=== PATIENT | female | born 1970 | race Caucasian/White ===

== ENCOUNTER 2018-06-10 07:05 | Observation (INO) | payer OTHER ==
[~2018-06-10] VITALS: Ht 175.3 cm; Wt 112.5 kg
--- NOTE | ~2018-06-10 | OR ---
[facility] [address], [place] [address] Draft DATE OF OPERATION: 06/10/2018 SURGEON: Saw Berumen DO PREOPERATIVE DIAGNOSIS: Stress urinary incontinence. POSTOPERATIVE DIAGNOSIS: Stress urinary incontinence. PROCEDURES PERFORMED: 1. Mid-urethral sling with Gynecare TVT Exact. 2. Cystoscopy. PULPER TENDER: Zaire Araiza MD. ANESTHESIA: General. ESTIMATED BLOOD LOSS: 75 mL. SPECIMENS: None. DRAINS: Warner to the bladder. FINDINGS: Normal urethra, normal bladder with bilateral ureteral jets and intact bladder dome noted. Optimal placement of the trocar noted on cystoscopy. Normal external genitalia otherwise. COMPLICATIONS: None. INDICATIONS: Ms. Carroll is a pleasant 48-year-old white female, who is undergoing total laparoscopic hysterectomy for abnormal uterine bleeding and dysmenorrhea. She also complains of PATIENT NAME: JUAN JOSE CARROLL OPERATIVE REPORT DATE OF : 72 REPORT #: [id number] PHYSICIAN: SAW BERUMEN DO PCP: TILA BAILON MD REPORT IS CONFIDENTIAL AND NOT TO BE RELEASED WITHOUT AUTHORIZATION [facility] [address], [place] [address] Draft stress urinary incontinence with no significant component of urgency, incontinence. She requested a mid-urethral sling after a detailed discussion of risks, benefits, and alternatives. Risks and benefits were discussed with the patient and the patient wishes to proceed with the procedure. DESCRIPTION OF PROCEDURE: The patient underwent total laparoscopic hysterectomy. Please see Dr. Araiza's operative note for details. The patient was prepped and draped in the dorsal lithotomy position. [facility] ICPs were on and running and no heparin was indicated. The patient did receive Ancef 2 g per skip protocol. After completion of the hysterectomy, attention was turned to the mid-urethral sling. A Warner catheter had been previously inserted. Exit points were marked just above the pubic symphysis, approximately 1.5 cm from the midline on either side. An 18-Hebrew Warner catheter was in place. Sterile saline was used to hydrodissect in the retropubic space, approximately 20 mL on either side. The bladder neck was palpated by pulling on the Warner catheter and palpating the balloon. An Allis clamp was placed approximately 1 cm distal to the urethral meatus and a 1.5 cm incision was made approximately 1 cm cephalad from the urethral meatus after infiltration with 0.25% Marcaine with epinephrine. The vaginal epithelium was carefully dissected using Metzenbaum scissors in between the vaginal epithelium and the urethra. Dissection was performed bluntly towards the ipsilateral shoulder to the level of the endopelvic fascia. The process was repeated on the right side without difficulty. The Gynecare TVT re-usable rigid catheter guide was then inserted through the Warner catheter into the bladder. The bladder was then deviated away from the patient's right side and cephalad. The Gynecare TVT Exact System was loaded and the tip of the catheter was inserted into the incision and advanced in the previously dissected space to the level of the endopelvic fascia. The endopelvic fascia was pierced. The surgeon's hand was dropped and the tip of the trocar was passed just along the posterior edge of the pubic symphysis and exited the skin at the previously marked site. The skin was nicked with a surgical scalpel and the trocar tip was passed through the skin. It was then clamped with hemostats and the process was repeated on the right side with careful attention to deviate the bladder away. Once the trocars were placed, the Warner catheter was removed and cystoscopy was performed. Cystoscope was placed in the urethral meatus and advanced under direct visualization in the bladder. Normal urethra was noted. Bilateral ureteral jets were then observed and intact bladder dome was noted. The trocars were manipulated and the optimal placement was noted bilaterally. The bladder was drained and the Warner catheter was reinserted. The sling was then positioned by pulling the trocars through the skin and careful attention was made to ensure that no tension was applied. The trocar sheaths were then cut and removed using hemostats and final tensioning was performed by placing a 90-degree angled clamp between the sling and the mid-urethra. Once it was ensured that there was no tension on the urethra, the mesh was cut at the skin edge. The dissection sites on either side were then made hemostatic with FloSeal and the vaginal epithelium PATIENT NAME: JUAN JOSE CARROLL OPERATIVE REPORT DATE OF : 72 REPORT #: [id number] PHYSICIAN: SAW BERUMEN DO PCP: TILA BAILON MD REPORT IS CONFIDENTIAL AND NOT TO BE RELEASED WITHOUT AUTHORIZATION [facility] [address], [place] [address] Draft repaired using 2-0 Vicryl in a running nonlocked manner. Good hemostasis was appreciated. The exit sites for the trocar at the skin were then repaired using 4-0 Monocryl. The Warner was left in place and the patient was taken to PACU in good and stable condition. Estimated blood loss was approximately 75 mL. Saw Berumen DO JDW/MODL /[id number] Copies: ~ PATIENT NAME: JUAN JOSE CARROLL OPERATIVE REPORT DATE OF : 72 REPORT #: [id number] PHYSICIAN: SAW BERUMEN DO PCP: TILA BAILON MD REPORT IS CONFIDENTIAL AND NOT TO BE RELEASED WITHOUT AUTHORIZATION
[~2018-06-10 07:05] MED LIST: BUPROPION HCL100 M1 PO; DEPLIN-ALGAL O1 EAC1 PO; DEXTROAMP-AMPHE20 MG PO; GLYCOTROL CAPS1 EACH PO; IBUPROFEN800 MG PO; L-ARGININE500 MG PO; LEVOTHYROXINE150 MCG PO; LIOTHYRONINE SO5 MCG PO; LOSARTAN POTASS50 MG PO; MIRALAX17 GM PO; NEURONTIN100 MG PO; NORCO 5-325 TA1 EACH PO; PANTOPRAZOLE SO40 MG PO; RESVERATROL 101 EACH PO; VITAMIN B122500 MC1 PO
--- NOTE | 2018-06-10 11:46 | NUR ---
06/10/18 1146 Vinita Lee 1135 PATIENT SLEEPING, AWAKENS WITH VERBAL STIMULI, THEN BACK TO SLEEP. SNORING RESPIRATIONS, IMPROVES WITH STIMULATION. MASK AT 6 LITERS, SATS 100%. 1140 PATIENT AWAKE OFF/ON, STATES SHE FEELS VERY TIRED. RESP EVEN AND UNLABORED, MASK OFF, ROOM AIR SATS 100%. PATIENT RATES PAIN AT 6/10, SLOW TO RESPOND TO QUESTIONS. THEN C/O NAUSEA. THEN BACK TO SLEEP.
--- NOTE | 2018-06-10 13:23 | NUR ---
PT RESTS COMFORTABLY WITH EYES CLOSED IN BED. ALERT AND ORIENTED. EASILY WAKES TO THIS RN. CRAIG DRAINING CLEAR YELLOW URINE. CALF SCDS IN PLACE AND TURNED ON. PERICARE COMPLETED. INCISIONS WNL. LR INFUSES ORDERED. AT THE BEDSIDE FOR SUPPORT. PT WITHOUT NEEDS AT THIS TIME. CALL LIGHT WITHIN REACH
--- NOTE | 2018-06-10 13:30 | NUR ---
THIS RN ASSUMES CARE OF PT. REPORT RECEIVED FROM ZAHRA AHN. PT AWAKENS TO SOUND. ASSESSMENT COMPLETE AND BENIGN. VSS. AAO X 3. 20 GAUGE IV L WRIST INTACT AND BENIGN. INFUSES LR AT 125 ML/HR PER ORDERS. LUNGS CLR X 4, HRR, BT ACTIVE X 4, ABD BANDAIDS AT SCOPE SITE CDI X 3. SCD'S IN PLACE AND FUNCTIONING. PT DENIES PAIN OR NAUSEA AT THIS TIME. ICE CHIPS PROVIDED. PT DESIRES TO REST. REMAINS AT PT BEDSIDE.
--- NOTE | 2018-06-10 14:30 | NUR ---
PT AWAKENS TO SOUND. VSS. RESTS COMFORTABLY WITH AT BEDSIDE. DENIES NEEDS.
--- NOTE | 2018-06-10 15:30 | NUR ---
AWAKENS TO SOUND. VSS. RESTS COMFORTABLY. DENIES NEEDS.
--- NOTE | 2018-06-10 16:30 | NUR ---
VSS. PT DANGLES AT SIDE OF BED WITH RN AT SIDE. UMBILICAL SCOPE SITE NOTED TO BE DRAINING BRIGHT RED BLOOD WITH 2 GOLF BAL SIZED SPOTS OF BRIGHT RED BLOOD ON GOWN. SITE REINFORCED WITH 2x2 GAUZE. GOWN AND PERIPAD CHANGED. PT C/O NAUSEA WHILE SITIING UP. DESIRES TO LAY SUPINE. PT BACK TO BED.
--- NOTE | 2018-06-10 16:45 | NUR ---
REPORT TO DR. LOPEZ BY TC. ORDERS RECEIVED TO APPLY PRESSURE DRESSING TO UMBILICAL SCOPE SITE. PRESSURE DRESSING APPLIED TO UMBILICAL SCOPE SITE PER DR. LOPEZ'S ORDERS.
--- NOTE | 2018-06-10 17:18 | NUR ---
3 MG MORPHINE GIVEN SIVP BY ZAHRA AHN FOR PT C/O ABD PAIN 11/10. IV SITE REMAINS INTACT AND BENIGN.
--- NOTE | 2018-06-10 18:00 | NUR ---
EATS BLAND REG DIET MEAL. TOLERATES WELL. DENIES NAUSEA. RATES LOP DECREASED /. DENIES NEEDS AT THIS TIME.
[2018-06-10] MEDS ORDERED: LOSARTAN POTAS100 MG PO (18:16)
[2018-06-10] MEDS ORDERED: PROAIR HFA8.5 GM INH (18:19)
[2018-06-10] MEDS ORDERED: DEXTROAMPHETAMI10 M1 PO (19:04)
[2018-06-10] MEDS ORDERED: LEVOTHYROXINE200 MCG PO (19:07)
[2018-06-10] MEDS ORDERED: VITAMIN B COMP1 EACH PO (19:08)
--- NOTE | 2018-06-10 19:09 | NUR ---
MED REC COMPLETE
--- NOTE | 2018-06-10 22:42 | NUR ---
PT C/O 5/10 INCISIONAL PAIN
--- NOTE | 2018-06-10 22:44 | NUR ---
IV INTACT NO SIGNS OF INFILTRATION
--- NOTE | 2018-06-11 00:46 | NUR ---
pt awake to nurse at bedside for vitals. I&O's done. Pt wakes and talks casually with nurse. Cranberry juice given at pt request. Pt to get more rest.
--- NOTE | 2018-06-11 02:16 | NUR ---
0200- scheduled 800mg ibuprophen administered. Pt up out of bed and ambulates around the room some. States she is tired og laying on her side and in the bed. Pt tolerates being up well.
--- NOTE | 2018-06-11 04:28 | NUR ---
0410- pt awake to IV alarming, New bag LR hung. Pt mostly sleepy, denies needs or c/o at this time.
--- NOTE | 2018-06-11 07:00 | NUR ---
0645- pt sleeps sound on her belly. Resp. normal. Left pt undisturbed. Report off to day shift.
--- NOTE | 2018-06-11 08:20 | NUR ---
MORNING ASSESSMENT. REG BREAKFAST ORDERED. POC DISCUSSED FOR DAY AND PT AGREEABLE.
--- NOTE | 2018-06-11 08:55 | OR ---
[facility] [address] [place], [place] [address] Signed DATE OF OPERATION: 06/10/2018 SURGEON: Zaire Araiza MD PREOPERATIVE DIAGNOSES: Excessive irregular menstruation, dysmenorrhea and stress urinary incontinence. POSTOPERATIVE DIAGNOSES: Excessive irregular menstruation, dysmenorrhea and stress urinary incontinence. PROCEDURE PERFORMED: Total laparoscopic hysterectomy with right salpingectomy plus TVT sling urethropexy and cystoscopy by Dr. Berumen. LEATHER SPLITTER: Dr. Berumen. ANESTHESIA: General. ESTIMATED BLOOD LOSS: 75 mL. SPECIMENS: Uterus, right fallopian tube. DRAINS: Warner to bladder. FINDINGS: Cervix normal. Uterus is normal size and shape. The anterior cul-de-sac was free of any endometriosis or adhesions. Posterior cul-de-sac was free of any endometriosis or adhesions. The left tube and ovary were absent. There were no adhesions on the left pelvic sidewall. The right tube was normal in length and normal-appearing fimbriated end and no adhesions. Right ovary is normal size and shape without any evidence of endometriosis or adhesions. Pelvis was free of any masses or adhesions. There was some urethral hypermobility noted vaginally and slight cystocele. COMPLICATIONS: None. Electronically Signed By: ZAIRE ARAIZA MD 06/11/18 0855 PATIENT NAME: JUAN JOSE CARROLL OPERATIVE REPORT DATE OF : 72 REPORT #: [id number] PHYSICIAN: ZAIRE ARAIZA MD PCP: TILA BAILON MD REPORT IS CONFIDENTIAL AND NOT TO BE RELEASED WITHOUT AUTHORIZATION [facility] [address], [place] [address] Signed DESCRIPTION: The patient was brought into the operating room and placed in the supine position. After adequate general anesthesia was obtained, she was placed in the dorsal lithotomy position, prepped and draped in usual sterile fashion. A Warner catheter was placed in the bladder. A weighted speculum was placed in the vagina and the anterior lip of the cervix was grasped with an Emilee clamp. The cervix was serially diated and then the JNJ Mobile-Care Uterine manipulator was inserted into the uterus. The balloon was filled with sterile water and then the cervical cap slid up against the cervix after removing the Emilee clamp and speculum. The vaginal cup was then placed against the cervical cap and tightened in place. Attention was then drawn to the abdomen. A small infraumbilical skin incision was made after injecting the area with 0.25% plain Marcaine. Subcutaneous tissue was dissected with Metzenbaum scissors and the fascia identified, grasped with hemostats, elevated, nicked with Metzenbaum scissors and extended in transverse fashion using Metzenbaum scissors. Retention stitches were placed in the fascia and then the peritoneum opened with finger dissection. S retractor was inserted into the incision and spun in 360-degree fashion showing no adhesions. The Emma cannula and sleeve were then entered the abdomen under direct visualization. The sleeve balloon was filled and the upper portion slid down against the abdomen to hold the sleeve in place. Trocar was removed and the laparoscope with video attachment entered the abdomen under direct visualization. Carbon dioxide was used as a distending medium. On the left side approximately 8-10 cm lateral to midline and just below the level of the umbilicus, the abdomen was transilluminated to avoid any vessels. Then after injecting the area with 0.25% Marcaine, a small skin incision was made and a bladed 5 mm trocar and sleeve entered the abdomen under direct visualization. The balloon at the end of the sleeve was filled and the trocar removed. Blunt grasper inserted. On the right side again, 8-10 cm lateral to the midline, the abdominal wall was transilluminated to avoid any vessels. The area injected with 0.25% Marcaine. Then, a small skin incision made with a scalpel. A Veress needle with expandable mesh was placed into the abdomen under direct visualization. The Veress needle was removed, and the expandable trocar and sleeve entered the abdomen through the sleeve and stretched open the fascia. The trocar was then removed. The above findings were noted. The LigaSure [place] bipolar cautery forceps were then brought in the operating field. The right fallopian tube was cauterized and cut along the length of the tube and then at the proximal portion, cut across the tube and the tube removed through the right port. The round ligament on the right side was then cauterized several places and cut using Isamar ligature and Electronically Signed By: ZAIRE ARAIZA MD 06/11/18 0855 PATIENT NAME: JUAN JOSE CARROLL OPERATIVE REPORT DATE OF : 72 REPORT #: [id number] PHYSICIAN: ZAIRE ARAIZA MD PCP: TILA BAILON MD REPORT IS CONFIDENTIAL AND NOT TO BE RELEASED WITHOUT AUTHORIZATION [address] [address] Signed utero-ovarian ligament cauterized in several places and also cut. The upper broad ligament was then cauterized and cut, and the anterior and posterior leaves of the broad ligament separately cauterized and cut down the side staying near the uterus and extending to the midline at the level of the cervical cap. The uterine vessels were then exposed. These were cauterized in several places and cut inside the cervical cap. The paracervical tissue was cauterized and cut down to the vaginal wall on the right side. The left round ligament was then cauterized and cut in several places using the LigaSure and the upper broad ligament cauterized and cut, and again the anterior and posterior leaves of the broad ligament cauterized and cut down the side of the uterus and connecting with the previous dissection. The anterior peritoneum was then bluntly pushed back to help elevate the bladder and the vessels exposed on the left side were cauterized and cut. The paracervical tissue was cauterized and cut inside the cervical cap down to the vaginal wall. At this point, the Sonicision was brought in the operating field and posterior cul-de-sac opened in the groove of the cervical cap and then dissection carried through the vaginal wall posterior to anterior to the midline on the left side in the groove and then posterior to anterior midline on the right side in the groove. This the cervix from the vaginal wall, so a blunt grasper was used to hold the cervix in the opening. Attention was then drawn back to the vagina. The VCare uterine manipulator was removed and the cervix seen in the vagina. This was then grasped with an Allis clamp and the cervix and uterus removed. A sponge-filled glove was placed in the vagina, so that the abdomen could be re-insufflated. With the abdomen re-insufflated, the pelvis was irrigated, suctioned, examined and noted to have good hemostasis. The vaginal cuff was then closed using barbed suture and the endo-stitch. Each stitch was placed posterior to anterior and each stitch was individually placed through the posterior vaginal wall and then the anterior vaginal wall. After the first stitch through the posterior vaginal wall, the barbed suture was placed through the loop in the end of the suture and tightened in place. The stitching was then continued from the right uterosacral ligament incorporating the angle to the left uterosacral ligament. With each pass, the suture was tightened to lock barbed suture in place. Upon reaching the left angle, the suture was taken back to the midline and several more superficial stitches and then the barbed suture cut right against the anterior vaginal wall. The entire pelvis was irrigated, suctioned and carefully examined and noted to have good hemostasis. The gas was allowed to escape. Pressure lowered and again good hemostasis was noted. At this point, all the gas was allowed to escape. All sleeves removed. The infraumbilical incision fascia was closed using two [id number] stitches of 0 Vicryl suture. The four skin incisions closed using subcuticular stitches of 4-0 Vicryl. The glove was removed from the vagina. Dr. Berumen then proceeded with the TVT sling. Please see his dictation for details. Electronically Signed By: ZAIRE ARAIZA MD 06/11/18 0855 PATIENT NAME: JUAN JOSE CARROLL OPERATIVE REPORT DATE OF : 72 REPORT #: [id number] PHYSICIAN: ZAIRE ARAIZA MD PCP: TILA BAILON MD REPORT IS CONFIDENTIAL AND NOT TO BE RELEASED WITHOUT AUTHORIZATION [address] [address] Signed The patient tolerated the procedure well and went to recovery room in good condition. The sponge, needle, and instrument counts were correct at the end of the procedure. Uterus and fallopian tube were sent to Pathology for identification. MD ROGELIO Hamilton/MODL /[id number] Copies: ~ Electronically Signed By: ZAIRE ARAIZA MD 06/11/18 0855 PATIENT NAME: JUAN JOSE CARROLL OPERATIVE REPORT DATE OF : 72 REPORT #: [id number] PHYSICIAN: ZAIRE ARAIZA MD PCP: TILA BAILON MD REPORT IS CONFIDENTIAL AND NOT TO BE RELEASED WITHOUT AUTHORIZATION
--- NOTE | 2018-06-11 09:30 | NUR ---
KIARA DC, TIP INTACT. DISCUSSED BLADDER TRAINING, PT STATES UNDERSTANDING. UP IN ROOM, RAFAELA WELL. REG BREAKFAST FINISHED, RAFAELA WELL AND TRAY CLEARED. PT UP TO SHOWER.
--- NOTE | 2018-06-11 10:00 | NUR ---
RAFAELA SHOWER WELL. UP IN ROOM. DENIES NEEDS.
--- NOTE | 2018-06-11 13:10 | NUR ---
BOOGIE DO UPDATED TO PT VOID TRIALS AND BLADDER SCANS WNL. DC ORDER.
== END 2018-06-11 13:35 | disposition home or self-care (01) ==
LOC: DS 07:05 → DSVR 07:05 → MS 07:05 → DSVR 07:05 → MS 09:00 → DS 11:49 → FBC 11:49 → DSVR 12:25 → FBC 12:25
PROVIDERS: Obstetrics & Gynecology; ADMIT General Practice
PROC: 0UT94ZZ Resection of Uterus, Percutaneous Endoscopic Approach (ICD-10-PCS; principal; 2018-06-10 09:00)
PROC: 0UT54ZZ Resection of Right Fallopian Tube, Percutaneous Endoscopic Approach (ICD-10-PCS; 2018-06-10 09:00)
PROC: 0TSD0ZZ Reposition Urethra, Open Approach (ICD-10-PCS; 2018-06-10 09:00)
DX: N92.1 Excessive and frequent menstruation with irregular cycle (principal); N94.6 Dysmenorrhea, unspecified; N72 Inflammatory disease of cervix uteri; N39.3 Stress incontinence (female) (male); E55.9 Vitamin D deficiency, unspecified; K21.9 Gastro-esophageal reflux disease without esophagitis; E03.9 Hypothyroidism, unspecified; I10 Essential (primary) hypertension; Q79.6 Ehlers-Danlos syndromes; F32.9 Major depressive disorder, single episode, unspecified; R60.9 Edema, unspecified; F41.1 Generalized anxiety disorder; J45.20 Mild intermittent asthma, uncomplicated; N88.8 Other specified noninflammatory disorders of cervix uteri; Z88.2 Allergy status to sulfonamides; Z88.8 Allergy status to other drugs, medicaments and biological substances; Z91.041 Radiographic dye allergy status; Z79.899 Other long term (current) drug therapy; Z87.891 Personal history of nicotine dependence
CPT/HCPCS: 00840; 96374; C1771; G0378; J0330; J0690; J1170; J1644; J1885; J2250; J2270; J2405; J2550; J2704; J3010; J3475; J7120

== ENCOUNTER 2019-03-27 23:28 | Emergency (ER) | payer OTHER ==
[~2019-03-27] VITALS: Ht 175.3 cm; Wt 112.5 kg
--- OUTSIDE RECORDS SUMMARY | ~2019-03-27 | XMS | Encounter Summary ---
Demographics + + + | Address | [address] | | | [place] [address] | + + + | Home Phone | | + + + | Preferred Language | Unknown | + + + | Marital Status | Single | + + + | Uatsdin Affiliation | 1013 | + + + | Race | Unknown | + + + | Ethnic Group | Unknown | + + + Author + + + | Author | [facility] | | | and Ezequielana | + + + | Organization | [facility] | | | and Ezequielana | + + + | Address | Unknown | + + + | Phone | Unavailable | + + + Support + + +---------+ + | Name | Relationship | Address | Phone | + + +---------+ + | Jose Jenkins | ECON | Unknown | | + + +---------+ + Care Team Providers + +------+ + | Care Director Of Optimization Name | Role | Phone | + +------+ + | Enzo Juarez DO | PCP | | + +------+ + Reason for Referral Evaluate & Treat (Routine) +--------+ + + + + + | Status | Reason | Specialty | Diagnoses / | Referred By | Referred To | | | | | Procedures | Contact | Contact | +--------+ + + + + + | Closed | Specialty | Physical | Diagnoses | Kathe | [facility] | | | Services | Therapy / | Myofascial | Taran | Pt Op [address] | | | Required | Rehabilitatio | muscle pain | MD [place] | [place] | | | | n | | [address] | [place] | | | | | Natalia-Danlo | [place] | [place] [address] | | | | | s syndrome | [place], | Phone: | | | | | type II | [place] [address] | [phone] | | | | | Lymphedema | Phone: | Fax: | | | | | | [phone] | [phone] | | | | | | Fax: | | | | | | | [phone] | | +--------+ + + + + + Insurance Referral (Routine) +--------+--------+ + + + + | Status | Reason | Specialty | Diagnoses / | Referred By | Referred To | | | | | Procedures | Contact | Contact | +--------+--------+ + + + + | Closed | | Orthotics | Diagnoses | Kathe, | Godwin, | | | | | Myofascial | Taran | Daquan Lopez, | | | | | muscle pain | MD [place] | [facility] [address] | | | | | | [address] | | | | | Natalia-Danlo | [place] | [place], | | | | | s syndrome | [place], | [place] [address] | | | | | type II | [place] [address] | Phone: | | | | | | Phone: | [phone] | | | | | | [phone] | Fax: | | | | | | Fax: | [phone] | | | | | | [phone] | | +--------+--------+ + + + + Reason for Visit + + + | Reason | Comments | + + + | Follow-up | F/U | + + + Encounter Details +--------+---------+ + + + | Date | Type | Department | Care Team | Description | +--------+---------+ + + + | 09/27/ | Office | [facility] | Taran Archuleta | Myofascial muscle | | 2015 | Visit | REHABILITATION | MD [address] | pain (Primary Dx); | | | | MEDICINE [address] | [place] | Natalia-Danlos | | | | [address] [place] | [place] [address] | syndrome type II; | | | | [place] [address] | [phone] | Lymphedema | | | | [phone] | | | +--------+---------+ + + + Social History + +-------+ +--------+------+ | Tobacco Use | Types | Packs/Day | Years | Date | | | | | Used | | + +-------+ +--------+------+ | Never Smoker | | | | | + +-------+ +--------+------+ + +---+---+---+ | Smokeless Tobacco: | | | | | Never Used | | | | + +---+---+---+ + + +---------+ + | Alcohol Use | Drinks/Week | oz/Week | Comments | + + +---------+ + | Yes | | | Social Drinker | + + +---------+ + + + + | Sex Assigned at | Date Recorded | | | | + + + | Not on file | | + + + + + + + | Job Start Date | Occupation | Industry | + + + + | Not on file | Not on file | Not on file | + + + + + + + + | Travel History | Travel Start | Travel End | + + + + + + | No recent travel history available. | + + documented as of this encounter Last Filed Vital Signs + + + + + | Vital Sign | Reading | Time Taken | Comments | + + + + + | Blood Pressure | 117/74 | 09/27/2014 2:30 PM | | | | | PDT | | + + + + + | Pulse | 77 | 09/27/2014 2:30 PM | | | | | PDT | | + + + + + | Temperature | - | - | | + + + + + | Respiratory Rate | 16 | 09/27/2014 2:30 PM | | | | | PDT | | + + + + + | Oxygen Saturation | - | - | | + + + + + | Inhaled Oxygen | - | - | | | Concentration | | | | + + + + + | Weight | 100.7 kg (222 lb) | 09/27/2014 2:30 PM | | | | | PDT | | + + + + + | Height | 174 cm (5' 8.5") | 09/27/2014 2:30 PM | | | | | PDT | | + + + + + | Body Mass Index | 33.26 | 09/27/2014 2:30 PM | | | | | PDT | | + + + + + documented in this encounter Patient Instructions Patient Instructions Taran Archuleta MD - 09/27/2014 3:22 PM PDT1. Continue PT, they will help obtain the neck traction unit and train you in its use. 2. I'll see you in 4 weeks.Electronically signed by Taran Archuleta MD at 015 3:22 PM PDT documented in this encounter Progress Notes Taran Archuleta MD - 09/27/2014 4:49 PM PDTI spent over 25 minutes, face to face with the patient, over half in education, counseling, reviewing the multiple notes since last visit The EMG, nerve conduction study from Dr. Olvera September 18, 2014 did not show any sign of p eripheral neuropathy. This was reviewed with the patient. Physical therapy note from September 18, 2014 indicated they're working with her neck and myofasc ial pain with generally good help. The over the door neck traction however worsened her hilary n, but the pneumatic neck traction unit helped significantly and the improvement remained fo r several days. Thus PT is recommending that minute and I wrote a prescription for it. The brain MRI from August 02, 2014 indicated no cranial nerve V abnormality. Dr. Frances's report indicated also that it is probably just due to her lymphedema and he will see her ba ck as needed. Still altered sensation in the face bilaterally, but neck is better with therapies and trac tion. Still some numbness in digits 4 and 5 bilaterally in the hands and in the toes also. Pain goes into the upper thoracic with occasional mid thoracic pain, back pain not severe Shoulders are better and she has a home exercise program that helps. Left hip also better but worse with increased edema Physical exam She is in no distress, her arm edema garments are in place Decreased sensation in digits 4 and 5 on the hands and feet, good strength at 5 minus over 5 in the upper or lower extremities She also has muscle spasm from the occiput down to about T6 Impression Neck myofascial syndrome: Better with pneumatic traction unit, so will prescribe, continue PT Face numbness and tingling: Brain MRI from August 02, 2014 unremarkable. Hand and foot numbness and tingling: Negative for peripheral neuropathy by nerve conduction study and EMG Lymphedema: Chronic and probably underlying most of her altered sensation problems given ot her etiologies have been ruled out. 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 and left hip subluxation: Improving with therapies and again related to her other disorders Plan I ordered the pneumatic cervical traction unit since she failed the over the door 1 Continued physical therapy Follow-up 1 month P M PDTdocumented in this encounter Plan of Treatment + + +--------+ + + | Name | Type | Priori | Associated Diagnoses | Order Schedule | | | | ty | | | + + +--------+ + + | DME (Generic), | Outpatient | Routin | Myofascial muscle | Ordered: 09/27/2014 | | External - AMB | Referral | e | pain Natalia-Danlos | | | Referral | | | syndrome type II | | + + +--------+ + + | * [facility] | Outpatient | Routin | Myofascial muscle | Ordered: 09/27/2014 | | Therapy - AMB | Referral | e | pain Natalia-Danlos | | | Referral | | | syndrome type II | | | | | | Lymphedema | | + + +--------+ + + documented as of this encounter Visit Diagnoses + + | Diagnosis | + + | Myofascial muscle pain - Primary Mylagia and myositis, unspecified | + + | Natalia-Danlos syndrome type II Natalia-Danlos syndrome | + + | Lymphedema Other lymphedema | + + documented in this encounter
--- OUTSIDE RECORDS SUMMARY | ~2019-03-27 | XMS | Encounter Summary ---
Demographics + + + | Address | [address] | | | [place] [address] | + + + | Home Phone | | + + + | Preferred Language | Unknown | + + + | Marital Status | Single | + + + | Advent Affiliation | 1013 | + + + | Race | Unknown | + + + | Ethnic Group | Unknown | + + + Author + + + | Author | [facility] | | | and Ezequielana | + + + | Organization | [facility] | | | and Ezequielana | [...] Team Providers + +------+ + | Care Humidifier Attendant Name | Role | Phone | + +------+ + | Enzo Juarez DO | PCP | | + +------+ + Reason for Referral Service/Procedure (Routine) +--------+ + + + + + | Status | Reason | Specialty | Diagnoses / | Referred By | Referred To | | | | | Procedures | Contact | Contact | +--------+ + + + + + | Closed | Specialty | Gastroenterol | Diagnoses | Allisno | Allison, | | | Services | ogy | Internal | MD Jose | MD Jose | | | Required | | hemorrhoids | [address] | [address] | | | | | without | BLVD | [place] | | | | | mention of | [place] | [place] [address] | | | | | complication | [address] | Phone: | | | | | Hemorrhage | Phone: | [phone] | | | | | of rectum | [phone] | Fax: | | | | | and anus | Fax: | [phone] | | | | | Procedures | [phone] | | | | | | [place] | | | | | | | HEMORRHOIDEC | | | | | | | DIEGO | | | | | | | INTERNAL | | | | | | | RUBBER BAND | | | | | | | LIGATIONS | | | | | | | IA ANOSCOPY | | | | | | | DX W/COLLJ | | | | | | | SPEC BR/WA | | | | | | | SPX WHEN | | | | | | | PRFRMD IA | | | | | | | PROCTOSIGMOI | | | | | | | DOSCOPY,RIGI | | | | | | | D,DIAGNOS | | | | | | | IA OFFICE | | | | | | | OUTPATIENT | | | | | | | VISIT 10 | | | | | | | MINUTES [place] | | | | | | | OFFICE | | | | | | | OUTPATIENT | | | | | | | VISIT 15 | | | | | | | MINUTES | | | +--------+ + + + + + Reason for Visit + + + | Reason | Comments | + + + | Appointment | | + + + Encounter Details +--------+ + + + + | Date | Type | Department | Care Team | Description | +--------+ + + + + | 11/23/ | Telephone | [facility] | Jose Cooper MD | Appointment | | 2014 | | GASTROENTEROLOGY | [address] [facility] | | | | | [address] [facility] | [place], [place] | | | | | [address] [place], [place] | [address] | | | | | [address] | [phone] | | | | | [phone] | | | +--------+ + + + + Social History + +-------+ [...] + + documented as of this encounter Plan of Treatment + + +--------+ + + | Name | Type | Priori | Associated Diagnoses | Order Schedule | | | | ty | | | + + +--------+ + + | * [facility] [place] | Outpatient | Routin | Internal | Expected: | | Gastroenterology - | Referral | e | hemorrhoids without | 11/30/2014, Expires: | | Hemorrhoid Ligation | | | mention of | 11/23/2015 | | | | | complication | | | | | | Hemorrhage of rectum | | | | | | and anus | | + + +--------+ + + documented as of this encounter Visit Diagnoses + + | Diagnosis | + + | Internal hemorrhoids without mention of complication - Primary | + + | Hemorrhage of rectum and anus | + + documented in this encounter"
--- OUTSIDE RECORDS SUMMARY | ~2019-03-27 | XMS | Encounter Summary ---
Demographics + + + | Address | [address] | | | [place] [address] | + + + | Home Phone | | + + + | Preferred Language | Unknown | + + + | Marital Status | Single | + + + | Mu-Ism Affiliation | 1013 | + + + | Race | Unknown | + + + | Ethnic Group | Unknown | + + + Author + + + | Author | [facility] | | | and Ezequielana | + + + | Organization | [facility] | | | and Ezequielana | [...] Team Providers + +------+ + | Care Ventilating Equipment Installer Name | Role | Phone | + +------+ + | Enzo Juarez DO | PCP | | + +------+ + Reason for Visit + + + | Reason | Comments | + + + | Therapy Daily | | | Treatment | | + + + Evaluate & Treat (Routine) +--------+ + + + + + | Status | Reason | Specialty | Diagnoses / | Referred By | Referred To | | | | | Procedures | Contact | Contact | +--------+ + + + + + | Closed | Specialty | Physical | Diagnoses | Kathe, | [facility] | | | Services | Therapy / | Anterior | Taran | Pt Op [address] | | | Required | Rehabilitatio | subluxation | MD [place] | [place] | | | | n | of left | [address] | [place], | | | | | shoulder, | [place] | [place] [address] | | | | | initial | [place], | Phone: | | | | | encounter | [place] [address] | [phone] | | | | | Left hip | Phone: | Fax: | | | | | subluxation, | [phone] | [phone] | | | | | initial | Fax: | | | | | | encounter | [phone] | | | | | | (HCC) | | | | | | | Natalia-Danlo | | | | | | | s syndrome | | | | | | | type III | | | | | | | Myofascial | | | | | | | pain 831.01 | | | | | | | (ICD-9-CM) | | | | | | | - Anterior | | | | | | | subluxation | | | | | | | of left | | | | | | | shoulder, | | | | | | | initial | | | | | | | encounter | | | | | | | Procedures | | | | | | | pt eval | | | +--------+ + + + + + Encounter Details +--------+---------+ + + + | Date | Type | Department | Care Team | Description | +--------+---------+ + + + | 09/11/ | [facility] | [facility] | Taran Archuleta | Hip pain, bilateral | | 2015 | Visit | MED CTR THERAPY PT | MD [address] [address] | (Primary Dx); | | | | OP [address] [place] | [place] | Chronic neck and | | | | [place], [place] | [place] [address] | back pain | | | | [address] | [phone] | | | | | [phone] | | | | | | | Trina Hargrove B, PT | | | | | | [address] | | | | | | [place] | | | | | | [address] | | | | | | | | +--------+---------+ + + + [...] + + documented as of this encounter Progress Notes Trina Garibay, PT - 09/11/2014 2:01 PM PDTFormatting of this note might be different from t rocío original. [facility] CTR THERAPY PT OP [address] [place] [address] Physical Therapy Daily Treatment Note Date: 09/11/2014 Patient Information Patient Name: Zuleyma Jenkins Date of : 1970 Age: 44 y.o. Encounter Diagnoses Code Name Primary? 719.45 Hip pain, bilateral Yes 723.1, 724.5 Chronic neck and back pain Date of Onset: Referring Provider: Taran Archuleta MD Rehab Precautions Office Visit from 10/24/2013 in [facility] CTR THERAPY OT OP Rehab Precautions Precautions Comments Lipedema Start Time: 1400 Stop time: 1445 Duration: 45 minutes Timed Treatment Codes: 45 minutes # of PT Visits to Date: 6 Subjective: pt reports overall her neck pain has not improved but has noticed decreased fat igue and overall feeling better. So might be over doing it and causing her neck to hurt more . Pt also reports intermittent numbness in bilateral thumbs but goes away when she changes p ositions. Pain Assessment Pain Rating Pre Assessment: 4 Pain Rating Post Assessment: 3 Location: neck Objective: Manual Therapy: Suboccipital release and trigger point release Exercise/Activity 07/05/14 07/11/14 08/02/14 08/04/14 TrA activation Throughout all ex. Throughout all ex. Hooklying: iso hip add 2x20 2x20 hooklying alt. Leg lift 2x20 2x20 Supine: shoulder hamilton stab. 2x10 each 2x10 each Supine: shoulder. Iso. Stab. 3x1 min. each Supine:Iso. Scap. 0-30-60 deg 1x10 each 1x10 each Supine: upper c-spine retraction 2x10, 3 sec hold Modalities: Trial of pneumatic cervical traction unit: Adjusted fit of traction unit; pt had initially reported feelings of "icy-hot" in upper tra ps/neck and N/T in thumbs. Found position of comfort to be with mat table elevated approx. 1 5 deg., used folded pillow case under head and set in widest position (5cm); And on/off time for 4 min/2min 8-10#/0#. 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 Plan:Cont with posterior chain strengthening and cervical traction/manual treatment as need ed; CGT with Electronically signed by: Trina Garibay PT, 09/11/2014 16:40 Patient Name: Zuleyma Jenkins/: 1970/ documented in this enc nter Plan of Treatment Not on filedocumented as of this encounter Visit Diagnoses + + | Diagnosis | + + | Hip pain, bilateral - Primary Pain in joint, pelvic region and thigh | + + | Chronic neck and back pain | + + documented in this encounter
--- OUTSIDE RECORDS SUMMARY | ~2019-03-27 | XMS | Encounter Summary ---
Demographics + + + | Address | [address] | | | [place] [address] | + + + | Home Phone | | + + + | Preferred Language | Unknown | + + + | Marital Status | Single | + + + | Lutheran Affiliation | 1013 | + + + | Race | Unknown | + + + | Ethnic Group | Unknown | + + + Author + + + | Author | [facility] | | | and Ezequielana | + + + | Organization | [facility] | | | and Ezequielana | [...] Team Providers + +------+ + | Care Lung Puller Name | Role | Phone | + [...] Rehabilitatio | subluxation | MD [place] | [place] | | | | n | of left | [address] | [place], | | | | | shoulder, | [place] | [place] [address] | | | | | initial | [place], | Phone: | | | | | encounter | [place] [address] | [phone] | | | | | Left hip | Phone: | Fax: | | | | | subluxation, | [phone] | [phone] | | | | | initial | Fax: | | | | | | encounter | [phone] | | | | | | (HCC) [...] + + | 09/27/ | [facility] | [facility] | Taran Archuleta | Hip pain, bilateral | | 2015 | Visit | MED CTR THERAPY PT | [address] | (Primary Dx); | | | | OP [address] [place] | [place] | Chronic neck and | | | | [place], [place] | [place] [address] | back pain | | | | [address] | [phone] | | | | | [phone] | | | | | | | Trina Hargrove B, PT | | | | | | [address] | | | | | | [place] | | | | | | [address] | | | | | | | [...] encounter Progress Notes Trina Garibay, PT - 09/27/2014 11:23 AM PDTFormatting of this note might be different from t rocío original. [facility] CTR THERAPY PT OP [address] [place] [address] Physical Therapy Daily Treatment Note Date: 09/27/2014 Patient Information Patient Name: Zuleyma Jenkins Date of : 1970 Age: 44 y.o. Encounter Diagnoses Code Name Primary? 719.45 Hip pain, bilateral Yes 723.1, 724.5 Chronic neck and back pain Date of Onset: Referring Provider: Taran Archuleta MD Rehab Precautions Office Visit from 10/24/2013 in [facility] CTR THERAPY OT OP Rehab Precautions Precautions Comments Lipedema Start Time: 1115 Stop time: 1200 Duration: 45 minutes Timed Treatment Codes: 45 minutes # of PT Visits to Date: 8 Subjective: pt reports that she is more painful today and has been really busy and was not wearing her garments as much as she usually does and reports that she is generally more pain ful when she doesn't wear her garments. Pain Assessment Pain Scale Used: NUMERIC Pain Rating Pre Assessment: 6 Pain Rating Post Assessment: 0 Location: neck, upper traps Objective: Manual Therapy: Suboccipital release, gentle manual cervical tracion and trigger point rel ease to upper trap. Exercise/Activity 07/05/14 07/11/14 08/02/14 08/04/14 09/27/14 TrA activation Throughout all ex. Throughout all ex. throughout Hooklying: iso hip add 2x20 2x20 2x20 hooklying alt. Leg lift 2x20 2x20 2x20 Supine: shoulder elem stab. 2x10 each 2x10 each Supine: shoulder. Iso. Stab. 3x1 min. each Supine:Iso. Scap. 0-30-60 deg 1x10 each 1x10 each Supine: upper c-spine retraction 2x10, 3 sec hold Small ball release x Assessment: Pt tolerated there ex well and reported decreased pain after manual treatment a nd ex. Plan:Review goals, HEP and DC Electronically signed by: Trina Garibay PT, 09/27/2014 12:35 Patient Name: Zuleyma Jenkins/: 1970/ documented in this encou nter Plan of Treatment Not on filedocumented as of this encounter Visit Diagnoses + + | Diagnosis | + + | Hip pain, bilateral - Primary Pain in joint, pelvic region and thigh | + + | Chronic neck and back pain | + + documented in this encounter"
--- OUTSIDE RECORDS SUMMARY | ~2019-03-27 | XMS | Encounter Summary ---
Demographics + + + | Address | [address] | | | [place] [address] | + + + | Home Phone | | + + + | Preferred Language | Unknown | + + + | Marital Status | Single | + + + | Scientologist Affiliation | 1013 | + + + | Race | Unknown | + + + | Ethnic Group | Unknown | + + + Author + + + | Author | [facility] | | | and Ezequielana | + + + | Organization | [facility] | | | and Ezequielana [...] Team Providers + +------+ + | Care Block Captain Name | Role | Phone | + [...] | +--------+ + + + + | 12/21/ | Telephone | [facility] | Taran Archuleta | Appointment | | 2013 | | REHABILITATION | [address] | | | | | MEDICINE [address] | [place] | | | | | [address] [place] | [place] [address] | | | | | [place] [address] | [phone] | | | | | [phone] | | | +--------+ + + + [...] as of this encounter Plan of Treatment Not on filedocumented as of this encounter Visit Diagnoses Not on filedocumented in this encounter"
--- OUTSIDE RECORDS SUMMARY | ~2019-03-27 | XMS | Encounter Summary ---
Demographics + + + | Address | [address] | | | [place] [address] | + + + | Home Phone | | + + + | Preferred Language | Unknown | + + + | Marital Status | Single | + + + | Shinto Affiliation | 1013 | + + + | Race | Unknown | + + + | Ethnic Group | Unknown | + + + Author + + + | Author | [facility] | | | and Ezequielana | + + + | Organization | [facility] | | | and Ezequielana | [...] Team Providers + +------+ + | Care Ems Educator Name | Role | Phone | + [...] Rehabilitatio | subluxation | MD [place] | [place] | | | | n | of left | [address] | [place], | | | | | shoulder, | [place] | [place] [address] | | | | | initial | [place], | Phone: | | | | | encounter | [place] [address] | [phone] | | | | | Left hip | Phone: | Fax: | | | | | subluxation, | [phone] | [phone] | | | | | initial | Fax: | | | | | | encounter | [phone] | | | | | | (HCC) [...] Description | +--------+---------+ + + + | 10/11/ | [facility] | [facility] | Taran Archuleta | Chronic neck and | | 2014 | Visit | MED CTR THERAPY PT | [address] | back pain (Primary | | | | OP [address] | [place] | Dx); Hip pain, | | | | [place] | [place] [address] | bilateral | | | | [address] | [phone] | | | | | [phone] | | | | | | | Trina Hargrove B, PT | | | | | | [address] | | | | | | [place] | | | | | | [address] | | | | | | | [...] encounter Progress Notes Trina Garibay, PT - 10/11/2014 1:57 PM PDTFormatting of this note might be different from faye alford original. [facility] CTR THERAPY PT OP [address] [place] [address] Physical Therapy Daily Treatment Note Date: 10/11/2014 Patient Information Patient Name: Zuleyma Jenkins Date of : 1970 Age: 44 y.o. Encounter Diagnoses Code Name Primary? 723.1, 724.5 Chronic neck and back pain Yes 719.45 Hip pain, bilateral Date of Onset: Referring Provider: Taran Archuleta MD Rehab Precautions Office Visit from 10/24/2013 in [facility] CTR THERAPY OT OP Rehab Precautions Precautions Comments Lipedema Start Time: 1345 Stop time: 1430 Duration: 45 minutes Timed Treatment Codes: 45 minutes # of PT Visits to Date: 10 Subjective: pt reports that she continues to have good and bad days. Pain Assessment Pain Scale Used: NUMERIC Pain Rating Pre Assessment: 6 Location: neck, upper traps. Objective: Manual Therapy: Suboccipital release and trigger point release to upper-mid traps Modalities: Received [employer] cervical traction unit and order from Dr. Archuleta: initiated p atient training and adjusted fit of traction unit. Instructed pt with on/off time for 4 min./2 min with 8-10#/0# Assessment: Pt tolerated pneumatic supine cervical traction unit well with good symptom red uction and demonstrated safe use and understanding of progression. Plan: pt will schedule appointments as needed. Electronically signed by: Trina Garibay PT, 10/11/2014 15:20 Patient Name: Zuleyma Jenkins/: 1970/ documented in this encou nter Plan of Treatment Not on filedocumented as of this encounter Visit Diagnoses + + | Diagnosis | + + | Chronic neck and back pain - Primary | + + | Hip pain, bilateral Pain in joint, pelvic region and thigh | + + documented in this encounter"
--- OUTSIDE RECORDS SUMMARY | ~2019-03-27 | XMS | Encounter Summary ---
Demographics + + + | Address | [address] | | | [place] [address] | + + + | Home Phone | | + + + | Preferred Language | Unknown | + + + | Marital Status | Single | + + + | Muslim Affiliation | 1013 | + + + | Race | Unknown | + + + | Ethnic Group | Unknown | + + + Author + + + | Author | [facility] | | | and Ezequielana | + + + | Organization | [facility] | | | and Ezequielana [...] Team Providers + +------+ + | Care Installment Loan Collector Name | Role | Phone | + +------+ + | Enzo Juarez DO | PCP | | + +------+ + Reason for Visit + + + | Reason | Comments | + + + | Numbness | bilateral hand numbness | + + + Service/Procedure (Routine) +--------+ + + + + + | Status | Reason | Specialty | Diagnoses / | Referred By | Referred To | | | | | Procedures | Contact | Contact | +--------+ + + + + + | Closed | Specialty | Physical | Diagnoses | | [place], | | | Services | Medicine and | Disturbance | May, | Celestino Salter MD | | | Required | Rehabilitatio | of skin | Celestino Salter MD | [address] | | | | n | sensation | [address] | [address] [place] | | | | | Peripheral | [place] | [place], [place] | | | | | neuropathy | [place], [place] | [address] Phone: | | | | | Procedures | [address] | [phone] | | | | | [place] | Phone: | Fax: | | | | | &/SENS 1-2 | [phone] | [phone] | | | | | NRV CNDJ | Fax: | | | | | | PRECONF | [phone] | | | | | | [place]TRODE [place]B | | | | | | | | | | | | | | EMG/NCS-BUE | | | | | | | hand | | | | | | | numbness | | | | | | | peripheral | | | | | | | neuropathy | | | | | | | referred by | | | | | | | Dr. Archuleta | | | +--------+ + + + + + Encounter Details +--------+ + + + + | Date | Type | Department | Care Team | Description | +--------+ + + + + | 09/11/ | Procedure | [facility] | Celestino Olvera | Paresthesias | | 2015 | visit | PHYSIATRY [address] | [address], [address] | (Primary Dx) | | | | [place], | [place] | | | | | [place] [address] | [address] | | | | | [phone] | | | +--------+ + + + [...] + + + | Blood Pressure | - | - | | + + + + + | Pulse | - | - | | + + + + + | Temperature | - | - | | + + + + + | Respiratory Rate | - | - | | + + + + + | Oxygen Saturation | - | - | | + + + + + | Inhaled Oxygen | - | - | | | Concentration | | | | + + + + + | Weight | 100.7 kg (222 lb) | 09/11/2014 11:14 AM | | | | | PDT | | + + + + + | Height | 174 cm (5' 8.5") | 09/11/2014 11:14 AM | | | | | PDT | | + + + + + | Body Mass Index | 33.26 | 09/11/2014 11:14 AM | | | | | PDT | | + + + + + documented in this encounter Progress Notes Celestino Olvera MD - 09/11/2014 12:28 PM PDT [facility] Mus[facility] Sports [facility] Spine, Physiatry [address] [address] Test Date: 09/11/2014 Patient Name: Zuleyma Jenkins : 1970 Physician: Celestino Olvera MD MR #: [id number] Sex: Female Referring Physician: Nicolas Archuleta MD HISTORY: The patient is a pleasant 44 year-old female who is being seen today at the [facility] of Dr. [place] Archuleta for complaints of bilateral upper extremity and lower extremity nu mbness. Per Dr. Archuleta's note the study today is to evaluate for peripheral neuropathy. I t appears that we are starting with the upper extremities today and we will be seeing her fo r lower extremity studies next week. The patient reports that the numbness has been present since 2010. 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 She states that the numbn ess started around the same time she was diagnosed with the lipedema. She does also report facial numbness. She denies any history of diabetes, cancer, alcohol abuse. She does repor t hypothyroidism. She also reports a history of vitamin D and vitamin B deficiency. Nerve Conduction Studies Anti Sensory Summary Table Site NR Peak (ms) Norm Peak (ms) P-T Amp (V) Norm P-T Amp Site1 Site2 Delta-P (ms) Dist (cm) Peter (m/s) Norm Peter (m/s) Left Radial Anti Sensory (Base 1st Digit) Wrist 2.5 <3.1 51.6 Wrist Base 1st Digit 2.5 10.0 40 Right Radial Anti Sensory (Base 1st Digit) Wrist 2.9 <3.1 45.7 Wrist Base 1st Digit 2.9 10.0 34 Motor Summary Table Site NR Onset (ms) Norm Onset (ms) O-P Amp (mV) Norm O-P Amp Site1 Site2 Delta-0 (ms) Dist (cm) Peter (m/s) Norm Peter (m/s) Left Median Motor (Abd Poll Brev) Wrist 3.8 <4.2 10.2 >5 Elbow Wrist 3.8 20.0 53 >50 Elbow 7.6 8.3 Right Median Motor (Abd Poll Brev) Wrist 3.8 <4.2 8.1 >5 Elbow Wrist 3.9 20.0 51 >50 Elbow 7.7 7.7 Left Ulnar Motor (Abd Dig Minimi) Wrist 3.4 <4.2 13.1 >3 B Elbow Wrist 3.6 20.0 56 >53 B Elbow 7.0 11.8 A Elbow B Elbow 1.9 10.0 53 >53 A Elbow 8.9 11.6 Right Ulnar Motor (Abd Dig Minimi) Wrist 3.8 <4.2 10.5 >3 B Elbow Wrist 3.6 20.0 56 >53 B Elbow 7.4 10.9 A Elbow B Elbow 1.9 10.0 53 >53 A Elbow 9.3 10.8 Comparison Summary Table Site NR Peak (ms) Norm Peak (ms) P-T Amp (V) Site1 Site2 Delta-P (ms) Norm Delta (ms) Left Median/Ulnar Palm Comparison (Wrist - 8cm) Median Palm 2.0 <2.2 148.5 Median Palm Ulnar Palm 0.1 <0.3 Ulnar Palm 2.1 <2.2 23.7 Right Median/Ulnar Palm Comparison (Wrist - 8cm) Median Palm 2.1 <2.2 114.8 Median Palm Ulnar Palm 0.1 <0.3 Ulnar Palm 2.0 <2.2 41.9 EMG Side Muscle Nerve Root Ins Act Fibs Psw Amp Dur Poly Recrt Int Pat Comment Left Deltoid Axillary C5-6 Nml Nml Nml Nml Nml 0 Nml Nml Left Biceps Musculocut C5-6 Nml Nml Nml Nml Nml 0 Nml Nml Left Triceps Radial C6-7-8 Nml Nml Nml Nml Nml 0 Nml Nml Left PronatorTeres Median C6-7 Nml Nml Nml Nml Nml 0 Nml Nml Left 1stDorInt Ulnar C8-T1 Nml Nml Nml Nml Nml 0 Nml Nml Right Deltoid Axillary C5-6 Nml Nml Nml Nml Nml 0 Nml Nml Right Biceps Musculocut C5-6 Nml Nml Nml Nml Nml 0 Nml Nml Right Triceps Radial C6-7-8 Nml Nml Nml Nml Nml 0 Nml Nml Right PronatorTeres Median C6-7 Nml Nml Nml Nml Nml 0 Nml Nml Right 1stDorInt Ulnar C8-T1 Nml Nml Nml Nml Nml 0 Nml Nml Nerve Conduction Studies Motor Left/Right Comparison Site L Lat (ms) R Lat (ms) L-R Lat (ms) L Amp (mV) R Amp (mV) L-R Amp (%) Site1 Site2 L Ve l (m/s) R Peter (m/s) L-R Peter (m/s) Median Motor (Abd Poll Brev) Wrist 3.8 3.8 0.0 10.2 8.1 20.6 Elbow Wrist 53 51 2 Elbow 7.6 7.7 0.1 8.3 7.7 7.2 Ulnar Motor (Abd Dig Minimi) Wrist 3.4 3.8 0.4 13.1 10.5 19.8 B Elbow Wrist 56 56 0 B Elbow 7.0 7.4 0.4 11.8 10.9 7.6 A Elbow B Elbow 53 53 0 A Elbow 8.9 9.3 0.4 11.6 10.8 6.9 Anti Sensory Left/Right Comparison Site L Lat (ms) R Lat (ms) L-R Lat (ms) L Amp (V) R Amp (V) L-R Amp (%) Site1 Site2 L Peter (m/s) R Peter (m/s) L-R Peter (m/s) Radial Anti Sensory (Base 1st Digit) Wrist 2.5 2.9 0.4 51.6 45.7 11.4 Wrist Base 1st Digit 40 34 6 Comparison Left/Right Comparison Site L Lat (ms) R Lat (ms) L-R Lat (ms) L Amp (V) R Amp (V) L-R Amp (%) Median/Ulnar Palm Comparison (Wrist - 8cm) Median Palm 2.0 2.1 0.1 148.5 114.8 22.7 Ulnar Palm 2.1 2.0 0.1 23.7 41.9 43.4 NCV FINDINGS: All nerve conduction studies (as indicated in the preceding tables) were within normal limi ts. EMG FINDINGS: All examined muscles (as indicated in the preceding table) showed no evidence of electrical instability. IMPRESSION: EMG and nerve conduction studies of the bilateral upper extremities were within normal limi ts. Specifically, there was no evidence of median neuropathy, ulnar neuropathy, cervical radicu lopathy, peripheral neuropathy or brachial plexopathy. The patient will be seen for additional evaluation of the lower extremities for further wor k-up at a later date. Thank you for allowing me to perform neurodiagnostic testing on your patient. If you have a ny further questions or comments, please do not hesitate to call. Celestino Olvera MD Fellow, [employer]. documented in this encounter Plan of Treatment Not on filedocumented as of this encounter Visit Diagnoses + + | Diagnosis | + + | Paresthesias - Primary Disturbance of skin sensation | + + documented in this encounter
--- OUTSIDE RECORDS SUMMARY | ~2019-03-27 | XMS | Encounter Summary ---
Demographics + + + | Address | [address] | | | [place] [address] | + + + | Home Phone | | + + + | Preferred Language | Unknown | + + + | Marital Status | Single | + + + | Zoroastrian Affiliation | 1013 | + + + | Race | Unknown | + + + | Ethnic Group | Unknown | + + + Author + + + | Author | [facility] | | | and Ezequielana | + + + | Organization | [facility] | | | and Ezequielana [...] Team Providers + +------+ + | Care Epic Ambulatory Analysts Name | Role | Phone | + +------+ + | Enzo Juarez DO | PCP | | + +------+ + Encounter Details +--------+ + + + + | Date | Type | Department | Care Team | Description | +--------+ + + + + | 09/20/ | Documentati | [facility] | Trina Hargrove, | | | 2014 | on | MED CTR THERAPY PT | PT [address] | | | | | OP [address] | [place] | | | | | [place] | [id number] | | | | | [address] | | | | | | [phone] | | | +--------+ + + + [...] encounter Progress Notes Trina Garibay, PT - 09/20/2014 9:[facility] OP [address] [place] [address] Cancellation/No Show Date: 09/20/2014 Patient Information Patient Name: Zuleyma Jenkins Date of : 1970 Age: 44 y.o. Reason for missed visit: Pt called and left a message to cancel appointment; no reason give n. Phone call placed: no Plan: Cont with POC Electronically signed by: Trina Garibay PT, 09/20/2014 9:04 Patient Name: Zuleyma Jenkins/: 1970/ documented in this encou nter Plan of Treatment Not on filedocumented as of this encounter Visit Diagnoses Not on filedocumented in this encounter"
--- OUTSIDE RECORDS SUMMARY | ~2019-03-27 | XMS | Encounter Summary ---
Demographics + + + | Address | [address] | | | [place] [address] | + + + | Home Phone | | + + + | Preferred Language | Unknown | + + + | Marital Status | Single | + + + | Faith Affiliation | 1013 | + + + | Race | Unknown | + + + | Ethnic Group | Unknown | + + + Author + + + | Author | [facility] | | | and Ezequielana | + + + | Organization | [facility] | | | and [...] Team Providers + +------+ + | Care Short Order Fry Cook Name | Role | Phone | + +------+ + | Enzo Juarez DO | PCP | | + +------+ + Reason for Visit +--------+ + | Reason | Comments | +--------+ + | Other | hemorrhoid banding | +--------+ + Service/Procedure (Routine) +--------+ + + + + + | Status | Reason | Specialty | Diagnoses / | Referred By | Referred To | | | | | Procedures | Contact | Contact | +--------+ + + + + + | Closed | Specialty | Gastroenterol | Diagnoses | Allison, | Allison, | | | Services | ogy | Internal | MD Jose | MD Jose | | | Required | | hemorrhoids | [address] | [address] | | | | | without | BLVD | [facility], | | | | | mention of | [place], [place] | [place] [address] | | | | | complication | [address] | Phone: | | | | | Hemorrhage | Phone: | [phone] | | | | | of rectum | [phone] | Fax: | | | | | and anus | Fax: | [phone] | | | | | Procedures | [phone] | | | | | | SC | | | | | | | HEMORRHOIDEC | | | | | | | DIEGO | | | | | | | INTERNAL | | | | | | | RUBBER BAND | | | | | | | LIGATIONS | | | | | | | SC ANOSCOPY | | | | | | | DX W/COLLJ | | | | | | | SPEC BR/WA | | | | | | | SPX WHEN | | | | | | | PRFRMD SC | | | | | | | PROCTOSIGMOI | | | | | | | DOSCOPY,RIGI | | | | | | | D,DIAGNOS | | | | | | | SC OFFICE | | | | | | | OUTPATIENT | | | | | | | VISIT 10 | | | | | | | MINUTES SC | | | | | | | [...] Description | +--------+---------+ + + + | 02/22/ | Office | [facility] | Jose Cooper MD | Hemorrhage of rectum | | 2015 | Visit | GASTROENTEROLOGY | [address] | and anus (Primary | | | | [address] [place] | [place], [place] | Dx); Internal | | | | [address] [place], [place] | [address] | hemorrhoids | | | | [address] | [phone] | | | | | [phone] | | | +--------+---------+ + + + [...] +---------+ + | Yes | | | Occasionally | + + +---------+ + + + [...] + + + | Blood Pressure | 134/72 | 02/22/2015 4:08 PM | | | | | PDT | | + + + + + | Pulse | 84 | 02/22/2015 4:08 PM | | | | | PDT | | + + + + + | Temperature | 36.9 C (98.4 F) | 02/22/2015 4:08 PM | | | | | PDT | | + + + + + | Respiratory Rate | 16 | 02/22/2015 4:08 PM | | | | | PDT | | + + + + + | Oxygen Saturation | 97% | 02/22/2015 4:08 PM | | | | | PDT | | + + + + + | Inhaled Oxygen | - | - | | | Concentration | | | | + + + + + | Weight | 106.6 kg (235 lb) | 02/22/2015 4:08 PM | | | | | PDT | | + + + + + | Height | - | - | | + + + + + | Body Mass Index | 35.21 | 10/30/2014 1:28 PM | | | | | PDT | | + + + + + documented in this encounter Progress Notes Jose Cooper MD - 02/22/2015 6:23 PM PDT Subjective: Patient ID: Zuleyma Jenkins is a 45 y.o. female. HPI This office note has been dictated. Review of Systems Objective: Physical Exam Assessment: This office note has been dictated. Plan: This office note has been dictated. documented in this enc ounter Plan of Treatment Not on filedocumented as of this encounter Visit Diagnoses + + | Diagnosis | + + | Hemorrhage of rectum and anus - Primary | + + | Internal hemorrhoids Internal hemorrhoids without mention of complication | + + documented in this encounter"
--- OUTSIDE RECORDS SUMMARY | ~2019-03-27 | XMS | Encounter Summary ---
Demographics + + + | Address | [address] | | | [place] [address] | + + + | Home Phone | | + + + | Preferred Language | Unknown | + + + | Marital Status | Single | + + + | Faith Affiliation | 1013 | + + + | Race | Unknown | + + + | Ethnic Group | Unknown | + + + Author + + + | Author | [facility] | | | and Ezequielana | + + + | Organization | [facility] | | | and Ezequielana [...] Team Providers + +------+ + | Care Automotive Parts Counter Assistant Name | Role | Phone | + +------+ + | Enzo Juarez DO | PCP | | + +------+ + Encounter Details +--------+ + + + + | Date | Type | Department | Care Team | Description | +--------+ + + + + | 09/20/ | Documentati | [facility] | Trina Hargrove, | | | 2014 | on | MED CTR THERAPY PT | PT [address] | | | | | OP [address] | [place] | | | | | [place] | [address] | | | | | [address] | | | | | | [phone] | | | +--------+ + + + [...] Garibay, PT - 09/20/2014 9:04 AM [facility] OP [address] [place] [address] Cancellation/No Show Date: 09/20/2014 Patient Information Patient [...]
--- OUTSIDE RECORDS SUMMARY | ~2019-03-27 | XMS | Encounter Summary ---
Demographics + + + | Address | [address] | | | [place] [address] | + + + | Home Phone | | + + + | Preferred Language | Unknown | + + + | Marital Status | Single | + + + | Mandaen Affiliation | 1013 | + + + | Race | Unknown | + + + | Ethnic Group | Unknown | + + + Author + + + | Author | [facility] | | | and Ezequielana | + + + | Organization | [facility] | | | and Ezequielana [...] Team Providers + +------+ + | Care Brick Grader Name | Role | Phone | + [...] Rehabilitatio | subluxation | MD [place] | [place] | | | | n | of left | [address] | [place], | | | | | shoulder, | [place] | [place] [address] | | | | | initial | [place], | Phone: | | | | | encounter | [place] [address] | [phone] | | | | | Left hip | Phone: | Fax: | | | | | subluxation, | [phone] | [phone] | | | | | initial | Fax: | | | | | | encounter | [phone] | | | | | | (HCC) [...] Description | +--------+---------+ + + + | 09/18/ | Office | [facility] | Taran Archuleta | Chronic neck and | | 2014 | Visit | MED CTR THERAPY PT | MD [address] | back pain (Primary | | | | [address] | [place] | Dx); Hip pain, | | | | [address] [place] | [place] [address] | bilateral | | | | [address] | [phone] | | | | | [phone] | | | | | | | Zuleyma Ramirez, | | | | | | OPERATOR ENGINEER [address] | | | | | | [place] | | | | | | [address] | | | | | | | [...] documented as of this encounter Progress Notes Zuleyma Ramirez OPERATOR ENGINEER - 09/18/2014 3:42 PM PDTFormatting of this note might be different f rom the original. [facility] MED CTR THERAPY PT OP [address] [place] [address] Physical Therapy Daily Treatment Note Date: 09/18/2014 Patient Information Patient Name: Zuleyma Jenkins Date of : 1970 Age: 44 y.o. Encounter Diagnoses Code Name Primary? 723.1, 724.5 Chronic neck and back pain Yes 719.45 Hip pain, bilateral Date of Onset: Referring Provider: Taran Archuleta MD Rehab Precautions Office Visit from 10/24/2013 in [facility] CTR THERAPY OT OP Rehab Precautions Precautions Comments Lipedema Start Time: 1300 Stop time: 1355 Duration: 55 minutes Timed Treatment Codes: 55 minutes # of PT Visits to Date: 7 Subjective: Pt has not been doing her HEP, forgets about it. Asked for written copy. Pain Assessment Pain Scale Used: NUMERIC Pain Rating Pre Assessment: 4 Location: neck, upper traps Objective: Education: reviewed HEP issued written copy, posture, importance of movement, stretch only to tolerance, taking minibreaks, spreading out her exercises throughout the day Manual Treatment: gentle manual cervical traction, occipital release, STM to upper traps 30/60/90 isometrics x3, 10 second hold hooklying TrA with iso hip add x10, with LE marching x10 Cervical AROM to tolerance, scap retraction, cervical retraction, shoulder rolls Assessment: Pt was receptive to info given. Plan: Discuss lymph specific ex program with lymphedema team, if appropriate review with pt next session. Continue with cervical traction, manual therapy, strengthening. Electronically signed by: Zuleyma Ramirez PTA, 09/18/2014 15:43 Patient Name: Zuleyma Jenkins/: 1970/ documented in this encounter Plan of Treatment Not on filedocumented as of this encounter Visit Diagnoses + + | Diagnosis | + + | Chronic neck and back pain - Primary | + + | Hip pain, bilateral Pain in joint, pelvic region and thigh | + + documented in this encounter"
--- OUTSIDE RECORDS SUMMARY | ~2019-03-27 | XMS | Encounter Summary ---
Demographics + + + | Address | [address] | | | [place] [address] | + + + | Home Phone | | + + + | Preferred Language | Unknown | + + + | Marital Status | Single | + + + | Jainism Affiliation | 1013 | + + + | Race | Unknown | + + + | Ethnic Group | Unknown | + + + Author + + + | Author | [facility] | | | and Ezequielana | + + + | Organization | [facility] | | | and Ezequielana [...] Team Providers + +------+ + | Care Shell Freezing Machine Operator Name | Role | Phone | + +------+ + | Enzo Juarez DO | PCP | | + +------+ + Reason for Visit + + + | Reason | Comments | + + + | Progress & Outcome | | + + + Evaluate & [...] Rehabilitatio | subluxation | MD [place] | [place] | | | | n | of left | [address] | [place], | | | | | shoulder, | [place] | [place] [address] | | | | | initial | [place], | Phone: | | | | | encounter | [place] [address] | [phone] | | | | | Left hip | Phone: | Fax: | | | | | subluxation, | [phone] | [phone] | | | | | initial | Fax: | | | | | | encounter | [phone] | | | | | | (HCC) [...] Description | +--------+---------+ + + + | 09/29/ | Office | [facility] | Taran Archuleta | Hip pain, bilateral | | 2015 | Visit | [facility] PT | MD [place] [address] | (Primary Dx); | | | | OP [address] [place] | [place] | Chronic neck and | | | | [place] | [place] [address] | back pain | | | | [address] | [phone] | | | | | [phone] | | | | | | | Trina Hargrove, PT | | | | | | [address] | | | | | | [place] | | | | | | [address] | | | | | | | [...] encounter Progress Notes Trina Garibay, PT - 09/29/2014 10:26 AM PDTFormatting of this note might be different from faye olmstead. [facility] TH[facility] PT OP [address] [place] [address] Physical Therapy Progress Note Date: 09/29/2014 Patient Information Patient Name: Zuleyma Jenkins Date of : 1970 Age: 44 y.o. Start of Care Date: 07/05/14 History Encounter Diagnoses Code Name Primary? 719.45 Hip pain, bilateral Yes 723.1, 724.5 Chronic neck and back pain Date of Onset: Referring Provider: Taran Archuleta MD Rehab Precautions Office Visit from 10/24/[address] [facility] OT OP Rehab Precautions Precautions Comments Lipedema Pain Assessment Pain Scale Used: NUMERIC Pain Rating Pre Assessment: 6 Location: neck, upper traps. 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 Patient reports improvements with pain intensity and [place] quency. However continues to report pain and generalized weakness/fatigue impacting her abil ity to complete ADL's and house hould duties. Received new order from Dr. Archuleta: PT: continue per plan, but help patient obtain pneuma tic neck traction unit and once here, train in use. Thus see patient at least 2-4 more times for particular aspect of her treatment. OBJECTIVE: Functional Movements: Initial Assessment Progress Note / Discharge Sit<>Stand: dysfunctional improved Sit<>Supine: dysfunctional improved Double Leg Squat: Dysfunctional, quad dominant NT Single Leg Squat: L and R= unable NT Cervical ROM Initial Assessment Progress Note / Discharge Flexion: Full Full Extension: Full Full Side Bend Left: Full Full Side Bend Right: Full Full Rotation Left: Full Full Rotation Right: Full Full ROM: Initial Assessment Initial Assessment Progress Note / Discharge Progress Note / Discha rge Shoulder: Left Right Left Right Flexion: Full Full Full Full Abduction: Full Full Full Full ER at neutral: Full Full Full Full IR Behind Back: Full Full Full Full ER at 90 of ABD: Full Full Full Full IR at 90 of ABD: Full Full Full Full Elbow Flexion: Full Full Full Full Elbow Extension: Full Full Full Full ROM: Initial Assessment Initial Assessment Progress Note / Discharge Progress Note / Discha rge Lumbar Spine Full Full Hip Left Right Left Right Flexion: Full Full Full Full IR at 90 deg of Flexion: Full Full Full Full ER at 90 deg of Flexion: Full Full Full Full Extension: Full Full Full Full IR Prone: Full Full Full Full ER Prone: Full Full Full Full Knee Flexion: Full Full Full Full Knee Extension: Full Full Full Full Cervical Special Tests: Initial Assessment Initial Assessment Progress Note / Discharge Pro maria elena Note / Discharge Left Right Left Right Spurlings: positive positive positive positive Sharp-Lois: negative negative Cervical Distraction: positive positive Shoulder Special Tests: Initial Assessment Initial Assessment Progress Note / Discharge Pro maria elena Note / Discharge Left Right Left Right Load Shift: positive positive positive positive Apprehension: positive positive positive positive Hip Special Tests: Initial Assessment Initial Assessment Progress Note / Discharge Progress Note / Discharge Left Right Left Right MARGARITA: negative negative negative negative CHARANJIT: negative negative negative negative Raulito: negative negative negative negative Obers: negative negative negative negative Scour negative negative negative negative Upper Extremity Strength Testing: Initial Assessment Initial Assessment Progress Note / Dis charge Progress Note / Discharge Left Right Left Right Supraspinatus: 4/5 4/5 5/5 5/5 Infraspinatus: 4/5 4/5 5/5 5/5 Subscapularis: 4/5 4/5 5/5 5/5 Deltoid (C5): 4/5 4/5 5/5 4+/5 Biceps (C6): 4/5 4/5 5/5 5/5 Wrist Ext (C6): 4/5 4/5 5/5 4+/5 Supination (C6): 4/5 4/5 5/5 5/5 Triceps (C7): 4/5 4/5 5/5 5/5 EPL/EPB (C8): 4/5 4/5 5/5 5/5 Finger ABD (T1): 4/5 4/5 5/5 5/5 Surveyor Strength: 4/5 4/5 good good Deep Neck Flexors: (normal = 40 secs) unable Scapular Stabilizers: impaired impaired Postural Muscles: impaired impaired Lower extremity Strength Testing: Initial Assessment Initial Assessment Progress Note / Dis charge Progress Note / Discharge Lumbo-Pelvic Stabilization: impaired Left Right Left Right Iliopsoas: 4/5 4/5 4/5 4/5 Glut Med: 4/5 4/5 5/5 5/5 Glut Max: 4/5 4/5 5/5 5/5 Deep Hip Rotators: 4/5 4/5 5/5 5/5 Quadriceps: 4/5 4/5 5/5 5/5 Hamstrings: 4/5 4/5 5/5 5/5 Neurovascular: Initial Assessment Initial Assessment Progress Note / Discharge Progress Not e / Discharge Left Right Left Right Sensation: Impaired UE and LE Impaired UE and LE Impaired UE/LE Impaired UE/LE Myotomes: normal normal normal normal Reflexes: normal normal normal normal Capillary Refill: normal normal normal normal Vines's Reflex: normal normal normal normal Outcome Measure: AM-PAC: Outpatient short Form 57/72 67/72 ASSESSMENT: Clinical Impression: Zuleyma Jenkins has been participating in therapy for 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 Patient demo nstrates objective improvements with strength and pain. Zuleyma Jenkins continues to have imp airments with stability throughout her shoulders, hips and neck/back impacting her functiona l strength and activity tolerance which are affecting her ability to complete functional tas ks such as stairs, walking, standing up from low surface (couch), heavy household duties, ge tting in/out of bed. Patient requires continued skilled therapy services to achieve the foll owing updated functional goals. Rehabilitation potential: Patient continues to demonstrate good potential to achieve establ ished goals to address the above documented impairments and to reach the following functiona l goals by participating in skilled physical therapy services. UPDATED THERAPY GOALS: Outcome Specific Scored Goals Patient's Primary Functional Goal 1: Demonstrate normal cervical spine/shoulder/hip stabili zation strength allowing for improved postural awareness and increased toleration of ADL's, housework, sit to stand transfers. Primary Functional Goal 1 Status Comment: progressing Patient's Primary Functional Goal 2: Return to prior work/leisure activities and caring for family/children without limitation from pain, range of motion or strength. Primary Functional Goal 2 Status Comment: progressing Patient's Primary Functional Goal 3: Patient able to ambulate for 60 min or greater over [facility] terrain without pain or limitations. Primary Functional Goal 3 Status Comment: MET OP PT Goals Goal 1: Independent with home exercise program for manager terminal joint and spine health and pre vention of recurrence of symptoms or chronicity. Goal 1 Status: progressing Requested # of Visits: 24 2x/wk for 12 weeks Certification From: 09/29/14 Certification To: 12/22/14 Treatment Plan/Interventions 51727 PT Evaluation, 17269 Therapeutic Exercise, 39092 Therapeutic Activity, 45304 Neuromus cular Re-education, 85840 Self Care/Home Management, 12449 Manual Therapy Patient and/or family has indicated understanding of treatment needs and actively participa mark in the creation of this plan for care. Today's Treatment Start Time: 1020 Stop time: 1100 Duration: 40 minutes Timed Treatment Codes: 40 minutes # of PT Visits: 9 Objective: Manual Therapy: sub-occipital release, gentle manual cervical traction and TPR to bilateral upper-mid traps Caregiver training: instructed pt and pt's on TPR for self treatment/pain managemen t at home. Next Visit: Awaiting arrival of pneumatic traction unit and will Instruct pt on safe home u se Electronically signed by: Trina Garibay PT, 09/29/2014 11:30 Patient Name: Zuleyma Jenkins/: 1970/ documented in [...]
--- OUTSIDE RECORDS SUMMARY | ~2019-03-27 | XMS | Encounter Summary ---
Demographics + + + | Address | [address] | | | [place] [address] | + + + | Home Phone | | + + + | Preferred Language | Unknown | + + + | Marital Status | Single | + + + | Jew Affiliation | 1013 | + + + | Race | Unknown | + + + | Ethnic Group | Unknown | + + + Author + + + | Author | [facility] | | | and Ezequielana | + + + | Organization | [facility] | | | and [...] Team Providers + +------+ + | Care Check Airman Name | Role | Phone | + +------+ + | Enzo Juarez DO | PCP | | + +------+ + Reason for Visit + + + | Reason | Comments | + + + | Therapy Daily | | | Treatment | | + + + Evaluate (Routine) +--------+--------+ + + + + | Status | Reason | Specialty | Diagnoses / | Referred By | Referred To | | | | | Procedures | Contact | Contact | +--------+--------+ + + + + | Closed | | Rehabilitatio | Diagnoses | Walker, | [facility] | | | | n | Edema | Enzo Jay DO | Oncology | | | | | lipedema and | [address] | Therapy [address] | | | | | related | [address] | [address] | | | | | problems | [address] | [place], | | | | | Procedures | [address] | [place] [address] | | | | | lymph eval | [place], [place] | Phone: | | | | | | [address] | [phone] | | | | | | Phone: | Fax: | | | | | | [phone] | [phone] | | | | | | Fax: | | | | | | | [phone] | | +--------+--------+ + + + + Encounter Details +--------+---------+ + + + | Date | Type | Department | Care Team | Description | +--------+---------+ + + + | 11/07/ | Office | [facility] | Enzo Juarez, | Lymphedema, not | | 2013 | Visit | [place] | [place] [address] [address] | elsewhere classified | | | | THERAPY [address] | (Primary Dx) | | | | [address] [place], | [place] [address] | | | | | [place] [address] | [phone] | | | | | [phone] | | | | | | | Shi Garvey, | | | | | | OT [address] | | | | | | [place], [place] | | | | | | [address] | | | | | | | [...] documented as of this encounter Progress Notes Shi Cronin, OT - 11/07/2013 4:58 PM PDTFormatting of this note might be diffe rent from the original. [facility] TH[facility] OT OP [address] [place] [address] Occupational Therapy Daily Treatment Note Date: 11/07/2013 Patient Information Patient Name: Zuleyma Jenkins Date of : 1970 Age: 43 y.o. History Encounter Diagnoses Code Name Primary? 457.1 Lymphedema, not elsewhere classified Yes Date of Onset: 09/28/13 Referring Provider: Enzo Juarez DO Past Medical History Diagnosis Date Thyroid disease Asthma Depression Gastric reflux Migraine Stomach ulcer Thyroid disease Lipidemia Past Surgical History Procedure Date Right great toe Dec 2002 Dr. Gutiérrez in [facility] Tonsillectomy 1996 [place] Tubal ligation 2004 [facility] Rehab Precautions 10/24/13 Rehab Precautions Precautions Comments Lipedema Rehab Learning Style 10/24/13 Learning Style Patient's Optimum Learning Style listening, reading, observation, performance of task Pain Assessment Pain Scale Used: NUMERIC Pain Rating During Assessment: 4 Today's Treatment Patient Name: Zuleyma Jenkins/: 1970/ Start Time: 1445 Stop time: 1528 Duration: 43 minutes Timed Treatment Codes: 43 minutes # of OT Visits: 2 Visit Summary: Pt seen for review of trunkal MLM, instructed in UE and LE MLM. PT stated th at she felt that the burning in her arms was a bit increased after treatment but she did not know if that might be related to not having her compression on. Next Visit: Plan to review all of MLM technique and have pt show techniquess Manual Therapy Manual Therapy Site: Trunk, extremities Manual Therapy: Pt reviewed trunkal MLM, instructed in MLM for UE and LE. Assessment Pt reported that she did have an opportunity to do self MLM 3-4 times since last treatment. Does need review and cuing on her technique Rehabilitation potential: Patient demonstrates good potential to achieve established goals to address the documented impairments by participating in skilled occupational therapy serv ices. Electronically signed by: Shi Cronin OT, 11/07/2013 16:59 Patient Name: Zuleyma Jenkins/: 1970/ documented in this encounter Plan of Treatment Not on filedocumented as of this encounter Visit Diagnoses + + | Diagnosis | + + | Lymphedema, not elsewhere classified - Primary Other lymphedema | + + documented in this encounter"
--- OUTSIDE RECORDS SUMMARY | ~2019-03-27 | XMS | Encounter Summary ---
Demographics + + + | Address | [address] | | | [place] [address] | + + + | Home Phone | | + + + | Preferred Language | Unknown | + + + | Marital Status | Single | + + + | Church Affiliation | 1013 | + + + | Race | Unknown | + + + | Ethnic Group | Unknown | + + + Author + + + | Author | [facility] | | | and Ezequielana | + + + | Organization | [facility] | | | and [...] Team Providers + +------+ + | Care Cambering Machine Operator Name | Role | Phone | + +------+ + | Enzo Juarez DO | PCP | | + +------+ + Reason for Visit + + + | Reason | Comments | + + + | Numbness | Bilateral foot numbness | + + + Service/Procedure (Routine) +--------+--------+ + + + + | Status | Reason | Specialty | Diagnoses / | Referred By | Referred To | | | | | Procedures | Contact | Contact | +--------+--------+ + + + + | Closed | | Physical | Diagnoses | | May, | | | | Medicine and | Disturbance | May, | Celestino Salter MD | | | | Rehabilitatio | of skin | Celestino Salter MD | [address] | | | | n | sensation | [address] | [place] | | | | | Procedures | [place] | [place], [place] | | | | | IN MOTOR | [place], [place] | [address] Phone: | | | | | &/SENS 1-2 | [address] | [phone] | | | | | NRV CNDJ | Phone: | Fax: | | | | | PRECONF | [phone] | [phone] | | | | | [place] | Fax: | | | | | | | [phone] | | | | | | EMG/NCS-BLE | | | | | | | foot | | | | | | | numbness | | | | | | | peripheral | | | | | | | neuropathy | | | | | | | referred by | | | | | | | Dr. Archuleta | | | +--------+--------+ + + + + Encounter Details +--------+ + + + + | Date | Type | Department | Care Team | Description | +--------+ + + + + | 09/18/ | Procedure | [facility] | Celestino Olvera | Paresthesias | | 2014 | visit | PHYSIATRY [address] | (Primary Dx) | | | | [place], | [place], [place] | | | | | [place] [address] | [address] | | | | | [phone] | | | +--------+ + + + [...] + + + | Blood Pressure | 125/80 | 09/18/2014 11:07 AM | | | | | PDT | | + + + + + | Pulse | 83 | 09/18/2014 11:07 AM | | | | | PDT [...] Weight | 100.7 kg (222 lb) | 09/18/2014 11:07 AM | | | | | PDT | | + + + + + | Height | 174 cm (5' 8.5") | 09/18/2014 11:07 AM | | | | | PDT | | + + + + + | Body Mass Index | 33.26 | 09/18/2014 11:07 AM | | | | | PDT | | + + + + + documented in this encounter Progress Notes Celestino Olvera MD - 09/18/2014 11:36 PM PDT [facility] Mus[facility], Sports and Spine, Physiatry [address] [address] Test Date: 09/18/2014 Patient Name: Zuleyma Jenkins : 1970 Physician: Celestino Olvera MD MR #: [id number] Sex: Female Referring Physician: Nicolas Archuleta MD HISTORY: The patient is a very pleasant 44 year-old female who is being seen today at the request of Dr. [place] Archuleta for bilateral lower extremity numbness and tingling. The pat ient reports that the numbness is primarily in the lateral toes. The symptoms are intermitt ent. She denies any significant pain in the feet. She does have other painful issues inclu ding lipedema. Upper extremity nerve conduction studies were performed last week. Please se e that note for additional history details. Nerve Conduction Studies Anti Sensory Summary Table Site NR Peak (ms) Norm Peak (ms) P-T Amp (V) Norm P-T Amp Site1 Site2 Delta-P (ms) Dist (cm) Peetr (m/s) Norm Peter (m/s) Left Sup Peron Anti Sensory (Ant Lat Mall) 14 cm 3.3 <4.4 11.8 >5.0 14 cm Ant Lat Mall 3.3 14.0 42 >32 Right Sup Peron Anti Sensory (Ant Lat Mall) 14 cm 3.8 <4.4 13.0 >5.0 14 cm Ant Lat Mall 3.8 14.0 37 >32 Left Sural Anti Sensory (Lat Mall) Calf 3.4 <4.0 7.6 >5.0 Calf Lat Mall 3.4 14.0 41 >35 Right Sural Anti Sensory (Lat Mall) Calf 3.7 <4.0 9.6 >5.0 Calf Lat Mall 3.7 14.0 38 >35 Motor Summary Table Site NR Onset (ms) Norm Onset (ms) O-P Amp (mV) Norm O-P Amp Site1 Site2 Delta-0 (ms) Dist (cm) Peter (m/s) Norm Peter (m/s) Left Peroneal Motor (Ext Dig Brev) Ankle 4.3 <6.1 8.8 >2.5 B Fib Ankle 7.6 35.0 46 >38 B Fib 11.9 8.8 Poplt B Fib 1.4 8.0 57 >40 Poplt 13.3 8.4 Right Peroneal Motor (Ext Dig Brev) Ankle 4.4 <6.1 7.8 >2.5 B Fib Ankle 7.0 34.0 49 >38 B Fib 11.4 7.6 Poplt B Fib 1.9 9.0 47 >40 Poplt 13.3 7.7 Left Tibial Motor (Abd Kilpatrick Brev) Ankle 4.9 <6.1 9.3 >3.0 Knee Ankle 8.7 37.0 43 >35 Knee 13.6 7.4 Right Tibial Motor (Abd Kilpatrick Brev) Ankle 4.9 <6.1 7.9 >3.0 Knee Ankle 9.0 35.0 39 >35 Knee 13.9 5.6 EMG Side Muscle Nerve Root Ins Act Fibs Psw Amp Dur Poly Recrt Int Pat Comment Right VastusMed Femoral L2-4 Nml Nml Nml Nml Nml 0 Nml Nml Right AntTibialis Dp Br Peron L4-5 Nml Nml Nml Nml Nml 0 Nml Nml Right ExtHallLong Dp Br Peron L5, S1 Nml Nml Nml Nml Nml 0 Nml Nml Right Gastroc Tibial S1-2 Nml Nml Nml Nml Nml 0 Nml Nml Right Flex Dig Long Tibial L5-S2 Nml Nml Nml Nml Nml 0 Nml Nml Left VastusMed Femoral L2-4 Nml Nml Nml Nml Nml 0 Nml Nml Left AntTibialis Dp Br Peron L4-5 Nml Nml Nml Nml Nml 0 Nml Nml Left ExtHallLong Dp Br Peron L5, S1 Nml Nml Nml Nml Nml 0 Nml Nml Left Gastroc Tibial S1-2 Nml Nml Nml Nml Nml 0 Nml Nml Left Flex Dig Long Tibial L5-S2 Nml Nml Nml Nml Nml 0 Nml Nml Nerve Conduction Studies Motor Left/Right Comparison Site L Lat (ms) R Lat (ms) L-R Lat (ms) L Amp (mV) R Amp (mV) L-R Amp (%) Site1 Site2 L Ve l (m/s) R Peter (m/s) L-R Peter (m/s) Peroneal Motor (Ext Dig Brev) Ankle 4.3 4.4 0.1 8.8 7.8 11.4 B Fib Ankle 46 49 3 B Fib 11.9 11.4 0.5 8.8 7.6 13.6 Poplt B Fib 57 47 10 Poplt 13.3 13.3 0.0 8.4 7.7 8.3 Tibial Motor (Abd Kilpatrick Brev) Ankle 4.9 4.9 0.0 9.3 7.9 15.1 Knee Ankle 43 39 4 Knee 13.6 13.9 0.3 7.4 5.6 24.3 Anti Sensory Left/Right Comparison Site L Lat (ms) R Lat (ms) L-R Lat (ms) L Amp (V) R Amp (V) L-R Amp (%) Site1 Site2 L Peter (m/s) R Pteer (m/s) L-R Peter (m/s) Sup Peron Anti Sensory (Ant Lat Mall) 14 cm 3.3 3.8 0.5 11.8 13.0 9.2 14 cm Ant Lat Mall 42 37 5 Sural Anti Sensory (Lat Mall) Calf 3.4 3.7 0.3 7.6 9.6 20.8 Calf Lat Mall 41 38 3 NCV FINDINGS: All nerve conduction studies (as indicated in the preceding tables) were within normal limi ts. EMG FINDINGS: All examined muscles (as indicated in the preceding table) showed no evidence of electrical instability. IMPRESSION: All EMG and nerve conduction studies performed this week and last week showed no electrodia gnostic evidence of peripheral neuropathy or other neurologic abnormality. All EMG and nerv e conduction studies were well within normal limits. The results of the study were discussed with the patient briefly. The patient will also co ntinue to follow up with Dr. Archuleta for this issue. Thank you for allowing me to perform neurodiagnostic testing on your patient. If you have a ny further questions or comments, please do not hesitate to call. Celestino Olvera MD Fellow, [employer]. documented in this encounter Plan of Treatment Not on filedocumented as of this encounter Visit Diagnoses + + | Diagnosis | + + | Paresthesias - Primary Disturbance of skin sensation | + + documented in this encounter
--- OUTSIDE RECORDS SUMMARY | ~2019-03-27 | XMS | Encounter Summary ---
Demographics + + + | Address | [address] | | | [place] [address] | + + + | Home Phone | | + + + | Preferred Language | Unknown | + + + | Marital Status | Single | + + + | Islam Affiliation | 1013 | + + + | Race | Unknown | + + + | Ethnic Group | Unknown | + + + Author + + + | Author | [facility] | | | and Ezequielana | + + + | Organization | [facility] | | | and Ezequielana [...] Team Providers + +------+ + | Care Hall Supervisor Name | Role | Phone | + +------+ + | Enzo Juarez DO | PCP | | + +------+ + Encounter Details +--------+ + + + + | Date | Type | Department | Care Team | Description | +--------+ + + + + | 07/25/ | Hospital | [facility] | Marcell Frances | Peripheral | | 2014 | Encounter | [facility] | MD Xochitl Need updated | neuropathy | | | | [address] | address | | | | | [place] | | | | | | [address] | | | | | | [phone] | | | +--------+ + + + [...] + + documented as of this encounter Medications at Time of Discharge + + + +---------+ + + | Medication | Sig | Dispensed | Refills | Start | End Date | | | | | | Date | | + + + +---------+ + + | amitriptyline | 2 tablets at night, | 50 | 5 | 11/30/19 | | | (ELAVIL) 25 mg | but up to 4 for neck | tablet | | 14 | | | tabletIndications: | pain flare up, as | | | | | | Myofascial muscle | long as it doesn't | | | | | | pain | cause increased | | | | | | | pain. | | | | | + + + +---------+ + + | Arginine 1000 MG | Take by mouth 2 | | 0 | | | | TABS | times daily. | | | | | + + + +---------+ + + | Ascorbic Acid | Take 1,000 mg by | | 0 | | | | (VITAMIN C) 1000 MG | mouth Daily. | | | | | | tablet | | | | | | + + + +---------+ + + | B Complex Vitamins | Take by mouth | | 0 | | | | (B COMPLEX PO) | Daily. | | | | | + + + +---------+ + + | calcium carbonate | Take 1 tablet by | | 0 | | | | (TUMS) 500 mg | mouth Twice daily | | | | | | chewable tablet | as needed. | | | | | + + + +---------+ + + | cetirizine | Take 10 mg by mouth | | 0 | | | | (ZYRTEC) 10 mg | nightly. | | | | | | tablet | | | | | | + + + +---------+ + + | cholecalciferol | Take 5,000 Units by | | 0 | | | | (VITAMIN D-3) 400 | mouth Daily. | | | | | | units TABS | | | | | | + + + +---------+ + + | [place] | Take by mouth | | 0 | | | | Bioflavonoids 1000 | Daily. | | | | | | MG TABS | | | | | | + + + +---------+ + + | Coenzyme Q10 | Take by mouth 2 | | 0 | | | | (COQ10 PO) | times daily. COQ10 + | | | | | | | AlphaLipoic | | | | | | | 200/300mg BID | | | | | + + + +---------+ + + | cyanocobalamin | Take 10,000 mcg by | | 0 | | | | (VITAMIN B-12) 100 | mouth Daily. | | | | | | MCG tablet | | | | | | + + + +---------+ + + | cyclobenzaprine | Take 10 mg by mouth | | 0 | | | | (FLEXERIL) 5 MG | 3 times daily as | | | | | | tablet | needed. | | | | | + + + +---------+ + + | dextroamphetamine | Take 20 mg by mouth | | 0 | | | | (DEXTROSTAT, | 2 times daily. | | | | | | ZENZEDI) 10 mg | | | | | | | tablet | | | | | | + + + +---------+ + + | Dietary Management | | | 0 | 05/29/19 | | | Product (VASCULERA) | | | | 15 | | | TABS | | | | | | + + + +---------+ + + | Gabapentin, PHN, | Take 1,800 mg by | | 0 | | | | (GRALISE PO) | mouth nightly. | | | | | + + + +---------+ + + | | Take by mouth | | 0 | | | | GLUCOSAMINE-CHONDROI | Daily. | | | | | | TIN-MSM PO | | | | | | + + + +---------+ + + | GRAPE SEED | Take 250 mg by mouth | | 0 | | | | | 2 times daily. | | | | | + + + +---------+ + + | L-Lysine HCl 1000 | Take 1,000 mg by | | 0 | | | | MG TABS | mouth 2 times daily. | | | | | + + + +---------+ + + | L-Methylfolate 15 | Take 15 mg by mouth | | 0 | | | | MG TABS | Daily. | | | | | + + + +---------+ + + | levothyroxine | Take 150 mcg by | | 0 | | | | (SYNTHROID, | mouth every morning | | | | | | LEVOTHROID) 150 mcg | (before breakfast). | | | | | | tablet | | | | | | + + + +---------+ + + | liothyronine | Take 5 mcg by mouth | | 0 | | | | (CYTOMEL) 5 mcg | Daily. | | | | | | tablet | | | | | | + + + +---------+ + + | Misc Natural | Take 440 mg by mouth | | 0 | | | | Products (BUTCHERS | 2 times daily. | | | | | | BROOM PO) | | | | | | + + + +---------+ + + | Multiple Vitamin | Take by mouth | | 0 | | | | (MULTI-VITAMIN DAILY | Daily. | | | | | | PO) | | | | | | + + + +---------+ + + | naproxen | Take 250 mg by mouth | | 0 | | | | (NAPROSYN) 250 mg | 2 times daily. | | | | | | tablet | | | | | | + + + +---------+ + + | [place]-3 Fatty | Take by mouth. | | 0 | | | | Acids (OMEGA 3 PO) | [place] 3 + COQ10 | | | | | | | 750mg/50mg BID | | | | | + + + +---------+ + + | polyethylene | Take 17 g by mouth | | 0 | | | | glycol (MIRALAX) | as needed. | | | | | | powder | | | | | | + + + +---------+ + + | QUERCETIN PO | Take 400 mg by mouth | | 0 | | | | | 2 times daily. | | | | | + + + +---------+ + + | Resveratrol 250 MG | Take 250 mg by mouth | | 0 | | | | CAPS | 2 times daily. | | | | | + + + +---------+ + + | selenium sulfide | Take 600 mcg by | | 0 | | | | (SELSUN) 2.5% lotion | mouth Daily as | | | | | | | needed (tablet). | | | | | + + + +---------+ + + | Turmeric Curcuma | Take 1,000 mg by | | 0 | | | | Mine (CURCUMIN) | mouth 2 times daily. | | | | | + + + +---------+ + + | HORSE CHESTNUT | by Does not apply | | 0 | | | | | route. Horse | | | | 5 | | | [place] with Grape | | | | | | | See 300mg/50mg BID | | | | | + + + +---------+ + + | ketoprofen | Take 75 mg by mouth | | 0 | | | | (ORUDIS) 75 mg | 3 times daily as | | | | 5 | | capsule | needed. | | | | | + + + +---------+ + + | pantoprazole | Take 20 mg by mouth | | 0 | | | | (PROTONIX) 40 mg | Daily. | | | | 5 | | tablet | | | | | | + + + +---------+ + + | ranitidine | Take 300 mg by mouth | | 0 | 07/07/19 | | | (ZANTAC) 300 MG | nightly. | | | 15 | 5 | | tablet | | | | | | + + + +---------+ + + | UNABLE TO FIND | Med Name: Acid+ | | 0 | | | | | Acetyl L Curnitine | | | | 5 | | | 250 mg BID | | | | | + + + +---------+ + + documented as of this encounter Plan of Treatment Not on filedocumented as of this encounter Procedures + +--------+ + + + | Procedure Name | Priori | Date/Time | Associated Diagnosis | Comments | | | ty | | | | + +--------+ + + + | VITAMIN B-12 | Routin | 07/25/2014 | Peripheral | Results for this | | | e | 12:15 PM | neuropathy | procedure are in the | | | | PDT | | results section. | + +--------+ + + + | METHYLMALONIC ACID, | Routin | 07/25/2014 | Peripheral | Results for this | | QUANT | e | 12:15 PM | neuropathy | procedure are in the | | | | PDT | | results section. | + +--------+ + + + | COPPER, SERUM | Routin | 07/25/2014 | Peripheral | Results for this | | | e | 12:15 PM | neuropathy | procedure are in the | | | | PDT | | results section. | + +--------+ + + + | RAPID PLASMA REAGIN, | Routin | 07/25/2014 | Peripheral | Results for this | | QUAL | e | 12:15 PM | neuropathy | procedure are in the | | | | PDT | | results section. | + +--------+ + + + | TSH | Routin | 07/25/2014 | Peripheral | Results for this | | | e | 12:15 PM | neuropathy | procedure are in the | | | | PDT | | results section. | + +--------+ + + + | VITAMIN B-6 | Routin | 07/25/2014 | Peripheral | Results for this | | | e | 12:15 PM | neuropathy | procedure are in the | | | | PDT | | results section. | + +--------+ + + + | PROTEIN | Routin | 07/25/2014 | Peripheral | Results for this | | ELECTROPHORESIS, | e | 12:15 PM | neuropathy | procedure are in the | | SERUM | | PDT | | results section. | + +--------+ + + + documented in this encounter Results Copper, Serum (07/25/2014 12:15 PM PDT) + + + + + + | Component | Value | Ref Range | Performed | Pathologist | | | | | At | Signature | + + + + + + | COPPER | 95Comment: There is a | 70 - 140 ug/dL | [facility]FERENCE | | | | diurnal variation with | | [facility] | | | | highest levels in the | | | | | | morning.Testing | | | | | | Performed: [facility], [address] | | | | | [address], [place] | | | | | | [address] | | | | + + + + + + + + | Specimen | + + | Blood specimen | | (specimen) | + + + + + + + | Performing | Address | City/State/Zipcode | Phone Number | | Organization | | | | + + + + + | [facility] | [address] | [place] [address] | [phone] | + + + + + Vitamin B-6 (07/25/2014 12:15 PM PDT) + + + + + + | Component | Value | Ref Range | Performed | Pathologist | | | | | At | Signature | + + + + + + | Vitamin B6 | 41.2 (H)Comment: | 4.0 - 40.0 | [facility] | | | | Reference range applies | ng/mL | [facility] | | | | to individuals who are | | | | | | not taking Vitamin | | | | | | [id number].This test | | | | | | was developed and its | | | | | | performance | | | | | | characteristics | | | | | | determinedby [facility]. The | | | | | | U.S. Food and Drug | | | | | | Administration (FDA) has | | | | | | not approvedor cleared | | | | | | this test. However, FDA | | | | | | approval or clearance is | | | | | | currentlynot required | | | | | | for clinical use of this | | | | | | test.The results are | | | | | | not intended to be used | | | | | | as the sole means for | | | | | | clinicaldiagnosis or | | | | | | patient management | | | | | | decisions. [facility] is | | | | | | authorized underClinical | | | | | | Laboratory Improvement | | | | | | Amendments (CLIA) to | | | | | | performhigh-complexity | | | | | | testing.Testing | | | | | | Performed: [facility], [address] | | | | | [address], [place] | | | | | | [address] | | | | + + + + + + + + | Specimen | + + | Blood specimen | | (specimen) | + + + + + + + | Performing | Address | City/State/Zipcode | Phone Number | | Organization | | | | + + + + + | [facility] | [address] | [place] [address] | [phone] | + + + + + Rapid Plasma ReagMihai parra (07/25/2014 12:15 PM PDT) + + + + + + | Component | Value | Ref Range | Performed | Pathologist | | | | | At | Signature | + + + + + + | Treponema | Non-Reactive | Non-Reactive | [facility] | | | Pallidum | | | [facility] | | | Ab, Qual | | | MEDICAL | | | | | | CENTER - | | | | | | LABORATORY | | + + + + + + + + | Specimen | + + | Blood | + + + + + + + | Performing | Address | City/State/Zipcode | Phone Number | | Organization | | | | + + + + + | [facility] | [address] | [place] | [phone] | | [facility] | | [address] | | | - LABORATORY | | | | + + + + + Protein Electrophoresis, Serum (07/25/2014 12:15 PM PDT) + + + + + + | Component | Value | Ref Range | Performed | Pathologist | | | | | At | Signature | + + + + + + | Total | 5.9 (L) | 6.0 - 7.8 g/dL | [facility] | | | Protein | | | [facility] | | | | | | MEDICAL | | | | | | CENTER - | | | | | | LABORATORY | | + + + + + + | ELP Albumin | 3.9 | 3.6 - 5.7 g/dL | [facility] | | | | | | [facility] | | | | | | MEDICAL | | | | | | CENTER - | | | | | | LABORATORY | | + + + + + + | ELP Alpha 1 | 0.1 | 0.1 - 0.2 g/dL | [facility] | | | Globulin | | | [facility] | | | | | | MEDICAL | | | | | | CENTER - | | | | | | LABORATORY | | + + + + + + | ELP Alpha 2 | 0.6 | 0.4 - 0.9 g/dL | [facility] | | | Globulin | | | [facility] | | | | | | MEDICAL | | | | | | CENTER - | | | | | | LABORATORY | | + + + + + + | ELP Beta 1 | 0.4 | 0.3 - 0.7 g/dL | [facility] | | | Globulin | | | [facility] | | | | | | MEDICAL | | | | | | CENTER - | | | | | | LABORATORY | | + + + + + + | ELP Beta 2 | 0.2 | 0.1 - 0.4 g/dL | [facility] | | | Globulin | | | [facility] | | | | | | MEDICAL | | | | | | CENTER - | | | | | | LABORATORY | | + + + + + + | ELP Gamma | 0.6 | 0.4 - 1.2 g/dL | [facility] | | | Globulin | | | [facility] | | | | | | MEDICAL | | | | | | CENTER - | | | | | | LABORATORY | | + + + + + + | ELP Albumin | 66.4 | % | [facility] | | | % | | | [facility] | | | | | | MEDICAL | | | | | | CENTER - | | | | | | LABORATORY | | + + + + + + | Albumin/Carmenza | 2.0 | | [facility] | | | bulin Ratio | | | [facility] | | | | | | MEDICAL | | | | | | CENTER - | | | | | | LABORATORY | | + + + + + + | ELP Alpha 1 | 2.5 | % | [facility] | | | Globulin % | | | [facility] | | | | | | MEDICAL | | | | | | CENTER - | | | | | | LABORATORY | | + + + + + + | ELP Alpha 2 | 10.7 | % | [facility] | | | Globulin % | | | [facility] | | | | | | MEDICAL | | | | | | CENTER - | | | | | | LABORATORY | | + + + + + + | ELP Beta 1 | 6.3 | % | [facility] | | | Globulin % | | | [facility] | | | | | | MEDICAL | | | | | | CENTER - | | | | | | LABORATORY | | + + + + + + | ELP Beta 2 | 3.7 | % | [facility] | | | Globulin % | | | [facility] | | | | | | MEDICAL | | | | | | CENTER - | | | | | | LABORATORY | | + + + + + + | ELP Gamma | 10.4 | % | [facility] | | | Globulin % | | | [facility] | | | | | | MEDICAL | | | | | | CENTER - | | | | | | LABORATORY | | + + + + + + | Interpretat | See scanned report. | | [facility] | | | ion | Pathologist | | [facility] | | | | comment:Normal | | MEDICAL | | | | pattern.Efra Olmos | | CENTER - | | | | MD Mani | | LABORATORY | | | | | | | | + + + + + + + + | Specimen | + + | Blood | + + + + + | Narrative | Performed At | + + + | | | + + + + + + + + | Performing | Address | City/State/Zipcode | Phone Number | | Organization | | | | + + + + + | [facility] | [address] | [place] | [phone] | | [facility] | | [address] | | | - LABORATORY | | | | + + + + + Vitamin B-12 (07/25/2014 12:15 PM PDT) + + + + + + | Component | Value | Ref Range | Performed | Pathologist | | | | | At | Signature | + + + + + + | VITAMIN | 5,087 (H)Comment: | 180 - 914 pg/mL | [facility] | | | B-12 | DEFICIENT: | | [facility] | | | | <145 | | MEDICAL | | | | pg/mLINDETERMINATE: | | CENTER - | | | | 145-180 pg/mL THIS B12 | | LABORATORY | | | | HAS BEEN REPEATED WITH A | | | | | | DILUTION PROCEDURE TO | | | | | | CALCULATE A RESULT | | | | | | GREATER THAN 1500 pg/mL. | | | | | | THE ASSAY HAS NOT BEEN | | | | | | VALIDATED FOR THIS | | | | | | HIGHER RANGE, AND | | | | | | RESULTS SHOULD BE | | | | | | INTERPRETED WITH | | | | | | CAUTION. | | | | + + + + + + + + | Specimen | + + | Blood | + + + + + + + | Performing | Address | City/State/Zipcode | Phone Number | | Organization | | | | + + + + + | [facility] | [address] | [place] | [phone] | | [facility] | | [address] | | | - LABORATORY | | | | + + + + + Methylmalonic Acid, Quant (07/25/2014 12:15 PM PDT) + + + + + + | Component | Value | Ref Range | Performed | Pathologist | | | | | At | Signature | + + + + + + | Methylmalon | <0.20Comment: Testing | 0.00 - 0.40 | [facility] | | | ic Acid, S | Performed: [facility], [address] | umol/L | [facility] | | | | [address], [place] | | | | | | [address] | | | | + + + + + + + + | Specimen | + + | Blood specimen | | (specimen) | + + + + + + + | Performing | Address | City/State/Zipcode | Phone Number | | Organization | | | | + + + + + | [facility] | [address] | [place] [address] | [phone] | + + + + + TSH (07/25/2014 12:15 PM PDT) + + + + + + | Component | Value | Ref Range | Performed | Pathologist | | | | | At | Signature | + + + + + + | TSH | 1.65Comment: All TSH | 0.34 - 5.60 | [facility] | | | | samples are screened | uIU/mL | [facility] | | | | using a 2nd Generation | | MEDICAL | | | | test, and are reflexed | | CENTER - | | | | to a 3rd Generation test | | LABORATORY | | | | if indicated. | | | | + + + + + + + + | Specimen | + + | Blood | + + + + + + + | Performing | Address | City/State/Zipcode | Phone Number | | Organization | | | | + + + + + | [facility] | [address] | [place] | [phone] | | [facility] | | [address] | | | - LABORATORY | | | | + + + + + documented in this encounter Visit Diagnoses + + | Diagnosis | + + | Peripheral neuropathy Unspecified hereditary and idiopathic peripheral neuropathy | + + documented in this encounter"
--- OUTSIDE RECORDS SUMMARY | ~2019-03-27 | XMS | Clinical Summary ---
Demographics + + + | Address | [address] | | | [place] [address] | + + + | Home Phone | | + + + | Preferred Language | Unknown | + + + | Marital Status | Single | + + + | Yazidi Affiliation | 1013 | + + + | Race | Unknown | + + + | Ethnic Group | Unknown | + + + Author + + + | Author | [facility] | | | and Ezequielana | + + + | Organization | [facility] | | | and Ezequielana [...] Team Providers + +------+ + | Care Monitor Car Operator Name | Role | Phone | + +------+ + | Enzo Juarez DO | PCP | | + +------+ + Allergies + + + + + + | Active Allergy | Reactions | Severity | Noted | Comments | | | | | Date | | + + + + + + | Iodinated Diagnostic | Itching | Medium | 08/29/19 | | | Agents | | | 15 | | + + + + + + | Ketoprofen | Other (See Comments) | Low | 08/02/19 | Abdominal pain | | | | | 15 | | + + + + + + | Prednisone | Other (See Comments) | Medium | 10/27/19 | "Pill form made me | | | | | 14 | paolo. [place] like I | | | | | | would crawl out of | | | | | | my skin and | | | | | | paranoid" Injection | | | | | | has been fine. | | | | | | Sensitivity | + + + + + + | Sulfa Antibiotics | Other (See Comments) | Medium | 10/27/19 | Yeast infection | | | | | 14 | intolerance | + + + + + + Medications + + + +---------+------+------+-------+ | Medication | Sig | Dispensed | Refills | Star | End | Statu | | | | | | t | Date | s | | | | | | Date | | | + + + +---------+------+------+-------+ | dextroamphetamine | Take 20 mg by mouth | | 0 | | | Activ | | (DEXTROSTAT, | 2 times daily. | | | | | e | | ZENZEDI) 10 mg | | | | | | | | tablet | | | | | | | + + + +---------+------+------+-------+ | cyclobenzaprine | Take 10 mg by mouth | | 0 | | | Activ | | (FLEXERIL) 5 MG | 3 times daily as | | | | | e | | tablet | needed. | | | | | | + + + +---------+------+------+-------+ | cyanocobalamin | Take 10,000 mcg by | | 0 | | | Activ | | (VITAMIN B-12) 100 | mouth Daily. | | | | | e | | MCG tablet | | | | | | | + + + +---------+------+------+-------+ | selenium sulfide | Take 600 mcg by | | 0 | | | Activ | | (SELSUN) 2.5% lotion | mouth Daily as | | | | | e | | | needed (tablet). | | | | | | + + + +---------+------+------+-------+ | calcium carbonate | Take 1 tablet by | | 0 | | | Activ | | (TUMS) 500 mg | mouth Twice daily | | | | | e | | chewable tablet | as needed. | | | | | | + + + +---------+------+------+-------+ | cholecalciferol | Take 5,000 Units by | | 0 | | | Activ | | (VITAMIN D-3) 400 | mouth Daily. | | | | | e | | units TABS | | | | | | | + + + +---------+------+------+-------+ | polyethylene | Take 17 g by mouth | | 0 | | | Activ | | glycol (MIRALAX) | as needed. | | | | | e | | powder | | | | | | | + + + +---------+------+------+-------+ | cetirizine | Take 10 mg by mouth | | 0 | | | Activ | | (ZYRTEC) 10 mg | nightly. | | | | | e | | tablet | | | | | | | + + + +---------+------+------+-------+ | Ascorbic Acid | Take 1,000 mg by | | 0 | | | Activ | | (VITAMIN C) 1000 MG | mouth Daily. | | | | | e | | tablet | | | | | | | + + + +---------+------+------+-------+ | Multiple Vitamin | Take by mouth | | 0 | | | Activ | | (MULTI-VITAMIN DAILY | Daily. | | | | | e | | PO) | | | | | | | + + + +---------+------+------+-------+ | | Take by mouth | | 0 | | | Activ | | GLUCOSAMINE-CHONDROI | Daily. | | | | | e | | TIN-MSM PO | | | | | | | + + + +---------+------+------+-------+ | Powell-3 Fatty | Take by mouth. | | 0 | | | Activ | | Acids (OMEGA 3 PO) | Powell 3 + COQ10 | | | | | e | | | 750mg/50mg BID | | | | | | + + + +---------+------+------+-------+ | L-Methylfolate 15 | Take 15 mg by mouth | | 0 | | | Activ | | MG TABS | Daily. | | | | | e | + + + +---------+------+------+-------+ | Gabapentin, PHN, | Take 1,800 mg by | | 0 | | | Activ | | (GRALISE PO) | mouth nightly. | | | | | e | + + + +---------+------+------+-------+ | levothyroxine | Take 150 mcg by | | 0 | | | Activ | | (SYNTHROID, | mouth every morning | | | | | e | | LEVOTHROID) 150 mcg | (before breakfast). | | | | | | | tablet | | | | | | | + + + +---------+------+------+-------+ | liothyronine | Take 5 mcg by mouth | | 0 | | | Activ | | (CYTOMEL) 5 mcg | Daily. | | | | | e | | tablet | | | | | | | + + + +---------+------+------+-------+ | Misc Natural | Take 440 mg by mouth | | 0 | | | Activ | | Products (BUTCHERS | 2 times daily. | | | | | e | | BROOM PO) | | | | | | | + + + +---------+------+------+-------+ | L-Lysine HCl 1000 | Take 1,000 mg by | | 0 | | | Activ | | MG TABS | mouth 2 times daily. | | | | | e | + + + +---------+------+------+-------+ | Turmeric Curcuma | Take 1,000 mg by | | 0 | | | Activ | | Longa, (CURCUMIN) | mouth 2 times daily. | | | | | e | + + + +---------+------+------+-------+ | B Complex Vitamins | Take by mouth | | 0 | | | Activ | | (B COMPLEX PO) | Daily. | | | | | e | + + + +---------+------+------+-------+ | QUERCETIN PO | Take 400 mg by mouth | | 0 | | | Activ | | | 2 times daily. | | | | | e | + + + +---------+------+------+-------+ | Coenzyme Q10 | Take by mouth 2 | | 0 | | | Activ | | (COQ10 PO) | times daily. COQ10 + | | | | | e | | | AlphaLipoic | | | | | | | | 200/300mg BID | | | | | | + + + +---------+------+------+-------+ | GRAPE SEED | Take 250 mg by mouth | | 0 | | | Activ | | | 2 times daily. | | | | | e | + + + +---------+------+------+-------+ | Resveratrol 250 MG | Take 250 mg by mouth | | 0 | | | Activ | | CAPS | 2 times daily. | | | | | e | + + + +---------+------+------+-------+ | Cooper | Take by mouth | | 0 | | | Activ | | Bioflavonoids 1000 | Daily. | | | | | e | | MG TABS | | | | | | | + + + +---------+------+------+-------+ | Arginine 1000 MG | Take by mouth 2 | | 0 | | | Activ | | TABS | times daily. | | | | | e | + + + +---------+------+------+-------+ | naproxen | Take 250 mg by mouth | | 0 | | | Activ | | (NAPROSYN) 250 mg | 2 times daily. | | | | | e | | tablet | | | | | | | + + + +---------+------+------+-------+ | amitriptyline | 2 tablets at night, | 50 | 5 | 07/2 | | Activ | | (ELAVIL) 25 mg | but up to 4 for neck | tablet | | 9/20 | | e | | tabletIndications: | pain flare up, as | | | 14 | | | | Myofascial muscle | long as it doesn't | | | | | | | pain | cause increased | | | | | | | | pain. | | | | | | + + + +---------+------+------+-------+ | Dietary Management | | | 0 | 01/2 | | Activ | | Product (VASCULERA) | | | | 6/20 | | e | | TABS | | | | 15 | | | + + + +---------+------+------+-------+ | buPROPion | Take 200 mg by mouth | | 0 | | | Activ | | (WELLBUTRIN SR) 200 | 2 times daily. | | | | | e | | MG 12 hr tablet | | | | | | | + + + +---------+------+------+-------+ | DULoxetine | Take 30 mg by mouth | | 0 | | | Activ | | (CYMBALTA) [address] | 2 times daily. | | | | | e | | capsule | | | | | | | + + + +---------+------+------+-------+ | Cholecalciferol | Take 5,000 Units by | | 0 | | | Activ | | (VITAMIN D3 PO) | mouth daily. | | | | | e | + + + +---------+------+------+-------+ | | Take 15 mg by mouth | | 0 | | | Activ | | T-Nbxnicboqefk-Ikpgx | daily. | | | | | e | | (DEPLIN 15 PO) | | | | | | | + + + +---------+------+------+-------+ | albuterol (PROAIR | Inhale into the | | 0 | | | Activ | | RESPICLICK) 90 | lungs every 4 (four) | | | | | e | | mcg/puff inhaler | hours as needed. | | | | | | + + + +---------+------+------+-------+ | gabapentin | Take 100 mg by mouth | | 0 | | | Activ | | (NEURONTIN) 100 mg | 3 (three) times | | | | | e | | capsule | daily. | | | | | | + + + +---------+------+------+-------+ | losartan (COZAAR) | Take 50 mg by mouth | | 0 | | | Activ | | 50 mg tablet | daily. | | | | | e | + + + +---------+------+------+-------+ | mometasone | 2 sprays by Each | | 0 | | | Activ | | (NASONEX) 50 | Nare route daily. | | | | | e | | mcg/nasal spray | | | | | | | + + + +---------+------+------+-------+ | cetirizine | Take 10 mg by mouth | | 0 | | | Activ | | (ZYRTEC) 10 mg | daily. | | | | | e | | tablet | | | | | | | + + + +---------+------+------+-------+ | dextroamphetamine | Take 20 mg by mouth | | 0 | | | Activ | | (ZENZEDI) 20 mg | daily. | | | | | e | | tablet | | | | | | | + + + +---------+------+------+-------+ | polyethylene | Take 17 g by mouth | | 0 | | | Activ | | glycol (MIRALAX) | daily. | | | | | e | | packet | | | | | | | + + + +---------+------+------+-------+ Active Problems + + + | Problem | Noted Date | + + + | Essential hypertension | 11/11/2016 | + + + | Precordial pain | 11/11/2016 | + + + | Blood in stool | 08/07/2014 | + + + | Heme positive stool | 08/07/2014 | + + + | Abdominal pain, generalized | 08/07/2014 | + + + | Nausea with vomiting | 08/07/2014 | + + + | Burning sensation of throat | 08/07/2014 | + + + | Facial numbness | 07/25/2014 | + + + | Shoulder pain, bilateral | 07/06/2014 | + + + | Hip pain, bilateral | 07/06/2014 | + + + | Chronic neck and back pain | 07/06/2014 | + + + | Lymphedema, not elsewhere classified | 10/24/2013 | + + + Family History + + +------+ + | Medical History | Relation | Name | Comments | + + +------+ + | Other (see comment) | Brother | | Tourettes | + + +------+ + | Allergies | Daughter | | | + + +------+ + | Asthma | Daughter | | | + + +------+ + | Asthma | Daughter | | | + + +------+ + | Other (see comment) | Daughter | | Autism, DMDD | + + +------+ + | Mental illness | Father | | | + + +------+ + | Thyroid disease | Father | | | + + +------+ + | Alcohol abuse | Maternal | | | | | Grandfath | | | | | er | | | + + +------+ + | High blood pressure | Maternal | | | | | Grandfath | | | | | er | | | + + +------+ + | High cholesterol | Maternal | | | | | Grandfath | | | | | er | | | + + +------+ + | Prostate cancer | Maternal | | | | | Grandfath | | | | | er | | | + + +------+ + | Arthritis | Maternal | | | | | Grandmoth | | | | | er | | | + + +------+ + | Heart disease | Maternal | | | | | Grandmoth | | | | | er | | | + + +------+ + | Hearing loss | Mother | | | + + +------+ + | Other (see comment) | Son | | Tourettes | + + +------+ + + +------+--------+ + | Relation | Name | Status | Comments | + +------+--------+ + | Brother | | | | + +------+--------+ + | Daughter | | | | + +------+--------+ + | Daughter | | | | + +------+--------+ + | Daughter | | | | + +------+--------+ + | Father | | Alive | | + +------+--------+ + | Maternal Grandfather | | | | + +------+--------+ + | Maternal Grandmother | | | | + +------+--------+ + | Mother | | Alive | | + +------+--------+ + | Son | | | | + +------+--------+ + Social History + +-------+ +--------+------+ | [...] recent travel history available. | + + Last Filed Vital Signs + + + + + | Vital Sign | Reading | Time Taken | Comments | + + + + + | Blood Pressure | 124/70 | 12/17/2016 9:05 AM | | | | | PDT | | + + + + + | Pulse | 88 | 12/17/2016 9:05 AM | | | | | PDT | | + + + + + | Temperature | 36.6 C (97.8 F) | 04/12/2015 4:08 PM | | | | | PST | | + + + + + | Respiratory Rate | 16 | 04/12/2015 4:08 PM | | | | | PST | | + + + + + | Oxygen Saturation | 93% | 04/12/2015 4:08 PM | | | | | PST | | + + + + + | Inhaled Oxygen | - | - | | | Concentration | | | | + + + + + | Weight | 115.3 kg (254 lb 3.2 | 12/17/2016 9:05 AM | | | | oz) | PDT | | + + + + + | Height | 174 cm (5' 8.5") | 12/17/2016 9:05 AM | | | | | PDT | | + + + + + | Body Mass Index | 38.09 | 12/17/2016 9:05 AM | | | | | PDT | | + + + + + Plan of Treatment + + + + + | Health Maintenance | Due Date | Last Done | Comments | + + + + + | Vaccine: | | | | | Dtap/Tdap/Td (1 - | 0 | | | | Tdap) | | | | + + + + + | Cervical Cancer | | | | | Screening (Pap) | 1 | | | + + + + + | Breast Cancer | | | | | Screening | 6 | | | + + + + + | Vaccine: Influenza | | | | | (#1) | 9 | | | + + + + + Results Not on filefrom Last 3 Months Advance Directives + + + + + | Type | Date Recorded | Patient | Explanation | | | | Reuse Technician | | + + + + + | Power of | | | Information Refused | | Medicare Nurse | | | | + + + + + | Advance | 10/31/2013 4:02 | | | | Directive | PM | | | + + + + +
--- OUTSIDE RECORDS SUMMARY | ~2019-03-27 | XMS | Encounter Summary ---
Demographics + + + | Address | [address] | | | [place] [address] | + + + | Home Phone | | + + + | Preferred Language | Unknown | + + + | Marital Status | Single | + + + | Adventist Affiliation | 1013 | + + + | Race | Unknown | + + + | Ethnic Group | Unknown | + + + Author + + + | Author | [facility] | | | and Ezequielana | + + + | Organization | [facility] | | | and [...] Team Providers + +------+ + | Care [employer] Skills Name | Role | Phone | + [...] Rehabilitatio | subluxation | MD [place] | [place] | | | | n | of left | [address] | [place], | | | | | shoulder, | [place] | [place] [address] | | | | | initial | [place], | Phone: | | | | | encounter | [place] [address] | [phone] | | | | | Left hip | Phone: | Fax: | | | | | subluxation, | [phone] | [phone] | | | | | initial | Fax: | | | | | | encounter | [phone] | | | | | | (HCC) [...] Description | +--------+---------+ + + + | 08/02/ | Office | [facility] | Taran Archuleta | Chronic neck and | | 2014 | Visit | [facility] PT | [address] | back pain (Primary | | | | OP [address] [place] | [place] | Dx); Hip pain, | | | | [place], [place] | [place] [address] | bilateral; Shoulder | | | | [address] | [phone] | pain, bilateral | | | | [phone] | | | | | | | Trina Hargrove, PT | | | | | | [address] | | | | | | [place], [place] | | | | | | [address] | | | | | | | [...] + documented as of this encounter Progress Trina Sebastian, PT - 08/02/2014 1:50 PM PDTFormatting of this note might be different from faye alford original. [facility] THERAPY PT OP [address] [place] [address] Physical Therapy Daily Treatment Note Date: 08/02/2014 Patient Information Patient Name: Zuleyma Jenkins Date of : 1970 Age: 44 y.o. Encounter Diagnoses Code Name Primary? 723.1, 724.5 Chronic neck and back pain Yes 719.45 Hip pain, bilateral 719.41 Shoulder pain, bilateral Date of Onset: Referring Provider: Taran Archuleta MD Rehab Precautions Office Visit from 10/24/2013 in [facility] THER[facility]Y OT OP Rehab Precautions Precautions Comments Lipedema Start Time: 1345 Stop time: 1430 Duration: 45 minutes Timed Treatment Codes: 45 minutes # of PT Visits to Date: 3 Subjective: Pt reports that the kinesio tape for shoulder irritated neck and increased head ache symptoms. Pt reports that she is doing her HEP but not daily. Pt reports that she had a hip x-ray and has a follow up with Dr. Archuleta to discuss results. Pain Assessment Pain Scale Used: NUMERIC Pain Rating Pre Assessment: 4 Pain Rating During Assessment: 1 Location: neck Objective: Manual Therapy: gentle sub-occipital release and gentle manual cervical traction, TPR to bi lateral upper-mid traps. Exercise/Activity 07/05/14 07/11/14 08/02/14 TrA activation Throughout all ex. Throughout all ex. Hooklying: iso hip add 2x20 2x20 hooklying alt. Leg lift 2x20 2x20 Supine: shoulder [place] stab. 2x10 each 2x10 each Supine: shoulder. Iso. Stab. 3x1 min. each Supine:Iso. Scap. 0-30-60 deg 1x10 each Assessment: Pt responded well to manual treatment with good pain reduction And tolerated all exercises well without increase in symptoms; required cues for sequencing throughout exercises. Plan:Cont with lumbo-pelvic and glenohumeral/scap. Stabilization. Check for new orders afte r appointment with Dr. Archuleta Electronically signed by: Trina Garibay PT, 08/02/2014 17:11 Patient Name: Zuleyma Jenkins/: 1970/ documented in this encou nter Plan of Treatment Not on filedocumented as of this encounter Visit Diagnoses + + | Diagnosis | + + | Chronic neck and back pain - Primary | + + | Hip pain, bilateral Pain in joint, pelvic region and thigh | + + | Shoulder pain, bilateral Pain in joint, shoulder region | + + documented in this encounter"
--- OUTSIDE RECORDS SUMMARY | ~2019-03-27 | XMS | Encounter Summary ---
Demographics + + + | Address | [address] | | | [place] [address] | + + + | Home Phone | | + + + | Preferred Language | Unknown | + + + | Marital Status | Single | + + + | Baptist Affiliation | 1013 | + + + | Race | Unknown | + + + | Ethnic Group | Unknown | + + + Author + + + | Author | [facility] | | | and Ezequielana | + + + | Organization | [facility] | | [...] Team Providers + +------+ + | Care Image Processing Engineer Name | Role | Phone | + [...] | | | | lipedema and | | Therapy [address] | | | | | related | [address] | [address] [place] | | | | | problems | [address] | [place], | | | | | Procedures | [address] | [place] [address] | | | | | lymph eval | [place], [place] | Phone: | | | | | | [address] | [phone] | | | | | | Phone: | Fax: | | | | | | [phone] | [phone] | | | | | | Fax: | | | | | | | [phone] | | +--------+--------+ + + + + Encounter Details +--------+---------+ + + + | Date | Type | Department | Care Team | Description | +--------+---------+ + + + | 11/29/ | Office | [facility] | Enzo Juarez, | Lymphedema, not | | 2013 | Visit | [place] | [place] [address] [address] | elsewhere classified | | | | THERAPY [address] | (Primary Dx) | | | | [place], | [place] [address] | | | | | [place] [address] | [phone] | | | | | [phone] | | | | | | | Tita Spaulding COTA | | +--------+---------+ + + + Social [...] documented as of this encounter Progress Notes Tita Spaulding COTA - 11/29/2013 5:27 PM PDT [facility] CTR THERAPY OT OP [address] [place] [address] Occupational Therapy Daily Treatment Note Date: 11/29/2013 Patient Information Patient Name: Zuleyma Jenkins Date [...] great toe Dec 2002 Dr. Gutiérrez in [facility] Tonsillectomy 1996 [place], [place] Tubal ligation 2004 [facility] Rehab Precautions 10/24/13 Rehab Precautions Precautions Comments Lipedema Rehab Learning Style 10/24/13 Learning Style Patient's Optimum Learning Style listening, reading, observation, performance of task Today's Treatment Patient Name: Zuleyma Jenkins/: 1970/ Start Time: 1345 Stop time: 1430 Duration: 45 minutes Timed Treatment Codes: 45 minutes # of OT Visits: 3 Subjective: Pt stated "I sure need a review as I have lost my sheets somewhere" (referring to her [facility] home program). Pain Assessment Objective Patient/Caregiver Education Learner: Patient Readiness: Acceptance Method: Explanation;Demonstration;Handout Response: Verbalizes Understanding;Demonstrated Understanding Comment: MLM techniques - trunk and UE/LE Manual Therapy Manual Therapy Site: Trunk, extremities Manual Therapy: Pt required brief review of trunk MLM techniques and re-training of UE/LE M LM techniques. Cueing required for speed/depth of stroke as well. Assessment Pt demonstrates good motivation to progress and also has good support system at home (spous e assists with MLM). Rehabilitation potential: Patient demonstrates excellent potential to achieve established goals to address the documented impairments by participating in skilled occupational therapy services. Next Visit: Review home program once again to assure proper technique being used and gisel nue per POC. Electronically signed by: JAGJIT Bonds, 11/29/2013 17:27 Patient Name: Zuleyma Jenkins/: 1970/ documented in this enc ounter Plan of Treatment Not on filedocumented as of this encounter Visit Diagnoses + + | Diagnosis | + + | Lymphedema, not elsewhere classified - Primary Other lymphedema | + + documented in this encounter
--- OUTSIDE RECORDS SUMMARY | ~2019-03-27 | XMS | Encounter Summary ---
Demographics + + + | Address | [address] | | | [place] [address] | + + + | Home Phone | | + + + | Preferred Language | Unknown | + + + | Marital Status | Single | + + + | Zoroastrian Affiliation | 1013 | + + + | Race | Unknown | + + + | Ethnic Group | Unknown | + + + Author + + + | Author | [facility] | | | and Ezequielana | + + + | Organization | [facility] | | | and [...] Team Providers + +------+ + | Care Visual Educator Name | Role | Phone | + +------+ + | Enzo Juarez DO | PCP | | + +------+ + Encounter Details +--------+ + + + + | Date | Type | Department | Care Team | Description | +--------+ + + + + | 01/11/ | Documentati | [facility] | Shi Garvey, | | | 2013 | on | MED CNT ONCOLOGY | OT [address] | | | | | THERAPY [address] | [place], [place] | | | | | [place], | [address] | | | | | [place] [address] | | | | | | [phone] | | | +--------+ + + + [...] encounter Progress Notes Shi Cronin, OT - 01/11/2014 12:17 PM PDTFormatting of this note might be diffe rent from the original. [facility] THER[facility] OT OP [address] [place] [address] Occupational Therapy Discharge Assessment Date: 01/11/2014 Patient Information Patient Name: Zuleyma Jenkins Date of : 1970 Age: 43 y.o. History Encounter Diagnoses Code Name Primary? 457.1 Lymphedema, not elsewhere classified Yes Date of Onset: Referring Provider: No ref. provider found Past Medical History Diagnosis Date Thyroid disease Asthma Depression Gastric reflux Migraine Stomach ulcer Thyroid disease Lipidemia Past Surgical History Procedure Date Right great toe Dec 2002 Dr. Gutiérrez in [facility] Tonsillectomy 1996 [place], [place] Tubal ligation 2004 [facility] Allergies Allergen Reactions Blue Dyes (Parenteral) The dye that they use for CT Scan Prednisone Sulfa Antibiotics Rehab Precautions 10/24/13 Rehab Precautions Precautions Comments Lipedema Rehab Learning Style 10/24/13 Learning Style Patient's Optimum Learning Style listening, reading, observation, performance of task Patient Name: Zuleyma Jenkins/: 1970/ # of OT Visits: 5 Assessment Pt has not been seen since 11/29 where she received MLM and instruction in the same for home program. Pt reported that she and her were doing MLM as part of her home program. OP OT Goals OP OT Goals: Goal 1;Goal 2 Goal 1: Pt will report independence in home program for manual lymphatic mobilization, ther apeutic exercise for life long management of lipedema Goal 1 Status: Pt is able to perform MLM with written cues. Goal 2: Pt will report minimal to no pain in the thighs during ADL's in order to complete d aily chores in a more time efficient manner Goal 2 Status: Pt reported that the pain had decreased since starting MLM - and when has in creased pain, does MLM to decrease symptoms Rehabilitation potential: Patient demonstrates excellent potential to achieve established goals to address the documented impairments by participating in skilled occupational therapy services. Plan Discharge to home program as pt has not been seen or scheduled for some time. Patient and/or family has indicated understanding of treatment needs and actively participa mark in the creation of this plan for care. Electronically signed by: Shi Cronin OT, 01/11/2014 12:18 Patient Name: Zuleyma Jenkins/: 1970/ sig mariam by Shi Cronin OT at 01/11/2014 12:24 PM PDTdocumented in this encounter Plan of Treatment Not on filedocumented as of this encounter Visit Diagnoses + + | Diagnosis | + + | Lymphedema, not elsewhere classified - Primary Other lymphedema | + + documented in this encounter"
--- OUTSIDE RECORDS SUMMARY | ~2019-03-27 | XMS | Encounter Summary ---
Demographics + + + | Address | [address] | | | [place] [address] | + + + | Home Phone | | + + + | Preferred Language | Unknown | + + + | Marital Status | Single | + + + | Confucianism Affiliation | 1013 | + + + | Race | Unknown | + + + | Ethnic Group | Unknown | + + + Author + + + | Author | [facility] | | | and Ezequielana | + + + | Organization | [facility] | [...] Team Providers + +------+ + | Care Orthophoto Tech/Draftsman Name | Role | Phone | + [...] Rehabilitatio | subluxation | MD [place] | [place] | | | | n | of left | [address] | [place], | | | | | shoulder, | [place] | [place] [address] | | | | | initial | [place], | Phone: | | | | | encounter | [place] [address] | [phone] | | | | | Left hip | Phone: | Fax: | | | | | subluxation, | [phone] | [phone] | | | | | initial | Fax: | | | | | | encounter | [phone] | | | | | | (HCC) [...] Description | +--------+---------+ + + + | 07/11/ | Office | [facility] | Taran Archuleta | Hip pain, bilateral | | 2015 | Visit | [facility] PT | MD [place] [address] | (Primary Dx); | | | | OP [address] [place] | [place] | Chronic neck and | | | | [place], [place] | [facility] [place] [address] | back pain; Shoulder | | | | [address] | [phone] | pain, bilateral | | | | [phone] | | | | | | | Trina Hargrove, PT | | | | | | [address] | | | | | | [place], [place] | | | | | | [address] | | | | | | | [...] this encounter Progress Trina Sebastian, PT - 07/11/2014 3:38 PM PDTFormatting of this note might be different from faye alford original. [facility] TH[facility] PT OP [address] [place] [address] Physical Therapy Daily Treatment Note Date: 07/11/2014 Patient Information Patient Name: Zuleyma Jenkins Date of : 1970 Age: 44 y.o. Encounter Diagnoses Code Name Primary? 719.45 Hip pain, bilateral Yes 723.1, 724.5 Chronic neck and back pain 719.41 Shoulder pain, bilateral Date of Onset: Referring Provider: Taran Archuleta MD Rehab Precautions Office Visit from 10/24/2013 in [facility] TH[facility] OT OP Rehab Precautions Precautions Comments Lipedema Start Time: 1530 Stop time: 1625 Duration: 55 minutes Timed Treatment Codes: 55 minutes # of PT Visits to Date: 2 Subjective: Pt reported that after two day of kinesio tape she noticed a constant headache; pt reports that she removed the tape on day four due to neck pain and noticed a decrease in her headach e pain. Pt reports that she did not have any skin reactions to tape. Pt reports that her lef t shoulder is painful this afternoon but isn't sure what she did. Pain Assessment Pain Scale Used: NUMERIC Pain Rating Pre Assessment: 8 Location: left shoulder Objective: Manual Therapy: gentle sub-occipital release, TPR to bilateral upper-mid traps. Exercise/Activity 07/05/14 07/11/14 TrA activation Throughout all ex. Throughout all ex. Hooklying: iso hip add 2x20 2x20 hooklying alt. Leg lift 2x20 2x20 Supine: shoulder round valley stab. 2x10 each 2x10 each Supine: shoulder. Iso. Stab. 3x1 min. each Applied Kineso tape to bilateral shoulders: "Y" and "I" strips to provide increased stabili ty. Pt instructed to removed tape if any adverse reactions occur and to gently remove tape d ue to poor skin integrity. Assessment: Pt tolerated all exercises well without increase in symptoms; required cues for sequencing throughout exercises. Plan:Cont with lumbo-pelvic and glenohumeral/scap. 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
--- OUTSIDE RECORDS SUMMARY | ~2019-03-27 | XMS | Encounter Summary ---
Demographics + + + | Address | [address] | | | [place] [address] | + + + | Home Phone | | + + + | Preferred Language | Unknown | + + + | Marital Status | Single | + + + | Judaism Affiliation | 1013 | + + + | Race | Unknown | + + + | Ethnic Group | Unknown | + + + Author + + + | Author | [facility] | | | and Ezequielana | + + + | Organization | [facility] | | | and Ezequielana [...] Team Providers + +------+ + | Care Extruding Department Supervisor Name | Role | Phone | [...] Rehabilitatio | subluxation | MD [place] | [place] | | | | n | of left | [address] | [place], | | | | | shoulder, | [place] | [place] [address] | | | | | initial | [place], | Phone: | | | | | encounter | [place] [address] | [phone] | | | | | Left hip | Phone: | Fax: | | | | | subluxation, | [phone] | [phone] | | | | | initial | Fax: | | | | | | encounter | [phone] | | | | | | (HCC) [...] + + | 09/29/ | Office | [facility] | Taran Archuleta | Hip pain, bilateral | | 2015 | Visit | [facility] TH[facility] PT | [address] | (Primary Dx); | | | | OP [address] [place] | [place] | Chronic neck and | | | | [address] [place] | [place] [address] | back pain | | | | [address] | [phone] | | | | | [phone] | | | | | | | Trina Hargrove, PT | | | | | | [address] | | | | | | [place] | | | | | | [address] | | | | | | | [...] note might be different from faye olmstead. [facility] TH[facility] PT OP [address] [place] [address] Physical Therapy Progress Note Date: 09/29/2014 Patient Information Patient Name: Zuleyma Jenkins Date of : 1970 Age: 44 y.o. Start of Care Date: 07/05/14 History Encounter Diagnoses Code Name Primary? 719.45 Hip pain, bilateral Yes 723.1, 724.5 Chronic neck and back pain Date of Onset: Referring Provider: Taran Archuleta MD Rehab Precautions Office Visit from 10/24/2013 in [facility] OT OP Rehab Precautions [...] Finger ABD (T1): 4/5 4/5 5/5 5/5 Commutator Tester Strength: 4/5 4/5 good good Deep Neck [...] been participating in therapy for treatment of rnfa rajendra and progressive pain in shoulders; right [...] for 60 min or greater over [facility] terrain without pain or limitations. Primary Functional Goal 3 Status Comment: MET OP PT Goals Goal 1: Independent with home exercise program for termination clerk joint and spine health and pre vention of recurrence of symptoms or chronicity. Goal 1 Status: progressing Requested # of Visits: 24 2x/wk for 12 weeks Certification From: 09/29/14 Certification To: 12/22/14 Treatment Plan/Interventions 12053 PT Evaluation, 03961 Therapeutic Exercise, 16880 Therapeutic Activity, 21354 Neuromus cular Re-education, 83260 Self Care/Home Management, 26798 Manual Therapy Patient and/or family has indicated [...]
--- OUTSIDE RECORDS SUMMARY | ~2019-03-27 | XMS | Encounter Summary ---
Demographics + + + | Address | [address] | | | [place] [address] | + + + | Home Phone [...] Organization | [facility] | | | and Ezequielana [...] + +------+ + | Care Director Of Spa And Guest Experience Name | Role | Phone | + +------+ + | Enzo Juarez DO | PCP | | + +------+ + Encounter Details +--------+ + + + + | Date | Type | Department | Care Team | Description | +--------+ + + + + | 09/08/ | Orders Only | [facility] | Alba Bishop V, | | | 2017 | | CONVERSION 888 | MD [address] | | | | | [place] | [place] | | | | | [place] | [address] | | | | | [address] | | | | | | [phone] | | | +--------+ + + + [...] | + +--------+ + + + | ECHO INTERPRETATION | Routin | 09/08/2016 | | Results for this | | OF OUTSIDE FILMS | e | 2:33 PM | | procedure are in the | | | | PDT | | results section. | + +--------+ + + + documented in this encounter Results ECHO Interpretation of Outside Films (09/08/2016 2:33 PM PDT) + + | Specimen | + + | | + + + + + | Impressions | Performed At | + + + | 1. Overall left ventricular systolic function is normal with, an EF | | | between 60 - 65 %. 2. The right ventricle is normal in size and | | | function. 3. There is a possible small secundum type atrial septal | | | defect that shunts from left to right. No fright to left shunting | | | noted. No VSD observed. 4. No significant valvular abnormalties are | | | noted. | | + + + + + + | Narrative | Performed At | + + + | Patient Name: Zuleyma Jenkins Date of : 1970 | | | Performing Physician: JOSH CORREA MD | | | | | | INDICATIONS Angina CONCLUSIONS 1. | | | Overall left ventricular systolic function is normal with, an EF | | | between 60 - 65 %. 2. The right ventricle is normal in size and | | | function. 3. There is a possible small secundum type atrial septal | | | defect that shunts from left to right. No fright to left shunting | | | noted. No VSD observed. 4. No significant valvular abnormalties are | | | noted. FINDINGS -------- ECG rhythm: Sinus rhythm. Study: A | | | 2-dimensional transthoracic echocardiogram with m-mode, spectral and | | | color flow Doppler and LV strain imaging was perfomed at [facility]. Study: This was a technically adequate study. Left | | | Ventricle: Overall left ventricular systolic function is normal with, | | | an EF between 60 - 65 %. Left Ventricle: The left ventricle cavity | | | size is normal. Left Ventricle: Left ventricular wall thickness is | | | normal. Left Ventricle: No regional wall motion abnormalities. Left | | | Ventricle: The diastolic filling pattern is normal for the age of the | | | patient. Right Ventricle: The right ventricle is normal in size and | | | function. Left Atrium: The left atrium is normal in size. Right | | | Atrium: The right atrium is normal in size. Aortic Valve: The aortic | | | valve is trileaflet and appears structurally normal. Aortic Valve: | | | There is no evidence of aortic regurgitation. Aortic Valve: There is | | | no evidence of aortic stenosis. Mitral Valve: The mitral valve is | | | normal. Mitral Valve: No mitral valve prolapse, stenosis or | | | regurgitation. Tricuspid Valve: The tricuspid valve appears | | | structurally normal, with no prolapse, stenosis or regurgitation. | | | Tricuspid Valve: Pulmonary artery systolic pressure could not be | | | assessed due to the absence of adequate TR jet. Pulmonic Valve: The | | | pulmonic valve is normal. Pulmonic Valve: Trace pulmonic | | | regurgitation. Pericardium: There is no pericardial effusion. | | | IVC/Hepatic Veins: The IVC is normal size (1.5-2.5cm) and collapses | | | >50% with sniff, consistent with central venous pressures of 5-10mmHg. | | | Aorta: The aortic root, ascending aorta and aortic arch are normal. | | | Mass: No mass visualized Thrombus: No clot visualized Thrombus: No | | | vegetation visualized. Septum: There is a possible small secundum | | | type atrial septal defect with minimal left to right shunting seen in | | | the subcostal view, although it was not well visualized. Septum: No | | | right to left shunting noted. No VSD observed. MEASUREMENTS | | | Ao asc: 3.43 cm Ao Diam: 3.21 cm Ao sinus: | | | 3.[address] junct: 2.97 cm IVC: 1.71 cm LA Diam: 3.32 cm | | | LA Major: 4.43 cm EDV(Teich): 113.74 ml IVSd: 0.75 cm | | | LVIDd: 4.91 cm LVPWd: 0.77 cm LVOT Area: 3.44 cm2 LVOT | | | Diam: 2.09 cm %FS: 33.22 % EF(Teich): 61.66 % ESV(Teich): | | | 43.60 ml LVIDs: 3.28 cm SV(Teich): 70.14 ml RA Major: | | | 4.45 cm RV Major: 6.38 cm RV Minor: 2.44 cm RVIDd: 2.41 cm | | | LVEF MOD A2C: 55.66 % SV MOD A2C: 55.83 ml LVEF MOD A4C: | | | 62.75 % SV MOD A4C: 56.86 ml EF Biplane: 58.66 % LVEDV MOD | | | BP: 97.69 ml LVESV MOD BP: 40.38 ml LVEDV MOD A2C: 100.29 | | | ml LVLd A2C: 8.51 cm LVEDV MOD A4C: 90.60 ml LVLd A4C: | | | 7.92 cm LVESV MOD A2C: 44.46 ml LVLs A2C: 6.52 cm LVESV MOD | | | A4C: 33.74 ml LVLs A4C: 7.16 cm LAESV(A-L): 36.70 ml LAESV | | | Index (A-L): 16.31 ml/m2 LAAs A2C: 15.83 cm2 LAESV A-L A2C: | | | 46.80 ml LALs A2C: 4.54 cm LAAs A4C: 11.89 cm2 LAESV A-L | | | A4C: 27.56 ml LALs A4C: 4.35 cm RAAs: 11.35 cm2 RAESV A-L: | | | 25.00 ml RAESV MOD: 24.32 ml RALs: 4.37 cm TAPSE: 2.37 | | | cm AV maxP.78 mmHg AV meanP.69 mmHg AV Vmax: 1.09 | | | m/s AV Vmean: 0.77 m/s AV VTI: 19.47 cm ZAINAB Vmax: 2.90 | | | cm2 ZAINAB (VTI): 2.87 cm2 AVAI Vmax: 0.00 cm2/m2 AVAI (VTI): | | | 0.00 cm2/m2 LVOT maxP.40 mmHg LVOT meanP.74 mmHg | | | LVSI Dopp: 24.91 ml/m2 LVSV Dopp: 56.04 ml LVOT Vmax: 0.92 | | | m/s LVOT Vmean: 0.61 m/s LVOT VTI: 16.26 cm MV A Peter: 0.64 | | | m/s MV DecT: 204.00 ms MV E Peter: 0.82 m/s MV E/A Ratio: | | | 1.28 MV PHT: 59.16 ms MVA By PHT: 3.71 cm2 Septal e': 0.08 | | | m/s Septal E/e': 9.42 Lateral e': 0.12 m/s Lateral E/e': | | | 6.67 Long Lines Operator: DBS Authenticated by: JOSH CORREA MD | | | Report Date/Time: -- [id number] | | + + + + + | Procedure Note | + + | Charli Quick Conversion - 12/23/2018 7:36 PM PDT Patient Name: Mayda Jenkins of : | | 1970 Performing Physician: JOSH CORREA, | | INDICATIONS A | | ngina CONCLUSIONS 1. Overall left ventricular systolic function is normal | | with, an EF between 60 - 65 %.2. The right ventricle is normal in size and function.3. | | There is a possible small secundum type atrial septal defect that shunts from left to | | right. No fright to left shunting noted. No VSD observed. 4. No significant valvular | | abnormalties are noted. FINDINGS--------ECG rhythm: Sinus rhythm.Study: A 2-dimensional | | transthoracic echocardiogram with m-mode, spectral and color flow Doppler and LV strain | | imaging was perfomed at [facility].Study: This was a technically adequate | | study.Left Ventricle: Overall left ventricular systolic function is normal with, an EF | | between 60 - 65 %.Left Ventricle: The left ventricle cavity size is normal.Left | | Ventricle: Left ventricular wall thickness is normal.Left Ventricle: No regional wall | | motion abnormalities.Left Ventricle: The diastolic filling pattern is normal for the age | | of the patient.Right Ventricle: The right ventricle is normal in size and function.Left | | Atrium: The left atrium is normal in size.Right Atrium: The right atrium is normal in | | size.Aortic Valve: The aortic valve is trileaflet and appears structurally normal.Aortic | | Valve: There is no evidence of aortic regurgitation.Aortic Valve: There is no evidence | | of aortic stenosis.Mitral Valve: The mitral valve is normal.Mitral Valve: No mitral | | valve prolapse, stenosis or regurgitation.Tricuspid Valve: The tricuspid valve appears | | structurally normal, with no prolapse, stenosis or regurgitation.Tricuspid Valve: | | Pulmonary artery systolic pressure could not be assessed due to the absence of adequate | | TR jet.Pulmonic Valve: The pulmonic valve is normal.Pulmonic Valve: Trace pulmonic | | regurgitation.Pericardium: There is no pericardial effusion.IVC/Hepatic Veins: The IVC | | is normal size (1.5-2.5cm) and collapses >50% with sniff, consistent with central venous | | pressures of 5-10mmHg.Aorta: The aortic root, ascending aorta and aortic arch are | | normal.Mass: No mass visualizedThrombus: No clot visualizedThrombus: No vegetation | | visualized.Septum: There is a possible small secundum type atrial septal defect with | | minimal left to right shunting seen in the subcostal view, although it was not well | | visualized.Septum: No right to left shunting noted. No VSD observed. | | MEASUREMENTS Ao asc: 3.43 cmAo Diam: 3.21 cmAo sinus: 3.[address] | | junct: 2.97 cmIVC: 1.71 cmLA Diam: 3.32 cmLA Major: 4.43 cmEDV(Teich): 113.74 | | mlIVSd: 0.75 cmLVIDd: 4.91 cmLVPWd: 0.77 cmLVOT Area: 3.44 db6KQPS Diam: 2.09 | | cm%FS: 33.22 %EF(Teich): 61.66 %ESV(Teich): 43.60 mlLVIDs: 3.28 cmSV(Teich): | | 70.14 mlRA Major: 4.45 cmRV Major: 6.38 cmRV Minor: 2.44 cmRVIDd: 2.41 cmLVEF | | MOD A2C: 55.66 %SV MOD A2C: 55.83 mlLVEF MOD A4C: 62.75 %SV MOD A4C: 56.86 mlEF | | Biplane: 58.66 %LVEDV MOD BP: 97.69 mlLVESV MOD BP: 40.38 mlLVEDV MOD A2C: | | 100.29 mlLVLd A2C: 8.51 cmLVEDV MOD A4C: 90.60 mlLVLd A4C: 7.92 cmLVESV MOD A2C: | | 44.46 mlLVLs A2C: 6.52 cmLVESV MOD A4C: 33.74 mlLVLs A4C: 7.16 cmLAESV(A-L): | | 36.70 mlLAESV Index (A-L): 16.31 ml/m2LAAs A2C: 15.83 [id number] A-L A2C: 46.80 | | mlLALs A2C: 4.54 cmLAAs A4C: 11.89 fr5MZROK A-L A4C: 27.56 mlLALs A4C: 4.35 | | cmRAAs: 11.35 kg5ZFNCT A-L: 25.00 mlRAESV MOD: 24.32 mlRALs: 4.37 cmTAPSE: | | 2.37 cmAV maxP.78 mmHgAV meanP.69 mmHgAV Vmax: 1.09 m/Crow Vmean: 0.77 | | m/Crow VTI: 19.47 cmAVA Vmax: 2.90 cm2AVA (VTI): 2.87 mb4DYCQ Vmax: 0.00 | | cm2/m2AVAI (VTI): 0.00 cm2/m2LVOT maxP.40 mmHgLVOT meanP.74 mmHgLVSI Dopp: | | 24.91 ml/m2LVSV Dopp: 56.04 mlLVOT Vmax: 0.92 m/sLVOT Vmean: 0.61 m/sLVOT VTI: | | 16.26 cmMV A Peter: 0.64 m/sMV DecT: 204.00 msMV E Peter: 0.82 m/sMV E/A Ratio: | | 1.28MV PHT: 59.16 msMVA By PHT: 3.71 yt9Adzxnu e': 0.08 m/sSeptal E/e': | | 9.42Lateral e': 0.12 m/sLateral E/e': 6.67 Long Lines Operator: DBSAuthenticated by: | | Agustín GARZA Date/Time: -- [id number] IMPRESSION: 1. Overall left | | ventricular systolic function is normal with, an EF between 60 - 65 %.2. The right | | ventricle is normal in size and function.3. There is a possible small secundum type | | atrial septal defect that shunts from left to right. No fright to left shunting noted. | | No VSD observed. 4. No significant valvular abnormalties are noted. | |Ao st junct: 2.97 cm | |IVC: 1.71 cm | |LA Diam: 3.32 cm | |LA Major: 4.43 cm | |EDV(Teich): 113.74 ml | |IVSd: 0.75 cm | |LVIDd: 4.91 cm | |LVPWd: 0.77 cm | |LVOT Area: 3.44 cm2 | |LVOT Diam: 2.09 cm | |%FS: 33.22 % | |EF(Teich): 61.66 % | |ESV(Teich): 43.60 ml | |LVIDs: 3.28 cm | |SV(Teich): 70.14 ml | |RA Major: 4.45 cm | |RV Major: 6.38 cm | |RV Minor: 2.44 cm | |RVIDd: 2.41 cm | |LVEF MOD A2C: 55.66 % | |SV MOD A2C: 55.83 ml | |LVEF MOD A4C: 62.75 % | |SV MOD A4C: 56.86 ml | |EF Biplane: 58.66 % | |LVEDV MOD BP: 97.69 ml | |LVESV MOD BP: 40.38 ml | |LVEDV MOD A2C: 100.29 ml | |LVLd A2C: 8.51 cm | |LVEDV MOD A4C: 90.60 ml | |LVLd A4C: 7.92 cm | |LVESV MOD A2C: 44.46 ml | |LVLs A2C: 6.52 cm | |LVESV MOD A4C: 33.74 ml | |LVLs A4C: 7.16 cm | |LAESV(A-L): 36.70 ml | |LAESV Index (A-L): 16.31 ml/m2 | |LAAs A2C: 15.83 cm2 | |LAESV A-L A2C: 46.80 ml | |LALs A2C: 4.54 cm | |LAAs A4C: 11.89 cm2 | |LAESV A-L A4C: 27.56 ml | |LALs A4C: 4.35 cm | |RAAs: 11.35 cm2 | |RAESV A-L: 25.00 ml | |RAESV MOD: 24.32 ml | |RALs: 4.37 cm | |TAPSE: 2.37 cm | |AV maxP.78 mmHg | |AV meanP.69 mmHg | |AV Vmax: 1.09 m/s | |AV Vmean: 0.77 m/s | |AV VTI: 19.47 cm | |ZAINAB Vmax: 2.90 cm2 | |ZAINAB (VTI): 2.87 cm2 | |AVAI Vmax: 0.00 cm2/m2 | |AVAI (VTI): 0.00 cm2/m2 | |LVOT maxP.40 mmHg | |LVOT meanP.74 mmHg | |LVSI Dopp: 24.91 ml/m2 | |LVSV Dopp: 56.04 ml | |LVOT Vmax: 0.92 m/s | |LVOT Vmean: 0.61 m/s | |LVOT VTI: 16.26 cm | |MV A Peter: 0.64 m/s | |MV DecT: 204.00 ms | |MV E Peter: 0.82 m/s | |MV E/A Ratio: 1.28 | |MV PHT: 59.16 ms | |MVA By PHT: 3.71 cm2 | |Septal e': 0.08 m/s | |Septal E/e': 9.42 | |Lateral e': 0.12 m/s | |Lateral E/e': 6.67 | | | |Long Lines Operator: DBS | |Authenticated by: JOSH CORREA MD | |Report Date/Time: -- [id number] | | | |IMPRESSION: | |1. Overall left ventricular systolic function is normal with, an EF between 60 - 65 %. | |2. The right ventricle is normal in size and function. | |3. There is a possible small secundum type atrial septal defect that shunts from left to ri ght. No fright to left shunting noted. No VSD observed. 4. No significant valvular abnormalt ies are noted. | + + documented in this encounter Visit Diagnoses Not on filedocumented in this encounter"
--- OUTSIDE RECORDS SUMMARY | ~2019-03-27 | XMS | Encounter Summary ---
Demographics + + + | Address | [address] | | | [place] [address] | + + + | Home Phone | | + + + | Preferred Language | Unknown | + + + | Marital Status | Single | + + + | Samaritan Affiliation | 1013 | + + + | Race | Unknown | + + + | Ethnic Group | Unknown | + + + Author + + + | Author | [facility] | | | and Ezequielana | + + + | Organization | [facility] | | | and Ezequielana | [...] Team Providers + +------+ + | Care Inspector Health Care Facilities Name | Role | Phone | + [...] Rehabilitatio | subluxation | [place] | [place] | | | | n | of left | [address] | [place], | | | | | shoulder, | [place] | [place] [address] | | | | | initial | [place], | Phone: | | | | | encounter | [place] [address] | [phone] | | | | | Left hip | Phone: | Fax: | | | | | subluxation, | [phone] | [phone] | | | | | initial | Fax: | | | | | | encounter | [phone] | | | | | | (HCC) [...] Description | +--------+---------+ + + + | 08/11/ | [facility] Taran Archuleta | Chronic neck and | | 2014 | Visit | [facility] PT | [address] [place] [address] | back pain (Primary | | | | OP [address] [place] | [place] | Dx); Hip pain, | | | | [place], [place] | [facility] [place] [address] | bilateral | | | | [address] | [phone] | | | | | [phone] | | | | | | | Lulú Callahan R, | | | | | | ELECTRICITY TRADING ANALYST [address] | | | | | | [place] | | | | | | [address] | | | | | | [phone] | | | | | | | [...] documented as of this encounter Progress Notes Lulú Callahan, ELECTRICITY TRADING ANALYST - 08/11/2014 10:41 AM PDTFormatting of this note might be different f rom the original. [facility] OP [address] [place] [address] Physical Therapy Daily Treatment Note Date: 08/11/2014 Patient Information Patient Name: Zuleyma Jenkins Date of : 1970 Age: 44 y.o. Encounter Diagnoses Code Name Primary? 723.1, 724.5 Chronic neck and back pain Yes 719.45 Hip pain, bilateral Date of Onset: Referring Provider: Taran Archuleta MD Rehab Precautions Office Visit from 10/24/2013 in [facility] OP Rehab Precautions Precautions Comments Lipedema Start Time: 1015 Stop time: 1115 Duration: 60 minutes Timed Treatment Codes: 30 minutes # of PT Visits to Date: 5 Subjective: Pt had a flare up of her lipedema earlier in the week and why she had to cxl ap pointment. Pt feels that the suboccipital release helps the most. Liked the mechanical tract ion most. She would like to try traction unit that she could have a home unit. Pt did not li ke the positioning of the over the door traction. Would like to try supine home unit. Pt got good relief after the mechanical traction to "hardly having any pain." Pt has had Kinesio tape in the past, but it seemed to make headaches worse. Standing too long will cause liped emily to worsen. Pain Assessment Pain Rating Pre Assessment: 3 Location: neck Objective: Manual Therapy: Suboccipital release and manual traction and trigger point release x 30 mi n. Exercise/Activity 07/05/14 07/11/14 08/02/14 08/04/14 TrA activation Throughout all ex. Throughout all ex. Hooklying: iso hip add 2x20 2x20 hooklying alt. Leg lift 2x20 2x20 Supine: shoulder table mountain stab. 2x10 each 2x10 each Supine: shoulder. Iso. Stab. 3x1 min. each Supine:Iso. Scap. 0-30-60 deg 1x10 each 1x10 each Supine: upper c-spine retraction 2x10, 3 sec hold Modalities: Trial of Over the door traction as per primary PT suggestion 2.5#-5# x 4 min Mechanical cervical traction DTS pull pattern 1 5-10 lbs for 15 min Assessment: Will get an trial of the pneumatic supine traction unit once we have one in the clinic. Plan:Cont with lumbo-pelvic and glenohumeral/scap. Stabilization. Cont with neck traction a nd posterior chain strengthening. Electronically signed by: Lulú Callahan PTA, 08/11/2014 12:19 Patient Name: Zuleyma Jenkins/: 1970/ documented in this encounter Plan of Treatment Not on filedocumented as of this encounter Visit Diagnoses + + | Diagnosis | + + | Chronic neck and back pain - Primary | + + | Hip pain, bilateral Pain in joint, pelvic region and thigh | + + documented in this encounter
--- OUTSIDE RECORDS SUMMARY | ~2019-03-27 | XMS | Encounter Summary ---
Demographics + + + | Address | [address] | | | [place] [address] | + + + | Home Phone [...] + + + | Author | [facility] | | | and Ezequielana | + + + | Organization | [facility] | | | and [...] Team Providers + +------+ + | Care Stereotyper Name | Role | Phone | + +------+ + | Enzo Juarez DO | PCP | | + +------+ + Reason for Visit + + + | Reason | Comments | + + + | Follow-up | Neck Pain | + + + Encounter Details +--------+---------+ + + + | Date | Type | Department | Care Team | Description | +--------+---------+ + + + | 07/05/ | Office | [facility] | Taran Archuleta | Arthritis of left | | 2015 | Visit | REHABILITATION | MD [address] | hip (Primary Dx); | | | | MEDICINE [address] | [place] | Natalia-Danlos | | | | [address] [place] | [place] [address] | syndrome type III; | | | | [place] [address] | [phone] | Peripheral | | | | [phone] | | neuropathy; | | | | | | Lymphedema; Shoulder | | | | | | subluxation, | | | | | | unspecified | | | | | | laterality, sequela | +--------+---------+ + + + Social History [...] + + + | Blood Pressure | 135/88 | 07/05/2014 3:31 PM | | | | | PST | | + + + + + | Pulse | 93 | 07/05/2014 3:31 PM | | | | | PST | | + + + + + | Temperature | - | - | | + + + + + | Respiratory Rate | 16 | 07/05/2014 3:31 PM | | | | | PST | | + + + + + | Oxygen Saturation | - | - | | + + + + + | Inhaled Oxygen | - | - | | | Concentration | | | | + + + + + | Weight | 99.8 kg (220 lb) | 07/05/2014 3:31 PM | | | | | PST | | + + + + + | Height | 174 cm (5' 8.5") | 07/05/2014 3:31 PM | | | | | PST | | + + + + + | Body Mass Index | 32.96 | 07/05/2014 3:31 PM | | | | | PST | | + + + + + documented in this encounter Patient Instructions Patient Instructions Taran Archuleta MD - 07/05/2014 4:15 PM PST1. Get your Xra ys of your hip today or in the next few days, as I will be out of town for the next few week s. 2. See Dr. Frances 07-25-14 for your facial numbness and arnold-chiari syndrome questions . 3. I'll see you 08-02-14 to review how you're doing in PT and Dr. Frances's report. 4. Continue PT as you are doing.Electronically signed by Taran Archuleta MD at 0 07/05/2014 4:21 PM PST documented in this encounter Progress Notes Taran Archuleta MD - 07/06/2014 12:14 PM PSTI spent over 15 minutes, face to face with the patient, mostly in following up on the various therapies and physician visits she is scheduled for or had. She had her first physical therapy vosot today and they did tape both of her shoulders and she feels okay. A home exercise program was also given for her left hip. Left hip is still painful with movement and still has that subluxation feeling when getting out of her van. In checking, the previous hip x-ray was not yet done and I reminded the patient. Still having the facial numbness on both sides of her face and into the chin but no change. Set up to see Dr. Frances, neurology, July 25, 2014. Still having the bilateral shoulder pain right greater than left but not all the time, usua lly related to increased activity. Still numbness and tingling in the hands and feet all th e time but no significant change. She is set up with Dr. Olvera for EMG of upper extremity September 11, 2014, and lower extrem ity September 18, 2014. Still having neck pain and down through C7 and still the numbness and tingling in the hands , but no specific weakness other than the shoulder weakness from discomfort. Low back pain worse with increased activities but no radicular pain. She had an ovary removed since the last visit and did okay except had a lot of swelling fro m her Natalia Danlos and lymphedema problems. Physical exam: She is in no distress, both shoulders are taped adequately. Upper and lower extremity strength 4+ over 5 with decreased sensation in the hands and toes Pain in the left greater trochanter and pain with internal and external rotation of her hip s but mainly at the greater trochanter. Impression: Hand and feet numbness: EMG set up with Dr. Olvera Facial numbness: No change. Seeing Dr. Frances of neurology. She has a concern about Ar nold Chiari malformation versus other issues. Lymphedema: Stable. Natalia Danlos syndrome type III: Stable, but contributing to her about Shoulder subluxation: Probably related to Natalia Danlos. Getting taping through physical t herapy and other treatments Progressive left hip pain with feeling of subluxation: She will get her x-ray today to [facility] for progression Plan: Left hip x-ray today Continue physical therapy Dr. Frances July 25, 2014 Dr. Olvera September 11 and September 18, 2014 for EMG Follow-up one month mainly to check on how she is doing in physical therapy and if the tapi ng of the shoulders helped, plus follow-up on hip x-ray documented in this encounter Plan of Treatment Not on filedocumented as of this encounter Visit Diagnoses + + | Diagnosis | + + | Arthritis of left hip - Primary | + + | Natalia-Danlos syndrome type III Natalia-Danlos syndrome | + + | Peripheral neuropathy Unspecified hereditary and idiopathic peripheral neuropathy | + + | Lymphedema Other lymphedema | + + | Shoulder subluxation, unspecified laterality, sequela | + + documented in this encounter
--- OUTSIDE RECORDS SUMMARY | ~2019-03-27 | XMS | Encounter Summary ---
Demographics + + + | Address | [address] | | | [place] [address] | + + + | Home Phone | | + + + | Preferred Language | Unknown | + + + | Marital Status | Single | + + + | Restoration Affiliation | 1013 | + + + | Race | Unknown | + + + | Ethnic Group | Unknown | + + + Author + + + | Author | [facility] | | | and Ezequielana | + + + | Organization | [facility] | | | and Ezequielana | [...] Team Providers + +------+ + | Care Adjunct Faculty For Medical Terminology Name | Role | Phone | + +------+ + | Enzo Juarez DO | PCP | | + +------+ + Reason for Referral Diagnostic/Screening (Routine) +--------+--------+ + + + + | Status | Reason | Specialty | Diagnoses / | Referred By | Referred To | | | | | Procedures | Contact | Contact | +--------+--------+ + + + + | Closed | | Radiology | Diagnoses | Juan Daniel, | [facility] | | | | | Trigeminal | Marcell Leung, | [address] | | | | | neuropathy | MD [place] | [place], | | | | | Procedures | updated | [place] | | | | | MRI Brain w | address | [address] | | | | | wo Contrast | | Phone: | | | | | | | [phone] | | | | | | | Fax: | | | | | | | [phone] | +--------+--------+ + + + + Reason for Visit Diagnostic/Screening (Routine) +--------+--------+ + + + + | Status | Reason | Specialty | Diagnoses / | Referred By | Referred To | | | | | Procedures | Contact | Contact | +--------+--------+ + + + + | Closed | | Radiology | Diagnoses | Juan Daniel, | [facility] | | | | | Trigeminal | Marcell Leung, | [address] | | | | | neuropathy | MD [place] | [place], | | | | | Procedures | updated | [place] | | | | | MRI Brain w | address | [address] | | | | | wo Contrast | | Phone: | | | | | | | [phone] | | | | | | | Fax: | | | | | | | [phone] | +--------+--------+ + + + + Encounter Details +--------+ + + + + | Date | Type | Department | Care Team | Description | +--------+ + + + + | 08/02/ | [facility] | [facility] | Marcell Frances | Trigeminal | | 2015 | Encounter | MED CTR MRI [address] | MD [place] updated | neuropathy | | | | [place], | address | | | | | [place] [address] | | | | | | [phone] | | | +--------+ + + + [...] + + + +---------+ + + | [place] | Take by mouth | | 0 [...] + + + +---------+ + + | Goessel-3 Fatty | Take by mouth. | | 0 | | | | Acids (OMEGA 3 PO) | Goessel 3 + COQ10 | | | | [...] + + + +---------+ + + | TurmerAntonio lino | Take 1,000 mg by | | 0 | | | | Long[place]us (CURCUMIN) | mouth 2 times daily. | [...] | + +--------+ + + + | MRI BRAIN W WO | Routin | 08/02/2014 | Trigeminal | Results for this | | CONTRAST | e | 12:11 PM | neuropathy | procedure are in the | | | | PDT | | results section. 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 COMPARISON: None. PROTOCOL: MRI of | [facility] | | the brain was obtained with the following sequences: Sagittal T1, | [facility]ENTER | | axial T2, axial T2 FLAIR fat sat, axial T1, axial diffusion weighted, | - IMAGING | | axial GRE, axial T1 post gadolinium, coronal T1 post gadolinium, | | | sagittal T1 post gadolinium. MRI of the brainstem was acquired with | | | the following sequences: Axial T1, axial T1 post gadolinium, coronal | | | T1 fat sat post gadolinium, oblique sagittal T1 fat sat post | | | gadolinium. The patient was administered 10 cc Gadavist. | | | FINDINGS: The brain parenchyma shows no evidence for acute infarct, | | | mass lesion, or hemorrhage. The brainstem is unremarkable. The | | | bilateral fifth cranial nerves have a normal appearance with no | | | abnormal enhancement. The cerebellum is normal. The pituitary gland | | | has a normal appearance. The right lateral ventricle is mildly | | | larger than the left. Normal vascular flow voids are seen. The | | | orbits are normal. There is moderate mucosal thickening of the right | | | frontal sinus and anterior ethmoid sinus. Mild to moderate mucosal | | | thickening are in the maxillary sinuses. Mastoid air cells are | | | normal. Calvarium, temporal bones, and skull base structures are | | | unremarkable. IMPRESSION - No acute findings, no abnormal signal | | | of bilateral fifth cranial nerves. Paranasal sinus disease. | | | Dictated and Signed by: aWldo Restrepo MD Electronically signed: | | | 08/02/2014 1:03 PM | | + + + + + | Procedure Note | + + | Abdelrahman, Rad Results In - 08/02/2014 1:06 PM PDT MRI BRAIN W WO CONTRAST 08/02/2014 11:28 | | AM HISTORY: Bilateral trigeminal neuropathy.COMPARISON: None.PROTOCOL: MRI of the brain | | was obtained with the following sequences: Sagittal T1, axialT2, axial T2 FLAIR fat sat, | | axial T1, axial diffusion weighted, axial GRE, axialT1 post gadolinium, coronal T1 post | | gadolinium, sagittal T1 post gadolinium. MRI of the brainstem was acquired with the | | following sequences: Axial T1, axialT1 post gadolinium, coronal T1 fat sat post | | gadolinium, oblique sagittal T1 fatsat post gadolinium.The patient was administered 10 | | cc Gadavist.FINDINGS:The brain parenchyma shows no evidence for acute infarct, mass | | lesion, orhemorrhage. The brainstem is unremarkable. The bilateral fifth cranial | | nerveshave a normal appearance with no abnormal enhancement. The cerebellum is | | normal.The pituitary gland has a normal appearance.The right lateral ventricle is mildly | | larger than the left.Normal vascular flow voids are seen.The orbits are normal. There | | is moderate mucosal thickening of the right frontalsinus and anterior ethmoid sinus. | | Mild to moderate mucosal thickening are in themaxillary sinuses. Mastoid air cells are | | normal.Calvarium, temporal bones, and skull base structures are unremarkable.IMPRESSION | | -No acute findings, no abnormal signal of bilateral fifth cranial nerves.Paranasal sinus | | disease.Dictated and Signed by: Waldo Restrepo MD Electronically signed: 08/02/2014 1:03 | | PM | |have a normal appearance with no abnormal enhancement. The cerebellum is normal. | |The pituitary gland has a normal appearance. | | | |The right lateral ventricle is mildly larger than the left. | | | |Normal vascular flow voids are seen. | | | |The orbits are normal. There is moderate mucosal thickening of the right frontal | |sinus and anterior ethmoid sinus. Mild to moderate mucosal thickening are in the | |maxillary sinuses. Mastoid air cells are normal. | | | |Calvarium, temporal bones, and skull base structures are unremarkable. | | | |IMPRESSION - | |No acute findings, no abnormal signal of bilateral fifth cranial nerves. | | | |Paranasal sinus disease. | | | |Dictated and Signed by: Waldo Restrepo MD | | Electronically signed: 08/02/2014 1:03 PM | + + + + + + + | Performing | Address | City/State/Zipcode | Phone Number | | Organization | | | | + + + + + | [address] | [address] | [place] | [phone] | | [facility] | | [address] | | | - IMAGING | | | | + + + + + documented in this encounter Visit Diagnoses + + | Diagnosis | + + | Trigeminal neuropathy Trigeminal nerve disorder, unspecified | + + documented in this encounter Administered Medications + +--------+ +--------+------+------+ | Medication Order | MAR | Action | Dose | Rate | Site | | | Action | Date | | | | + +--------+ +--------+------+------+ | gadobutrol (GADAVIST) injection | Given | 08/03/19 | 10 mLs | | | | 10 mL 10 mL, Intravenous, ONCE | | 15 12:13 | | | | | PRN, Other, Starting 08/02/14 | | PM PDT | | | | | at 1212, For 1 dose, MRI | | | | | | + +--------+ +--------+------+------+ +---+---+ | | | +---+---+ documented in this encounter"
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
--- OUTSIDE RECORDS SUMMARY | ~2019-03-27 | XMS | Encounter Summary ---
Demographics + + + | Address | [address] | | | [place] [address] | + + + | Home Phone | | + + + | Preferred Language | Unknown | + + + | Marital Status | Single | + + + | Worship Affiliation | 1013 | + + + | Race | Unknown | + + + | Ethnic Group | Unknown | + + + Author + + + | Author | [facility] | | | and Ezequielana | + + + | Organization | [facility] | | | and [...] Team Providers + +------+ + | Care Transcription Typist Name | Role | Phone | + [...] 2017 | | [address] | MD [address] | | | | | [place] | [place] | | | | | [place] | [address] | | | | | [address] | | | | | | [phone] | | | +--------+ + + + [...] and LV strain imaging was perfomed at [facility]. Study: This was a technically adequate [...] m/s Lateral E/e': | | | 6.67 Test Grader: DBS Authenticated by: JOSH CORREA MD | | | Report Date/Time: -- [id number] | | + + + + + [...] strain | | imaging was perfomed at [facility].Study: This was a technically adequate | | [...] cmLVIDd: 4.91 cmLVPWd: 0.77 cmLVOT Area: 3.44 [id number] Diam: 2.09 | | cm%FS: 33.22 %EF(Teich): [...] mlLAESV Index (A-L): 16.31 ml/m2LAAs A2C: 15.83 [id number] A-L A2C: 46.80 | | mlLALs A2C: 4.54 cmLAAs A4C: 11.89 pr2YONKU A-L A4C: 27.56 mlLALs A4C: 4.35 | | cmRAAs: 11.35 no7DEYTV A-L: 25.00 mlRAESV MOD: 24.32 mlRALs: 4.37 cmTAPSE: | | 2.37 cmAV maxP.78 mmHgAV meanP.69 mmHgAV Vmax: 1.09 m/Crow Vmean: 0.77 | | m/Crow VTI: 19.47 cmAVA Vmax: 2.90 cm2AVA (VTI): 2.87 gp2VSUI Vmax: 0.00 | | cm2/m2AVAI (VTI): 0.00 cm2/m2LVOT maxP.40 mmHgLVOT meanP.74 mmHgLVSI Dopp: | | 24.91 ml/m2LVSV Dopp: 56.04 mlLVOT Vmax: 0.92 m/sLVOT Vmean: 0.61 m/sLVOT VTI: | | 16.26 cmMV A Peter: 0.64 m/sMV DecT: 204.00 msMV E Peter: 0.82 m/sMV E/A Ratio: | | 1.28MV PHT: 59.16 msMVA By PHT: 3.71 wk4Usqaed e': 0.08 m/sSeptal E/e': | | 9.42Lateral e': 0.12 m/sLateral E/e': 6.67 Test Grader: DBSAuthenticated by: | | Agustín GARZA Date/Time: -- [id number] IMPRESSION: 1. Overall left | | ventricular [...] | |Lateral E/e': 6.67 | | | |Test Grader: DBS | |Authenticated by: JOSH CORREA MD | |Report Date/Time: -- [id number] | | | |IMPRESSION: | |1. Overall [...]
--- OUTSIDE RECORDS SUMMARY | ~2019-03-27 | XMS | Encounter Summary ---
Demographics + + + | Address | [address] | | | [place] [address] | + + + | Home Phone | | + + + | Preferred Language | Unknown | + + + | Marital Status | Single | + + + | Lutheran Affiliation | 1013 | + + + | Race | Unknown | + + + | Ethnic Group | Unknown | + + + Author + + + | Author | [facility] | | | and Ezequielana | + + + | Organization | [facility] | | | and Ezequielana | [...] Team Providers + +------+ + | Care Sheet Rock Taper Name | Role | Phone | + [...] Rehabilitatio | subluxation | MD [place] | [place] | | | | n | of left | [address] | [place], | | | | | shoulder, | [place] | [place] [address] | | | | | initial | [place], | Phone: | | | | | encounter | [place] [address] | [phone] | | | | | Left hip | Phone: | Fax: | | | | | subluxation, | [phone] | [phone] | | | | | initial | Fax: | | | | | | encounter | [phone] | | | | | | (HCC) [...] + + | 09/27/ | [facility] | [facility] | Taran Archuleta | Hip pain, bilateral | | 2015 | Visit | MED CTR THERAPY PT | MD [place] [address] | (Primary Dx); | | | | OP [address] [place] | [place] | Chronic neck and | | | | [place], [place] | [place] [address] | back pain | | | | [address] | [phone] | | | | | [phone] | | | | | | | Trina Hargrove B, PT | | | | | | [address] | | | | | | [place] | | | | | | [address] | | | | | | | [...] might be different from t rocío original. [facility] CTR THERAPY PT OP [address] [place] [address] Physical Therapy Daily Treatment Note Date: 09/27/2014 Patient Information Patient Name: Zuleyma Jenkins Date of : 1970 Age: 44 y.o. Encounter Diagnoses Code Name Primary? 719.45 Hip pain, bilateral Yes 723.1, 724.5 Chronic neck and back pain Date of Onset: Referring Provider: Taran Archuleta MD Rehab Precautions Office Visit from 10/24/2013 in [facility] CTR THERAPY OT OP Rehab [...] Leg lift 2x20 2x20 2x20 Supine: shoulder [place] stab. 2x10 each 2x10 each Supine: shoulder. [...]
--- OUTSIDE RECORDS SUMMARY | ~2019-03-27 | XMS | Encounter Summary ---
Demographics + + + | Address | [address] | | | [place] [address] | + + + | Home Phone | | + + + | Preferred Language | Unknown | + + + | Marital Status | Single | + + + | Amish Affiliation | 1013 | + + + | Race | Unknown | + + + | Ethnic Group | Unknown | + + + Author + + + | Author | [facility] | | | and Ezequielana | + + + | Organization | [facility] | | | and Ezequielana | + [...] Team Providers + +------+ + | Care Memorial Marker Designer Name | Role | Phone | + [...] | Specialty | Gastroenterol | Diagnoses | Allison | Allison, | | | Services | ogy | Internal | MD Jose | MD Jose | | | Required | | hemorrhoids | [address] | [address] | | | | | without | BLVD | [place] | | | | | mention of | [place] | [place] [address] | | | | | complication | [address] | Phone: | | | | | Hemorrhage | Phone: | [phone] | | | | | of rectum | [phone] | Fax: | | | | | and anus | Fax: | [phone] | | | | | Procedures | [phone] | | | | | | [place] | | | | | | | HEMORRHOIDEC | | | | | | | DIEGO | | | | | | | INTERNAL | | | | | | | RUBBER BAND | | | | | | | LIGATIONS | | | | | | | [place] ANOSCOPY | | | | | | | DX W/COLLJ | | | | | | | SPEC BR/WA | | | | | | | SPX WHEN | | | | | | | PRFRMD [place] | | | | | | | PROCTOSIGMOI | | | | | | | DOSCOPY,RIGI | | | | | | | D,DIAGNOS | | | | | | | [place] OFFICE | | | | | | | OUTPATIENT | | | | | | | VISIT 10 | | | | | | | MINUTES [place] | | | | | | | [...] + + | 11/23/ | Telephone | [facility] | Jose Cooper MD | Appointment | | 2014 | | GASTROENTEROLOGY | [address] [facility] | | | | | [address] [facility] | [place], [place] | | | | | [address] [place], [place] | [address] | | | | | [address] | [phone] | | | | | [phone] | | | +--------+ + + + [...]
--- OUTSIDE RECORDS SUMMARY | ~2019-03-27 | XMS | Encounter Summary ---
Demographics + + + | Address | [address] | | | [place] [address] | + + + | Home Phone | | + + + | Preferred Language | Unknown | + + + | Marital Status | Single | + + + | Spiritism Affiliation | 1013 | + + + | Race | Unknown | + + + | Ethnic Group | Unknown | + + + Author + + + | Author | [facility] | | | and Ezequielana | + + + | Organization | [facility] | [...] Team Providers + +------+ + | Care Dipper Clock And Watch Hands Name | Role | Phone | + +------+ + | Enzo Juarez DO | PCP | | + +------+ + Encounter Details +--------+ + + + + | Date | Type | Department | Care Team | Description | +--------+ + + + + | 11/14/ | Documentati | [facility] | Karly, | | | 2013 | on | MED CTR THERAPY PT | Marcell Howard, PT [address] | | | | | [address] | [address] | | | | | [place] | [place] | | | | | [address] | [address] | | | | | [phone] | | | +--------+ + + + [...] documented as of this encounter Progress Notes Marcell Brandt, PT - 11/14/2013 10[facility] [address] [place] [address] Cancellation/No Show Date: 11/14/2013 Patient Information Patient Name: Zuleyma Jenkins Date of : 1970 Age: 43 y.o. Reason for missed visit: Pt called in an cancelled evaluation due to illness Phone call placed: no Plan: Front office staff to call and reschedule IE Electronically signed by: Marcell Brandt, PT, 11/14/2013 10:44 Patient Name: Zuleyma Jenkins/: 1970/ documented in t his encounter Plan of Treatment Not on filedocumented as of this encounter Visit Diagnoses Not on filedocumented in this encounter"
--- OUTSIDE RECORDS SUMMARY | ~2019-03-27 | XMS | Encounter Summary ---
Demographics + + + | Address | [address] | | | [place] [address] | + + + | Home Phone | | + + + | Preferred Language | Unknown | + + + | Marital Status | Single | + + + | Orthodoxy Affiliation | 1013 | + + + | Race | Unknown | + + + | Ethnic Group | Unknown | + + + Author + + + | Author | [facility] | | | and Ezequielana | + + + | Organization | [facility] | | | and Ezequielana [...] Team Providers + +------+ + | Care Psychiatry Resident Name | Role | Phone | + +------+ + | Enzo Juarez DO | PCP | | + +------+ + Encounter Details +--------+ + + + + | Date | Type | Department | Care Team | Description | +--------+ + + + + | 11/30/ | Orders Only | [facility] | Provider, | | | 2018 | | SYSTEM GENERIC OP | MD [address] | | | | | [address] | [place] | | | | | [address] [place], [place] | [place] [address] | | | | | [address] | | | | | | [phone] | | | +--------+ + + + [...]
--- OUTSIDE RECORDS SUMMARY | ~2019-03-27 | XMS | Clinical Summary ---
Demographics + + + | Address | [address] | | | [place] [address] | + + + | Home Phone | | + + + | Preferred Language | Unknown | + + + | Marital Status | | + + + | Quaker Affiliation | Unknown | + + + | Race | Unknown | + + + | Ethnic Group | Unknown | + + + Author + + + | Author | [facility] (Historical as of | | | 12-18-18) | + + + | Organization | [facility] (Historical as of | | | 12-18-18) | + + + | Address | Unknown | + + + | Phone | Unavailable | + + + Support + + +---------+ + | Name | Relationship | Address | Phone | + + +---------+ + | Jose Carroll | ECON | Unknown | | + + +---------+ + Care Team Providers + +------+ + | Care Glass Polisher Name | Role | Phone | + +------+ + | Alba Bishop MD | PP | Unavailable | + +------+ + Allergies + + + + + + | Active Allergy | Reactions | Severity | Noted | Comments | | | | | Date | | + + + + + + | Iodinated Diagnostic | Itching | Medium | 11/12/19 | | | Agents | | | 17 | | + + + + + + | Prednisone | Other (See Comments) | Medium | 11/12/19 | Sensitivity | | | | | 17 | | + + + + + + | Sulfa Antibiotics | Other (See Comments) | Medium | 11/12/19 | intolerance | | | | | 17 | | + + + + + + Current Medications + + +-------+---------+------+------+-------+ | Prescription | Sig. | Disp. | Refills | Star | End | Statu | | | | | | t | Date | s | | | | | | Date | | | + + +-------+---------+------+------+-------+ | levothyroxine | Take 150 mcg by | | | | | Activ | | (SYNTHROID) 150 MCG | mouth every morning | | | | | e | | tablet | before breakfast. | | | | | | + + +-------+---------+------+------+-------+ | liothyronine | Take 5 mcg by mouth | | | | | Activ | | (CYTOMEL) 5 MCG | daily. | | | | | e | | tablet | | | | | | | + + +-------+---------+------+------+-------+ | | Take 15 mg by mouth | | | | | Activ | | S-Gykqcnllloii-Wiqfb | daily. | | | | | e | | (DEPLIN 15 PO) | | | | | | | + + +-------+---------+------+------+-------+ | buPROPion | Take 200 mg by mouth | | | | | Activ | | (WELLBUTRIN SR) 200 | 2 (two) times | | | | | e | | MG 12 hr tablet | daily. | | | | | | + + +-------+---------+------+------+-------+ | Dextroamphetamine | Take 20 mg by mouth | | | | | Activ | | Sulfate 20 MG TABS | daily. | | | | | e | + + +-------+---------+------+------+-------+ | Albuterol Sulfate | Inhale into the | | | | | Activ | | 108 (90 Base) | lungs every 4 (four) | | | | | e | | MCG/ACT AEPB | hours as needed. | | | | | | + + +-------+---------+------+------+-------+ | cetirizine | Take 10 mg by mouth | | | | | Activ | | (ZYRTEC) 10 MG | daily. | | | | | e | | tablet | | | | | | | + + +-------+---------+------+------+-------+ | Cholecalciferol | Take 5,000 Units by | | | | | Activ | | (VITAMIN D-3 PO) | mouth daily. | | | | | e | + + +-------+---------+------+------+-------+ | polyethylene | Take 17 g by mouth | | | | | Activ | | glycol (GLYCOLAX) | daily. | | | | | e | | packet | | | | | | | + + +-------+---------+------+------+-------+ | losartan (COZAAR) | Take 50 mg by mouth | | | | | Activ | | 50 MG tablet | daily. | | | | | e | + + +-------+---------+------+------+-------+ | gabapentin | Take 100 mg by mouth | | | | | Activ | | (NEURONTIN) 100 MG | 3 (three) times | | | | | e | | capsule | daily. | | | | | | + + +-------+---------+------+------+-------+ | mometasone | 2 sprays by Each | | | | | Activ | | (NASONEX) 50 MCG/ACT | Nare route daily. | | | | | e | | nasal | | | | | | | + + +-------+---------+------+------+-------+ Active Problems + + + | Problem | Noted Date | + + + | Precordial pain | 11/11/2016 | + + + | Essential hypertension | 11/11/2016 | + + + | Chronic neck and back pain | 07/06/2014 | + + + | Shoulder pain, bilateral | 07/06/2014 | + + + | Hip pain, bilateral | 07/06/2014 | + + + Family History + +------+--------+ + | Relation | Name | Status | Comments | + +------+--------+ + | Father | | Alive | | + +------+--------+ + | Maternal Grandfather | | Alive | heart attacks | + +------+--------+ + | Maternal Grandmother | | Alive | triple bypass surgery | + +------+--------+ + | Mother | | Alive | | + +------+--------+ + Social History [...] + +---------+ + | Alcohol Use | Drinks/We | oz/Week | Comments | | | ek | | | + + +---------+ + | Yes | | | occ | + + +---------+ + + + + | Sex Assigned at | Date Recorded | | | | + + + | Not on file | | + + + Last Filed Vital Signs + + + + | Vital Sign | Reading | Time Taken | + + + + | Blood Pressure | 124/70 | 12/17/2016 9:02 AM PDT | + + + + | Pulse | 88 | 12/17/2016 9:02 AM PDT | + + + + | Temperature | - | - | + + + + | Respiratory Rate | - | - | + + + + | Oxygen Saturation | 99% | 12/17/2016 9:02 AM PDT | + + + + | Inhaled Oxygen | - | - | | Concentration | | | + + + + | Weight | 115.3 kg (254 lb 3.2 | 12/17/2016 9:02 AM PDT | | | oz) | | + + + + | Height | 174 cm (5' 8.5") | 12/17/2016 9:02 AM PDT | + + + + | Body Mass Index | 38.09 | 12/17/2016 9:02 AM PDT | + + + + Plan of Treatment [...] Results Not on filefrom Last 3 Months Insurance + +--------+ +------+-------+---------+ | Payer | Benefi | Subscriber | Type | Phone | Address | | | t Plan | ID | | | | | | / | | | | | | | Group | | | | | + +--------+ +------+-------+---------+ | [employer] - | FIRST | [id number] | | | | | [employer] | HEALTH | | | | | | | - | | | | | | | PACIFI | | | | | | | [employer]OURC | | | | | | | E | | | | | + +--------+ +------+-------+---------+ + +--------+ +--------+ + + | Guarantor Name | Accoun | Relation to | Date | Phone | Billing Address | | | t Type | Patient | of | | | | | | | | | | + +--------+ +--------+ + + | ZULEYMA CARROLL | Person | Self [birth year] Home: | [address] | | | [place] | | 1970 | [phone] [place] [address] | | | [place] | | | [phone] | | + +--------+ +--------+ + +
--- OUTSIDE RECORDS SUMMARY | ~2019-03-27 | XMS | Encounter Summary ---
Demographics + + + | Address | [address] | | | [place] [address] | + + + | Home Phone | | + + + | Preferred Language | Unknown | + + + | Marital Status | Single | + + + | Synagogue Affiliation | 1013 | + + + | Race | Unknown | + + + | Ethnic Group | Unknown | + + + Author + + + | Author | [facility] | | | and [place] | + + + | Organization | [facility] | | | and [place] [...] Team Providers + +------+ + | Care Patients Transporter Name | Role | Phone | + +------+ + | Enzo Juarez DO | PCP | | + +------+ + Encounter Details +--------+ + + + + | Date | Type | Department | Care Team | Description | +--------+ + + + + | 07/27/ | Abstract | [facility] | [facility], | | | 2014 | | GASTROENTEROLOGY | JERARDO Carranza [address] | | | | | [address] [place] | [place], [address] | | | | | [address] [place], [place] | [place] | | | | | [address] | [id number] | | | | | [phone] | | | +--------+ + + + [...]
--- OUTSIDE RECORDS SUMMARY | ~2019-03-27 | XMS | Encounter Summary ---
Demographics + + + | Address | [address] | | | [place] [address] | + + + | Home Phone | | + + + | Preferred Language | Unknown | + + + | Marital Status | Single | + + + | Shinto Affiliation | 1013 | + + + | Race | Unknown | + + + | Ethnic Group | Unknown | + + + Author + + + | Author | [facility] | | | and Ez[place]iel[place] | + + + | Organization | [facility] | | | [...] Team Providers + +------+ + | Care Market Maker Name | Role | Phone | + +------+ + | Enzo Juarez DO | PCP | | + +------+ + Reason for Visit Auth/Cert +--------+--------+ + + + + | Status | Reason | Specialty | Diagnoses / | Referred By | Referred To | | | | | Procedures | Contact | Contact | +--------+--------+ + + + + | Closed | | | Diagnoses | | | | | | | Blood in | | | | | | | stool | | | | | | | Nonspecific | | | | | | | abnormal | | | | | | | finding in | | | | | | | stool | | | | | | | contents | | | | | | | Abdominal | | | | | | | pain, | | | | | | | generalized | | | | | | | Nausea with | | | | | | | vomiting | | | | | | | Throat pain | | | | | | | Obesity | | | | | | | (BMI | | | | | | | 30-39.9) | | | | | | | Throat pain | | | | | | | [784.1]Nause | | | | | | | a with | | | | | | | vomiting | | | | | | | [787.01]Abdo | | | | | | | chon pain, | | | | | | | generalized | | | | | | | [789.07]Nons | | | | | | | pecific | | | | | | | abnormal | | | | | | | finding in | | | | | | | stool | | | | | | | contents | | | | | | | [792.1]Blood | | | | | | | in stool | | | | | | | [578.1]Obesi | | | | | | | ty (BMI | | | | | | | 30-39.9) | | | | | | | [278.00] | | | | | | | | | | | | | | Procedures | | | | | | | MS | | | | | | | ESOPHAGOGAST | | | | | | | RODUODENOSCO | | | | | | | PY TRANSORAL | | | | | | | DIAGNOSTIC | | | | | | | MS EDG | | | | | | | TRANSORAL | | | | | | | BIOPSY | | | | | | | SINGLE/MULTI | | | | | | | PLE MS | | | | | | | ANESTH,UGI | | | | | | | ENDOSCOPY | | | | | | | MS | | | | | | | COLONOSCOPY | | | | | | | FLX DX | | | | | | | W/COLLJ SPEC | | | | | | | WHEN PFRMD | | | | | | | MS | | | | | | | COLONOSCOPY | | | | | | | W/BIOPSY | | | | | | | SINGLE/MULTI | | | | | | | PLE MS | | | | | | | COLSC FLX | | | | | | | W/RMVL OF | | | | | | | TUMOR POLYP | | | | | | | LESION SNARE | | | | | | | TQ MS | | | | | | | ANESTH,INTES | | | | | | | ROMÁN HENRY,L | | | | | | | OW EGD / | | | | | | | COLONOSCOPY | | | +--------+--------+ + + + + Encounter Details +--------+ + + + + | Date | Type | Department | Care Team | Description | +--------+ + + + + | 08/29/ | Hospital | [facility] | Jose Cooper MD | Abdominal pain, | | 2015 | Encounter | [facility] | [address] | generalized (Primary | | | | [address] | [place] | Dx); Nausea with | | | | [place] | [address] | vomiting; Blood in | | | | [address] | [phone] | stool | | | | [phone] | | | +--------+ + + + [...] + + + | Blood Pressure | 131/81 | 08/29/2014 12:00 PM | | | | | PDT | | + + + + + | Pulse | 76 | 08/29/2014 12:00 PM | | | | | PDT | | + + + + + | Temperature | 36.2 C (97.2 F) | 08/29/2014 11:41 AM | | | | | PDT | | + + + + + | Respiratory Rate | 16 | 08/29/2014 12:00 PM | | | | | PDT | | + + + + + | Oxygen Saturation | 100% | 08/29/2014 12:00 PM | | | | | PDT | | + + + + + | Inhaled Oxygen | - | - | | | Concentration | | | | + + + + + | Weight | 100.8 kg (222 lb 3.6 | 08/29/2014 10:27 AM | | | | oz) | PDT | | + + + + + | Height | 174 cm (5' 8.5") | 08/29/2014 10:27 AM | | | | | PDT | | + + + + + | Body Mass Index | 33.3 | 08/29/2014 10:27 AM | | | | | PDT | | + + + + + documented in this encounter Discharge Instructions Instructions Jose Cooper MD - 08/28/2014Patient Discharge Instructions after an Endosco py Procedure ? You may resume your regular diet after discharge. ? Do not drive, operate machinery, make critical decisions or do activities that require co ordination or balance for 24hrs. ? Resume normal medications unless otherwise instructed. ? If biopsies were taken, the physician s office will contact you within 7-10 days. ? If a colonoscopy was performed, then you may continue to expel large amounts of air from your rectum. Please call the physician who did your procedure at [phone] if you have any questions or experience any of the following: ? Increasing abdominal pain, nausea, or vomiting. ? Chills and fever over 101F. ? New abdominal swelling or bloating. ? Signs of rectal bleeding (black or red stool). If you cannot get a hold of your physician, then call the [facility] [phone] . If necessary, report to the Emergency Department at [facility]. Quit smoking: If you smoke or have smoked within the last year, quitting is the most import ant thing you can do to protect and improve your health. documented in this encounter Medications at Time of Discharge [...] + + + +---------+ + + | [place] | Take by mouth | | 0 [...] + + + +---------+ + + | [place]-3 Fatty | Take by mouth. | | 0 | | | | Acids (OMEGA 3 PO) | [place] 3 + COQ10 | | | | [...] + + + +---------+ + + | Turmeric, Curcuma | Take 1,000 mg by | [...] of this encounter Plan of Treatment + +------+--------+ + + | Name | Type | Priori | Associated Diagnoses | Order Schedule | | | | ty | | | + +------+--------+ + + | Basic Metabolic | Lab | STAT | | As Needed for 1 | | Panel | | | | Occurrences starting | | | | | | 08/29/2014 | + +------+--------+ + + documented as of this encounter Procedures + +--------+ + + + | Procedure Name | Priori | Date/Time | Associated Diagnosis | Comments | | | ty | | | | + +--------+ + + + | EGD / COLONOSCOPY | | 08/29/2014 | Blood in stool | | | | | 10:55 AM | Nonspecific abnormal | | | | | PDT | finding in stool | | | | | | contents Abdominal | | | | | | pain, generalized | | | | | | Nausea with vomiting | | | | | | Throat pain | | | | | | Obesity (BMI | | | | | | 30-39.9) | | + +--------+ + + + | EGD | Routin | 08/29/2014 | | Results for this | | | e | 10:54 AM | | procedure are in the | | | | PDT | | results section. | + +--------+ + + + | COLONOSCOPY | Routin | 08/29/2014 | | Results for this | | | e | 10:54 AM | | procedure are in the | | | | PDT | | results section. | + +--------+ + + + documented in this encounter Results EGD (08/29/2014 10:54 AM PDT) + + | Specimen | + + | | + + + + -+ | Narrative | Performed At | + + -+ | | [facility] | | GastroenterologyPatient Name: Zuleyma Daron Date: 08/29/2014 10:54 | [facility] | | AMMRN: [id number] #: [id number] of : 1970Admit | | | Type: AmbulatoryAge: 44Room: [facility] 02Gender: FemaleNote Status: | | | FinalizedAttending MD: Jose Cooper [facility] | | Upper GI endoscopyIndications: Epigastric abdominal | | | painProviders: Jose Cooper MD, Morris Cruz, | | | RN, Flor Poole, Beam House Inspector, Erwin Davis | | | MD Shine (Anesthesia Staff)Referring MD: Enzo Juarez DO | | | (Referring MD)Medicines: Monitored Anesthesia | | | CareComplications: No immediate complications.Procedure: | | | Pre-Anesthesia Assessment: - Prior to the procedure, a History | | | and Physical was performed, and patient medications and | | | allergies were reviewed. The patient is competent. The risks | | | and benefits of the procedure and the sedation options and | | | risks were discussed with the patient. All questions were | | | answered and informed consent was obtained. Patient identification and | | | proposed procedure were verified by the physician, the nurse, | | | the anesthesiologist and the denture laboratory technician in the pre-procedure | | | area in the endoscopy suite. Mental Status Examination: alert | | | and oriented. Airway Examination: normal oropharyngeal airway | | | and neck mobility. Respiratory Examination: clear to | | | auscultation. CV Examination: normal. Prophylactic Antibiotics: | | | The patient does not require prophylactic antibiotics. Prior | | | Anticoagulants: The patient has taken no previous anticoagulant or | | | antiplatelet agents. ASA Grade Assessment: III - A patient with | | | severe systemic disease. After reviewing the risks and | | | benefits, the patient was deemed in satisfactory condition to | | | undergo the procedure. The anesthesia plan was to use monitored | | | anesthesia care (MAC). Immediately prior to administration of | | | medications, the patient was re-assessed for adequacy to | | | receive sedatives. The heart rate, respiratory rate, oxygen | | | saturations, blood pressure, adequacy of pulmonary ventilation, and | | | response to care were monitored throughout the procedure. The | | | physical status of the patient was re-assessed after the | | | procedure. After obtaining informed consent, the endoscope was | | | passed under direct vision. Throughout the procedure, the | | | patient's blood pressure, pulse, and oxygen saturations were | | | monitored continuously. The endoscope was introduced through | | | the mouth, and advanced to the third part of duodenum. The | | | upper GI endoscopy was accomplished without difficulty. The | | | patient tolerated the procedure well.Findings: The Z-line was | | | irregular and was found 36 cm from the incisors. Biopsies were | | | taken with a cold forceps for histology. Verification of patient | | | identification for the specimen was done by the physician and nurse | | | using the patient's name and date. Estimated blood loss | | | was minimal. No other significant abnormalities were | | | identified in a careful examination of the esophagus. | | | Patchy mildly erythematous mucosa without bleeding was found in the | | | entire examined stomach. Biopsies were taken with a cold forceps | | | for histology. Verification of patient identification for the | | | specimen was done by the physician and nurse using the | | | patient's name and date. Estimated blood loss was | | | minimal. No other significant abnormalities were identified in a | | | careful examination of the stomach. The cardia and | | | gastric fundus were normal on retroflexion. The duodenal bulb, | | | 2nd part of the duodenum and 3rd part of the duodenum were | | | normal.Impression: - Z-line irregular, 36 cm from the incisors. | | | Biopsied. - Erythematous mucosa in the stomach. Biopsied. | | | - Normal duodenal bulb, 2nd part of the duodenum and 3rd part of the | | | duodenum.Recommendation: - Patient has a contact number | | | available for emergencies. The signs and symptoms of potential | | | delayed complications were discussed with the patient. Return | | | to normal activities tomorrow. Written discharge instructions | | | were provided to the patient. - Regular diet. - Discharge | | | patient to home. - Follow an antireflux regimen. - | | | Continue present medications. - Await pathology results. - | | | Return to GI clinic PRN. - The findings and recommendations | | | were discussed with the patient.Jose Cooper MD08/29/2014 11:38 | | | AMNumber of Addenda: 0Note Initiated On: 08/29/2014 10:54 AMScope | | | Withdrawal Time: 0 hours 0 minutes 0 seconds Total Procedure Duration: | | | 0 hours 5 minutes 42 seconds Scope In: 11:06:12 AMScope Out: 11:11:54 | | | AM [facility], [address] [place] [address] | | | [place] [address] | | | patient. Return to normal activities tomorrow. Written discharge | | | instructions were provided to the patient. | | | - Regular diet. | | | - Discharge patient to home. | | | - Follow an antireflux regimen. | | | - Continue present medications. | | | - Await pathology results. | | | - Return to GI clinic PRN. | | | - The findings and recommendations were discussed with the patient. | | |Jose Cooper MD | | |08/29/2014 11:38 AM | | |Number of Addenda: 0 | | |Note Initiated On: 08/29/2014 10:54 AM | | |Scope Withdrawal Time: 0 hours 0 minutes 0 seconds | | |Total Procedure Duration: 0 hours 5 minutes 42 seconds | | |Scope In: 11:06:12 AM | | |Scope Out: 11:11:54 AM | | | [facility], [address] [place] [address] | | | [address] | | + + -+ + +---------+ + + | Performing | Address | City/State/Zipcode | Phone Number | | Organization | | | | + +---------+ + + | [facility] | | | | + +---------+ + + COLONOSCOPY (08/29/2014 10:54 AM PDT) + + | Specimen | + + | | + + + + -+ | Narrative | Performed At | + + -+ | | [facility] | | GastroenterologyPatient Name: Zuleyma JenkinsProcedure Date: 08/29/2014 10:54 | [facility] | | AMMRN: [id number] #: [id number] of : 1970Admit | | | Type: AmbulatoryAge: 44Room: [facility] 02Gender: FemaleNote Status: | | | FinalizedAttending MD: Jose Cooper, MDProcedure: | | | ColonoscopyIndications: Heme positive stoolProviders: | | | Jose Cooper MD, Morris Cruz RN, [facility] | | | Virgilio, Beam House Inspector, Erwin Riojas MD (Anesthesia | | | Staff)Referring MD: Enzo Juarez DO (Referring MD)Medicines: | | | Monitored Anesthesia CareComplications: No immediate | | | complications.Procedure: Pre-Anesthesia Assessment: - | | | Prior to the procedure, a History and Physical was performed, and | | | patient medications and allergies were reviewed. The patient is | | | competent. The risks and benefits of the procedure and the | | | sedation options and risks were discussed with the patient. All | | | questions were answered and informed consent was obtained. | | | Patient identification and proposed procedure were verified by | | | the physician, the nurse, the anesthesiologist and the | | | denture laboratory technician in the pre-procedure area in the endoscopy suite. | | | Mental Status Examination: alert and oriented. Airway | | | Examination: normal oropharyngeal airway and neck mobility. | | | Respiratory Examination: clear to auscultation. CV Examination: | | | normal. Prophylactic Antibiotics: The patient does not require | | | prophylactic antibiotics. Prior Anticoagulants: The patient | | | has taken no previous anticoagulant or antiplatelet agents. ASA | | | Grade Assessment: III - A patient with severe systemic | | | disease. After reviewing the risks and benefits, the patient | | | was deemed in satisfactory condition to undergo the procedure. The | | | anesthesia plan was to use monitored anesthesia care (MAC). | | | Immediately prior to administration of medications, the patient | | | was re-assessed for adequacy to receive sedatives. The heart | | | rate, respiratory rate, oxygen saturations, blood pressure, | | | adequacy of pulmonary ventilation, and response to care were | | | monitored throughout the procedure. The physical status of the | | | patient was re-assessed after the procedure. After I obtained | | | informed consent, the scope was passed under direct vision. | | | Throughout the procedure, the patient's blood pressure, pulse, | | | and oxygen saturations were monitored continuously. The endoscope was | | | introduced through the anus and advanced to the cecum, | | | identified by appendiceal orifice and ileocecal valve. The | | | colonoscopy was performed without difficulty. The patient | | | tolerated the procedure well. The quality of the bowel | | | preparation was adequate to identify polyps 6 mm and larger in | | | size.Findings: The perianal exam was abnormal. Findings include | | | skin tags. The colon (entire examined portion) appeared normal. | | | Non-bleeding internal hemorrhoids were found during retroflexion | | | and were small.Impression: - Perianal skin tags found on | | | perianal exam. - The entire examined colon is normal. - | | | Non-bleeding internal hemorrhoids.Recommendation: - Patient has | | | a contact number available for emergencies. The signs and | | | symptoms of potential delayed complications were discussed with the | | | patient. Return to normal activities tomorrow. Written discharge | | | instructions were provided to the patient. - Regular | | | diet. - Discharge patient to home. - Continue present | | | medications. - Repeat colonoscopy at age 51 for screening | | | purposes. - Return to GI clinic PRN. - The findings and | | | recommendations were discussed with the patient.Jose Cooper | | | 08/29/2014 11:41 AMNumber of Addenda: 0Note Initiated On: 08/29/2014 | | | 10:54 AMScope Withdrawal Time: 0 hours 10 minutes 10 seconds Total | | | Procedure Duration: 0 hours 18 minutes 19 seconds Scope In: 11:15:38 | | | AMScope Out: 11:33:57 AM [facility], [address] | | [place] [address] | | | patient. Return to normal activities tomorrow. Written discharge | | | instructions were provided to the patient. | | | - Regular diet. | | | - Discharge patient to home. | | | - Continue present medications. | | | - Repeat colonoscopy at age 51 for screening purposes. | | | - Return to GI clinic PRN. | | | - The findings and recommendations were discussed with the patient. | | |Jose Cooper MD | | |08/29/2014 11:41 AM | | |Number of Addenda: 0 | | |Note Initiated On: 08/29/2014 10:54 AM | | |Scope Withdrawal Time: 0 hours 10 minutes 10 seconds | | |Total Procedure Duration: 0 hours 18 minutes 19 seconds | | |Scope In: 11:15:38 AM | | |Scope Out: 11:33:57 AM | | | [facility], [address] [place] | | | [address] | | + + -+ + +---------+ + + | Performing | Address | City/State/Zipcode | Phone Number | | Organization | | | | + +---------+ + + | [facility] | | | | + +---------+ + + documented in this encounter Visit Diagnoses + + | Diagnosis | + + | Abdominal pain, generalized - Primary | + + | Nausea with vomiting | + + | Blood in stool | + + documented in this encounter Administered Medications + +---------+ +------+-------+------+ | Medication Order | MAR | Action | Dose | Rate | Site | | | Action | Date | | | | + +---------+ +------+-------+------+ | lactated ringers (LR) infusion | New Bag | 08/30/19 | | 100 | | | at 100 mL/hr, Intravenous, | | 15 10:52 | | mL/hr | | | CONTINUOUS, Starting 08/29/14 | | AM PDT | | | | | at 1045, Pre-op | | | | | | + +---------+ +------+-------+------+ +---+---+ | | | +---+---+ documented in this encounter
--- OUTSIDE RECORDS SUMMARY | ~2019-03-27 | XMS | Encounter Summary ---
Demographics + + + | Address | [address] | | | [place] [address] | + + + | Home Phone | | + + + | Preferred Language | Unknown | + + + | Marital Status | Single | + + + | Hinduism Affiliation | 1013 | + + + | Race | Unknown | + + + | Ethnic Group | Unknown | + + + Author + + + | Author | [facility] | | | and Ezequielana | + + + | Organization | [facility] | | | and [...] Team Providers + +------+ + | Care Manufacturing Controller Name | Role | Phone | + +------+ + | Enzo Juarez DO | PCP | | + +------+ + Encounter Details +--------+ + + + + | Date | Type | Department | Care Team | Description | +--------+ + + + + | 11/14/ | Documentati | [facility] | Rosa Duenas, | | | 2013 | on | MED CNT ONCOLOGY | OT [address] | | | | | THERAPY [address] | [place], [place] | | | | | [place], | [address] | | | | | [place] [address] | | | | | | [phone] | | | +--------+ + + + [...] + documented as of this encounter Progress Rosa Andujar OT - 11/14/2013 1:31 PM [facility] OP [address] [place] [address] Cancellation/No Show Date: 11/14/2013 Patient Information Patient Name: Zuleyma Jenkins Date of : 1970 Age: 43 y.o. Reason for missed visit: Canceled sick Phone call placed: no Plan: To attend next session. Electronically signed by: Rosa Duenas OT, 11/14/2013 13:31 Patient Name: Zuleyma Jenkins/: 1970/ documented in this e ncounter Plan of Treatment Not on filedocumented as of this encounter Visit Diagnoses + + | Diagnosis | + + | Lymphedema, not elsewhere classified - Primary Other lymphedema | + + documented in this encounter"
--- OUTSIDE RECORDS SUMMARY | ~2019-03-27 | XMS | Encounter Summary ---
Demographics + + + | Address | [address] | | | [place] [address] | + + + | Home Phone | | + + + | Preferred Language | Unknown | + + + | Marital Status | Single | + + + | Scientology Affiliation | 1013 | + + + | Race | Unknown | + + + | Ethnic Group | Unknown | + + + Author + + + | Author | [facility] | | | and Ezequielana | + + + | Organization | [facility] | | | and Ezequielana [...] Team Providers + +------+ + | Care Patient Safety Coordinator Name | Role | Phone | + [...] | | | without | [address] | [facility], | | | | | mention of | [place], [place] | [place] [address] | | | | | complication | [address] | Phone: | | | | | Hemorrhage | Phone: | [phone] | | | | | of rectum | [phone] | Fax: | | | | | and anus | Fax: | [phone] | | | | | Procedures | [phone] | | | | | | IN | | | | | | | HEMORRHOIDEC | | | | | | | DIEGO | | | | | | | INTERNAL | | | | | | | RUBBER BAND | | | | | | | LIGATIONS | | | | | | | IN ANOSCOPY | | | | | | | DX W/COLLJ | | | | | | | SPEC BR/WA | | | | | | | SPX WHEN | | | | | | | PRFRMD IN | | | | | | | PROCTOSIGMOI | | | | | | | DOSCOPY,RIGI | | | | | | | D,DIAGNOS | | | | | | | IN OFFICE | | | | | | | OUTPATIENT | | | | | | | VISIT 10 | | | | | | | MINUTES IN | | | | | | | [...] Description | +--------+---------+ + + + | 02/08/ | Office | [facility] | Jose Cooper MD | Hemorrhage of rectum | | 2015 | Visit | GASTROENTEROLOGY | [address] | and anus (Primary | | | | [address] [place] | [place], [place] | Dx); Internal | | | | [address] [place], [place] | [address] | hemorrhoids | | | | [address] | [phone] | | | | | [phone] | | | +--------+---------+ + + + [...] + + + | Blood Pressure | 118/84 | 02/08/2015 3:51 PM | | | | | PDT | | + + + + + | Pulse | 77 | 02/08/2015 3:51 PM | | | | | PDT | | + + + + + | Temperature | 36.9 C (98.5 F) | 02/08/2015 3:51 PM | | | | | PDT | | + + + + + | Respiratory Rate | 16 | 02/08/2015 3:51 PM | | | | | PDT | | + + + + + | Oxygen Saturation | 95% | 02/08/2015 3:51 PM | | | | | PDT | | + + + + + | Inhaled Oxygen | - | - | | | Concentration | | | | + + + + + | Weight | 105.2 kg (232 lb) | 02/08/2015 3:51 PM | | | | | PDT | | + + + + + | Height | - | - | | + + + + + | Body Mass Index | 34.76 | 10/30/2014 1:28 PM | | | | | PDT | | + + + + + documented in this encounter Progress Notes Jose Cooper MD - 02/15/2015 6:17 PM PDT Subjective: Patient ID: Zuleyma Jenkins [...]
--- OUTSIDE RECORDS SUMMARY | ~2019-03-27 | XMS | Encounter Summary ---
Demographics + + + | Address | [address] | | | [place] [address] | + + + | Home Phone | | + + + | Preferred Language | Unknown | + + + | Marital Status | Single | + + + | Jew Affiliation | 1013 | + + + | Race | Unknown | + + + | Ethnic Group | Unknown | + + + Author + + + | Author | [facility] | | | and Ezequielana | + + + | Organization | [facility] | | | and Ezequielana [...] Team Providers + +------+ + | Care Follow Up Manager Name | Role | Phone | + +------+ + | Enzo Juarez DO | PCP | | + +------+ + Encounter Details +--------+ + + + + | Date | Type | Department | Care Team | Description | +--------+ + + + + | 10/31/ | [facility] | [facility] | Taran Archuleta | Neck pain; Facet | | 2013 | Encounter | MED CTR XRAY [address] | [address] | arthritis of | | | | [place] | [place] | cervical region; | | | | [place] [address] | [place] [address] | Lymphedema | | | | [phone] | [phone] | | | | | | | | +--------+ + + + [...] + + + +---------+ + + | [place] | Take by mouth | | 0 [...] + + + +---------+ + + | Fanrock-3 Fatty | Take by mouth. | | 0 | | | | Acids (OMEGA 3 PO) | Fanrock 3 + COQ10 | | | | [...] | | 0 | | | | [place]a, (CURCUMIN) | mouth 2 times daily. | | | | | + + + +---------+ + + | amitriptyline | Take 1 po qhs for 3 | 60 | 5 | 11/01/19 | | | (ELAVIL) 10 mg | days, then increase | tablet | | 14 | 4 | | tabletIndications: | 1/2 tablet every 3 | | | | | | Neck pain, | days until sleeping | | | | | | Myofascial muscle | better, maximum 5 | | | | | | pain | tablets. Take the | | | | | | | highest dose that | | | | | | | only causes minimal | | | | | | | sleepiness in the | | | | | | | morning | | | | | + + + +---------+ + + | HORSE CHESTNUT | by Does not apply | | 0 | | | | | route. Horse | | | | 5 | | | Sabina with Grape | | | | | [...] | + +--------+ + + + | XR CERVICAL SPINE 6 | Routin | 10/31/2013 | Neck pain Facet | Results for this | | OR MORE VWS | e | 4:16 PM | arthritis of | procedure are in the | | | | PDT | cervical region | results section. | | | | | Lymphedema | | + +--------+ + + + documented in this encounter Results XR Cervical Spine 6 or More Vws (10/31/2013 4:16 PM PDT) + + | Specimen | + + | | + + + + + | Narrative | Performed At | + + + | EXAM: XR CERVICAL SPINE 6 OR MORE VWS dated 10/31/2013 4:04 PM | MISC[facility]OUS | | HISTORY:neck pain and spasm COMPARISON: None. FINDINGS: 7 | LAB | | views of the cervical spine. In the neutral position there is loss | | | of the normal cervical lordosis. There is no spondylolisthesis. | | | Mild disc narrowing at C4-C5 and C5-C6. On flexion and extension | | | no abnormal translation. The atlantodens interval is maintained | | | throughout the maneuvers. There is extensive facet arthrosis at | | | C2-C3, C3-C4, and C4-C5. There is some very mild uncinate | | | hypertrophy at C3 and C4. Mild bilateral bony neural foraminal | | | narrowing at C2-C3, C3-C4, C4-C5. No precervical soft tissue | | | thickening. The visible lung apices are clear. IMPRESSION - | | | At least moderate facet arthrosis involving C2-C4 5 which results in | | | mild bony neural foraminal narrowing. No spondylolisthesis or | | | evidence for instability. Dictated and Signed by: Christiano Adkins, | | | Electronically signed: 10/31/2013 4:42 PM | | + + + + + | Procedure Note | + + | Abdelrahman, Rad Results In - 10/31/2013 4:45 PM PDT EXAM: XR CERVICAL SPINE 6 OR MORE VWS | | dated 10/31/2013 4:04 PMHISTORY:neck pain and spasmCOMPARISON: None.FINDINGS: 7 views of | | the cervical spine. In the neutral position there is lossof the normal cervical | | lordosis. There is no spondylolisthesis. Mild discnarrowing at C4-C5 and C5-C6. On | | flexion and extension no abnormal translation. The atlantodens interval is maintained | | throughout the maneuvers. There isextensive facet arthrosis at C2-C3, C3-C4, and C4-C5. | | There is some very milduncinate hypertrophy at C3 and C4. Mild bilateral bony neural | | foraminalnarrowing at C2-C3, C3-C4, C4-C5. No precervical soft tissue thickening. | | Thevisible lung apices are clear.IMPRESSION -At least moderate facet arthrosis involving | | C2-C4 5 which results in mild bonyneural foraminal narrowing.No spondylolisthesis or | | evidence for instability.Dictated and Signed by: Christiano Adkins MD Electronically | | signed: 10/31/2013 4:42 PM | |narrowing at C2-C3, C3-C4, C4-C5. No precervical soft tissue thickening. The | |visible lung apices are clear. | | | |IMPRESSION - | | | |At least moderate facet arthrosis involving C2-C4 5 which results in mild bony | |neural foraminal narrowing. | | | |No spondylolisthesis or evidence for instability. | | | |Dictated and Signed by: Christiano Adkins MD | | Electronically signed: 10/31/2013 4:42 PM | + + + +---------+ + + | Performing | Address | City/State/Zipcode | Phone Number | | Organization | | | | + +---------+ + + | [facility]OUS LAB | | | [phone] | + +---------+ + + | MISCELANIOUS LAB | | | [phone] | + +---------+ + + documented in this encounter Visit Diagnoses + + | Diagnosis | + + | Neck pain Cervicalgia | + + | Facet arthritis of cervical region Cervical spondylosis without myelopathy | + + | Lymphedema Other lymphedema | + + documented in this encounter"
--- OUTSIDE RECORDS SUMMARY | ~2019-03-27 | XMS | Encounter Summary ---
Demographics + + + | Address | [address] | | | [place] [address] | + + + | Home Phone | | + + + | Preferred Language | Unknown | + + + | Marital Status | Single | + + + | Alevism Affiliation | 1013 | + + + | Race | Unknown | + + + | Ethnic Group | Unknown | + + + Author + + + | Author | [facility] | | | and Ezeuqielana | + + + | Organization | [facility] | | | and Ezequielana [...] Team Providers + +------+ + | Care Bunch Maker Name | Role | Phone | [...] Rehabilitatio | subluxation | MD [place] | [place] | | | | n | of left | [address] | [place], | | | | | shoulder, | [place] | [place] [address] | | | | | initial | [place], | Phone: | | | | | encounter | [place] [address] | [phone] | | | | | Left hip | Phone: | Fax: | | | | | subluxation, | [phone] | [phone] | | | | | initial | Fax: | | | | | | encounter | [phone] | | | | | | (HCC) [...] + + | 09/18/ | [facility] | Taran Archuleta | Chronic neck and | | 2014 | Visit | MED CTR THERAPY PT | [address] | back pain (Primary | | | | OP [address] [place] | [place] | Dx); Hip pain, | | | | [place] | [place] [address] | bilateral | | | | [address] | [phone] | | | | | [phone] | | | | | | | Zuleyma Ramirez, | | | | | | CHEST PAIN COORDINATOR [address] | | | | | | [place] | | | | | | [address] | | | | | | | [...] of this encounter Progress Notes Zuleyma Ramirez CHEST PAIN COORDINATOR - 09/18/2014 3:42 PM PDTFormatting of this note might be different f rom the original. [facility] MED CTR THERAPY PT OP [address] [place] [address] Physical Therapy Daily Treatment Note Date: 09/18/2014 Patient Information Patient Name: Zuleyma Jenkins Date of : 1970 Age: 44 y.o. Encounter Diagnoses Code Name Primary? 723.1, 724.5 Chronic neck and back pain Yes 719.45 Hip pain, bilateral Date of Onset: Referring Provider: Taran Archuleta MD Rehab Precautions Office Visit from 10/24/2013 in [facility] CTR THERAPY OT OP Rehab Precautions [...]
--- OUTSIDE RECORDS SUMMARY | ~2019-03-27 | XMS | Encounter Summary ---
Demographics + + + | Address | [address] | | | [place] [address] | + + + | Home Phone [...] | Organization | [facility] | | | and [...] Team Providers + +------+ + | Care Paperboard Box Maker Name | Role | Phone | [...] Rehabilitatio | subluxation | MD [place] | [place] | | | | n | of left | [address] | [place], | | | | | shoulder, | [place] | [place] [address] | | | | | initial | [place], | Phone: | | | | | encounter | [place] [address] | [phone] | | | | | Left hip | Phone: | Fax: | | | | | subluxation, | [phone] | [phone] | | | | | initial | Fax: | | | | | | encounter | [phone] | | | | | | (HCC) [...] Description | +--------+---------+ + + + | 08/04/ | [facility] | Taran Archuleta | Chronic neck and | | 2014 | Visit | MED CTR THERAPY PT | [address] | back pain (Primary | | | | OP [address] [place] | [place] | Dx); Hip pain, | | | | [address] | [place] [address] | bilateral | | | | [address] | [phone] | | | | | [phone] | | | | | | | Trina Hargrove B, PT | | | | | | [address] | | | | | | [place] | | | | | | [address] | | | | | | | [...] encounter Progress Notes Trina Garibay, PT - 08/04/2014 11:25 AM PDTFormatting of this note might be different from faye alford original. [facility] CTR THERAPY PT OP [address] [place] [address] Physical Therapy Daily Treatment Note Date: 08/04/2014 Patient Information Patient Name: Zuleyma Jenkins Date of : 1970 Age: 44 y.o. Encounter Diagnoses Code Name Primary? 723.1, 724.5 Chronic neck and back pain Yes 719.45 Hip pain, bilateral Date of Onset: Referring Provider: Taran Archuleta MD Rehab Precautions Office Visit from 10/24/2013 in [facility] CTR THERAPY OT OP Rehab Precautions Precautions Comments Lipedema Start Time: 1115 Stop time: 1200 Duration: 45 minutes Timed Treatment Codes: 45 minutes # of PT Visits to Date: 4 Subjective: Addendum to Order from Dr. Archuleta: "start working on neck traction, gently as she has ehler-danlos syndrome, to find optimum device that will help neck pain. Etc, prn re shoulder and other pain and numbness issues." Pt also reports that Dr. Archuleta would like he r to trial other taping options for pain management. However pt had increased symptoms after sessions with kinesio tape for unloading shoulders; but will trial other options next visit . Pain Assessment Pain Scale Used: NUMERIC Pain Rating Pre Assessment: 4 Pain Rating During Assessment: 1 Location: neck-upper back Objective: Manual Therapy: TPR and STM to bilateral upper-mid traps. Exercise/Activity 07/05/14 07/11/14 08/02/14 08/04/14 TrA activation Throughout all ex. Throughout all ex. Hooklying: iso hip add 2x20 2x20 hooklying alt. Leg lift 2x20 2x20 Supine: shoulder [place] stab. 2x10 each 2x10 each Supine: shoulder. Iso. Stab. 3x1 min. each Supine:Iso. Scap. 0-30-60 deg 1x10 each 1x10 each Supine: upper c-spine retraction 2x10, 3 sec hold Modalities: Mechanical cervical traction DTS pull pattern 1 5-10 lbs for 15 min. Assessment: Pt responded well to mechanical cervical traction and stated immediate pain reduction in ne ck but upper shoulders/back still painful and responded well to TPR/STM for good pain reduct ion. Plan:Cont with lumbo-pelvic and glenohumeral/scap. Stabilization. Cont with neck traction a nd posterior chain strengthening. Electronically signed by: Trina Garibay PT, 08/04/2014 13:31 Patient Name: Zuleyma Jenkins/: 1970/ documented [...]
--- OUTSIDE RECORDS SUMMARY | ~2019-03-27 | XMS | Encounter Summary ---
Demographics + + + | Address | [address] | | | [place] [address] | + + + | Home Phone | | + + + | Preferred Language | Unknown | + + + | Marital Status | Single | + + + | Orthodox Affiliation | 1013 | + + + | Race | Unknown | + + + | Ethnic Group | Unknown | + + + Author + + + | Author | [facility] | | | and Ezequielana | + + + | Organization | [facility] | | | and Eezquielana | + + + | Address | Unknown | + + + | Phone | Unavailable | + + + Support + + +---------+ + | Name | Relationship | Address | Phone | + + +---------+ + | Jose Jenkins | ECON | Unknown | | + + +---------+ + Care Team Providers + +------+ + | Care Assistant Professor Nurse Education Name | Role | Phone | + [...] Rehabilitatio | subluxation | MD [place] | [place] | | | | n | of left | [address] | [place], | | | | | shoulder, | [place] | [place] [address] | | | | | initial | [place], | Phone: | | | | | encounter | [place] [address] | [phone] | | | | | Left hip | Phone: | Fax: | | | | | subluxation, | [phone] | [phone] | | | | | initial | Fax: | | | | | | encounter | [phone] | | | | | | (HCC) [...] + + | 08/04/ | [facility] | [facility] | Taran Archuleta | Chronic neck and | | 2014 | Visit | MED CTR THERAPY PT | [address] | back pain (Primary | | | | OP [address] [place] | [place] | Dx); Hip pain, | | | | [address] | [place] [address] | bilateral | | | | [address] | [phone] | | | | | [phone] | | | | | | | Trina Hargrove B, PT | | | | | | [address] | | | | | | [place] | | | | | | [address] | | | | | | | [...] be different from faye alford original. [facility] CTR THERAPY PT OP [address] [place] [address] Physical Therapy Daily Treatment Note Date: 08/04/2014 Patient Information Patient Name: Zuleyma Jenkins Date of : 1970 Age: 44 y.o. Encounter Diagnoses Code Name Primary? 723.1, 724.5 Chronic neck and back pain Yes 719.45 Hip pain, bilateral Date of Onset: Referring Provider: Taran Archuleta MD Rehab Precautions Office Visit from 10/24/[address] [facility] CTR THERAPY OT OP Rehab Precautions [...] alt. Leg lift 2x20 2x20 Supine: shoulder manzanita stab. 2x10 each 2x10 each Supine: shoulder. [...]
--- OUTSIDE RECORDS SUMMARY | ~2019-03-27 | XMS | Encounter Summary ---
Demographics + + + | Address | [address] | | | [place] [address] | + + + | Home Phone | | + + + | Preferred Language | Unknown | + + + | Marital Status | Single | + + + | Taoism Affiliation | 1013 | + + + | Race | Unknown | + + + | Ethnic Group | Unknown | + + + Author + + + | Author | [facility] | | | and Ezequielana | + + + | Organization | [facility] | | | and Ezequielana [...] Team Providers + +------+ + | Care Crm Marketing Specialist Name | Role | Phone | + [...] | | | without | [address] | [facility], | | | | | mention of | [place], [place] | [place] [address] | | | | | complication | [address] | Phone: | | | | | Hemorrhage | Phone: | [phone] | | | | | of rectum | [phone] | Fax: | | | | | and anus | Fax: | [phone] | | | | | Procedures | [phone] | | | | | | [place] | | | | | | | HEMORRHOIDEC | | | | | | | DIEGO | | | | | | | INTERNAL | | | | | | | RUBBER BAND | | | | | | | LIGATIONS | | | | | | | [place] ANOSCOPY | | | | | | | DX W/COLLJ | | | | | | | SPEC BR/WA | | | | | | | SPX WHEN | | | | | | | PRFRMD [place] | | | | | | | PROCTOSIGMOI | | | | | | | DOSCOPY,RIGI | | | | | | | D,DIAGNOS | | | | | | | [place] OFFICE | | | | | | | OUTPATIENT | | | | | | | VISIT 10 | | | | | | | MINUTES [place] | | | | | | | [...] + + | 02/22/ | Office | [facility] | Jose Cooper MD | Hemorrhage of rectum | | 2015 | Visit | GASTROENTEROLOGY | [address] | and anus (Primary | | | | [address] | [place], [place] | Dx); Internal | | | | [address] [place], [place] | [address] | hemorrhoids | | | | [address] | [phone] | | | | | [phone] | | | +--------+---------+ + + + [...]
--- OUTSIDE RECORDS SUMMARY | ~2019-03-27 | XMS | Encounter Summary ---
Demographics + + + | Address | [address] | | | [place] [address] | + + + | Home Phone | | + + + | Preferred Language | Unknown | + + + | Marital Status | Single | + + + | Gnosticist Affiliation | 1013 | + + + | Race | Unknown | + + + | Ethnic Group | Unknown | + + + Author + + + | Author | [facility] | | | and Ezequielana | + + + | Organization | [facility] | | | and Ezequielana [...] Team Providers + +------+ + | Care Optometric Technician Name | Role | Phone | + [...] | | | | | | | MO | | | | | | | ESOPHAGOGAST | | | | | | | RODUODENOSCO | | | | | | | PY TRANSORAL | | | | | | | DIAGNOSTIC | | | | | | | MO EDG | | | | | | | TRANSORAL | | | | | | | BIOPSY | | | | | | | SINGLE/MULTI | | | | | | | PLE MO | | | | | | | ANESTH,UGI | | | | | | | ENDOSCOPY | | | | | | | MO | | | | | | | COLONOSCOPY | | | | | | | FLX DX | | | | | | | W/COLLJ SPEC | | | | | | | WHEN PFRMD | | | | | | | MO | | | | | | | COLONOSCOPY | | | | | | | W/BIOPSY | | | | | | | SINGLE/MULTI | | | | | | | PLE MO | | | | | | | COLSC FLX | | | | | | | W/RMVL OF | | | | | | | TUMOR POLYP | | | | | | | LESION SNARE | | | | | | | TQ MO | | | | | | | [...] + + + + | 08/29/ | Anesthesia | [facility] | Erwin Riojas | | | 2014 | Event | MED CTR MP INTRA OP | Haroon RODRIGUEZ MD [address] | | | | | [address] | [address] [place] | | | | | [place] | [place] [address] | | | | | [address] | [phone] | | | | | [phone] | | | +--------+ + + + + Anesthesia Record + + + + + | Procedure Name | Responsible | Anesthesia Start | Anesthesia Stop Time | | | Anesthesiologist | Time | | + + + + + | EGD / COLONOSCOPY | Erwin Riojas | 08/29/14 1051 | 08/29/14 1143 | | (N/A ) | II, MD | | | + + + + + +----+---+ + + | Da | T | Event | Comment | | te | i | | | | | m | | | | | e | | | +----+---+ + + | 04 | 1 | | | | /2 | 0 | | | | 8/ | 0 | | | | 20 | 9 | | | | 15 | | | | +----+---+ + + | | 1 | An Checkout | Pre-use anesthesia machine/equipment checkout. | | | 0 | | | | | 4 | | | | | 3 | | | +----+---+ + + | | 1 | An Start | Reassessment prior to anesthesia induction/procedure. | | | 0 | | | | | 5 | | | | | 1 | | | +----+---+ + + | | 1 | AN | Per surgeon request | | | 0 | Antibiotic | | | | 5 | declined | | | | 3 | | | +----+---+ + + | | 1 | an stop | | | | 1 | data | | | | 3 | | | | | 6 | | | +----+---+ + + | | 1 | An Stop | Patient handed off to recovery nurse. | | | 4 | | | | | 3 | | | +----+---+ + + +------+ | Meds | +------+ + + + | Name | Total | + + + | propofol | 1,270.08 mg | + + + | lactated ringers (LR) infusion | 800 mL | + + + + + | Name | + + | O2 Flow Rate (L/Min) | + + + + | No blood administrations on file. | + + +--------+ + + + | Type | Details | Placement | Removal | +--------+ + + + | [READ | 08/29/14; 1051; 08/29/14; 1220 | 08/29/14 1051 by | 08/29/14 1220 by | | ONLY] | | Halima Lyon, | Halima Lyon, | | | | RN | RN | | Periph | | | | | eral | | | | | IV - | | | | | Single | | | | | Lumen | | | | | | | | | +--------+ + + + documented in this encounter Social History + +-------+ +--------+------+ | Tobacco [...] Visit Diagnoses Not on filedocumented in this encounter Administered Medications + +---------+ +------+------+------+ | Medication Order | MAR | Action | Dose | Rate | Site | | | Action | Date | | | | + +---------+ +------+------+------+ | lactated ringers (LR) infusion | New Bag | 08/30/19 | | | | | at 10-100 mL/hr, Intravenous, | | 15 10:51 | | | | | CONTINUOUS, Starting 08/29/14 | | AM PDT | | | | | at 1045, TKO., Pre-op | | | | | | + +---------+ +------+------+------+ +---+---+ | | | +---+---+ + +---------+ + +--------+---+ | propofol (DIPRIVAN) injection | New Bag | 08/30/19 | 350 | 211.7 | | | Intravenous, CONTINUOUS PRN, | | 15 10:54 | mcg/kg/m | mL/hr | | | Starting 08/29/14 at 1054, | | AM PDT | in | | | | Anesthesia Intra-op | | | | | | + +---------+ + +--------+---+ +---+---+ | | | +---+---+ documented in this encounter"
--- OUTSIDE RECORDS SUMMARY | ~2019-03-27 | XMS | Encounter Summary ---
Demographics + + + | Address | [address] | | | [place] [address] | + + + | Home Phone | | + + + | Preferred Language | Unknown | + + + | Marital Status | Single | + + + | Hoahaoism Affiliation | 1013 | + + + | Race | Unknown | + + + | Ethnic Group | Unknown | + + + Author + + + | Author | [facility] | | | and Ezequielana | + + + | Organization | [facility] | [...] Team Providers + +------+ + | Care Gambling Cashier Name | Role | Phone | + +------+ + | Enzo Juarez DO | PCP | | + +------+ + Encounter Details +--------+ + + + + | Date | Type | Department | Care Team | Description | +--------+ + + + + | 07/26/ | Abstract | [facility] [place] | [facility], | | | 2014 | | GASTROENTEROLOGY | JERARDO Carranza [address] | | | | | [address] [place] | [place], [place] [address] | | | | | [address] [place], [place] | [place] | | | | | [address] | [address] | | | | | [phone] | | | +--------+ + + + [...] | + +--------+ + + + | EXTERNAL LAB: OCCULT | Routin | 07/07/2014 | | Results for this | | BLOOD, SCREENING | e | 3:07 PM | | procedure are in the | | | | PST | | results section. | + +--------+ + + + documented in this encounter Results External Lab: Occult Blood, Screening (07/07/2014 3:07 PM PST) + + + + + + | Component | Value | Ref Range | Performed | Pathologist | | | | | At | Signature | + + + + + + | Hemoccult 1 | Positive | | | | | Result, | | | | | | External | | | | | + + + + + + + + | Specimen | + + | Stool specimen | | (specimen) | + + documented in this encounter Visit Diagnoses Not on filedocumented in this encounter"
--- OUTSIDE RECORDS SUMMARY | ~2019-03-27 | XMS | Encounter Summary ---
Demographics + + + | Address | [address] | | | [place] [address] | + + + | Home Phone | | + + + | Preferred Language | Unknown | + + + | Marital Status | Single | + + + | Scientologist Affiliation | 1013 | + + + | Race | Unknown | + + + | Ethnic Group | Unknown | + + + Author + + + | Author | [facility] | | | and Ezequielana | + + + | Organization | [facility] | | | and Ezequielana [...] Team Providers + +------+ + | Care Choral Teacher Name | Role | Phone | + +------+ + | Enzo Juarez DO | PCP | | + +------+ + Reason for Visit +--------+ + | Reason | Comments | +--------+ + | Other | hemorrhoid banding | +--------+ + Encounter Details +--------+ + + + + | Date | Type | Department | Care Team | Description | +--------+ + + + + | 12/20/ | Telephone | [facility] | Jose Cooper MD | Other (hemorrhoid | | 2015 | | GASTROENTEROLOGY | [address] | banding) | | | | [address] | [place], [place] | | | | | [address] [place] | [address] | | | | | [address] | [phone] | | | | | [phone] | | | +--------+ + + + [...]
--- OUTSIDE RECORDS SUMMARY | ~2019-03-27 | XMS | Encounter Summary ---
Demographics + + + | Address | [address] | | | [place] [address] | + + + | Home Phone | | + + + | Preferred Language | Unknown | + + + | Marital Status | Single | + + + | Amish Affiliation | 1013 | + + + | Race | Unknown | + + + | Ethnic Group | Unknown | + + + Author + + + | Author | [facility] | | | and Ezequielana | + + + | Organization | [facility] | | | and Ezequielana | [...] Team Providers + +------+ + | Care Fish Technologist Name | Role | Phone | + +------+ + | Enzo Juarez DO | PCP | | + +------+ + Encounter Details +--------+ + + + + | Date | Type | Department | Care Team | Description | +--------+ + + + + | 10/31/ | Documentati | [facility] | Tita Spaulding COTA | | | 2013 | on | MED CTR THERAPY OT | | | | | | ACUTE [address] | | | | | | [place] | | | | | | [address] | | | | | | [phone] | | | +--------+ + + + [...] encounter Progress Notes Tita Spaulding COTA - 10/31/2013 4:35 [facility] [address] [place] [address] Cancellation/No Show Date: 10/31/2013 Patient Information Patient Name: Zuleyma Jenkins Date of : 1970 Age: 43 y.o. Reason for missed visit: Pt no showed but arrived later. She evidently had her appt time m ixed up. This therapist was not available at that later time. Phone call placed: no Plan: Pt has a follow up visit scheduled. Electronically signed by: JAGJIT Bonds, 10/31/2013 16:35 Patient Name: Zuleyma Jenkins/: 1970/ documented in this enc ounter Plan of Treatment Not on filedocumented as of this encounter Visit Diagnoses + + | Diagnosis | + + | Lymphedema, not elsewhere classified - Primary Other lymphedema | + + documented in this encounter"
--- OUTSIDE RECORDS SUMMARY | ~2019-03-27 | XMS | Encounter Summary ---
Demographics + + + | Address | [address] | | | [place] [address] | + + + | Home Phone | | + + + | Preferred Language | Unknown | + + + | Marital Status | Single | + + + | Nondenominational Affiliation | 1013 | + + + | Race | Unknown | + + + | Ethnic Group | Unknown | + + + Author + + + | Author | [facility] | | | and Ezequielana | + + + | Organization | [facility] | | | and [...] + +------+ + | Care Director Of Acquisition Marketing Name | Role | Phone | + [...] | | | without | [address] | [facility], | | | | | mention of | [place], [place] | [place] [address] | | | | | complication | [address] | Phone: | | | | | Hemorrhage | Phone: | [phone] | | | | | of rectum | [phone] | Fax: | | | | | and anus | Fax: | [phone] | | | | | Procedures | [phone] | | | | | | ID | | | | | | | HEMORRHOIDEC | | | | | | | DIEGO | | | | | | | INTERNAL | | | | | | | RUBBER BAND | | | | | | | LIGATIONS | | | | | | | ID ANOSCOPY | | | | | | | DX W/COLLJ | | | | | | | SPEC BR/WA | | | | | | | SPX WHEN | | | | | | | PRFRMD ID | | | | | | | PROCTOSIGMOI | | | | | | | DOSCOPY,RIGI | | | | | | | D,DIAGNOS | | | | | | | ID OFFICE | | | | | | | OUTPATIENT | | | | | | | VISIT 10 | | | | | | | MINUTES ID | | | | | | | [...] Description | +--------+---------+ + + + | 11/30/ | Office | [facility] | Jose Cooper MD | Internal hemorrhoids | | 2015 | Visit | GASTROENTEROLOGY | [address] | without mention of | | | | [address] [facility] | [place], [place] | complication; | | | | [address] [place], [place] | [address] | Hemorrhage of rectum | | | | [address] | [phone] | and anus | | | | [phone] | | | +--------+---------+ + + + [...] + + + | Blood Pressure | 130/90 | 11/30/2014 3:40 PM | | | | | PDT | | + + + + + | Pulse | 103 | 11/30/2014 3:40 PM | | | | | PDT | | + + + + + | Temperature | 37.3 C (99.2 F) | 11/30/2014 3:40 PM | | | | | PDT | | + + + + + | Respiratory Rate | 16 | 11/30/2014 3:40 PM | | | | | PDT | | + + + + + | Oxygen Saturation | 97% | 11/30/2014 3:40 PM | | | | | PDT | | + + + + + | Inhaled Oxygen | - | - | | | Concentration | | | | + + + + + | Weight | 101.8 kg (224 lb 6.4 | 11/30/2014 3:40 PM | | | | oz) | PDT | | + + + + + | Height | - | - | | + + + + + | Body Mass Index | 33.62 | 10/30/2014 1:28 PM | | | | | PDT | | + + + + + documented in this encounter Progress Notes Jose Cooper MD - 11/30/2014 6:39 PM PDT Subjective: Patient ID: Zuleyma Jenkins is a 44 y.o. female. HPI This office note has been dictated Review of Systems Objective: Physical Exam Assessment: This office note has been dictated Plan: This office note has been dictated documented in this enc ounter Plan of Treatment Not on filedocumented as of this encounter Visit Diagnoses + + | Diagnosis | + + | Internal hemorrhoids without mention of complication | + + | Hemorrhage of rectum and anus | + + documented in this encounter"
--- OUTSIDE RECORDS SUMMARY | ~2019-03-27 | XMS | Encounter Summary ---
Demographics + + + | Address | [address] | | | [place] [address] | + + + | Home Phone [...] + + | Author | [facility] | | | and Ezequielana | + + + | Organization | [facility] | | | and [...] Team Providers + +------+ + | Care Clinical Resource Manager Name | Role | Phone | [...] | | | | | Natalia-Danlo | [place] | [place] [address] | | | | | s syndrome | [place], | Phone: | | | | | type III | [place] [address] | [phone] | | | | | Shoulder | Phone: | Fax: | | | | | subluxation, | [phone] | [phone] | | | | | unspecified | Fax: | | | | | | laterality, | [phone] | | | | | | sequela | | | | | | | Neck pain | | | +--------+ + + + + + Reason for Visit + + + | Reason | Comments | + + + | Follow-up | Follow Up | + + + Encounter Details +--------+---------+ + + + | Date | Type | Department | Care Team | Description | +--------+---------+ + + + | 08/02/ | Office | [facility] | KatheTaran | Myofascial muscle | | 2015 | Visit | REHABILITATION | [address] | pain (Primary Dx); | | | | MEDICINE [address] | [place] | Natalia-Danlos | | | | [address] [place] | [place] [address] | syndrome type III; | | | | [place] [address] | [phone] | Shoulder | | | | [phone] | | subluxation, | | | | | | unspecified | | | | | | laterality, sequela; | | | | | | Neck pain | +--------+---------+ + + + Social History [...] + + + | Blood Pressure | 142/88 | 08/02/2014 3:30 PM | | | | | PDT | | + + + + + | Pulse | 70 | 08/02/2014 3:30 PM | | | | | PDT | | + + + + + | Temperature | - | - | | + + + + + | Respiratory Rate | 18 | 08/02/2014 3:30 PM | | | | | PDT | | + + + + + | Oxygen Saturation | - | - | | + + + + + | Inhaled Oxygen | - | - | | | Concentration | | | | + + + + + | Weight | 101.6 kg (224 lb) | 08/02/2014 3:30 PM | | | | | PDT | | + + + + + | Height | 174 cm (5' 8.5") | 08/02/2014 3:30 PM | | | | | PDT | | + + + + + | Body Mass Index | 33.56 | 08/02/2014 3:30 PM | | | | | PDT | | + + + + + documented in this encounter Patient Instructions Patient Instructions Taran Archuleta MD - 08/02/2014 4:[address] Fortino cuevas September 11 and for nerve test. 2. Dr. Frances for f/u later this month about your brain mri. 3. Continue PT, now concentrating on your neck pain and shoulder pain. 4. I will see you about one week after your studies by Dr. Olvera 5. Try and keep ahead of your pain by taking flexeril with muscle spasm and gabapentin for burning type pain. documented in this encounter Progress Notes Taran Archuleta MD - 08/03/2014 4:50 PM PDTI spent over 25 minutes, [id number] patient, most of which was spent answering multiple questions and educating regarding [facility] issues. I also reviewed the vosot from the neurologist, Dr. Frances, from July 25, 2014 with he r. He did check an MRI and we reviewed that today. It did not show an Arnold-Chiari malfor mation. The area around the cranial nerve V was also okay as that is the distribution where she was having numbness. Thus Dr. Brown suspected it is due to her lymphedema. We dis cussed that much of her altered sensation in her hands and feet is also probably related to that. However she is still is set up for the nerve conduction tests with Dr. Olvera in September. Physical therapy note from July 11, 2014 was reviewed and they indicated they are doiing k inesiotaping and other treatments. She thinks it definitely helps. However they want to no w work on her neck so I wrote specific orders for that. Neck is still painful with pain into the mid thoracic area. Still some numbness in the arnold ds that come and go, index generally spared. No change in strength. She has some midthorac ic numbness right around the paraspinals at times, still has some altered sensation in her t oes but no leg weakness. She is only taking Flexeril, gabapentin, Aleve for flareups. I discussed not getting behin d on this, especially with any insomnia issues since that would make the therapies less than beneficial. I recommended taking gabapentin or Flexeril at bedtime for any increased pain at night or problems going to sleep at night. Sometimes she is awake due to burning and I r ecommended Neurontin for that and flexeril for insomnia as well as neck pain. Physical exam She is in no distress and very talkative and has multiple questions Upper extremity strength 5 over 5 and normal sensation except decreased in digits 4 5. S he does have some swelling around the elbow area bilaterally and has her garments on for her edema Neck area is actually better but upper thoracic still has spasm. She reports she just came from physical therapy and that is why her neck is better Impression Hand and foot numbness: Nerve conduction set up with Dr. Olvera in September to check for PN. Facial numbness: MRI unremarkable so this probably due to her chronic edema issues Lymphedema: Stable still wearing garments Natalia Danlos syndrome type III: Stable but contributing to much of her pain issues and sub luxation issues Shoulder subluxation. Taping caused some neck discomfort and I suggested trying different patterns with Thang. Left hip pain with feeling of subluxation: Left hip x-ray also reviewed today and did show some enthesopathy but no sign of subluxation chronically and thus it's probably related to h er Natalia Danlos syndrome and thus strengthening and body mechanics is the best for her Plan: Continue physical therapy and starting to work more on the neck Follow-up Dr. Olvera September 11 and September 18 for upper and lower body nerve conduction and EM G She will see Dr. [facility] in follow-up regarding the specifics are of her MRI of her brain I will see her in one month 15 5:01 PM PDTdocumented in this encounter Plan of Treatment + + +--------+ + + | Name | Type | Priori | Associated Diagnoses | Order Schedule | | | | ty | | | + + +--------+ + + | * [facility] | Outpatient | Routin | Myofascial muscle | Ordered: 08/02/2014 | | Therapy - AMB | Referral | e | pain Natalia-Danlos | | | Referral | | | syndrome type III | | | | | | Shoulder | | | | | | subluxation, | | | | | | unspecified | | | | | | laterality, sequela | | | | | | Neck pain | | + + +--------+ + + documented as of this encounter Visit Diagnoses + + | Diagnosis | + + | Myofascial muscle pain - Primary Mylagia and myositis, unspecified | + + | Natalia-Danlos syndrome type III Natalia-Danlos syndrome | + + | Shoulder subluxation, unspecified laterality, sequela | + + | Neck pain Cervicalgia | + + documented in this encounter
--- OUTSIDE RECORDS SUMMARY | ~2019-03-27 | XMS | Encounter Summary ---
Demographics + + + | Address | [address] | | | [place] [address] | + + + | Home Phone | | + + + | Preferred Language | Unknown | + + + | Marital Status | Single | + + + | Rastafarian Affiliation | 1013 | + + + | Race | Unknown | + + + | Ethnic Group | Unknown | + + + Author + + + | Author | [facility] | | | and Ezequielana | + + + | Organization | [facility] | | | and Ezequielana [...] Team Providers + +------+ + | Care Client Services Specialist Name | Role | Phone | [...] | | | | | | | CO | | | | | | | ESOPHAGOGAST | | | | | | | RODUODENOSCO | | | | | | | PY TRANSORAL | | | | | | | DIAGNOSTIC | | | | | | | CO EDG | | | | | | | TRANSORAL | | | | | | | BIOPSY | | | | | | | SINGLE/MULTI | | | | | | | PLE CO | | | | | | | ANESTH,UGI | | | | | | | ENDOSCOPY | | | | | | | CO | | | | | | | COLONOSCOPY | | | | | | | FLX DX | | | | | | | W/COLLJ SPEC | | | | | | | WHEN PFRMD | | | | | | | CO | | | | | | | COLONOSCOPY | | | | | | | W/BIOPSY | | | | | | | SINGLE/MULTI | | | | | | | PLE CO | | | | | | | COLSC FLX | | | | | | | W/RMVL OF | | | | | | | TUMOR POLYP | | | | | | | LESION SNARE | | | | | | | TQ CO | | | | | | | [...] Description | +--------+---------+ + + + | 08/29/ | Surgery | [facility] | Jose Cooper MD | EGD / COLONOSCOPY | | 2014 | | MED CTR MP INTRA OP | [address] | | | | | [address] | [place], [place] | | | | | [place] | [address] | | | | | [address] | [phone] | | | | | [phone] | | | +--------+---------+ + + + [...] the physician who did your procedure at [phone] if you have any questions or experience any of the following: ? Increasing abdominal pain, nausea, or vomiting. ? Chills and fever over 101F. ? New abdominal swelling or bloating. ? Signs of rectal bleeding (black or red stool). If you cannot get a hold of your physician, then call the [facility] [phone] . If necessary, report to the Emergency Department at [facility]. Quit smoking: If you smoke [...] + + + +---------+ + + | [place] | Take by mouth | | 0 [...] + + + +---------+ + + | [place]-3 Fatty | Take by mouth. | | 0 | | | | Acids (OMEGA 3 PO) | [place] 3 + COQ10 | | | | [...] | [facility] | | GastroenterologyPatient Name: Zuleyma JenkinsJosh Date: 08/29/2014 10:54 | [facility] | | AMMRN: [id number] #: [id number] of : 1970Admit | | | Type: AmbulatoryAge: 44Room: [facility] 02Gender: FemaleNote Status: | | | FinalizedAttending MD: Jose Cooper, MDProcedure: | | | Upper GI endoscopyIndications: Epigastric abdominal | | | painProviders: Jose Cooper MD, Morris Cruz, | | | RNFlor, Fur Stylist, Erwin Davis | | | MD Shine [...] | | | the anesthesiologist and the store facility technician in the pre-procedure | | | [...] AMScope Out: 11:11:54 | | | AM [facility], [address] [facility] | | | [place] [address] | | | patient. Return to normal [...] |Scope Out: 11:11:54 AM | | | [facility], [facility] [place], [place] | | | [address] | | + + -+ + +---------+ + + | Performing | Address | City/State/[facility]code | Phone Number | | Organization | | | | + +---------+ + + | [facility] | | | | + +---------+ + + COLONOSCOPY (08/29/2014 10:54 AM PDT) + + | Specimen | + + | | + + + + -+ | Narrative | Performed At | + + -+ | | [facility] | | GastroenterologyPatient Name: Zuleyma Philipcedure Date: 08/29/2014 10:54 | [facility] | | AMMRN: [id number] #: [id number] of : 1970Admit | | | Type: AmbulatoryAge: 44Room: [facility] 02Gender: FemaleNote Status: | | | FinalizedAttending MD: Jose Cooper, MDProcedure: | | | ColonoscopyIndications: Heme positive stoolProviders: | | | Jose Cooper MD, Morris Cruz RN, Flor | | | Virgilio, Fur Stylist, Erwin Riojas MD (Anesthesia | | | [...] the anesthesiologist and the | | | store facility technician in the pre-procedure area in the [...] | | | AMScope Out: 11:33:57 AM [facility], [address] | | | [place] [address] | | | patient. Return to normal [...] |Scope Out: 11:33:57 AM | | | [facility], [address] , [place], [place] | | | [address] | | + + -+ + +---------+ + + | Performing | Address | City/State/Zipcode | Phone Number | | Organization | | | | + +---------+ + + | [facility] | | | | + +---------+ + + documented in this encounter Visit Diagnoses + + | Diagnosis | + + | Blood in stool | + + | Nonspecific abnormal finding in stool contents | + + | Abdominal pain, generalized | + + | Nausea with vomiting | + + | Throat pain | + + | Obesity (BMI 30-39.9) Obesity, unspecified | + + documented in this [...]
--- OUTSIDE RECORDS SUMMARY | ~2019-03-27 | XMS | Encounter Summary ---
Demographics + + + | Address | [address] | | | [place] [address] | + + + | Home Phone | | + + + | Preferred Language | Unknown | + + + | Marital Status | Single | + + + | Yazidi Affiliation | 1013 | + + + | Race | Unknown | + + + | Ethnic Group | Unknown | + + + Author + + + | Author | [facility] | | | and Ezequielana | + + + | Organization | [facility] | | | and Ezequielana [...] Team Providers + +------+ + | Care Cardiology Technician Name | Role | Phone | [...] | | | | | related | [address] | [address] | | | | | problems | [address] | [place], | | | | | Procedures | [address] | [place] [address] | | | | | lymph eval | [place], [place] | Phone: | | | | | | [address] | [phone] | | | | | | Phone: | Fax: | | | | | | [phone] | [phone] | | | | | | Fax: | | | | | | | [phone] | | +--------+--------+ + + + + Encounter Details +--------+---------+ + + + | Date | Type | Department | Care Team | Description | +--------+---------+ + + + | 11/29/ | Office | [facility] | Enzo Juarez, | Lymphedema, not | | 2013 | Visit | [place] | [place] [address] [address] | elsewhere classified | | | | THERAPY [address] | (Primary Dx) | | | | [place], | [place] [address] | | | | | [place] [address] | [phone] | | | | | [phone] | | | | | | | [...] Spaulding COTA - 11/29/2013 5:27 PM PDT [facility] THERAPY OT OP [address] [place] [address] Occupational Therapy Daily Treatment Note Date: 11/29/2013 [...] great toe Dec 2002 Dr. Gutiérrez in [facility] Tonsillectomy 1996 [place], [place] Tubal ligation 2004 [facility] Rehab Precautions 10/24/13 Rehab Precautions Precautions Comments [...] lost my sheets somewhere" (referring to her [facility] home program). Pain Assessment Objective Patient/Caregiver [...]
--- OUTSIDE RECORDS SUMMARY | ~2019-03-27 | XMS | Encounter Summary ---
Demographics + + + | Address | [address] | | | [place] [address] | + + + | Home Phone | | + + + | Preferred Language | Unknown | + + + | Marital Status | Single | + + + | Mormonism Affiliation | 1013 | + + + | Race | Unknown | + + + | Ethnic Group | Unknown | + + + Author + + + | Author | [facility] | | | and Ezequielana | + + + | Organization | [facility] | | | and [...] Team Providers + +------+ + | Care Parts Counterperson Name | Role | Phone | + +------+ + | Enzo Juarez DO | PCP | | + +------+ + Reason for Visit + + + | Reason | Comments | + + + | Initial Assessment | | + + + Evaluate (Routine) [...] | | | | lipedema and | [address] | Therapy [address] | | | | | related | [address] | [address] [place] | | | | | problems | [address] | [place], | | | | | Procedures | [address] | [place] [address] | | | | | lymph eval | [place], [place] | Phone: | | | | | | [address] | [phone] | | | | | | Phone: | Fax: | | | | | | [phone] | [phone] | | | | | | Fax: | | | | | | | [phone] | | +--------+--------+ + + + + Encounter Details +--------+---------+ + + + | Date | Type | Department | Care Team | Description | +--------+---------+ + + + | 10/24/ | Office | [facility] | Enzo Juarez, | Lymphedema, not | | 2014 | Visit | [place] | [place] [address] [address] | elsewhere classified | | | | THERAPY [address] | (Primary Dx) | | | | [place], | [place] [address] | | | | | [place] [address] | [phone] | | | | | [phone] | | | | | | | Shi Garvey, | | | | | | OT [address] | | | | | | [place], [place] | | | | | | [address] | | | | | | | [...] | | | + +---+---+---+ + + + | Sex Assigned at [...] encounter Progress Notes Shi Cronin, OT - 10/26/2013 7:11 AM PDTFormatting of this note might be diffe rent from the original. [facility] TH[facility] OT OP [address] [place] [address] Occupational Therapy Initial Assessment Date: 10/24/2013 Patient Information Patient Name: Zuleyma Jenkins Date of : 1970 Age: 43 y.o. History Encounter Diagnoses Code Name Primary? 457.1 Lymphedema, not elsewhere classified Yes Onset Date: 09/28/13 Referring Provider: Enzo Juarez DO Past Medical History Diagnosis Date Thyroid disease History reviewed. No pertinent past surgical history. Allergies Allergen Reactions Blue Dyes (Parenteral) Prednisone Sulfa Antibiotics Prior treatment: None within the last sixty days Rehab Precautions 10/24/13 Rehab Precautions Precautions Comments Lipedema Learning Style Patient's Optimum Learning Style: listening;reading;observation;performance of task Fall Risk 2 or more falls in the past year?: No Abuse Assessment Do you feel safe in your current relationship or home?: Yes Action taken by clinician: No concerns Pain Assessment Pain Scale Used: NUMERIC Pain Rating During Assessment: 5 Location: upper lateral arms, anterior thighs, lateral two toes on both feet and ulnar 2 fi ngers on both hands Subjective Mechanism of injury: Pt was diagnosed with lipedema approximately 3 years ago. History of Symptoms: Pt reported that she noted as a young child that she tended to bruise easily, at puberty began experiencing pain in her legs, increased weight gain with inability to lose weight. Pt continued to have challenges losing weight and was gaining in the upper legs and upper arms. Pain in the legs increased and now is experiencing pain in the upper lateral arms. She reports numbness in the lateral 2 toes on both feet and ulnar 2 fingers o n both hands as well. Previous level of function and limitations: Ongoing and increasing symptoms in the extremit ies- has had occasion where her face became edematous as well. Living situation: Lives with spouse and children Posture: Forward head Observation: Swelling in all extremities Palpation: Tender in the upper arms and thighs Range of Motion (measured in degrees): Extremity ROM is within functional limits, pt reports that she has pain free range of loreta on in all extremities Strength: Pt displays 5/5 muscle strength in all extremities Sensation: Sensation is grossly intact - she reports that when she is more edematous, she has increas ed numbness in the lateral 2 toes on her feet and ulnar 2 fingers on her hands Edema: Pt displays increased edema in the upper arms, thighs and buttock - typical pattern of sergio bijan. Measurements were not taken today due to time restraints Today's Treatment Patient Name: Zuleyma Jenkins/: 1970/ Start Time: 1400 Stop time: 1500 Duration: 60 minutes Timed Treatment Codes: 35 minutes # of OT Visits: 1 Visit Summary: Initial evaluation was complete, patient instructed in the core MLM techniqu es to stimulate lymphatic fluid. Pt stated that the increased knowledge of the lymphatic sy stem was helpful. Next Visit: Plan to review MLM to trunk to assure proper technique before instructing in U pper and Lower Extremity MLM- therex as time progresses Patient/Caregiver Education Learner: Patient Readiness: Acceptance Method: Explanation;Demonstration;Handout Response: Verbalizes Understanding;Demonstrated Understanding Comment: MLM to trunk - will add extremities with further treatments Assessment Clinical Impression: Pt diagnosed with Lipedema, currently in developing stages, significan t pain and edema in all extremities Rehabilitation potential: Patient demonstrates excellent potential to achieve established goals to address the documented impairments by participating in skilled occupational therapy services. Outcome Specific Scored Goals Primary Functional Goals: Functional Goal 1 Patient's Primary Functional Goal 1: Pt will report that she has minimal aching in her uppe r lateral arms during the day so she is able to engage in cleaning her house in a more timel y manner Primary Functional Goal 1 Status Comment: Pt reports that she has challenges with activitie s as with more activity, the more pain she has making daily household tasks challenging Patient/Caregiver's Ability to Manage Condition: 2 OP OT Goals OP OT Goals: Goal 1;Goal 2 Goal 1: Pt will report independence in home program for manual lymphatic mobilization, ther apeutic exercise for life long management of lipedema Goal 1 Status: pt is not aware of MLM techniques, does not exercise routinely. Goal 2: Pt will report minimal to no pain in the thighs during ADL's in order to complete d aily chores in a more time efficient manner Goal 2 Status: Pt rpeorts that increased activity increases discomfort in her legs and ther efore increases the time that is needed to do her daily activities Plan Date of Onset: 09/28/13 Start of Care Date: 10/24/13 Requested # of Visits: 12 1x/wk for 3 months Certification From: 10/24/13 Certification To: 01/22/14 Treatment Plan/Interventions 07076 Self Care/Home Management;45723 Manual Therapy;52804 Therapeutic Activities;18958 The rapeutic Exercises Pt lives a distance from the clinic. Will see weekly for manual therapy with emphasis on e stablishing a firm home program that will last life long Patient and/or family has indicated understanding of treatment needs and actively participa makr in the creation of this plan for care. Electronically signed by: Shi Cronin OT, 10/26/2013 7:30 Patient Name: Zuleyma Jenkins/: 1970/ documented in this encounter Plan of Treatment Not on filedocumented as of this encounter Visit Diagnoses + + | Diagnosis | + + | Lymphedema, not elsewhere classified - Primary Other lymphedema | + + documented in this encounter"
--- OUTSIDE RECORDS SUMMARY | ~2019-03-27 | XMS | Encounter Summary ---
Demographics + + + | Address | [address] | | | [place] [address] | + + + | Home Phone | | + + + | Preferred Language | Unknown | + + + | Marital Status | Single | + + + | Yarsani Affiliation | 1013 | + + + | Race | Unknown | + + + | Ethnic Group | Unknown | + + + Author + + + | Author | [facility] | | | and Ezequielana | + + + | Organization | [facility] | | | and [...] Team Providers + +------+ + | Care Chalk Cutter Name | Role | Phone | + [...] Rehabilitatio | subluxation | MD [place] | [place] | | | | n | of left | [address] | [place], | | | | | shoulder, | [place] | [place] [address] | | | | | initial | [place], | Phone: | | | | | encounter | [place] [address] | [phone] | | | | | Left hip | Phone: | Fax: | | | | | subluxation, | [phone] | [phone] | | | | | initial | Fax: | | | | | | encounter | [phone] | | | | | | (HCC) [...] | | | | OP [address] | [place] | Dx); Hip pain, | | | | [place], [place] | [place] [address] | bilateral; Shoulder | | | | [address] | [phone] | pain, bilateral | | | | [phone] | | | | | | | Trina Hargrove, PT | | | | | | [address] | | | | | | [place], [place] | | | | | | [address] | | | | | | | [...] might be different from faye alford original. [facility] THER[facility] PT OP [address] [place] [address] Physical Therapy Daily Treatment Note Date: 08/02/2014 Patient Information Patient Name: Zuleyma Jenkins Date of : 1970 Age: 44 y.o. Encounter Diagnoses Code Name Primary? 723.1, 724.5 Chronic neck and back pain Yes 719.45 Hip pain, bilateral 719.41 Shoulder pain, bilateral Date of Onset: Referring Provider: Taran Archuleta MD Rehab Precautions Office Visit from 10/24/2013 in [facility] THER[facility] OT OP Rehab Precautions Precautions [...] alt. Leg lift 2x20 2x20 Supine: shoulder point lay ira stab. 2x10 each 2x10 each Supine: shoulder. [...]
--- OUTSIDE RECORDS SUMMARY | ~2019-03-27 | XMS | Encounter Summary ---
Demographics + + + | Address | [address] | | | [place] [address] | + + + | Home Phone | | + + + | Preferred Language | Unknown | + + + | Marital Status | Single | + + + | Druze Affiliation | 1013 | + + + | Race | Unknown | + + + | Ethnic Group | Unknown | + + + Author + + + | Author | [facility] | | | and Ezequielana | + + + | Organization | [facility] | | | and Ezequielana [...] Team Providers + +------+ + | Care Reservations Clerk Name | Role | Phone | + +------+ + | Enzo Juarez DO | PCP | | + +------+ + Encounter Details +--------+ + + + + | Date | Type | Department | Care Team | Description | +--------+ + + + + | 07/27/ | Abstract | [facility] [place] | [facility], | | | 2014 | | GASTROENTEROLOGY | JERARDO Carranza [address] | | | | | [address] [place] | [place], [address] | | | | | [address] [place], [place] | [place] | | | | | [address] | [address] | | | | | [phone] | | | +--------+ + + + [...]
--- OUTSIDE RECORDS SUMMARY | ~2019-03-27 | XMS | Encounter Summary ---
Demographics + + + | Address | [address] | | | [place] [address] | + + + | Home Phone | | + + + | Preferred Language | Unknown | + + + | Marital Status | Single | + + + | Voodoo Affiliation | 1013 | + + + | Race | Unknown | + + + | Ethnic Group | Unknown | + + + Author + + + | Author | [facility] | | | and Ezequielana | + + + | Organization | [facility] | | | and [...] Team Providers + +------+ + | Care Chemist Proteins Name | Role | Phone | + +------+ + | Enzo Juarez DO | PCP | | + +------+ + Encounter Details +--------+ + + + + | Date | Type | Department | Care Team | Description | +--------+ + + + + | 01/11/ | Documentati | [facility] | Shi Garvey, | | | 2013 | on | MED CNT ONCOLOGY | OT [address] | | | | | THERAPY [address] | [place], [place] | | | | | [place], | [address] | | | | | [place] [address] | | | | | | [phone] | | | +--------+ + + + [...] might be diffe rent from the original. [facility] THER[facility] OT OP [address] [place] [address] Occupational Therapy Discharge Assessment Date: 01/11/2014 Patient [...] great toe Dec 2002 Dr. Gutiérrez in [facility] Tonsillectomy 1996 [place], [place] Tubal ligation 2004 [facility] Allergies Allergen Reactions Blue Dyes (Parenteral) [...]
--- OUTSIDE RECORDS SUMMARY | ~2019-03-27 | XMS | Encounter Summary ---
Demographics + + + | Address | [address] | | | [place] [address] | + + + | Home Phone | | + + + | Preferred Language | Unknown | + + + | Marital Status | Single | + + + | Mu-Ism Affiliation | 1013 | + + + | Race | Unknown | + + + | Ethnic Group | Unknown | + + + Author + + + | Author | [facility] | | | and Ezequielana | + + + | Organization | [facility] | | | and Ezequielana [...] Team Providers + +------+ + | Care Jacquard Card Cutter Name | Role | Phone | [...] | | | | lipedema and | [address] | Therapy [address] | | | | | related | [address] | [address] [place] | | | | | problems | [address] | [place], | | | | | Procedures | [address] | [place] [address] | | | | | lymph eval | [place], [place] | Phone: | | | | | | [address] | [phone] | | | | | | Phone: | Fax: | | | | | | [phone] | [phone] | | | | | | Fax: | | | | | | | [phone] | | +--------+--------+ + + + + Encounter Details +--------+---------+ + + + | Date | Type | Department | Care Team | Description | +--------+---------+ + + + | 10/24/ | Office | [facility] | Enzo Juarez, | Lymphedema, not | | 2014 | Visit | [place] | [place] [address] [address] | elsewhere classified | | | | THERAPY [address] | (Primary Dx) | | | | [place], | [place] [address] | | | | | [place] [address] | [phone] | | | | | [phone] | | | | | | | Shi Garvey, | | | | | | OT [address] | | | | | | [place], [place] | | | | | | [address] | | | | | | | [...] might be diffe rent from the original. [facility] THERAPY OT OP [address] [place] [address] Occupational Therapy Initial Assessment Date: 10/24/2013 Patient [...] From: 10/24/13 Certification To: 01/22/14 Treatment Plan/Interventions 18214 Self Care/Home Management;90665 Manual Therapy;14154 Therapeutic Activities;20291 The rapeutic Exercises Pt lives a distance [...]
--- OUTSIDE RECORDS SUMMARY | ~2019-03-27 | XMS | Encounter Summary ---
Demographics + + + | Address | [address] | | | [place] [address] | + + + | Home Phone [...] | Organization | [facility] | | | and [...] Team Providers + +------+ + | Care Offset Printing Pressmen Name | Role | Phone | + [...] | | neuropathy | [place], [place] | [address] Phone: | | | | | Procedures | [address] | [phone] | | | | | [place] | Phone: | Fax: | | | | | &/SENS 1-2 | [phone] | [phone] | | | | | NRV CNDJ | Fax: | | | | | | PRECONF | [phone] | | | | | | ELTRODE [...] | (Primary Dx) | | | | [place], | [place] | | | | | [place] [address] | [address] | | | | | [phone] | | | +--------+ + + + [...] Olvera MD - 09/11/2014 12:28 PM PDT [facility] Musculoskeletal, Sports and Spine, Physiatry [address] [address] Test Date: 09/11/2014 Patient Name: Zuleyma Jenkins : 1970 Physician: Celestino Olvera MD MR #: [id number] Sex: Female Referring Physician: Nicolas Archuleta MD HISTORY: The patient is a pleasant 44 year-old female who is being seen today at the [facility] of Dr. [place] Archuleta for complaints of [...] hesitate to call. Celestino Olvera MD Fellow, [place] [employer]. documented in this encounter Plan of Treatment Not on filedocumented as of this encounter Visit Diagnoses + + | Diagnosis | + + | Paresthesias - Primary Disturbance of skin sensation | + + documented in this encounter
--- OUTSIDE RECORDS SUMMARY | ~2019-03-27 | XMS | Encounter Summary ---
Demographics + + + | Address | [address] | | | [place] [address] | + + + | Home Phone | | + + + | Preferred Language | Unknown | + + + | Marital Status | Single | + + + | Judaism Affiliation | 1013 | + + + | Race | Unknown | + + + | Ethnic Group | Unknown | + + + Author + + + | Author | [facility] | | | and Ezequielana | + + + | Organization | [facility] | | | and Ezequielana [...] Team Providers + +------+ + | Care Ornament Stitcher Name | Role | Phone | + [...] | | | without | [address] | [facility], | | | | | mention of | [place], [place] | [place] [address] | | | | | complication | [address] | Phone: | | | | | Hemorrhage | Phone: | [phone] | | | | | of rectum | [phone] | Fax: | | | | | and anus | Fax: | [phone] | | | | | Procedures | [phone] | | | | | | [place] [...] + + | 02/08/ | Office | [facility] | Jose Cooper MD | Hemorrhage of rectum | | 2015 | Visit | GASTROENTEROLOGY | [address] | and anus (Primary | | | | [address] [place] | [place], [place] | Dx); Internal | | | | [address] [place], [place] | [address] | hemorrhoids | | | | [address] | [phone] | | | | | [phone] | | | +--------+---------+ + + + [...]
--- OUTSIDE RECORDS SUMMARY | ~2019-03-27 | XMS | Encounter Summary ---
Demographics + + + | Address | [address] | | | [place] [address] | + + + | Home Phone | | + + + | Preferred Language | Unknown | + + + | Marital Status | Single | + + + | Faith Affiliation | 1013 | + + + | Race | Unknown | + + + | Ethnic Group | Unknown | + + + Author + + + | Author | [facility] and [facility] | | | and Ezequielana | + + + | Organization | [facility] | | | and [...] Team Providers + +------+ + | Care Taffy Puller Name | Role | Phone | + +------+ + | Enzo Juarez DO | PCP | | + +------+ + Encounter Details +--------+ + + + + | Date | Type | Department | Care Team | Description | +--------+ + + + + | 07/05/ | Hospital | [facility] | Taran Archuleta | Left hip | | 2014 | Encounter | MED CTR XRAY [address] | [address] | subluxation, initial | | | | [place] | [place] | encounter ([facility]) | | | | [place] [address] | [place] [address] | | | | | [phone] | [phone] | | | | | | | [...] + + + +---------+ + + | [address] | Take by mouth | | 0 [...] + + + +---------+ + + | [place]-3 Fatty | Take by mouth. | | 0 | | | | Acids (OMEGA 3 PO) | [place] 3 + COQ10 | | | | [...] | | | 5 | | | [place] with Grape | | | | | [...] + +--------+ + + + | XR HIP LEFT 2 + VW | Routin | 07/05/2014 | Left hip | Results for this | | | e | 4:54 PM | subluxation, initial | procedure are in the | | | | PST | encounter (HCC) | results section. | + +--------+ + + + documented in this encounter Results XR Hip Left 2 + Vw (07/05/2014 4:54 PM PST) + + | Specimen | + + | | + + + + + | Narrative | Performed At | + + + | TWO VIEW LEFT HIP 07/05/2014 4:54 PM CLINICAL HISTORY: left | [facility] | | groin pain, possible subluxation COMPARISON: [facility] | [facility] | | RADIOGRAPHS FEBRUARY 2011, HIP MRI APRIL 2011 FINDINGS: The | [facility] | | bones are well-mineralized and well aligned. No fracture or | - IMAGING | | subluxation is evident. The left hip and sacroiliac joints, femoral | | | head contour and pubic symphysis are maintained. Small | | | enthesophytes are again visible along the margins of the femoral | | | greater trochanter. Soft tissue structures are otherwise | | | unremarkable. IMPRESSION - 1. SMALL TROCHANTERIC | | | ENTHESOPHYTES. OTHERWISE UNREMARKABLE RADIOGRAPHIC APPEARANCE OF | | | THE LEFT HIP. Dictated and Signed by: Adams Arellano MD | | | Electronically signed: 07/05/2014 9:52 PM | | + + + + + | Procedure Note | + + | Abdelrahman, Rad Results In - 07/05/2014 9:55 PM PST TWO VIEW LEFT HIP 07/05/2014 4:54 PM | | | | CLINICAL HISTORY: left groin pain, possible subluxation | | | | COMPARISON: PELVIC AND HIP RADIOGRAPHS FEBRUARY 2011, HIP MRI APRIL 2011 | | | | FINDINGS: The bones are well-mineralized and well aligned. No fracture or | | subluxation is evident. The left hip and sacroiliac joints, femoral head | | contour and pubic symphysis are maintained. Small enthesophytes are again | | visible along the margins of the femoral greater trochanter. Soft tissue | | structures are otherwise unremarkable. | | | | IMPRESSION - | | 1. SMALL TROCHANTERIC ENTHESOPHYTES. OTHERWISE UNREMARKABLE RADIOGRAPHIC | | APPEARANCE OF THE LEFT HIP. | | | | Dictated and Signed by: Adams Arellano MD | | Electronically signed: 07/05/2014 9:52 PM | + + + + + + + | Performing | Address | City/State/Zipcode | Phone Number | | Organization | | | | + + + + + | [facility] [facility] | [address] | [place] | [phone] | | [facility] | | [address] | | | - IMAGING | | | | + + + + + documented in this encounter Visit Diagnoses + + | Diagnosis | + + | Left hip subluxation, initial encounter (HCC) | + + documented in this encounter"
--- OUTSIDE RECORDS SUMMARY | ~2019-03-27 | XMS | Encounter Summary ---
Demographics + + + | Address | [address] | | | [place] [address] | + + + | Home Phone | | + + + | Preferred Language | Unknown | + + + | Marital Status | Single | + + + | Zoroastrian Affiliation | 1013 | + + + | Race | Unknown | + + + | Ethnic Group | Unknown | + + + Author + + + | Author | [facility] | | | and Ezequielana | + + + | Organization | [facility] | | | and Ezequielana [...] Team Providers + +------+ + | Care Sociology Adjunct Instructor Name | Role | Phone | + [...] Trigeminal | Marcell Leung, | [address] | | | | | neuropathy | MD [place] | [place], | | | | | Procedures | updated | [place] | | | | | MRI Brain w | address | [address] | | | | | wo Contrast | | Phone: | | | | | | | [phone] | | | | | | | Fax: | | | | | | | [phone] | +--------+--------+ + + + + Reason for Visit + + + | Reason | Comments | + + + | New Patient | facial numbness | + + + Evaluate & Treat (Routine) +--------+ + + + + + | Status | Reason | Specialty | Diagnoses / | Referred By | Referred To | | | | | Procedures | Contact | Contact | +--------+ + + + + + | Closed | Specialty | Neurology | Diagnoses | Kathe, | Juan Daniel, | | | Services | | | Taran | Marcell Leung MD | | | Required | | Alin | MD [place] | Need | | | | | s syndrome | [address] | updated | | | | | type III | [address] | address | | | | | Facial | [place], | | | | | | numbness | [place] [address] | | | | | | | Phone: | | | | | | | [phone] | | | | | | | Fax: | | | | | | | [phone] | | +--------+ + + + + + Encounter Details +--------+---------+ + + + | Date | Type | Department | Care Team | Description | +--------+---------+ + + + | 07/25/ | Office | [facility] | Marcell Frances | Trigeminal | | 2015 | Visit | NEUROLOGY KAREN Leung MD Need updated | neuropathy (Primary | | | | [address] [facility], | address | Dx); Peripheral | | | | [address] [place] | | neuropathy; Facial | | | | [place] [address] | | numbness | | | | [phone] | | | +--------+---------+ + + + [...] + + + | Blood Pressure | 131/79 | 07/25/2014 10:08 AM | | | | | PDT | | + + + + + | Pulse | 83 | 07/25/2014 10:08 AM | | | | | PDT | | + + + + + | Temperature | - | - | | + + + + + | Respiratory Rate | 18 | 07/25/2014 10:08 AM | | | | | PDT | | + + + + + | Oxygen Saturation | - | - | | + + + + + | Inhaled Oxygen | - | - | | | Concentration | | | | + + + + + | Weight | 101.2 kg (223 lb) | 07/25/2014 10:08 AM | | | | | PDT | | + + + + + | Height | 174 cm (5' 8.5") | 07/25/2014 10:08 AM | | | | | PDT | | + + + + + | Body Mass Index | 33.41 | 07/25/2014 10:08 AM | | | | | PDT | | + + + + + documented in this encounter Patient Instructions Patient Instructions Frances, Marcell D, MD - 07/25/2014 11:17 AM PDT1) MRI Brain with an d without contrast. We will pay close attention to 5th cranial nerve course and cerebellar t onsils. 2) Lab work up for neuropathy including B12, B6, TSH, SPEP, CBC, CMP. 3) follow up in 1 month Anatomy of the Brain The brain controls the body. You can move and feel because of the brain. And it is the brai n that makes you able to think, to show emotions, and to make judgments. The brain is protec mark by the skull, tissue, and fluid. Functions of the Brain The brain s right side controls the left side of the body. And the left side of the brain controls the body s right side. Each section of the brain has specific roles. Some skills and traits occur in more than one section. The main parts of the brain and some of their fu nctions are listed below. Protecting the Brain Beneath its outer covering of tissue (called the dura), the brain is cushioned and supporte d by a special fluid. This cerebrospinal fluid fills the space between the dura and brain. A rteries and veins carry blood to and from the brain. Without a fresh supply of blood, brain tissue quickly dies. [id number] [place] [address]. All righ ts reserved. This information is not intended as a substitute for professional medical care. Always follow your healthcare professional's instructions. documented in this encounter Progress Notes Marcell Frances MD - 07/25/2014 10:08 AM PDTFormatting of this note might be differen t from the original. Marcell Frances MD [address] [place] [address], [address] [place] [id number] Neurology Outpatient New Patient Note Referring Provider: Taran Archuleta MD [address] [place] [address] Chief Complaint: Chief Complaint Patient presents with New Patient facial numbness History of Present Illness: Zuleyma Jenkins is a 44 y.o. female with a pertinent history of thyroid disease, asthma, dep ression, MTHFR heterozygosity and Ehler's Danlos type III presenting for further assessment and management of facial numbness. Referral notes from Dr. Archuleta were reviewed during today's visit. Ms. Jenkins first noticed numbness and pain in her right jaw and lower face in 2010 with no christa arent trigger. She was evaluated at [facility] for a possible stroke, which was ruled out, and she was sent home. She has struggled with numbness and pain since. It has come to involv e both sides of her face, mostly from the lips down. The numbness seems worse when her Liped emily is acting up, but no other triggers have been identified. She has no other associated fo angelica neurologic deficits when this sensation hits, but will have intermittent unsteadiness on her feet and has more permanent word finding and memory difficulties. Ms. Jenkins also has numb fingers and toes, which have been a problem for years. She has an upcoming EMG/NCS to [facility] investigate this. Ms. Jenkins is not interested in pharmacologic management of her facial num bness, rather wants to ensure it is not something serious that "needs to be taken care of". Past Medical History: Past Medical History Diagnosis Date Thyroid disease Asthma Depression Gastric reflux Migraine Stomach ulcer Thyroid disease Lipidemia Past Surgical History: Past Surgical History Procedure Laterality Date Right great toe Dec 2002 Dr. Gutiérrez in [facility] Tonsillectomy 1995 PENELOPE Collado Tubal ligation 2004 [facility] Current Medications: Current Medications amitriptyline (ELAVIL) 25 mg tablet (Taking) 2 tablets at night, but up to 4 for neck hilary n flare up, as long as it doesn't cause increased pain. Arginine 1000 MG TABS (Taking) Take by mouth 3 times daily. Ascorbic Acid (VITAMIN C) 1000 MG tablet (Taking) Take 1,000 mg by mouth Daily. B Complex Vitamins (B COMPLEX PO) (Taking) Take by mouth Daily. calcium carbonate (TUMS) 500 mg chewable tablet (Taking) Take 1 tablet by mouth 2 times d aily. cetirizine (ZYRTEC) 10 mg tablet (Taking) Take 10 mg by mouth nightly. cholecalciferol (VITAMIN D-3) 400 units TABS (Taking) Take 5,000 Units by mouth Daily. [place] Bioflavonoids 1000 MG TABS (Taking) Take by mouth Daily. Coenzyme Q10 (COQ10 PO) (Taking) Take by mouth 2 times daily. COQ10 + AlphaLipoic 200/30 0mg BID cyanocobalamin (VITAMIN B-12) 100 MCG tablet (Taking) Take 10,000 mcg by mouth Daily. cyclobenzaprine (FLEXERIL) 5 MG tablet (Taking) Take 10 mg by mouth 3 times daily as need ed. dextroamphetamine (DEXTROSTAT, ZENZEDI) 10 mg tablet (Taking) Take 20 mg by mouth Daily. Dietary Management Product (VASCULERA) TABS (Taking) Gabapentin, PHN, (GRALISE PO) (Taking) Take 1,800 mg by mouth nightly. YBSKBEESOQN-QRWRBEFNHZD-GOV PO (Taking) Take by mouth Daily. GRAPE SEED (Taking) Take 250 mg by mouth 2 times daily. HORSE CHESTNUT by Does not apply route. Horse [place] with Grape See 300mg/50mg BID ketoprofen (ORUDIS) 75 mg capsule Take 75 mg by mouth 3 times daily as needed. L-Lysine HCl 1000 MG TABS (Taking) Take 1,000 mg by mouth 2 times daily. L-Methylfolate 15 MG TABS (Taking) Take 15 mg by mouth Daily. levothyroxine (SYNTHROID, LEVOTHROID) 150 mcg tablet (Taking) Take 150 mcg by mouth every morning (before breakfast). liothyronine (CYTOMEL) 5 mcg tablet (Taking) Take 5 mcg by mouth Daily. Misc Natural Products (BUTCHERS BROOM PO) (Taking) Take 440 mg by mouth 3 times daily. Multiple Vitamin (MULTI-VITAMIN DAILY PO) (Taking) Take by mouth Daily. naproxen (NAPROSYN) 250 mg tablet (Taking) Take 250 mg by mouth 2 times daily. [place]-3 Fatty Acids (OMEGA 3 PO) (Taking) Take by mouth. [place] 3 + COQ10 750mg/50mg BID pantoprazole (PROTONIX) 40 mg tablet (Taking) Take 40 mg by mouth Daily. polyethylene glycol (MIRALAX) powder (Taking) Take 17 g by mouth as needed. QUERCETIN PO (Taking) Take 400 mg by mouth 3 times daily. ranitidine (ZANTAC) 300 MG tablet (Taking) Resveratrol 250 MG CAPS (Taking) Take 250 mg by mouth 2 times daily. selenium sulfide (SELSUN) 2.5% lotion (Taking) Apply 700 mcg topically Daily as needed. Turmeric, Curcuma [place]a, (CURCUMIN) (Taking) Take 1,000 mg by mouth 2 times daily. UNABLE TO FIND Med Name: Acid+ Acetyl L Curnitine 250 mg BID Allergies: Allergies Allergen Reactions Blue Dyes (Parenteral) The dye that they use for CT Scan Prednisone Sulfa Antibiotics Social History: History Social History Marital Status: Single Spouse Name: N/A Number of Children: N/A Years of Education: N/A Occupational History Not on file. Social History Main Topics Smoking status: Never Smoker Smokeless tobacco: Never Used Alcohol Use: Yes Comment: Social Drinker Drug Use: No Comment: In the Past Sexual Activity: Yes Other Topics Concern Not on file Social History Narrative Family History: Family History Problem Relation Age of Onset Mental illness Father Review of Systems: GENERALLY: No fever, no night sweats, no anemia, + fatigue, no recent profound weight lenin nges. EYES: No eye problems, + use of corrective lenses, no eye injury, no double vision, no bli ndness. EARS, NOSE, AND THROAT: No changes in taste or smell, no hearing difficulty, no ringing in the ears, no ear drainage, + dizziness, no voice changes, + difficulty swallowing, no signi ficant snoring, no sleep apnea, no sinus problems, + major dental work. NEUROLOGICALLY: Please see the review of systems discussed above in the history of present illness. In addition, the patient has numbness/pain of arms, numbness/pain of legs, awake with numbness/pain, weakness, muscle aching, coordination difficulty, pain in neck, pain in back, headaches, memory loss, speech difficulty, confusion, and numbness of face PSYCHIATRIC: No depression, + sleep disorders, no anxiety, no bipolar disorder, no psychot ic episodes. CARDIOVASCULAR: No heart attacks, no heart murmur, no heart fluttering, + chest pain, no a nkle swelling. LUNG DISEASE: + shortness of breath, no cough, no tuberculosis, no bloody cough, + asthma , no emphysema/COPD. GASTROINTESTINAL: No bowel disease, + nausea, no vomiting, no rectal bleeding, + constipat ion, no stool incontinence, no liver disease, no gallbladder disease, + abdominal pain, no u lcers. KIDNEY DISEASE: No urinary frequency, no painful or difficult urination, no incontinence, + irregular periods. ENDOCRINE: No diabetes, + thyroid disease, no osteopenia or osteoporosis, no breast draina ge. SKIN: No breast lumps, no skin changes, no rashes, no itches. HEMATOLOGIC/LYMPHATIC: + enlarged lymph nodes, + easy or unusual bleeding, no personal his tory of cancer. RHEUMATOLOGIC: + joint pain/arthritis, no rheumatoid arthritis. Examination: BP 131/79 | Pulse 83 | Resp 18 | Ht 1.74 m (5' 8.5") | Wt 101.152 kg (223 lb) | BMI 33 .41 kg/m2 Neck Circumference: 14 1/4" [place] Sleepiness Scale: 8 General: well developed and well nourished HEENT: MMM, anicteric sclerae Cardiovascular: regular rate and rhythm Respiratory: clear to auscultation, no wheezes or rales and unlabored breathing Abdominal: soft, non-tender, active bowel sounds Extremities: peripheral pulses normal, no pedal edema, no clubbing or cyanosis Neurologic: Mental Status: alert, oriented to person, place, and time, speech is fluent, Normal fund o f knowledge Cranial Nerves: Cranial nerves II-XII intact except decreased sensation bilaterally over V2 and V3 R>L. Motor: normal 5/5 strength in all tested muscle groups, no muscle wasting or atrophy, no fa sciculations noted, no involuntary movements, no abnormalities of position, normal resting m uscle tone and no pronator drif Sensation: normal light touch, normal temperature and normal vibration. Decreased sensation to pinprick over right great toe. Reflexes: REFLEX: RIGHT LEFT BICEPS 2 2 BRACHIORADIALIS 2 2 TRICEPS 2 2 PATELLAR 2 2 ACHILLES 2 2 PLANTAR downgoing downgoing Coordination/Cerebellar: rapid alternating hand movements intact and finger to nose intact Gait: Normal base, stride and turn. Radiographic Review: IMPRESSION - At least moderate facet arthrosis involving C2-C4 5 which results in mild bony neural foraminal narrowing. No spondylolisthesis or evidence for instability. Imaging was reviewed in detail during the visit. Imaging demonstrates likely neural foramin al narrowing bilaterally at C2-C3, C3-C4 Laboratory Review: No results found for this basename: na, k, cl, co2, bun, crea, ALT, AST, GGT, ALKP HOS, BILITOT No results found for this basename: hba1c, wvv7cnf, ldl, ldldirect, ldlext, dldlex No results found for this basename: WBC, HGB, HCT, MCV, LABPLAT, PLT Assessment: Zuleyma Jenkins is a 44 y.o. female with a history of thyroid disease, asthma, depression, M THFR heterozygosity and Ehler's Danlos type III presenting for further assessment and manage ment of facial numbness. 1) Facial numbness: unclear etiology. It is atypical for trigeminal neuropathy to present b ilaterally. It is possible that myelin sheath edema related to transient swelling from her l ipedema is leading to an intermittent bilateral compression. Chiari malformation, which is a worry of the patient, is a potential but remote cause. 2) Paresthesias of hands and feet: No consistent clinical findings suggestive of a peripher al neuropathy. Plan: 1) MRI Brain with and without contrast. We will pay close attention to 5th cranial nerve co urse and cerebellar tonsils. 2) Lab work up for neuropathy including B12, B6, TSH, SPEP, CBC, CMP. 3) EMC/NCS already pending. 4) F/u in 1 month. We will call with any urgent results in the mean time. Electronically signed by: Marcell Frances MD, 07/25/2014 17:09 documented in th is encounter Plan of Treatment Not on filedocumented as of this encounter Results MRI Brain w wo Contrast (08/02/2014 12:11 PM PDT) + + | Specimen | + + | | + + + + + | Narrative | Performed At | + + + | MRI BRAIN W WO CONTRAST 08/02/2014 11:28 AM HISTORY: Bilateral | [facility] | | trigeminal neuropathy. COMPARISON: None. PROTOCOL: MRI of | [facility] | | the brain was obtained with the following sequences: Sagittal T1, | [facility] | | axial T2, axial T2 [...] | | | Dictated and Signed by: Waldo Restrepo MD Electronically signed: | | | [...] + | Performing | Address | City/State[facility] | Phone Number | | Organization | | | | + + + + + | [facility] | [address] | [place] | [phone] | | [facility] | | [address] | | | - IMAGING | | | | + + + + + Copper, Serum (07/25/2014 12:15 PM PDT) + [...] | | | | | | Performed: [facility], [address] | | | | | [address], [place] | | | | | | [address] | | | | + + + [...] [address] | [place] [address] | [phone] | + + + + + Vitamin [...] Vitamin | | | | | | [id number].This test | | | | | | was developed and its | | | | | | performance | | | | | | characteristics | | | | | | determinedby [facility]. The | | | | | | [...] [place] | | | | | | [address] | | | | + + + [...] [address] | [place] [address] | [phone] | + + + + + Rapid Plasma Mihai Brown (07/25/2014 12:15 PM PDT) + + + + + + | Component | Value | Ref Range | Performed | Pathologist | | | | | At | Signature | + + + + + + | Treponema | Non-Reactive | Non-Reactive | [facility] | | | Pallidum | | | [facility] | | | Ab, Qual | | [...] | + + + + + | [facility] | [address] | [place] | [phone] | | [facility] | | [address] | | | - LABORATORY | | [...] | ion | Pathologist | | [facility] | | | | comment:Normal | | [...] | [facility] | [address] | [place] | [phone] | | [facility] | | [address] | | | - LABORATORY | | [...] | + + + + + | [facility] | [address] | [place] | [phone] | | [facility] | | [address] | | | - LABORATORY | | [...] | LAB [facility] | | | | [place] | | | | | | [address] | | | | + + + [...] [address] | [place] [address] | [phone] | + + + + + TSH [...] | [facility] 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
--- OUTSIDE RECORDS SUMMARY | ~2019-03-27 | XMS | Encounter Summary ---
Demographics + + + | Address | [address] | | | [place] [address] | + + + | Home Phone | | + + + | Preferred Language | Unknown | + + + | Marital Status | Single | + + + | Confucianist Affiliation | 1013 | + + + | Race | Unknown | + + + | Ethnic Group | Unknown | + + + Author + + + | Author | [facility] | | | and Ezequielana | + + + | Organization | [facility] | [...] Team Providers + +------+ + | Care Recharger Name | Role | Phone | + +------+ + | Enzo Juarez DO | PCP | | + +------+ + Encounter Details +--------+ + + + + | Date | Type | Department | Care Team | Description | +--------+ + + + + | 11/30/ | Orders Only | [facility] | Provider, | | | 2018 | | SYSTEM GENERIC OP | [address] | | | | | [address] | [place] | | | | | [address] [place], [place] | [place] [address] | | | | | [address] | | | | | | [phone] | | | +--------+ + + + [...]
--- OUTSIDE RECORDS SUMMARY | ~2019-03-27 | XMS | Encounter Summary ---
Demographics + + + | Address | [address] | | | [place] [address] | + + + | Home Phone | | + + + | Preferred Language | Unknown | + + + | Marital Status | Single | + + + | Zoroastrian Affiliation | 1013 | + + + | Race | Unknown | + + + | Ethnic Group | Unknown | + + + Author + + + | Author | [facility] | | | and Ezequielana | + + + | Organization | [facility] | | | and [...] Team Providers + +------+ + | Care Screen Printing Machine Operator Name | Role | Phone [...] Rehabilitatio | subluxation | MD [place] | [place] | | | | n | of left | [address] | [place], | | | | | shoulder, | [place] | [place] [address] | | | | | initial | [place], | Phone: | | | | | encounter | [place] [address] | [phone] | | | | | Left hip | Phone: | Fax: | | | | | subluxation, | [phone] | [phone] | | | | | initial | Fax: | | | | | | encounter | [phone] | | | | | | (HCC) [...] + + | 10/11/ | [facility] | [facility] | Taran Archuleta | Chronic neck and | | 2014 | Visit | [facility] | MD [address] | back pain (Primary | | | | OP [address] | [place] | Dx); Hip pain, | | | | [place] | [place] [address] | bilateral | | | | [address] | [phone] | | | | | [phone] | | | | | | | Trina Hargrove B, PT | | | | | | [address] | | | | | | [place] | | | | | | [address] | | | | | | | [...] might be different from faye alford original. [facility] CTR THERAPY PT OP [address] [place] [address] Physical Therapy Daily Treatment Note Date: 10/11/2014 Patient Information Patient Name: Zuleyma Jenkins Date of : 1970 Age: 44 y.o. Encounter Diagnoses Code Name Primary? 723.1, 724.5 Chronic neck and back pain Yes 719.45 Hip pain, bilateral Date of Onset: Referring Provider: Taran Archuleta MD Rehab Precautions Office Visit from 10/24/2013 in [facility] CTR THERAPY OT OP Rehab [...] point release to upper-mid traps Modalities: Received [employer] cervical traction unit and order from Dr. [...]
--- OUTSIDE RECORDS SUMMARY | ~2019-03-27 | XMS | Encounter Summary ---
Demographics + + + | Address | [address] | | | [place] [address] | + + + | Home Phone | | + + + | Preferred Language | Unknown | + + + | Marital Status | Single | + + + | Christian Affiliation | 1013 | + + + | Race | Unknown | + + + | Ethnic Group | Unknown | + + + Author + + + | Author | [facility] | | | and Ezequielana | + + + | Organization | [facility] | | | [...] Team Providers + +------+ + | Care Ophthalmic Nurse Name | Role | Phone | + [...] Rehabilitatio | subluxation | MD [place] | [place] | | | | n | of left | [address] | [place], | | | | | shoulder, | [place] | [place] [address] | | | | | initial | [place], | Phone: | | | | | encounter | [place] [address] | [phone] | | | | | Left hip | Phone: | Fax: | | | | | subluxation, | [phone] | [phone] | | | | | initial | Fax: | | | | | | encounter | [phone] | | | | | | (HCC) [...] | | | | OP [address] [place] | [place] | Chronic neck and | | | | [place], [place] | [facility] [place] [address] | back pain; Shoulder | | | | [address] | [phone] | pain, bilateral | | | | [phone] | | | | | | | Trina Hargrove, PT | | | | | | [address] | | | | | | [place], [place] | | | | | | [address] | | | | | | | [...] different from faye alford original. [facility] THERAPY PT OP [address] [place] [address] Physical Therapy Daily Treatment Note Date: 07/11/2014 Patient Information Patient Name: Zuleyma Jenkins Date of : 1970 Age: 44 y.o. Encounter Diagnoses Code Name Primary? 719.45 Hip pain, bilateral Yes 723.1, 724.5 Chronic neck and back pain 719.41 Shoulder pain, bilateral Date of Onset: Referring Provider: Taran Archuleta MD Rehab Precautions Office Visit from 10/24/[address] [facility] CTR THERAPY OT OP Rehab Precautions [...] alt. Leg lift 2x20 2x20 Supine: shoulder ouzinkie stab. 2x10 each 2x10 each Supine: shoulder. [...]
--- OUTSIDE RECORDS SUMMARY | ~2019-03-27 | XMS | Encounter Summary ---
Demographics + + + | Address | [address] | | | [place] [address] | + + + | Home Phone | | + + + | Preferred Language | Unknown | + + + | Marital Status | Single | + + + | Judaism Affiliation | 1013 | + + + | Race | Unknown | + + + | Ethnic Group | Unknown | + + + Author + + + | Author | [facility] | | | and Ezequielana | + + + | Organization | [facility] | | | and [...] Team Providers + +------+ + | Care Tie Cutter Name | Role | Phone | + +------+ + | Enzo Juarez DO | PCP | | + +------+ + Reason for Referral Service/Procedure (Routine) +--------+--------+ + + + + | Status | Reason | Specialty | Diagnoses / | Referred By | Referred To | | | | | Procedures | Contact | Contact | +--------+--------+ + + + + | Closed | | Massage | Diagnoses | Kathe | | | | | Therapist | Myofascial | Taran | | | | | | muscle pain | MD [place] | | | | | | | [address] | | | | | | Natalia-Danderrick | [place] | | | | | | s syndrome | [place], | | | | | | type III | [place] [address] | | | | | | Lymphedema | Phone: | | | | | | | [phone] | | | | | | | Fax: | | | | | | | [phone] | | +--------+--------+ + + + + Reason for Visit + + + | Reason | Comments | + + + | Follow-up | F/U Myofascial pain | + + + Encounter Details +--------+---------+ + + + | Date | Type | Department | Care Team | Description | +--------+---------+ + + + | 10/30/ | Office | [facility] | Taran Archuleta | Myofascial muscle | | 2015 | Visit | REHABILITATION | MD [address] [address] | pain (Primary Dx); | | | | MEDICINE [address] | [place] | Natalia-Danlos | | | | [address] [place] | [place] [address] | syndrome type III; | | | | [place] [address] | [phone] | Lymphedema | | | | [phone] | | | +--------+---------+ + + + [...] + + + | Blood Pressure | 124/77 | 10/30/2014 1:28 PM | | | | | PDT | | + + + + + | Pulse | 83 | 10/30/2014 1:28 PM | | | | | PDT | | + + + + + | Temperature | - | - | | + + + + + | Respiratory Rate | 18 | 10/30/2014 1:28 PM | | | | | PDT | | + + + + + | Oxygen Saturation | - | - | | + + + + + | Inhaled Oxygen | - | - | | | Concentration | | | | + + + + + | Weight | 100.7 kg (222 lb) | 10/30/2014 1:28 PM | | | | | PDT | | + + + + + | Height | 174 cm (5' 8.5") | 10/30/2014 1:28 PM | | | | | PDT | | + + + + + | Body Mass Index | 33.26 | 10/30/2014 1:28 PM | | | | | PDT | | + + + + + documented in this encounter Patient Instructions Patient Instructions Taran Archuleta MD - 10/30/2014 2:22 PM PDT1. Start [employer], try locally to prevent long drive. 2. Finish up PT once home program set up. 3. Purchase the pneumatic cervical traction unit if you haven't already. documented in this encounter Progress Notes Taran Archuleta MD - 10/31/2014 2:02 PM PDTI spent over 25 minutes, face to face with the patient, mostly spent in education answering her questions about her complex case plus determining that the pneumatic cervical traction unit worked for her and she is using i t regularly. Physical therapy notes were also reviewed and they also documented that the cervical tracti on unit, pneumatic, had a very good benefit to reduce symptoms and the patient was able to u se it. She uses it daily and says it "totally helps". Thus I recommended that she purchase it if she hasn't already. She is also learning pressure points in physical therapy, also learned them, but is desiring massage therapy for further in depth work on those triggerpoints. I also prescribed a thera cane for her so she can do it to herself. Neck pain 4 8 on a scale of 10 but down the 2 4 with the traction or less. Still numbn ess and tingling in the right greater than left face and hands and feet. The pain in the ne ck radiates to upper back, but lumbar pain is not serious. Left hip and right shoulder okay Daughter has autism, but is learning to ride a bike Physical exam She is in no distress has multiple questions On palpation she has four major trigger points in the upper trapezius and cervical area marty aterally with spasm down to T8 and up to the occiput. Upper extremity strength 5 minus over 5 and feels light touch in the upper extremities, but tingling in the fingers Impression Myofascial neck and upper thoracic pain with spasm. Better with pneumatic traction unit, a cupressure and PT Facial numbness and tingling: Stable previous workup Dr. 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 Chronic lymphedema, also related to above problems Plan Massage to specifically work on the deep trigger points in the trapezius and neck Prescription for a Thera Cane Purchase the pneumatic cervical traction unit Follow-up 1 month Physical therapy will probably finish over the next month documented in this encounter Plan of Treatment + + +--------+ + + | Name | Type | Priori | Associated Diagnoses | Order Schedule | | | | ty | | | + + +--------+ + + | Massage Therapy - | Outpatient | Routin | Myofascial muscle | Ordered: 10/30/2014 | | AMB Referral | Referral | e | pain Natalia-Danlos | | | | | | syndrome type III | | | | | | Lymphedema | | + + +--------+ + + documented as of this encounter Visit Diagnoses + + | Diagnosis | + + | Myofascial muscle pain - Primary Mylagia and myositis, unspecified | + + | Natalia-Danlos syndrome type III Natalia-Danlos syndrome | + + | Lymphedema Other lymphedema | + + documented in this encounter
--- OUTSIDE RECORDS SUMMARY | ~2019-03-27 | XMS | Clinical Summary ---
Demographics + + + | Address | [address] | | | [place] [address] | + + + | Home Phone | | + + + | Preferred Language | Unknown | + + + | Marital Status | | + + + | Yarsani Affiliation | Unknown | + + + | Race | Unknown | + + + | Ethnic Group | Unknown | + + + Author + + + | Author | [facility] (Historical as of | | | 12-18-18) | + + + | Organization | [facility] (Historical as of | | | 12-18-18) [...] Team Providers + +------+ + | Care Manager Account Management Name | Role | Phone | + [...] | | | | Activ | | L-Kllbgpcihstk-Gorzf | daily. | | | | | [...] | [facility] | [id number] | | | | | [facility] | [...] | 1970 | [phone] | [place] [address] | | | cherelle | | | [phone] | | + +--------+ +--------+ + +
--- OUTSIDE RECORDS SUMMARY | ~2019-03-27 | XMS | Encounter Summary ---
Demographics + + + | Address | [address] | | | [place] [address] | + + + | Home Phone | | + + + | Preferred Language | Unknown | + + + | Marital Status | Single | + + + | Presybeterian Affiliation | 1013 | + + + | Race | Unknown | + + + | Ethnic Group | Unknown | + + + Author + + + | Author | [facility] | | | and Ezequielana | + + + | Organization | [facility] | | | and [...] + +------+ + | Care Director Of Food And Beverage Services Name | Role | Phone | + +------+ + | Enzo Juarez DO | PCP | | + +------+ + Encounter Details +--------+ + + + + | Date | Type | Department | Care Team | Description | +--------+ + + + + | 09/05/ | Documentati | [facility] | Jose Cooper MD | | | 2015 | on | GASTROENTEROLOGY | [address] | | | | | [address] [facility] | [place], [place] | | | | | [address] | [address] | | | | | [address] | [phone] | | | | | [phone] | | | +--------+ + + + [...] documented as of this encounter Progress Notes Lourdes Connelly RN - 09/05/2014 1:15 PM PDTDr. Cooper reviewed pathology from procedure date 08/29/14. Pathology result letter dictated, received from medical records, and mailed to patient on 09/05/14. Copy of pathology letter has been sent back to medical records to be scanned into [facility] [employer] Copy of pathology letter has been mailed to patient's listed PCP with pathology report if o [facility]. documented in this encounter Plan of Treatment Not on filedocumented as of this encounter Visit Diagnoses Not on filedocumented in this encounter"
--- OUTSIDE RECORDS SUMMARY | ~2019-03-27 | XMS | Encounter Summary ---
Demographics + + + | Address | [address] | | | [place] [address] | + + + | Home Phone | | + + + | Preferred Language | Unknown | + + + | Marital Status | Single | + + + | Oriental Orthodox Affiliation | 1013 | + + + | Race | Unknown | + + + | Ethnic Group | Unknown | + + + Author + + + | Author | [facility] | | | and Ezequielana | + + + | Organization | [facility] | | | and [...] Team Providers + +------+ + | Care Plywood Stock Grader Name | Role | Phone | [...] Specialty | Physical | Diagnoses | | May, | | | Services | Medicine and [...] | | neuropathy | [place], [place] | [address] Phone: | | | | | Procedures | [address] | [phone] | | | | | MD MOTOR | Phone: | Fax: | | | | | &/SENS 1-2 | [phone] | [phone] | | | | | NRV CNDJ | Fax: | | | | | | PRECONF | [phone] | | | | | | ELTRODE [...] | +--------+ + + + + + Evaluate & Treat (Routine) [...] MD | | | Required | | Natalia-Danlo | MD [place] | Need | | | | | s syndrome | [address] | updated | | | | | type III | [place] | address | | | | | Facial | [place], | | | | | | numbness | [place] [address] | | | | | | | Phone: | | | | | | | [phone] | | | | | | | Fax: | | | | | | | [phone] | | +--------+ + + + + + Evaluate & Treat (Routine) [...] Rehabilitatio | subluxation | MD [place] | Maverick | | | | n | of left | [address] | [place], | | | | | shoulder, | [place] | [place] [address] | | | | | initial | [place], | Phone: | | | | | encounter | [place] [address] | [phone] | | | | | Left hip | Phone: | Fax: | | | | | subluxation, | [phone] | [phone] | | | | | initial | Fax: | | | | | | encounter | [phone] | | | | | | ([facility]) | | | | | | | [...] + + + | Follow-up | Neck pain | + + + Encounter Details +--------+---------+ + + + | Date | Type | Department | Care Team | Description | +--------+---------+ + + + | 06/06/ | Office | [facility] | Taran Archuleta | Anterior subluxation | | 2015 | Visit | REHABILITATION | MD [address] | of left shoulder, | | | | MEDICINE [address] | [place] | initial encounter | | | | [address] [place] | [place] [address] | (Primary Dx); Left | | | | [place] [address] | [phone] | hip subluxation, | | | | [phone] | | initial encounter | | | | | | (HCC); Natalia-Danlos | | | | | | syndrome type III; | | | | | | Myofascial pain; | | | | | | Facial numbness; | | | | | | Peripheral | | | | | | neuropathy | +--------+---------+ + + + Social History [...] + + + | Blood Pressure | 118/76 | 06/06/2014 3:18 PM | | | | | PST | | + + + + + | Pulse | 86 | 06/06/2014 3:18 PM | | | | | PST | | + + + + + | Temperature | - | - | | + + + + + | Respiratory Rate | 16 | 06/06/2014 3:18 PM | | | | | PST | | + + + + + | Oxygen Saturation | - | - | | + + + + + | Inhaled Oxygen | - | - | | | Concentration | | | | + + + + + | Weight | 101.6 kg (224 lb) | 06/06/2014 3:18 PM | | | | | PST | | + + + + + | Height | 174 cm (5' 8.5") | 06/06/2014 3:18 PM | | | | | PST | | + + + + + | Body Mass Index | 33.56 | 06/06/2014 3:18 PM | | | | | PST | | + + + + + documented in this encounter Patient Instructions Patient Instructions Taran Archuleta MD - 06/06/2014 4:[address] Jaymie allan will call you for your ncv,emg test for your hand/foot numbness. 2. Dr. Frances should also call to see you about your facial numbness 3. See PT for learning about taping your shoulders and maybe left hip to decrease subluxat ion/pain4 4. Use your gabapentin, amitriptyline, cyclobenzaprine as needed for flare ups.Electronica lly signed by Taran Archuleta MD at 06/06/2014 4:51 PM PST documented in this encounter Progress Notes Taran Archuleta MD - 06/07/2014 4:22 PM PSTI spent over 40 minutes, face to face with the patient, over half an education and problem solving regarding her multiple problem s and questions. Many of her questions were related to her new diagnosis of Natalia Danlos [address] Ham, an [place] endorcrinologist. She reported that she has had chronic laxity of many j oints most of her life and when she was recently in [place] she got this new diagnosis from Dr. Ham. One present problem related to this is her left hip pain that is especially hilary nful when she gets out of a reed such that it feels like it dislocates and she cannot walk for a while unless she does a pelvic tilt and then it seems to lessen the pain. This starte d around February 22, 2014 and has had problems episodically since then. She reports having however chronic hip pain problems especially on the left for quite some time and in fact had a left hip MRI/arthrogram April 16, 2011. The main finding of that was that the iliofemoral ligament appeared to be torn which could certainly contribute to a feeling of subluxation of the left hip. The anterior superior labrum also appeared to have a cleft immediate medially that could've been a labral tear. However the right hip has the same configuration and thus they thought it potentially a congenital configuration. She also has chronic ligamentous laxity symptoms off her shoulders and the feeling of sublu xation or dislocation anteriorly right greater than left. When she reaches forward she feel s like the humeral head drops down or comes out. . Even with water aerobics she has shoulde r pain. She also has hand numbness and tingling in digits 5 greater than for greater than 3, right less than than left hand, plus sometimes in digits 1 bilaterally. The left is chronically n umb in this distribution and more episodic on the right. Her materials engineering technician recommended ne rve conduction test which I was also going to discuss if she was not better with her this vi sit. Thus this was set up. She has generalized but nonspecific weakness Neck pain has also been worse with increased headaches. Previously it was episodic and now it is more chronic and continuous. This may be related to stopping all her meds and this w as discussed with her. She also has back pain with some numbness in the left greater than right toes #5 greater th an the rest that has been worsening. She does relate much of this potentially to her lipedema and she may end up giving getting some lipo suction according to her materials engineering technician. I would concur that with her edema as i t is it can certainly put pressure on nerves and cause much of her numbness and tingling but it could be other etiologies hence the need for the EMG/NCV test. She has had previous surgery at the left base of the toe with some pain in the right base o f the toe also. When she had the flu she stopped her amitriptyline, Flexeril, and gabapentin and now only u ses them when necessary and I told her that was okay as long as it benefited her this way. She thinks there is less sedation, but still has significant burning in her arms that I told her gabapentin might help with plus the muscle pain in the neck that the Flexeril and amitr iptyline could help with also. She also notes numbness in her face that originally was around the chin and now has progres sed up around her mouth. This is suggested she see a neurologist and this was set up Physical exam: Decreased sensation chin and mouth and out along her jaw. She is somewhat overweight but much appeared to be due to her lipedema. She has chronic ga rments for her arms and legs. Upper and lower extremity strength 4 out of 5 and fairly symmetric. She has decreased sens ation in the hands in the left digits 3 through 5 than in #1 and on the right 4 5 and 1 mo re the tips of the fingers on the right. Lower extremities altered sensation on the lateral more in the medial feet bilaterally. S lightly decreased sensation left lateral thigh consistent with a lateral femoral cutaneous n europathy On palpation she has cervical pain and increased tone from occiput down to about T1 Left shoulder with functional ROM, but mild ac crepitus. Right shoulder functional ROM, no crepitus. Left hip has greater trochanter as well as groin and piriformis discomfort with internal an d external rotation. Right hip is okay Impression Hand and foot numbness: Possible peripheral neuropathy, EMG/NCV to be schedule Progressive facial numbness: Referral to neurology regarding further workup Natalia-Danlos type III diagnosis: This certainly helps explain her chronic shoulder and hip exit the issues. I suggested going to an internet support system for more specifics of exe rcises, etc. Lipedema. She may need liposuction at some time and certainly this problem is contributing to her altered sensation issues. Shoulder subluxation: Physical therapy to teach her some taping to decrease that. ED 3 cont ributing to this also. Left hip sub-luxation: Probably related to the iliofemoral ligament tear noted in the MRI of 2010, plus her Natalia Danlos syndrome problems Plan: Left hip x-ray to check for progressive disease EMG /NCV through Dr. Olvera to check both arms and legs because of symptoms in all limb s hence the need for a peripheral neuropathy as part of a workup. Physical therapy to teach her how to tape her shoulders and possibly help to decrease her s ubluxation Physical therapy will also work with teaching her how to use light weights and repetitions that are not excessive to give exercise within a defined range of motion Referral to Dr. Frances for her facial numbness and other symptomatology regarding furthe r work up, etc. Follow-up 1 month Continue her medications as she is doing. However she does complain about her chronic pain issues and I told her to restart her medications routinely if it becomes excessive for her. documented in this encounter Plan of Treatment [...] | | | | | | encounter ([facility]) | | | | | | Natalia-Danlos | | | | | | syndrome type III | | | | | | Myofascial pain | | + + +--------+ + + | Neurology, External | Outpatient | Routin | Natalia-Danlos | Ordered: 06/06/2014 | | - AMB Referral | Referral | e | syndrome type III | | | | | | Facial numbness | | + + +--------+ + + | Physical Medicine | Outpatient | Routin | Peripheral | Ordered: 06/06/2014 | | Rehab, External - | Referral | e | neuropathy | | | AMB Referral | | | | | + + +--------+ + + documented as of this encounter Results XR Hip Left 2 + Vw (07/05/2014 4:54 PM PST) + + | Specimen | + + | | + + + + + | Narrative | Performed At | + + + | TWO VIEW LEFT HIP 07/05/2014 4:54 PM CLINICAL HISTORY: left | [facility] | | groin pain, possible subluxation COMPARISON: PELVIC AND HIP | [facility] | | RADIOGRAPHS FEBRUARY 2011, HIP MRI APRIL 2011 FINDINGS: The | [facility] | | bones are well-mineralized and well [...] + | [address] | [address] | [place] | [phone] | | [facility] | | [address] | | | - IMAGING | | | | + + + + + documented in this encounter Visit Diagnoses + + | Diagnosis | + + | Anterior subluxation of left shoulder, initial encounter - Primary | + + | Left hip subluxation, initial encounter (HCC) | + + | Natalia-Danlos syndrome type III Natalia-Danlos syndrome | + + | Myofascial pain Mylagia and myositis, unspecified | + + | Facial numbness Disturbance of skin sensation | + + | Peripheral neuropathy Unspecified hereditary and idiopathic peripheral neuropathy | + + documented in this encounter
--- OUTSIDE RECORDS SUMMARY | ~2019-03-27 | XMS | Encounter Summary ---
Demographics + + + | Address | [address] | | | [place] [address] | + + + | Home Phone | | + + + | Preferred Language | Unknown | + + + | Marital Status | Single | + + + | Taoist Affiliation | 1013 | + + + | Race | Unknown | + + + | Ethnic Group | Unknown | + + + Author + + + | Author | [facility] | | | and Ezequielana | + + + | Organization | [facility] | | | and Ezequielana [...] Team Providers + +------+ + | Care Machine Accountant Name | Role | Phone | + [...] | | | | | | [address] | | | | | | Natalia-[place]anderrick | [place] | | | | | | s syndrome | [place], | | | | | | type III | [place] [address] | | | | | | Lymphedema | Phone: | | | | | | | [phone] | | | | | | | Fax: | | | | | | | [phone] | | +--------+--------+ + + + + Reason for Visit + + + | Reason | Comments | + + + | Follow-up | F/U Myofascial pain | + + + Encounter Details +--------+---------+ + + + | Date | Type | Department | Care Team | Description | +--------+---------+ + + + | 10/30/ | Office | [facility] | Taran Archuleta | Myofascial muscle | | 2015 | Visit | REHABILITATION | MD [address] | pain (Primary Dx); | | | | MEDICINE [address] | [place] | Natalia-Danlos | | | | [address] [place] | [place] [address] | syndrome type III; | | | | [place] [address] | [phone] | Lymphedema | | | | [phone] | | | +--------+---------+ + + + [...] MD - 10/30/2014 2:22 PM PDT1. Start [employer], try locally to prevent long drive. 2. [...]
--- OUTSIDE RECORDS SUMMARY | ~2019-03-27 | XMS | Encounter Summary ---
Demographics + + + | Address | [address] | | | [place] [address] | + + + | Home Phone | | + + + | Preferred Language | Unknown | + + + | Marital Status | Single | + + + | Jehovah'S Witness Affiliation | 1013 | + + + | Race | Unknown | + + + | Ethnic Group | Unknown | + + + Author + + + | Author | [facility] | | | and Ezequielana | + + + | Organization | [facility] | | | and [...] Team Providers + +------+ + | Care Administrative Sales Assistant Name | Role | Phone | [...] | | | | | Heme | MEDIA CENTER ASSISTANT [address] | MISAEL | | | | | positive | [place] | [place] [address] | | | | | stool | [address] [place] | Phone: | | | | | Abdominal | [place], [place] | [phone] | | | | | pain, | [address] | Fax: | | | | | generalized | Phone: | [phone] | | | | | Nausea and | [phone] | | | | | | vomiting | Fax: | | | | | | Burning | [phone] | | | | | | sensation [...] | | | | | | | DC | | | | | | | ESOPHAGOGAST | | | | | | | RODUODENOSCO | | | | | | | PY TRANSORAL | | | | | | | DIAGNOSTIC | | | | | | | DC EDG | | | | | | | TRANSORAL | | | | | | | BIOPSY | | | | | | | SINGLE/MULTI | | | | | | | PLE DC | | | | | | | ANESTH,UGI | | | | | | | ENDOSCOPY | | | | | | | DC | | | | | | | COLONOSCOPY | | | | | | | FLX DX | | | | | | | W/COLLJ SPEC | | | | | | | WHEN PFRMD | | | | | | | DC | | | | | | | COLONOSCOPY | | | | | | | W/BIOPSY | | | | | | | SINGLE/MULTI | | | | | | | PLE DC | | | | | | | COLSC FLX | | | | | | | W/RMVL OF | | | | | | | TUMOR POLYP | | | | | | | LESION SNARE | | | | | | | TQ DC | | | | | | | [...] | | | | | pain, | [address] | MEDIA CENTER ASSISTANT [address] | | | | | epigastric | [address] | [place], [place] | | | | | | [address] [place] | [address] [place] | | | | | | [address] | [place] | | | | | | [place] | [address] Phone: | | | | | | [address] | [phone] | | | | | | Phone: | Fax: | | | | | | [phone] | [phone] | | | | | | Fax: | | | | | | | [phone] | | +--------+--------+ + + + + Encounter Details +--------+---------+ + + + | Date | Type | Department | Care Team | Description | +--------+---------+ + + + | 08/01/ | Office | [facility] | [facility], | Hematochezia | | 2014 | Visit | GASTROENTEROLOGY | JERARDO Carranza [address] | (Primary Dx); Heme | | | | [address] [place] | [place], [place] [address] | positive stool; | | | | [address] [place], [place] | [place] | Abdominal pain, | | | | [address] | [address] | generalized; Nausea | | | | [phone] | | and vomiting; | | | [...] great toe Dec 2002 Dr. Gutiérrez in [facility] Tonsillectomy 1989 [place], [place] Tubal ligation 2004 [facility] Ovary removal Left 01/26/14 Family History Problem [...] Testing Performed: [facility], [address], [place] [address] VITAMIN B-12 07/25/2014 5087* 180-914 pg/mL Final [...] developed and its performance characteristics determined by [facility]. The U.S. Food and Drug Administration (FDA) has not approved or cleared this test. However, FDA approval or clearance is currently not required for clinical use of this test. The results are not intended to be used as the sole means for clinical diagnosis or patient management decisions. [facility] is authorized under Clinical Laboratory Improvement Amendments (CLIA) to perform high-complexity testing. [facility]: [facility], [address] [place] [address] COPPER 07/25/2014 95 70 - 140 ug/dL Final There is a diurnal variation with highest levels in the morning.Testing Performed: [facility], [address] [place] [address] Assessment: 1. Hematochezia 2. Heme positive stool [...]
--- OUTSIDE RECORDS SUMMARY | ~2019-03-27 | XMS | Encounter Summary ---
Demographics + + + | Address | [address] | | | [place] [address] | + + + | Home Phone | | + + + | Preferred Language | Unknown | + + + | Marital Status | Single | + + + | Mosque Affiliation | 1013 | + + + | Race | Unknown | + + + | Ethnic Group | Unknown | + + + Author + + + | Author | [facility] | | | and Ezequielana | + + + | Organization | [facility] | | | and Ezequielana [...] Team Providers + +------+ + | Care Device Sales Consultant Name | Role | Phone | + [...] | | | | | | | [place] | | | | | | | ESOPHAGOGAST | | | | | | | RODUODENOSCO | | | | | | | PY TRANSORAL | | | | | | | DIAGNOSTIC | | | | | | | [place] EDG | | | | | | | TRANSORAL | | | | | | | BIOPSY | | | | | | | SINGLE/MULTI | | | | | | | PLE TX | | | | | | | ANESTH,UGI | | | | | | | ENDOSCOPY | | | | | | | [place] | | | | | | | COLONOSCOPY | | | | | | | FLX DX | | | | | | | W/COLLJ SPEC | | | | | | | WHEN PFRMD | | | | | | | TX | | | | | | | COLONOSCOPY | | | | | | | W/BIOPSY | | | | | | | SINGLE/MULTI | | | | | | | PLE TX | | | | | | | COLSC FLX | | | | | | | W/RMVL OF | | | | | | | TUMOR POLYP | | | | | | | LESION SNARE | | | | | | | TQ TX | | | | | | | [...] | | | | | [address] | [address] | | | | | [place] | [place] [address] | | | | | [address] | [phone] | | | | | [phone] | | | +--------+ + + + [...]
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
--- OUTSIDE RECORDS SUMMARY | ~2019-03-27 | XMS | Encounter Summary ---
Demographics + + + | Address | [address] | | | [place] [address] | + + + | Home Phone | | + + + | Preferred Language | Unknown | + + + | Marital Status | Single | + + + | Buddhism Affiliation | 1013 | + + + | Race | Unknown | + + + | Ethnic Group | Unknown | + + + Author + + + | Author | [facility] | | | and Ezequielana | + + + | Organization | [facility] | | | and Ezequielana [...] Team Providers + +------+ + | Care Dairy Technician Name | Role | Phone | + +------+ + | Enzo Juarez DO | PCP | | + +------+ + Encounter Details +--------+ + + + + | Date | Type | Department | Care Team | Description | +--------+ + + + + | 11/14/ | Documentati | [facility] | aKrly, | | | 2013 | on | MED CTR THERAPY PT | Marcell Howard, PT [address] | | | | | [address] | [address] | | | | | [place] | [place] | | | | | [address] | [address] | | | | | [phone] | | | +--------+ + + + [...] Brandt, PT - 11/14/2013 10:[facility] OP [address] [place] [address] Cancellation/No Show Date: 11/14/2013 Patient Information Patient [...]
--- OUTSIDE RECORDS SUMMARY | ~2019-03-27 | XMS | Encounter Summary ---
Demographics + + + | Address | [address] | | | [place] [address] | + + + | Home Phone | | + + + | Preferred Language | Unknown | + + + | Marital Status | Single | + + + | Anglican Affiliation | 1013 | + + + | Race | Unknown | + + + | Ethnic Group | Unknown | + + + Author + + + | Author | [facility] | | | and Ezequielana | + + + | Organization | [facility] | | | and Ezequielana [...] Team Providers + +------+ + | Care Sheather Name | Role | Phone | + [...] | | | MEDICINE [address] | [place] | | | | | [address] [place] | [place] [address] | | | | | [place] [address] | [phone] | | | | | [phone] | | | +--------+ + + + [...]
--- OUTSIDE RECORDS SUMMARY | ~2019-03-27 | XMS | Encounter Summary ---
Demographics + + + | Address | [address] | | | [place] [address] | + + + | Home Phone | | + + + | Preferred Language | Unknown | + + + | Marital Status | Single | + + + | Confucianist Affiliation | 1013 | + + + | Race | Unknown | + + + | Ethnic Group | Unknown | + + + Author + + + | Author | [facility] | | | and Ezequielana | + + + | Organization | [facility] | | | and Ezequielana [...] Team Providers + +------+ + | Care Debubblizer Name | Role | Phone | + +------+ + | Enzo Juarez DO | PCP | | + +------+ + Encounter Details +--------+ + + + + | Date | Type | Department | Care Team | Description | +--------+ + + + + | 10/31/ | Documentati | [facility] | Tita Spaulding COTA | | | 2013 | on | MED CTR THERAPY OT | | | | | | ACUTE [address] | | | | | | [place] | | | | | | [address] | | | | | | [phone] | | | +--------+ + + + [...] Spaulding COTA - 10/31/2013 4:35 PM [facility] [address] [place] [address] Cancellation/No Show Date: 10/31/2013 Patient Information Patient [...]
--- OUTSIDE RECORDS SUMMARY | ~2019-03-27 | XMS | Encounter Summary ---
Demographics + + + | Address | [address] | | | [place] [address] | + + + | Home Phone [...] | [facility] | | | and [...] Team Providers + +------+ + | Care Quality Engineer Medical Device Name | Role | Phone | + [...] mention of | [place], [place] | [place] [address] | | | | | complication | [address] | Phone: | | | | | Hemorrhage | Phone: | [phone] | | | | | of rectum | [phone] | Fax: | | | | | and anus | Fax: | [phone] | | | | | Procedures | [phone] | | | | | | [place] | | | | | | | HEMORRHOIDEC | | | | | | | DIEGO | | | | | | | INTERNAL | | | | | | | RUBBER BAND | | | | | | | LIGATIONS | | | | | | | [place] ANOSCOPY | | | | | | | DX W/COLLJ | | | | | | | SPEC BR/[place] | | | | | | | SPX WHEN | | | | | | | PRFRMD [place] | | | | | | | PROCTOSIGMOI | | | | | | | DOSCOPY,RIGI | | | | | | | D,DIAGNOS | | | | | | | [place] OFFICE | | | | | | | OUTPATIENT | | | | | | | VISIT 10 | | | | | | | MINUTES [place] | | | | | | | [...] + + | 11/30/ | Office | [facility] | Jose Cooper MD | Internal hemorrhoids | | 2015 | Visit | GASTROENTEROLOGY | [address] | without mention of | | | | [address] [facility] | [place], [place] | complication; | | | | [address] [place], [place] | [address] | Hemorrhage of rectum | | | | [address] | [phone] | and anus | | | | [phone] | | | +--------+---------+ + + + [...]
--- OUTSIDE RECORDS SUMMARY | ~2019-03-27 | XMS | Encounter Summary ---
Demographics + + + | Address | [address] | | | [place] [address] | + + + | Home Phone | | + + + | Preferred Language | Unknown | + + + | Marital Status | Single | + + + | Nondenominational Affiliation | 1013 | + + + | Race | Unknown | + + + | Ethnic Group | Unknown | + + + Author + + + | Author | [facility] | | | and Ezequielana | + + + | Organization | [facility] | | [...] Team Providers + +------+ + | Care Microarray Operations Vice President Name | Role | Phone | + +------+ + | Enzo Juarez DO | PCP | | + +------+ + Encounter Details +--------+ + + + + | Date | Type | Department | Care Team | Description | +--------+ + + + + | 10/31/ | [facility] | [facility] | Tarna Archuleta | Neck pain; Facet | | 2013 | Encounter | MED CTR XRAY [address] | [address] | arthritis of | | | | [place] | [place] | cervical region; | | | | [place] [address] | [place] [address] | Lymphedema | | | | [phone] | [phone] | | | | | | | [...] + + + +---------+ + + | [place] | Take by mouth | | 0 [...] + + + +---------+ + + | [place]-3 Fatty | Take by mouth. | | 0 | | | | Acids (OMEGA 3 PO) | [place] 3 + COQ10 | | | | [...] | | | 5 | | | [place] with Grape | | | | | [...] + | MISCELLANEOUS LAB | | | [phone] | + +---------+ + + | MISCELANIOUS LAB | | | [phone] | + +---------+ + + documented in this encounter Visit Diagnoses + + | Diagnosis | + + | Neck pain Cervicalgia | + + | Facet arthritis of cervical region Cervical spondylosis without myelopathy | + + | Lymphedema Other lymphedema | + + documented in this encounter"
--- OUTSIDE RECORDS SUMMARY | ~2019-03-27 | XMS | Encounter Summary ---
Demographics + + + | Address | [address] | | | [place] [address] | + + + | Home Phone | | + + + | Preferred Language | Unknown | + + + | Marital Status | Single | + + + | Pentecostalism Affiliation | 1013 | + + + | Race | Unknown | + + + | Ethnic Group | Unknown | + + + Author + + + | Author | [facility] | | | and Ezequielana | + + + | Organization | [facility] | | | and [...] Team Providers + +------+ + | Care Home Restoration Service Supervisor Name | Role | Phone | [...] | | | | | Natalia[place]Danlo | [place] | [place] [address] | | | | | s syndrome | [place], | Phone: | | | | | type II | [place] [address] | [phone] | | | | | Lymphedema | Phone: | Fax: | | | | | | [phone] | [phone] | | | | | | Fax: | | | | | | | [phone] | | +--------+ + + + + [...] | muscle pain | MD Zaire | OPS ANALYST [address] | | | | | | [address] | | | | | Natalia[place]Danlo | [place] | [place], | | | | | s syndrome | [place], | [place] [address] | | | | | type II | [place] [address] | Phone: | | | | | | Phone: | [phone] | | | | | | [phone] | Fax: | | | | | | Fax: | [phone] | | | | | | [phone] | | +--------+--------+ + + + + Reason for Visit + + + | Reason | Comments | + + + | Follow-up | F/U | + + + Encounter Details +--------+---------+ + + + | Date | Type | Department | Care Team | Description | +--------+---------+ + + + | 09/27/ | Office | [facility] | Taran Archuleta | Myofascial muscle | | 2015 | Visit | REHABILITATION | [address] | pain (Primary Dx); | | | | MEDICINE [address] | [place] | 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
--- OUTSIDE RECORDS SUMMARY | ~2019-03-27 | XMS | Encounter Summary ---
Demographics + + + | Address | [address] | | | [place] [address] | + + + | Home Phone | | + + + | Preferred Language | Unknown | + + + | Marital Status | Single | + + + | Adventism Affiliation | 1013 | + + + | Race | Unknown | + + + | Ethnic Group | Unknown | + + + Author + + + | Author | [facility] | | | and Ezequielana | + + + | Organization | [facility] | | | and Ezequielana [...] Team Providers + +------+ + | Care Journeyman Mechanic Name | Role | Phone | + [...] Rehabilitatio | subluxation | MD [place] | [place] | | | | n | of left | [address] | [place], | | | | | shoulder, | [place] | [place] [address] | | | | | initial | [place], | Phone: | | | | | encounter | [place] [address] | [phone] | | | | | Left hip | Phone: | Fax: | | | | | subluxation, | [phone] | [phone] | | | | | initial | Fax: | | | | | | encounter | [phone] | | | | | | (HCC) [...] + + | 09/11/ | [facility] | [facility] | Taran Archuleta | Hip pain, bilateral | | 2015 | Visit | MED CTR THERAPY PT | [address] | (Primary Dx); | | | | OP [address] [place] | [place] | Chronic neck and | | | | [place], [place] | [place] [address] | back pain | | | | [address] | [phone] | | | | | [phone] | | | | | | | Trina Hargrove B, PT | | | | | | [address] | | | | | | [place] | | | | | | [address] | | | | | | | [...] might be different from t rocío original. [facility] THERAPY PT OP [address] [place] [address] Physical Therapy Daily Treatment Note Date: 09/11/2014 Patient Information Patient Name: Zuleyma Jenkins Date of : 1970 Age: 44 y.o. Encounter Diagnoses Code Name Primary? 719.45 Hip pain, bilateral Yes 723.1, 724.5 Chronic neck and back pain Date of Onset: Referring Provider: Taran Archuleta MD Rehab Precautions Office Visit from 10/24/2013 in [facility] CTR THERAPY OT OP Rehab Precautions Precautions [...] alt. Leg lift 2x20 2x20 Supine: shoulder port lions stab. 2x10 each 2x10 each Supine: shoulder. 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 Plan:Cont with [...]
--- OUTSIDE RECORDS SUMMARY | ~2019-03-27 | XMS | Encounter Summary ---
Demographics + + + | Address | [address] | | | [place] [address] | + + + | Home Phone [...] + + | Organization | [facility] | | [...] Team Providers + +------+ + | Care Debt Collector Name | Role | Phone | [...] | | | | | | | [place] | | | | | | | ESOPHAGOGAST | | | | | | | RODUODENOSCO | | | | | | | PY TRANSORAL | | | | | | | DIAGNOSTIC | | | | | | | IL EDG | | | | | | | TRANSORAL | | | | | | | BIOPSY | | | | | | | SINGLE/MULTI | | | | | | | PLE IL | | | | | | | ANESTH,UGI | | | | | | | ENDOSCOPY | | | | | | | IL | | | | | | | COLONOSCOPY | | | | | | | FLX DX | | | | | | | W/COLLJ SPEC | | | | | | | WHEN PFRMD | | | | | | | IL | | | | | | | COLONOSCOPY | | | | | | | W/BIOPSY | | | | | | | SINGLE/MULTI | | | | | | | PLE IL | | | | | | | COLSC FLX | | | | | | | W/RMVL OF | | | | | | | TUMOR POLYP | | | | | | | LESION SNARE | | | | | | | TQ IL | | | | | | | [...] | 08/29/ | Hospital | [facility] | Jose Cooper MD | Abdominal pain, | | 2015 | Encounter | MED CTR MP INTRA OP | [address] | generalized (Primary | | | | [address] | [place] | Dx); Nausea with | | | | [place] | [address] | vomiting; Blood in | | | | [address] | [phone] | stool | | | | [phone] | | | +--------+ + + + [...] the physician who did your procedure at [phone] if you have any questions or experience any of the following: ? Increasing abdominal pain, nausea, or vomiting. ? Chills and fever over 101F. ? New abdominal swelling or bloating. ? Signs of rectal bleeding (black or red stool). If you cannot get a hold of your physician, then call the [facility] [phone] . If necessary, report to the Emergency Department at [facility]. Quit smoking: If you smoke or have [...] + + +---------+ + + | [place] | Take by mouth | | 0 [...] + + + +---------+ + + | [place]-3 Fatty | Take by mouth. | | 0 | | | | Acids (OMEGA 3 PO) | [place] 3 + COQ10 | | | | [...] 08/29/2014 10:54 | PROVATION | | AMMRN: [id number] #: [id number] of : 1970Admit | | | Type: AmbulatoryAge: 44Room: [facility] 02Gender: FemaleNote Status: | | | FinalizedAttending MD: Jose Cooper [facility]rocedure: | | | Upper GI endoscopyIndications: Epigastric abdominal | | | painProviders: Jose Cooper MD, Morris Cruz, | | | RN, Flor Poole, Film Processing Shift Supervisor, Erwin Davis | | | MD Shine [...] | | | the anesthesiologist and the dental technician in the pre-procedure | | | [...] AMScope Out: 11:11:54 | | | AM [facility], [address] [place] [address] | | | [place] [address] | | | patient. Return to normal [...] |Scope Out: 11:11:54 AM | | | [facility], [address] [place] [address] | | | [address] | | + + -+ + +---------+ [...] 08/29/2014 10:54 | PROVATION | | AMMRN: [id number] #: [id number] of : 1970Admit | | | Type: AmbulatoryAge: 44Room: [facility] 02Gender: FemaleNote Status: | | | FinalizedAttending MD: Jose Cooper, MDProcedure: | | | ColonoscopyIndications: Heme positive stoolProviders: | | | Jose Cooper MD, Morris Cruz RN, [facility] | | | Virgilio, Film Processing Shift Supervisor, Erwin Riojas MD (Anesthesia | | | [...] the anesthesiologist and the | | | dental technician in the pre-procedure area in the [...] | | | AMScope Out: 11:33:57 AM [facility], [address] | | [place] [address] | | | patient. Return to normal [...] Out: 11:33:57 AM | | | [facility], [address] [place] | | | [address] | | + + -+ + +---------+ [...]
--- OUTSIDE RECORDS SUMMARY | ~2019-03-27 | XMS | Encounter Summary ---
Demographics + + + | Address | [address] | | | [place] [address] | + + + | Home Phone | | + + + | Preferred Language | Unknown | + + + | Marital Status | Single | + + + | Orthodox Affiliation | 1013 | + + + | Race | Unknown | + + + | Ethnic Group | Unknown | + + + Author + + + | Author | [facility] | | | and Ezequielana | + + + | Organization | [facility] | | | and [...] Team Providers + +------+ + | Care Sales Assoc Name | Role | Phone | + [...] Trigeminal | Marcell Leung, | [address] | | | | | neuropathy | MD Stoll | [place], | | | | | Procedures | updated | [place] | | | | | MRI Brain w | address | [address] | | | | | wo Contrast | | Phone: | | | | | | | [phone] | | | | | | | Fax: | | | | | | | [phone] | +--------+--------+ + + + + Reason [...] | | | s syndrome | [address] | updated | | | | | type III | [place] | address | | | | | Facial | [place], | | | | | | numbness | [place] [address] | | | | | | | Phone: | | | | | | | [phone] | | | | | | | Fax: | | | | | | | [phone] | | +--------+ + + + + + Encounter Details +--------+---------+ + + + | Date | Type | Department | Care Team | Description | +--------+---------+ + + + | 07/25/ | Office | [facility] | Marcell Frances | Trigeminal | | 2015 | Visit | NEUROLOGY KAREN Leung MD Need updated | neuropathy (Primary | | | | [address] [facility], | address | Dx); Peripheral | | | | [address] [place] | | neuropathy; Facial | | | | [place] [address] | | numbness | | | | [phone] | | | +--------+---------+ + + + [...] supply of blood, brain tissue quickly dies. 6031-3452 [employer]. [address] [place] [address]. All righ ts reserved. This information is not intended as a substitute for professional medical care. Always follow your healthcare professional's instructions. documented in this encounter Progress Notes Marcell Frances MD - 07/25/2014 10:08 AM PDTFormatting of this note might be differen t from the original. Marcell Frances MD [address] [place] [address], [address] [place] [id number] Neurology Outpatient New Patient Note Referring Provider: Taran Archuleta MD [address] [place] [address] Chief Complaint: Chief Complaint Patient presents with [...] christa arent trigger. She was evaluated at [facility] for a possible stroke, which was ruled [...] years. [facility]. Ms. Jenkins is not interested [...] great toe Dec 2002 Dr. Gutiérrez in [facility] Tonsillectomy 1995 PENELOPE Collado Tubal ligation 2004 [facility] Current Medications: Current Medications amitriptyline (ELAVIL) 25 [...] (Taking) Take 5,000 Units by mouth Daily. [place] Bioflavonoids 1000 MG TABS (Taking) Take by [...] (Taking) Take 1,800 mg by mouth nightly. TYPRHNKONFN-JBFKKRMORGA-GIW PO (Taking) Take by mouth Daily. GRAPE SEED (Taking) Take 250 mg by mouth 2 times daily. HORSE CHESTNUT by Does not apply route. Horse [place] with Grape See 300mg/50mg BID ketoprofen (ORUDIS) [...] 250 mg by mouth 2 times daily. [place]-3 Fatty Acids (OMEGA 3 PO) (Taking) Take by mouth. [place] 3 + COQ10 750mg/50mg BID pantoprazole (PROTONIX) [...] 33 .41 kg/m2 Neck Circumference: 14 1/4" Henderson Sleepiness Scale: 8 General: well developed and [...] No results found for this basename: hba1c, giz9dte, ldl, ldldirect, ldlext, dldlex No results found [...] COMPARISON: None. PROTOCOL: MRI of | [facility] | | the brain was obtained with the following sequences: Sagittal T1, | [facility] | | axial T2, axial T2 [...] + + | Performing | Address | City/State/[facility] Centercode | Phone Number | | Organization | | | | + + + + + | [facility] | [address] | [place] | [phone] | | [facility] | | [address] | | | - IMAGING | | [...] [place] | | | | | | [address] | | | | + + + + + + + + | Specimen | + + | Blood specimen | | (specimen) | + + + + + + + | Performing | Address | City/State/Zipcode | Phone Number | | Organization | | | | + + + + + | [facility] | [address] | [place] [address] | [phone] | + + + + + Vitamin [...] Vitamin | | | | | | R2fimpenxtemw.This test | | | | | | [...] [place] | | | | | | [address] | | | | + + + [...] [address] | [place] [address] | [phone] | + + + + + Rapid [...] [address] | [place] | [phone] | | [facility] | | [address] | | | - LABORATORY | | [...] [address] | [place] | [phone] | | [facility] | | [address] | | | - LABORATORY | | [...] [address] | [place] | [phone] | | [facility] | | [address] | | | - LABORATORY | | [...] [place] | | | | | | [address] | | | | + + + [...] [address] | [place] [address] | [phone] | + + + + + TSH [...] ST. | [address] | [place], [place] | [phone] | | [facility] | | [address] | | | - LABORATORY | | [...]
--- OUTSIDE RECORDS SUMMARY | ~2019-03-27 | XMS | Encounter Summary ---
Demographics + + + | Address | [address] | | | [place] [address] | + + + | Home Phone [...] + + + | Author | [facility] | | | and Ezequielana | + + + | Organization | [facility] | | | and Ezequielana [...] Team Providers + +------+ + | Care Draw Bench Operator Helper Name | Role | Phone | + [...] | | | | | | | [place] | | | | | | | ESOPHAGOGAST | | | | | | | RODUODENOSCO | | | | | | | PY TRANSORAL | | | | | | | DIAGNOSTIC | | | | | | | AL EDG | | | | | | | TRANSORAL | | | | | | | BIOPSY | | | | | | | SINGLE/MULTI | | | | | | | PLE AL | | | | | | | ANESTH,UGI | | | | | | | ENDOSCOPY | | | | | | | AL | | | | | | | COLONOSCOPY | | | | | | | FLX DX | | | | | | | W/COLLJ SPEC | | | | | | | WHEN PFRMD | | | | | | | AL | | | | | | | COLONOSCOPY | | | | | | | W/BIOPSY | | | | | | | SINGLE/MULTI | | | | | | | PLE AL | | | | | | | COLSC FLX | | | | | | | W/RMVL OF | | | | | | | TUMOR POLYP | | | | | | | LESION SNARE | | | | | | | TQ AL | | | | | | | [...] + + | 08/29/ | Surgery | [facility] | Jose Cooper MD | EGD / COLONOSCOPY | | 2014 | | MED CTR MP INTRA OP | [address] | | | | | [address] | [place], [place] | | | | | [place] | [address] | | | | | [address] | [phone] | | | | | [phone] | | | +--------+---------+ + + + [...] the physician who did your procedure at [phone] if you have any questions or experience any of the following: ? Increasing abdominal pain, nausea, or vomiting. ? Chills and fever over 101F. ? New abdominal swelling or bloating. ? Signs of rectal bleeding (black or red stool). If you cannot get a hold of your physician, then call the [facility] [phone] . If necessary, report to the Emergency Department at [facility]. Quit smoking: If you smoke or [...] + + + +---------+ + + | [place] | Take by mouth | | 0 [...] + + + +---------+ + + | [place]-3 Fatty | Take by mouth. | | 0 | | | | Acids (OMEGA 3 PO) | [place] 3 + COQ10 | | | | [...] 08/29/2014 10:54 | [facility]OVATION | | AMMRN: [id number] #: [id number] of : 1970Admit | | | Type: AmbulatoryAge: 44Room: [facility] 02Gender: FemaleNote Status: | | | FinalizedAttending MD: Jose Cooper, MDProcedure: | | | Upper GI endoscopyIndications: Epigastric abdominal | | | painProviders: Jose Cooper MD, Morris Cruz, | | | RNFlor, Manager Chinese, Erwin Davis | | | MD Shine [...] | | | the anesthesiologist and the civil laboratory technician in the pre-procedure | | [...] AMScope Out: 11:11:54 | | | AM [facility], [address] [facility] | | | [place] [address] | | | patient. Return to normal [...] |Scope Out: 11:11:54 AM | | | [facility], [facility] [place], [place] | | | [address] | | + + -+ + +---------+ + + | Performing | Address | City/State/[facility]ode | Phone Number | | [...] 08/29/2014 10:54 | [place]OVATION | | AMMRN: [id number] #: [id number] of : 1970Admit | | | Type: AmbulatoryAge: 44Room: [facility] 02Gender: FemaleNote Status: | | | FinalizedAttending MD: Jose Cooper, MDProcedure: | | | ColonoscopyIndications: Heme positive stoolProviders: | | | Jose Cooper MD, Morris Cruz RN, Flor | | | Virgilio, Manager Chinese, Erwin Riojas MD (Anesthesia | | | [...] the anesthesiologist and the | | | civil laboratory technician in the pre-procedure area in [...] | | | AMScope Out: 11:33:57 AM [facility], [address] | | | [place] [address] | | | patient. Return to normal [...] |Scope Out: 11:33:57 AM | | | [facility], [address] , [place], [place] | | | [address] | | + + -+ + +---------+ [...]
--- OUTSIDE RECORDS SUMMARY | ~2019-03-27 | XMS | Encounter Summary ---
Demographics + + + | Address | [address] | | | [place] [address] | + + + | Home Phone | | + + + | Preferred Language | Unknown | + + + | Marital Status | Single | + + + | Religion Affiliation | 1013 | + + + | Race | Unknown | + + + | Ethnic Group | Unknown | + + + Author + + + | Author | [facility] | | | and Ezequielana | + + + | Organization | [facility] | | | and [...] Team Providers + +------+ + | Care Supervisor Propellant Charge Loading Name | Role | Phone | + [...] | | neuropathy | [place], [place] | [address] Phone: | | | | | Procedures | [address] | [phone] | | | | | ND MOTOR | Phone: | Fax: | | | | | &/SENS 1-2 | [phone] | [phone] | | | | | NRV CNDJ | Fax: | | | | | | PRECONF | [phone] | | | | | | ELTRODE [...] | | | | type III | [place] | address | | | | | Facial | [place], | | | | | | numbness | [place] [address] | | | | | | | Phone: | | | | | | | [phone] | | | | | | | Fax: | | | | | | | [phone] | | +--------+ + + + + [...] | | | | | shoulder, | [place] | [place] [address] | | | | | initial | [place], | Phone: | | | | | encounter | [place] [address] | [phone] | | | | | Left hip | Phone: | Fax: | | | | | subluxation, | [phone] | [phone] | | | | | initial | Fax: | | | | | | encounter | [phone] | | | | | | ([facility]) | | | | | | | [...] + + | 06/06/ | Office | [facility] | Taran Archuleta | 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 Ham, an [place] endorcrinologist. 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 [...] and more episodic on the right. Her botany teacher recommended ne rve conduction test which I [...] getting some lipo suction according to her botany teacher. I would concur that with her edema [...] | | | | | | encounter ([facility]) | | | | | | Natalia-Danlos [...] possible subluxation COMPARISON: PELVIC AND HIP | [facility] | | RADIOGRAPHS FEBRUARY 2011, HIP MRI APRIL 2011 FINDINGS: The | [facility] | | bones are well-mineralized and [...] [address] | [place] | [phone] | | [facility] | | [address] | | | - IMAGING | | [...]
--- OUTSIDE RECORDS SUMMARY | ~2019-03-27 | XMS | Encounter Summary ---
Demographics + + + | Address | [address] | | | [place] [address] | + + + | Home Phone [...] [facility] | [...] Team Providers + +------+ + | Care Gravity Prospecting Operator Helper Name | Role | Phone [...] | | MEDICINE [address] | [place] | [place] | | | | [address] [place] | [place] [address] | syndrome type III; | | | | [place] [address] | [phone] | Peripheral | | | | [phone] | | neuropathy; | | | | [...] She will [facility] Plan: Left hip x-ray today [...]
--- OUTSIDE RECORDS SUMMARY | ~2019-03-27 | XMS | Encounter Summary ---
Demographics + + + | Address | [address] | | | [place] [address] | + + + | Home Phone | | + + + | Preferred Language | Unknown | + + + | Marital Status | Single | + + + | Sikh Affiliation | 1013 | + + + | Race | Unknown | + + + | Ethnic Group | Unknown | + + + Author + + + | Author | [facility] | | | and Ezequielana | + + + | Organization | [facility] | | | and Ezequielana [...] Team Providers + +------+ + | Care Recruitment Specialist Name | Role | Phone | + +------+ + | Enzo Juarez DO | PCP | | + +------+ + Encounter Details +--------+ + + + + | Date | Type | Department | Care Team | Description | +--------+ + + + + | 08/08/ | Documentati | [place] | Trina Hargrove, | | | 2014 | on | MED CTR ACUTE | PT [address] | | | | | PHYSICAL THERAPY | [place] | | | | | [address] | [address] | | | | | [place] [address] | | | | | | [phone] | | | +--------+ + + + [...] encounter Progress Notes Trina Garibay, PT - 08/08/2014 11:22 AM [facility] [address] [place] [address] Cancellation/No Show Date: 08/08/2014 Patient Information Patient Name: Zuleyma Jenkins Date of : 1970 Age: 44 y.o. Reason for missed visit: Pt called to cancel due to pain flare up and unable to make it to scheduled appointment today. Phone call placed: no Plan: Cont with POC Electronically signed by: Trina Garibay PT, 08/08/2014 11:22 Patient Name: Zuleyma Jenkins/: 1970/ documented in this encou nter Plan of Treatment Not on filedocumented as of this encounter Visit Diagnoses Not on filedocumented in this encounter"
--- OUTSIDE RECORDS SUMMARY | ~2019-03-27 | XMS | Encounter Summary ---
Demographics + + + | Address | [address] | | | [place] [address] | + + + | Home Phone | | + + + | Preferred Language | Unknown | + + + | Marital Status | Single | + + + | Sabianism Affiliation | 1013 | + + + | Race | Unknown | + + + | Ethnic Group | Unknown | + + + Author + + + | Author | [facility] | | | and Ezequielana | + + + | Organization | [facility] | | | and Ezequielana [...] Team Providers + +------+ + | Care Jack Tamp Operator Name | Role | Phone | + +------+ + | Enzo Juarez DO | PCP | | + +------+ + Reason for Visit + + + | Reason | Comments | + + + | Initial Assessment | | + + + Evaluate & [...] Rehabilitatio | subluxation | MD [place] | [place] | | | | n | of left | [address] | [place], | | | | | shoulder, | [place] | [place] [address] | | | | | initial | [place], | Phone: | | | | | encounter | [place] [address] | [phone] | | | | | Left hip | Phone: | Fax: | | | | | subluxation, | [phone] | [phone] | | | | | initial | Fax: | | | | | | encounter | [phone] | | | | | | (HCC) [...] + + | 07/05/ | Office | [facility] | Taran Archuleta | Shoulder pain, | | 2014 | Visit | MED CTR THERAPY PT | [address] | bilateral (Primary | | | | OP [address] [place] | [place] | Dx); Hip pain, | | | | [place], [place] | [place] [address] | bilateral; Chronic | | | | [address] | [phone] | neck and back pain | | | | [phone] | | | | | | | Trina Hargrove, PT | | | | | | [address] | | | | | | [place], [place] | | | | | | [address] | | | | | | | [...] encounter Progress Notes Trina Garibay, PT - 07/06/2014 1:27 PM PSTFormatting of this note might be different from t rocío original. Physical Therapy Plan of Care Date: 07/06/2014 Patient Name: Zuleyma Jenkins Date of : 1970 Encounter Diagnoses Code Name Primary? 719.41 Shoulder pain, bilateral Yes 719.45 Hip pain, bilateral 723.1, 724.5 Chronic neck and back pain Date of Onset: Start of Care Date: 07/05/14 Clinical Impression: Patient presents to physical therapy with a recent diagnosis of Ehler s-Danlos Syndrome 3 and a long standing history of joint laxity in shoulders and hips; pt wi th a recent exacerbation of pain in left hip and right shoulder. Objective exam reveals impa irments with strength, generalized joint laxity, impaired lumbo-pelvic strength, impaired po stural muscles/posterior chain strength, impaired light touch sensation. Neurological exami nation is normal. Signs and symptoms are consistent with generalized ligamentous laxity thro ughout body causing decreased stability in bilateral shoulders, hips and spine resulting in pain. These impairments are causing functional limitations with patient s ability to ambul ate up/down stairs, running, brisk walking, standing up from low surface (couch), heavy hous ehold duties, getting in/out of bed. Complexities contributing to frequency and duration of therapy: Natalia-Danlos type III (ligamentus laxity), Lipidema(altered sensation issues) Outcome Specific Scored Goals Primary Functional Goals: Functional Goal 1, Functional Goal 2, Functional Goal 3 Patient's Primary Functional Goal 1: Demonstrate normal cervical spine/shoulder/hip stabili zation strength allowing for improved postural awareness and increased toleration of ADL's, housework, sit to stand transfers. Primary Functional Goal 1 Status Comment: difficulty with completing some ADLs, housework a nd pain/instability with transfers (sit to stand) Patient's Primary Functional Goal 2: Return to prior work/leisure activities and caring for family/children without limitation from pain, range of motion or strength. Primary Functional Goal 2 Status Comment: limited by pain/instability Patient's Primary Functional Goal 3: Patient able to ambulate for 60 min or greater over va ried terrain without pain or limitations. Primary Functional Goal 3 Status Comment: unable to tolerate varied terrain OP PT Goals OP PT Goals: Goal 1 Goal 1: Independent with home exercise program for mcfp joint and spine health and pre vention of recurrence of symptoms or chronicity. Goal 1 Status: initiated stabilization HEP Treatment Plan/Interventions: 73538 PT Evaluation, 24129 Therapeutic Exercise, 95543 Therapeutic Activity, 87992 Neuromus cular Re-education, 72013 Self Care/Home Management, 78835 Manual Therapy Requested # of Visits: 24 2x/wk for 12 weeks Certification From: 07/05/14 Certification To: 09/28/14 Trina Garibay, PT Patient Name: Zuleyma Jenkins/: 1970/ Trina Riley , PT - 07/05/2014 2:09 PM PST LOCATED WITHIN [facility] THERAPY PT OP [address] [place] [address] Physical Therapy Initial Assessment Date: 07/05/2014 Patient Information Patient Name: Zuleyma Jenkins Date of : 1970 Age: 44 y.o. History Encounter Diagnoses Code Name Primary? 719.41 Shoulder pain, bilateral Yes 719.45 Hip pain, bilateral 723.1, 724.5 Chronic neck and back pain Date of Onset: Referring Provider: Taran Archuleta MD Past Medical History Diagnosis Date Thyroid disease Asthma Depression Gastric reflux Migraine Stomach ulcer Thyroid disease Lipidemia Past Surgical History Procedure Laterality Date Right great toe Dec 2002 Dr. Gutiérrez in [facility] Tonsillectomy 1995 [place], [place] Tubal ligation 2004 [facility] Allergies Allergen Reactions Blue Dyes (Parenteral) The dye that they use for CT Scan Prednisone Sulfa Antibiotics Rehab Precautions Office Visit from 10/24/2013 in [facility]IN [facility] THERAPY OT OP Rehab Precautions Precautions Comments Lipedema Pain Assessment Pain Scale Used: NUMERIC Pain Rating Pre Assessment: 5 Pain Rating During Assessment: 5 Location: neck/MARI, shoulders, hips, back CERVICAL SPINE EVALUATION: SUBJECTIVE: History of Presenting Problem: Zuleyma Jenkins is a 44 y.o. 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 Pt has as history of chronic ligamento us laxity; most noticeable in her shoulders and hips. Pt reports a recent increase in pain a nd discomfort; often affected by what she eats/hormones. She also reports intermittent numbn ess and tingling in hands; left > right. Pt also reports a long history of progressive/inter mittent facial numbness/decreased sensation on chin/mouth and cheek; right >left. Neck hilary n has also been worse with increased headaches. Pt also reports a history of foot surgery bu t continues to have bilateral foot pain and usually wears sandals. Pt reports that she had an order for PT back in October 2013 but was unable to schedule it due to other health related issues; pt reports that it takes her a long time to recover from be ing sick due to all her complicated health history. Imaging:iliofemoral ligament tear and superior labrum noted in the MRI of 2010. Functional Limitations: difficulty with stairs, running, brisk walking, standing up from lo w surface (couch), heavy household duties, getting in/out of bed Previous Level of Function: Slow decrease in function due to pain Prior and/or Concurrent treatment: Pt reports that water aerobics was too stressful/too muc h resistance for her shoulders and increased pain so discontinued. Living Situation / Home Environment: Pt lives with family and care for her children Occupation/Work Duties: does not work outside of home; cares for her children Patient s Goals: Learn exercises and body mechanics to decrease/prevent pain OBJECTIVE: Observation/Posture: upright posture/guarded, decreased arm swing with gait Functional Movements: Initial Assessment Progress Note / Discharge Sit<>Stand: dysfunctional Sit<>Supine: dysfunctional Double Leg Squat: Dysfunctional, quad dominant Single Leg Squat: L and R= unable Cervical ROM Initial Assessment Progress Note / Discharge Flexion: Full Extension: Full Side Bend Left: Full Side Bend Right: Full Rotation Left: Full Rotation Right: Full ROM: Initial Assessment Initial Assessment Progress Note / Discharge Progress Note / Discha rge Shoulder: Left Right Left Right Flexion: Full Full Abduction: Full Full ER at neutral: Full Full IR Behind Back: Full Full ER at 90 of ABD: Full Full IR at 90 of ABD: Full Full Elbow Flexion: Full Full Elbow Extension: Full Full ROM: Initial Assessment Initial Assessment Progress Note / Discharge Progress Note / Discha rge Lumbar Spine Full Hip Left Right Left Right Flexion: Full Full IR at 90 deg of Flexion: Full Full ER at 90 deg of Flexion: Full Full Extension: Full Full IR Prone: Full Full ER Prone: Full Full Knee Flexion: Full Full Knee Extension: Full Full Palpation: cervical/thoracic/lumbar pain and increased mucle tone in paraspinals, Left grea ter trochanter/piriformis and groin tender with palpation Segmental Joint Mobility: Hypomobile lower cervical spine and upper thoracic, hypermobile upper cervical and lumbar spine. Cervical Special Tests: Initial Assessment Initial Assessment Progress Note / Discharge Pro maria elena Note / Discharge Left Right Left Right Spurlings: positive positive Sharp-Lois: negative Cervical Distraction: positive Shoulder Special Tests: Initial Assessment Initial Assessment Progress Note / Discharge Pro maria elena Note / Discharge Left Right Left Right Load Shift: positive positive Apprehension: positive positive Hip Special Tests: Initial Assessment Initial Assessment Progress Note / Discharge Progress Note / Discharge Left Right Left Right MARGARITA: negative negative CHARANJIT: negative negative Raulito: negative negative Obers: negative negative Scour negative negative Upper Extremity Strength Testing: Initial Assessment Initial Assessment Progress Note / Dis charge Progress Note / Discharge Left Right Left Right Supraspinatus: 4/5 4/5 Infraspinatus: 4/5 4/5 Subscapularis: 4/5 4/5 Deltoid (C5): 4/5 4/5 Biceps (C6): 4/5 4/5 Wrist Ext (C6): 4/5 4/5 Supination (C6): 4/5 4/5 Triceps (C7): 4/5 4/5 EPL/EPB (C8): 4/5 4/5 Finger ABD (T1): 4/5 4/5 Technical Rep Strength: 4/5 4/5 Deep Neck Flexors: (normal = 40 secs) unable Scapular Stabilizers: impaired Postural Muscles: impaired Lower extremity Strength Testing: Initial Assessment Initial Assessment Progress Note / Dis charge Progress Note / Discharge Lumbo-Pelvic Stabilization: impaired Left Right Left Right Iliopsoas: 4/5 4/5 Glut Med: 4/5 4/5 Glut Max: 4/5 4/5 Deep Hip Rotators: 4/5 4/5 Quadriceps: 4/5 4/5 Hamstrings: 4/5 4/5 Neurovascular: Initial Assessment Initial Assessment Progress Note / Discharge Progress Not e / Discharge Left Right Left Right Sensation: Impaired UE and LE Impaired UE and LE Myotomes: normal normal Reflexes: normal normal Capillary Refill: normal normal Vines's Reflex: normal normal Outcome Measure: AM-PAC: Outpatient short Form 57/72 ASSESSMENT: Clinical Impression: Patient presents to physical therapy with a recent diagnosis of Natalia -Danlos Syndrome 3 and a long standing history of joint laxity in shoulders and hips; pt wit h a recent exacerbation of pain in left hip and right shoulder. Objective exam reveals impai rments with strength, generalized joint laxity, impaired lumbo-pelvic strength, impaired pos tural muscles/posterior chain strength, impaired light touch sensation. Neurological examin ation is normal. Signs and symptoms are consistent with generalized ligamentous laxity throu ghout body causing decreased stability in bilateral shoulders, hips and spine resulting in p ain. These impairments are causing functional limitations with patient s ability to ambula te up/down stairs, running, brisk walking, standing up from low surface (couch), heavy house hold duties, getting in/out of bed. Complexities contributing to frequency and duration of t herapy: Natalia-Danlos type III (ligamentus laxity), Lipidema(altered sensation issues) Rehabilitation potential: Patient demonstrates good potential to achieve established goals to address the above documented impairments and achieve the following functional goals by pa rticipating in skilled physical therapy services. THERAPY GOALS: Outcome Specific Scored Goals Primary Functional Goals: Functional Goal 1, Functional Goal 2, Functional Goal 3 Patient's Primary Functional Goal 1: Demonstrate normal cervical spine/shoulder/hip stabili zation strength allowing for improved postural awareness and increased toleration of ADL's, housework, sit to stand transfers. Primary Functional Goal 1 Status Comment: difficulty with completing some ADLs, housework a nd pain/instability with transfers (sit to stand) Patient's Primary Functional Goal 2: Return to prior work/leisure activities and caring for family/children without limitation from pain, range of motion or strength. Primary Functional Goal 2 Status Comment: limited by pain/instability Patient's Primary Functional Goal 3: Patient able to ambulate for 60 min or greater over [facility] terrain without pain or limitations. Primary Functional Goal 3 Status Comment: unable to tolerate varied terrain OP PT Goals OP PT Goals: Goal 1 Goal 1: Independent with home exercise program for [facility]p joint and spine health and pre vention of recurrence of symptoms or chronicity. Goal 1 Status: initiated stabilization HEP PLAN: Requested # of Visits: 24 2x/wk for 12 weeks Certification From: 07/05/14 Certification To: 09/28/14 Start of Care Date: 07/05/14 Treatment Plan/Interventions 41485 PT Evaluation, 70061 Therapeutic Exercise, 59239 Therapeutic Activity, 53147 Neuromus cular Re-education, 65284 Self Care/Home Management, 33589 Manual Therapy Patient and/or family has indicated understanding of treatment needs and actively participa mark in the creation of this plan for care. Today's Treatment Start Time: 1400 Stop time: 1515 Duration: 75 minutes Timed Treatment Codes: 15 minutes # of PT Visits: 1 Objective: Education of rehab timeline, focus and expectations. Education of pain modulation with use of ice/MHP, positioning, pacing and movement strategies. Manual Therapy: gentle sub-occipital release, TPR to bilateral upper-mid traps. Exercise/Activity 07/05/14 TrA activation Throughout all ex. Hooklying: iso hip add 2x20 hooklying alt. Leg lift 2x20 Supine: shoulder enterprise stab. 2x10 each Applied Kineso tape to bilateral shoulders: "Y" and "I" strips to provide increased stabili ty. Pt instructed to removed tape if any adverse reactions occur and to gently remove tape d ue to poor skin integrity. Next Visit: Cont with lumbo-pelvic and glenohumeral/scap. stabilization Electronically signed by: Trina Garibay PT, 07/06/2014 13:25 Patient Name: Zuleyma Jenkins/: 1970/ documented in this encou nter Plan of Treatment Not on filedocumented as of this encounter Visit Diagnoses + + | Diagnosis | + + | Shoulder pain, bilateral - Primary Pain in joint, shoulder region | + + | Hip pain, bilateral Pain in joint, pelvic region and thigh | + + | Chronic neck and back pain | + + documented in this encounter
--- OUTSIDE RECORDS SUMMARY | ~2019-03-27 | XMS | Encounter Summary ---
Demographics + + + | Address | [address] | | | [place] [address] | + + + | Home Phone | | + + + | Preferred Language | Unknown | + + + | Marital Status | Single | + + + | Faith Affiliation | 1013 | + + + | Race | Unknown | + + + | Ethnic Group | Unknown | + + + Author + + + | Author | [facility] | | | and Ezequielana | + + + | Organization | [facility] | [...] | +--------+ + + + + | 02/12/ | Documentati | [facility] | Trina Hargrove, | | | 2014 | on | MED CTR THERAPY PT | PT [address] | | | | | OP [address] | [place] | | | | | [place] | [id number] | | | | | [address] | | | | | | [phone] | | | +--------+ + + + [...] encounter Progress Notes Trina Garibay, PT - 02/12/2015 6:00 PM PDTFormatting of this note might be different from t he original. [facility] THERAPY PT OP [address] [place] [address] Physical Therapy Discharge Note This discharge is associated with the evaluation completed on 07/05/14. Date: 02/12/2015 Patient Information Patient Name: Zuleyma Jenkins Date of : 1970 Age: 45 y.o. Encounter Diagnoses Code Name Primary? M25.551, M25.552 Hip pain, bilateral Yes M54.2, M54.9 Chronic neck and back pain Date of Onset: Referring Provider: Taran Archuleta Total Number of Visits Completed: 10 Total Cancellations: 2 Total No Shows: 0 Patient has failed to return to therapy for further treatment. Goal status is unknown at th is time. This note serves as discharge from therapy. Patient did not return due to resolved symptoms. At this time we find it necessary to disc harge this patient from therapy services. The last progress note will serve as objective status for purposes of discharge. Electronically signed by: Trina Garibay PT, 02/12/2015 18:00 Patient Name: Zuleyma Jenkins/: 1970/ documented in [...]
--- OUTSIDE RECORDS SUMMARY | ~2019-03-27 | XMS | Encounter Summary ---
Demographics + + + | Address | [address] | | | [place] [address] | + + + | Home Phone | | + + + | Preferred Language | Unknown | + + + | Marital Status | Single | + + + | Jewish Affiliation | 1013 | + + + [...] [facility] | | | and [...] Team Providers + +------+ + | Care Security Installation Technician Name | Role | Phone | [...] | | | | lipedema and | [address] | Therapy [address] | | | | | related | [address] | [address] | | | | | problems | [address] | [place], | | | | | Procedures | [address] | [place] [address] | | | | | lymph eval | [place], [place] | Phone: | | | | | | [address] | [phone] | | | | | | Phone: | Fax: | | | | | | [phone] | [phone] | | | | | | Fax: | | | | | | | [phone] | | +--------+--------+ + + + + Encounter Details +--------+---------+ + + + | Date | Type | Department | Care Team | Description | +--------+---------+ + + + | 11/07/ | Office | [facility] | Enzo Juarez, | Lymphedema, not | | 2013 | Visit | [place] | [place] [address] [place] | elsewhere classified | | | | THERAPY [address] | (Primary Dx) | | | | [place], | [place] [address] | | | | | [place] [address] | [phone] | | | | | [phone] | | | | | | | Shi Garvey, | | | | | | OT [address] | | | | | | [place], [place] | | | | | | [address] | | | | | | | [...] be diffe rent from the original. [facility] CTR THERAPY OT OP [address] [place] [address] Occupational Therapy Daily Treatment Note Date: 11/07/2013 [...] great toe Dec 2002 Dr. Gutiérrez in [facility] Tonsillectomy 1996 [place], [place] Tubal ligation 2004 [facility] Rehab Precautions 10/24/13 Rehab Precautions Precautions [...]
--- OUTSIDE RECORDS SUMMARY | ~2019-03-27 | XMS | Encounter Summary ---
Demographics + + + | Address | [address] | | | [place] [address] | + + + | Home Phone | | + + + | Preferred Language | Unknown | + + + | Marital Status | Single | + + + | Adventist Affiliation | 1013 | + + + | Race | Unknown | + + + | Ethnic Group | Unknown | + + + Author + + + | Author | [facility] | | | and Ezequielana | + + + | Organization | [facility] | | | and [...] Team Providers + +------+ + | Care Seed Laboratory Assistant Name | Role | Phone | + +------+ + | Enzo Juarez DO | PCP | | + +------+ + Encounter Details +--------+ + + + + | Date | Type | Department | Care Team | Description | +--------+ + + + + | 08/08/ | Documentati | [facility] | Trina Hargrove, | | | 2014 | on | MED CTR ACUTE | PT [address] | | | | | PHYSICAL THERAPY | [place] | | | | | [address] | [address] | | | | | [place] [address] | | | | | | [phone] | | | +--------+ + + + [...] Garibay, PT - 08/08/2014 11:22 AM [facility] [address] [place] [address] Cancellation/No Show Date: 08/08/2014 Patient Information Patient [...]
--- OUTSIDE RECORDS SUMMARY | ~2019-03-27 | XMS | Encounter Summary ---
Demographics + + + | Address | [address] | | | [place] [address] | + + + | Home Phone | | + + + | Preferred Language | Unknown | + + + | Marital Status | Single | + + + | Yazdanism Affiliation | 1013 | + + + | Race | Unknown | + + + | Ethnic Group | Unknown | + + + Author + + + | Author | [facility] | | | and Ezequielana | + + + | Organization | [facility] | | | and [...] Team Providers + +------+ + | Care Gamma Ray Operator Name | Role | Phone | + +------+ + | Enzo Juarez DO | PCP | | + +------+ + Encounter Details +--------+ + + + + | Date | Type | Department | Care Team | Description | +--------+ + + + + | 09/05/ | Documentati | [facility] | Jose Cooper MD | | | 2015 | on | GASTROENTEROLOGY | [address] | | | | | [address] [facility] | [place], [place] | | | | | [address] [place] | [address] | | | | | [address] | [phone] | | | | | [phone] | | | +--------+ + + + [...] to medical records to be scanned into [facility]. Copy of pathology letter has been mailed to patient's listed PCP with pathology report if o [facility]. documented in this encounter Plan of Treatment Not on filedocumented as of this encounter Visit Diagnoses Not on filedocumented in this encounter"
--- OUTSIDE RECORDS SUMMARY | ~2019-03-27 | XMS | Encounter Summary ---
Demographics + + + | Address | [address] | | | [place] [address] | + + + | Home Phone [...] Organization | [facility] | | [...] Team Providers + +------+ + | Care Water Mangle Tender Name | Role | Phone | + +------+ + | Enzo Juarez DO | PCP | | + +------+ + Reason for Visit + + + | Reason | Comments | + + + | Follow-up | Facial numbness | + + + Encounter Details +--------+---------+ + + + | Date | Type | Department | Care Team | Description | +--------+---------+ + + + | 08/23/ | Office | [facility] | Marcell Frances | Trigeminal | | 2014 | Visit | NEUROLOGY KAREN Leung MD Need updated | neuropathy (Primary | | | | [address], | address | Dx) | | | | [address] [place] | | | | | | [place] [address] | | | | | | [phone] | | | +--------+---------+ + + + [...] + + + | Blood Pressure | 128/86 | 08/23/2014 11:07 AM | | | | | PDT | | + + + + + | Pulse | 78 | 08/23/2014 11:07 AM | | | | | PDT | | + + + + + | Temperature | - | - | | + + + + + | Respiratory Rate | 14 | 08/23/2014 11:07 AM | | | | | PDT | | + + + + + | Oxygen Saturation | - | - | | + + + + + | Inhaled Oxygen | - | - | | | Concentration | | | | + + + + + | Weight | 103.4 kg (228 lb) | 08/23/2014 11:07 AM | | | | | PDT | | + + + + + | Height | 174 cm (5' 8.5") | 08/23/2014 11:07 AM | | | | | PDT | | + + + + + | Body Mass Index | 34.16 | 08/23/2014 11:07 AM | | | | | PDT | | + + + + + documented in this encounter Patient Instructions Patient Instructions Marcell Frances MD - 08/23/2014 11:28 AM PDT1) Return to neurolo gy as needed Anatomy of the Brain The brain controls [...] supply of blood, brain tissue quickly dies. [id number] [employer]. [address] [place] [address], [place] [address]. All righ ts reserved. This information is not intended as a substitute for professional medical care. Always follow your healthcare professional's instructions. documented in this encounter Progress Notes Marcell Frances MD - 08/23/2014 11:08 AM PDTFormatting of this note might be differen t from the original. Marcell Frances MD [address] [facility], [address] [place] [address] Neurology Outpatient ProgressNote Patient ID: Ms. Jenkins is a 44 y.o. female with a pertinent history of thyroid disease, asthma, depression , MTHFR heterozygosity and Ehler's Danlos type III presenting for further assessment and man agement of facial numbness. Interval History: Since last visit, Ms. Jenkins has continued to have intermittent numbness in the lower 1/3 of h er face. This continues to seem to correlate with when her swelling from her Lipedema is fla ring up. Ms. Jenkins underwent an MRI of the brain was was essentially normal. She is relieved t hat there is "nothing to worry about" and continues to no want treatment for loss of sensati on as it is not painful. She denies any new focal neurologic deficits. Past Medical History: Past Medical History Diagnosis Date Thyroid disease Asthma Depression Gastric reflux Migraine Stomach ulcer Hypothyroidism Lipidemia GERD (gastroesophageal reflux disease) Other lymphedema Abnormal weight gain Cervical spondylosis without myelopathy Memory loss Unspecified circulatory system disorder Mononeuritis of unspecified site Fatigue Generalized anxiety disorder Natalia-Danlos syndrome type III Allergic rhinitis Dermatitis Hidradenitis suppurativa Past Surgical History: Past Surgical History Procedure Laterality Date Right great toe Dec 2002 Dr. Gutiérrez in [facility] Tonsillectomy 1988 [place], [place] Tubal ligation 2004 [facility] Ovary removal Left 01/26/14 Current Medications: Current Medications amitriptyline (ELAVIL) 25 mg tablet (Taking) 2 tablets at night, but up to 4 for neck hilary n flare up, as long as it doesn't cause increased pain. Arginine 1000 MG TABS (Taking) Take by mouth 2 times daily. Ascorbic Acid (VITAMIN C) 1000 MG tablet (Taking) Take 1,000 mg by mouth Daily. B Complex Vitamins (B COMPLEX PO) (Taking) Take by mouth Daily. calcium carbonate (TUMS) 500 mg chewable tablet (Taking) Take 1 tablet by mouth Twice da cherelle as needed. cetirizine (ZYRTEC) 10 mg tablet (Taking) Take 10 mg by mouth nightly. cholecalciferol (VITAMIN D-3) 400 units TABS (Taking) Take 5,000 Units by mouth Daily. [place] Bioflavonoids 1000 MG TABS (Taking) Take by [...] tablet (Taking) Take 20 mg by mouth 2 times daily. Dietary Management Product (VASCULERA) TABS (Taking) Gabapentin, PHN, (GRALISE PO) (Taking) Take 1,800 mg by mouth nightly. [id number]-LDC PO (Taking) Take by mouth Daily. GRAPE SEED (Taking) Take 250 mg by mouth 2 times daily. L-Lysine HCl 1000 MG TABS (Taking) Take [...] PO) (Taking) Take 440 mg by mouth 2 times daily. Multiple Vitamin (MULTI-VITAMIN DAILY PO) (Taking) Take by mouth Daily. naproxen (NAPROSYN) 250 mg tablet (Taking) Take 250 mg by mouth 2 times daily. Jamul-3 Fatty Acids (OMEGA 3 PO) (Taking) Take by mouth. Jamul 3 + COQ10 750mg/50mg BID pantoprazole (PROTONIX) 40 mg tablet (Taking) Take 20 mg by mouth Daily. polyethylene glycol (MIRALAX) powder (Taking) Take 17 g by mouth as needed. QUERCETIN PO (Taking) Take 400 mg by mouth 2 times daily. ranitidine (ZANTAC) 300 MG tablet (Taking) Take 300 mg by mouth nightly. Resveratrol 250 MG CAPS (Taking) Take 250 mg by mouth 2 times daily. selenium sulfide (SELSUN) 2.5% lotion (Taking) Take 600 mcg by mouth Daily as needed (tab let). Turmeric, Curcuma Longa, (CURCUMIN) (Taking) Take 1,000 mg by mouth 2 times daily. Allergies: Allergies Allergen Reactions Blue Dyes (Parenteral) The dye that they use for CT Scan Ketoprofen Abdominal pain, Prednisone Sulfa Antibiotics Social History: History Social [...] abuse Maternal Grandfather Allergies Daughter Asthma Daughter Review of Systems: GENERALLY: No fever, no night sweats, no anemia, + fatigue, no recent profound weight lenin nges. CARDIOVASCULAR: No heart attacks, no heart murmur, no heart fluttering, no chest pain, no ankle swelling. LUNG DISEASE: + shortness of breath, no cough, no tuberculosis, no bloody cough, + asthma , no emphysema/COPD. Examination: BP 128/86 | Pulse 78 | Resp 14 | Ht 1.74 m (5' 8.5") | Wt 103.42 kg (228 lb) | BMI 34. 16 kg/m2 Neck Circumference: 14 1/4" [place] Sleepiness Scale: 8 General: well developed and [...] normal 5/5 strength in all tested muscle groups Gait: Normal base, stride and turn. Radiographic Review: MRI BRAIN W WO CONTRAST 08/02/2014 11:28 AM HISTORY: Bilateral trigeminal neuropathy. COMPARISON: None. PROTOCOL: MRI of the brain was obtained with the following sequences: Sagittal T1, axial T2, axial T2 FLAIR fat sat, axial T1, axial diffusion weighted, axial GRE, axial T1 post gadolinium, coronal T1 post gadolinium, sagittal T1 post gadolinium. MRI of the brainstem was acquired with the following sequences: Axial T1, axial T1 post gadolinium, coronal T1 fat sat post gadolinium, oblique sagittal T1 fat sat post gadolinium. The patient was administered 10 cc Gadavist. FINDINGS: The brain parenchyma shows no evidence for acute infarct, mass lesion, or hemorrhage. The brainstem is unremarkable. The bilateral fifth cranial nerves have a normal appearance with no abnormal enhancement. The cerebellum is normal. The pituitary gland has a normal appearance. The right lateral ventricle is mildly larger than the left. Normal vascular flow voids are seen. The orbits are normal. There is moderate mucosal thickening of the right frontal sinus and anterior ethmoid sinus. Mild to moderate mucosal thickening are in the maxillary sinuses. Mastoid air cells are normal. Calvarium, temporal bones, and skull base structures are unremarkable. IMPRESSION - No acute findings, no abnormal signal of bilateral fifth cranial nerves. Paranasal sinus disease. Dictated and Signed by: Waldo Restrepo MD Electronically signed: 08/02/2014 1:03 PM Laboratory Review: Component Latest Ref Rng 07/25/2014 Total protein 6.0-7.8 g/dL 5.9 (L) ELP Albumin 3.6-5.7 g/dL 3.9 ELP Alpha 1 Globulin 0.1-0.2 g/dL 0.1 ELP Alpha 2 Globulin 0.4-0.9 g/dL 0.6 ELP Beta 1 Globulin 0.3-0.7 g/dL 0.4 ELP Beta 2 Globulin 0.1-0.4 g/dL 0.2 ELP Gamma Globulin 0.4-1.2 g/dL 0.6 ELP Albumin % 66.4 Albumin/Globulin ratio 2.0 ELP Alpha 1 Globulin % 2.5 ELP Alpha 2 Globulin % 10.7 ELP Beta 1 Globulin % 6.3 ELP Beta 2 Globulin % 3.7 ELP Gramma Globulin % 10.4 Interpretation See scanned report. . . . TSH 0.34-5.60 uIU/mL 1.65 Methylmalonic Acid, S 0.00 - 0.40 umol/L <0.20 Vitamin B12 180-914 pg/mL 5087 (H) Treponema Pallidum Ab RPR, Qual Non-Reactive Non-Reactive Vitamin B6 4.0 - 40.0 ng/mL 41.2 (H) COPPER 70 - 140 ug/dL 95 Assessment: Zuleyma Jenkins is a 44 y.o. female with a history of thyroid disease, asthma, depression, M THFR heterozygosity and Ehler's Danlos type III presenting for further assessment and manage ment of facial numbness. 1) Facial numbness: No 5th nerve pathology seen. May relate to swelling of lipid component of myelin sheath (as part of Lipedema?) causing paresthesias. Plan: 1) No further neurologic work up required 2) patient will return to neurology if paresthesias of face become painful, or new symptoms occur. I spent 25 minutes in visitation with Zuleyma Jenkins today with the majority of time spent counselling the patient on her diagnosis, options for her care, and coordinating her care. Electronically signed by: Marcell Frances MD, 08/23/2014 11:22 documented in th is encounter Plan of Treatment Not on filedocumented as of this encounter Procedures + +--------+ + + + | Procedure Name | Priori | Date/Time | Associated Diagnosis | Comments | | | ty | | | | + +--------+ + + + | SURGICAL PATHOLOGY | Routin | 08/29/2014 | | Results for this | | EXAM | e | 12:00 AM | | procedure are in the | | | | PDT | | results section. | + +--------+ + + + documented in this encounter Results Surgical Pathology Exam (08/29/2014 12:00 AM PDT) + + | Specimen | + + | | + + + + + | Narrative | Performed At | + + + | SPECIMEN(S): A GASTRIC BIOPSY SPECIMEN(S): B GE JUNCTION | [facility] | | SPECIMEN SOURCE: A. GASTRIC BIOPSY B. GE JUNCTION CLINICAL | [facility] | | HISTORY: 578.1 (blood in stool), 792.1 (nonspecific abnormal findings | | | in stool contents), 789.07 (abdominal pain, generalized), 787.01 | | | (nausea with vomiting), 784.1 (throat pain), 278.00 (obesity, | | | unspecified) MICROSCOPIC DESCRIPTION: Histologic sections of all | | | submitted blocks are examined by light microscopy. These findings, | | | together with the gross examination, support the pathologic diagnosis. | | | A. A Helicobacter pylori immunostain is performed on (A1) with | | | appropriate positive and negative controls and is negative for | | | organisms. B. An Alcian blue / PAS stained section is performed on | | | (B1) with appropriate positive and negative controls and is negative | | | for specialized intestinal metaplasia. [facility] FINAL PATHOLOGIC | | | DIAGNOSIS: A. Gastric biopsy: - Benign gastric mucosa with focal | | | slight foveolar hyperplasia and slight reactive epithelial features | | | including focal chronic inflammation. - A Helicobacter pylori | | | immunostain is negative for organisms. B. Gastroesophageal | | | junction, biopsy: - Gastroesophageal junction with reactive | | | epithelial features and mild to moderate chronic inflammation. - An | | | Alcian blue / PAS stained section is negative for specialized | | | intestinal metaplasia. - Negative for dysplasia. [facility] | | | GROSS DESCRIPTION: The specimen is received in two parts. A. | | | The specimen is labeled and designated "Jenkins, [place]ana, gastric | | | biopsy". Received in formalin are five pink-britt colored tissue | | | fragments, 0.2-0.5 cm, all into (A1). B. The specimen is labeled | | | and designated "Jenkins, [place], GE junction biopsy". Received in | | | formalin are three britt colored tissue fragments, 0.3 cm, all into | | | (B1). yt:[facility] ADDITIONAL NOTES: Immunohistochemical studies | | | were performed on this case with the appropriate negative and positive | | | controls that react as expected. This test was developed and its | | | performance characteristics determined by [facility]. It | | | has not been cleared or approved by the U.S. Food and Drug | | | Administration. The FDA has determined that such clearance or | | | approval is not necessary. This test is used for clinical purposes. | | | It should not be regarded as investigational or for research. | | | [facility] is certified under the Clinical Laboratory | | | Improvement Amendments of 1988 (CLIA) as qualified to perform high | | | complexity clinical laboratory testing. PERFORMING LABORATORY: | | | Tissue processing and slide preparation were performed by [facility] | | | [facility]ostics, [address] [place] [address], [address], [place] [address] | | | (Customer Care Coordinator: Jose Collazo M.D. CLIA#: [id number]). | | | Professional interpretation was performed by [facility], | | | [facility], [facility] | | | [place] [address] (Customer Care Coordinator: Jose Collazo M.D.; CLIA#: | | | [id number]). Diagnostician: Jose Collazo MD Pathologist | | | Electronically Signed 08/30/2014 | | + + + + +---------+ + + | Performing | Address | City/State/Zipcode | Phone Number | | Organization | | | | + +---------+ + + | [facility] | | | | | [facility] | | | | + +---------+ + + documented in this encounter Visit Diagnoses + + | Diagnosis | + + | Trigeminal neuropathy - Primary Trigeminal nerve disorder, unspecified | + + documented in this encounter
--- OUTSIDE RECORDS SUMMARY | ~2019-03-27 | XMS | Encounter Summary ---
Demographics + + + | Address | [address] | | | [place] [address] | + + + | Home Phone | | + + + | Preferred Language | Unknown | + + + | Marital Status | Single | + + + | Christianity Affiliation | 1013 | + + + | Race | Unknown | + + + | Ethnic Group | Unknown | + + + Author + + + | Author | [facility] | | | and [place] | + + + | Organization | [facility] | | | and [place] [...] Providers + +------+ + | Care Security Incident Response Specialist Name | Role | Phone | + +------+ + | Enzo Juarez DO | PCP | | + +------+ + Reason for Visit + + + | Reason | Comments | + + + | Follow-up | banding #3 | + + + Service/Procedure (Routine) +--------+ [...] | | | without | [address] | [place], | | | | | mention of | [place], [place] | [place] [address] | | | | | complication | [address] | Phone: | | | | | Hemorrhage | Phone: | [phone] | | | | | of rectum | [phone] | Fax: | | | | | and anus | Fax: | [phone] | | | | | Procedures | [phone] | | | | | | [place] [...] Description | +--------+---------+ + + + | 04/12/ | Office | [facility] | Jose Cooper MD | Internal hemorrhoids | | 2015 | Visit | GASTROENTEROLOGY | [address] | (Primary Dx) | | | | [address] [facility] | [place], [place] | | | | | [address] [place], [place] | [address] | | | | | [address] | [phone] | | | | | [phone] | | | +--------+---------+ + + + [...] + + + | Blood Pressure | 122/60 | 04/12/2015 4:08 PM | | | | | PST | | + + + + + | Pulse | 82 | 04/12/2015 4:08 PM | | | [...] + + + + | Weight | 108.9 kg (240 lb) | 04/12/2015 4:08 PM | | | | | PST | | + + + + + | Height | 172.7 cm (5' 8") | 04/12/2015 4:08 PM | | | | | PST | | + + + + + | Body Mass Index | 36.49 | 04/12/2015 4:08 PM | | | | | PST | | + + + + + documented in this encounter Progress Notes Jose Cooper MD - 04/18/2015 8:51 AM PST Subjective: Patient ID: Zuleyma Jenkins is a [...] Diagnosis | + + | Internal hemorrhoids - Primary Internal hemorrhoids without mention of complication | + + documented in this encounter
--- OUTSIDE RECORDS SUMMARY | ~2019-03-27 | XMS | Encounter Summary ---
Demographics + + + | Address | [address] | | | [place] [address] | + + + | Home Phone [...] | [facility] | | | and [...] Team Providers + +------+ + | Care Grading Clerk Name | Role | Phone | + +------+ + | Enzo Juarez DO | PCP | | + +------+ + Encounter Details +--------+ + + + + | Date | Type | Department | Care Team | Description | +--------+ + + + + | 02/12/ | Documentati | [facility] | Trina Hargrove, | | | 2014 | on | MED CTR THERAPY PT | PT [address] | | | | | OP [address] | [place] | | | | | [place] | [id number] | | | | | [address] | | | | | | [phone] | | | +--------+ + + + [...] be different from t he original. [facility] THERAPY PT OP [address] [place] [address] Physical Therapy Discharge Note This discharge is [...]
--- OUTSIDE RECORDS SUMMARY | ~2019-03-27 | XMS | Encounter Summary ---
Demographics + + + | Address | [address] | | | [place] [address] | + + + | Home Phone | | + + + | Preferred Language | Unknown | + + + | Marital Status | Single | + + + | Hindu Affiliation | 1013 | + + + | Race | Unknown | + + + | Ethnic Group | Unknown | + + + Author + + + | Author | [facility] | | | and [place] | + + + | Organization | [facility] | | | and [place] [...] Team Providers + +------+ + | Care Pad Making Machine Operator Name | Role | Phone | + +------+ + | Enzo Juarez DO | PCP | | + +------+ + Encounter Details +--------+ + + + + | Date | Type | Department | Care Team | Description | +--------+ + + + + | 07/25/ | Hospital | [facility] | Marcell Frances | Peripheral | | 2014 | Encounter | MED CTR LABORATORY | MD Xochitl Need updated | neuropathy | | | | [address] | address | | | | | [place] | | | | | | [address] | | | | | | [phone] | | | +--------+ + + + [...] + + + +---------+ + + | Allen | Take by mouth | | 0 [...] + + + +---------+ + + | Brentford-3 Fatty | Take by mouth. | | 0 | | | | Acids (OMEGA 3 PO) | [place] 3 + COQ10 | | | | [...] | | | 5 | | | [place] with Grape | | | | | [...] [place] | | | | | | [address] | | | | + + + + + + + + | Specimen | + + | Blood specimen | | (specimen) | + + + + + + + | Performing | Address | City/State/Zipcode | Phone Number | | Organization | | | | + + + + + | [facility] | [address] | [place] [address] | [phone] | + + + + + Vitamin [...] Vitamin | | | | | | M2fotdghdlauj.This test | | | | | | [...] [place] | | | | | | [address] | | | | + + + + + + + + | Specimen | + + | Blood specimen | | (specimen) | + + + + + + + | Performing | Address | City/State/Zipcode | Phone Number | | Organization | | | | + + + + + | [facility] | [address] | [place] [address] | [phone] | + + + + + Rapid [...] ST. | [address] | [place] | [phone] | | [facility] | | [address] | | | - LABORATORY | | [...] ST. | [address] | [place] | [phone] | | [facility] | | [address] | | | - LABORATORY | | [...] + | [facility] | [address] | [place] | [phone] | | [facility] | | [address] | | | - LABORATORY | | [...] [place] | | | | | | [address] | | | | + + + [...] [address] | [place] [address] | [phone] | + + + + + TSH [...] [address] | [place] | [phone] | | [facility] | | [address] | | | - LABORATORY | | | | + + + + + documented in this encounter Visit Diagnoses + + | Diagnosis | + + | Peripheral neuropathy Unspecified hereditary and idiopathic peripheral neuropathy | + + documented in this encounter"
--- OUTSIDE RECORDS SUMMARY | ~2019-03-27 | XMS | Encounter Summary ---
Demographics + + + | Address | [address] | | | [place] [address] | + + + | Home Phone | | + + + | Preferred Language | Unknown | + + + | Marital Status | Single | + + + | Congregation Affiliation | 1013 | + + + | Race | Unknown | + + + | Ethnic Group | Unknown | + + + Author + + + | Author | [facility] | | | and [place] | + + + | Organization | [facility] | | | and [...] Team Providers + +------+ + | Care Adobe Developer Name | Role | Phone | + [...] Rehabilitatio | subluxation | MD [place] | [place] | | | | n | of left | [address] | [place], | | | | | shoulder, | [place] | [place] [address] | | | | | initial | [place], | Phone: | | | | | encounter | [place] [address] | [phone] | | | | | Left hip | Phone: | Fax: | | | | | subluxation, | [phone] | [phone] | | | | | initial | Fax: | | | | | | encounter | [phone] | | | | | | (HCC) [...] + + | 07/05/ | Office | [facility] | Taran Archuleta | Shoulder pain, | | 2014 | Visit | MED CTR THERAPY PT | MD [address] | bilateral (Primary | | | | OP [address] | [place] | Dx); Hip pain, | | | | [place], [place] | [place] [address] | bilateral; Chronic | | | | [address] | [phone] | neck and back pain | | | | [phone] | | | | | | | Trina Hargrove, PT | | | | | | [address] | | | | | | [place], [place] | | | | | | [address] | | | | | | | [...] 1: Independent with home exercise program for skilled nursing joint and spine health and pre vention of recurrence of symptoms or chronicity. Goal 1 Status: initiated stabilization HEP Treatment Plan/Interventions: 65767 PT Evaluation, 31173 Therapeutic Exercise, 32157 Therapeutic Activity, 82359 Neuromus cular Re-education, 35481 Self Care/Home Management, 32492 Manual Therapy Requested # of Visits: 24 2x/wk for 12 weeks Certification From: 07/05/14 Certification To: 09/28/14 Trina Garibay, PT Patient Name: Zuleyma Jenkins/: 1970/ Trina Riley , PT - 07/05/2014 2:09 PM PST [facility] [facility] THERAPY PT OP [address] [place] [address] Physical Therapy Initial Assessment Date: 07/05/2014 Patient [...] Date Right great toe Dec 2002 Dr. Gutiérerz in [facility] Tonsillectomy 1995 [place], [place] Tubal ligation 2004 [facility] Allergies Allergen Reactions Blue Dyes (Parenteral) The dye that they use for CT Scan Prednisone Sulfa Antibiotics Rehab Precautions Office Visit from 10/24/2013 in [facility] [place] [facility] THERAPY OT OP Rehab Precautions Precautions Comments [...] 4/5 4/5 Finger ABD (T1): 4/5 4/5 Phy Therapist Strength: 4/5 4/5 Deep Neck Flexors: (normal [...] ambulate for 60 min or greater over mountainside hospital terrain without pain or limitations. Primary Functional Goal 3 Status Comment: unable to tolerate varied terrain OP PT Goals OP PT Goals: Goal 1 Goal 1: Independent with home exercise program for skilled nursing joint and spine health and pre vention of recurrence of symptoms or chronicity. Goal 1 Status: initiated stabilization HEP PLAN: Requested # of Visits: 24 2x/wk for 12 weeks Certification From: 07/05/14 Certification To: 09/28/14 Start of Care Date: 07/05/14 Treatment Plan/Interventions 24759 PT Evaluation, 75104 Therapeutic Exercise, 40604 Therapeutic Activity, 07844 Neuromus cular Re-education, 35295 Self Care/Home Management, 97090 Manual Therapy Patient and/or family has indicated [...] hooklying alt. Leg lift 2x20 Supine: shoulder mi'kmaq stab. 2x10 each Applied Kineso tape to [...]
--- OUTSIDE RECORDS SUMMARY | ~2019-03-27 | XMS | Encounter Summary ---
Demographics + + + | Address | [address] | | | [place] [address] | + + + | Home Phone [...] + | Organization | [facility] | | | and [...] Team Providers + +------+ + | Care Finish Remover Name | Role | Phone | + +------+ + | Enzo Juarez DO | PCP | | + +------+ + Encounter Details +--------+ + + + + | Date | Type | Department | Care Team | Description | +--------+ + + + + | 07/26/ | Abstract | [facility] [place] | [facility], | | | 2014 | | GASTROENTEROLOGY | JERARDO Carranza [address] | | | | | [address] [place] | [place], [address] | | | | | [address] [place], [place] | [place] | | | | | [address] | [address] | | | | | [phone] | | | +--------+ + + + [...]
--- OUTSIDE RECORDS SUMMARY | ~2019-03-27 | XMS | Encounter Summary ---
Demographics + + + | Address | [address] | | | [place] [address] | + + + | Home Phone | | + + + | Preferred Language | Unknown | + + + | Marital Status | Single | + + + | Moravian Affiliation | 1013 | + + + | Race | Unknown | + + + | Ethnic Group | Unknown | + + + Author + + + | Author | [facility] | | | and Ezequielana | + + + | Organization | [facility] | | | and [...] Team Providers + +------+ + | Care Special Events Director Name | Role | Phone | + [...] + + | 08/23/ | Office | [facility] | Marcell Frances | Trigeminal | | 2014 | Visit | NEUROLOGY KAREN Leung MD Need updated | neuropathy (Primary | | | | [address], | address | Dx) | | | | [address] [place] | | | | | | [place] [address] | | | | | | [phone] | | | +--------+---------+ + + + [...] supply of blood, brain tissue quickly dies. [id number] [employer]. [address] [place] [address], [place] [address]. All righ ts reserved. This information is not intended as a substitute for professional medical care. Always follow your healthcare professional's instructions. documented in this encounter Progress Notes Marcell Frances MD - 08/23/2014 11:08 AM PDTFormatting of this note might be differen t from the original. Marcell Frances MD [address] [facility], [address] [place] [address] Neurology Outpatient ProgressNote Patient ID: Ms. Jenkins [...] great toe Dec 2002 Dr. Gutiérrez in [facility] Tonsillectomy 1988 [place], [place] Tubal ligation 2004 [facility] Ovary removal Left 01/26/14 Current Medications: Current [...] (Taking) Take 5,000 Units by mouth Daily. Banks Bioflavonoids 1000 MG TABS (Taking) Take by [...] (Taking) Take 1,800 mg by mouth nightly. AMZUINNIABU-HKNVCKWDJVC-QYW PO (Taking) Take by mouth Daily. GRAPE [...] 250 mg by mouth 2 times daily. [place]-3 Fatty Acids (OMEGA 3 PO) (Taking) Take by mouth. [place] 3 + COQ10 750mg/50mg BID pantoprazole (PROTONIX) [...] 34. 16 kg/m2 Neck Circumference: 14 1/4" [place] Sleepiness Scale: 8 General: well developed and [...] | | | for specialized intestinal metaplasia. [facility] FINAL PATHOLOGIC | | | DIAGNOSIS: A. [...] | intestinal metaplasia. - Negative for dysplasia. [facility]VR:[facility]:C2NR | | | GROSS DESCRIPTION: The specimen [...] cm, all into | | | (B1). yt:[facility] ADDITIONAL NOTES: Immunohistochemical studies | | | were performed on this case with the appropriate negative and positive | | | controls that react as expected. This test was developed and its | | | performance characteristics determined by [facility]. It | | | has not been cleared or approved by the U.S. Food and Drug | | | Administration. The FDA has determined that such clearance or | | | approval is not necessary. This test is used for clinical purposes. | | | It should not be regarded as investigational or for research. | | | [facility] is certified under the Clinical Laboratory | | | Improvement Amendments of 1988 (CLIA) as qualified to perform high | | | complexity clinical laboratory testing. PERFORMING LABORATORY: | | | Tissue processing and slide preparation were performed by [facility] | | | [facility], [address] [place] [address], [address], [place] [address] | | | (Green Building Design Specialist: Jose Collazo M.D. CLIA#: [id number]). | | | Professional interpretation was performed by [facility], | | | [facility], [facility] | | | [place] [address] (Green Building Design Specialist: Jose Collazo M.D.; CLIA#: | | | [id number]). Diagnostician: Jose Collazo MD Pathologist | | [...]
--- OUTSIDE RECORDS SUMMARY | ~2019-03-27 | XMS | Encounter Summary ---
Demographics + + + | Address | [address] | | | [place] [address] | + + + | Home Phone [...] + + + | Author | [facility] | | | and Ezequielana | + + + | Organization | [facility] | | | and [...] Team Providers + +------+ + | Care Tailman Name | Role | Phone | + [...] Rehabilitatio | Myofascial | MD Zaire | [place] | | | | n | muscle pain | [address] | [address] | | | | | Facet | [place] | [place] [address] | | | | | arthritis of | [place], | Phone: | | | | | cervical | [place] [address] | [phone] | | | | | region | Phone: | Fax: | | | | | Procedures | [phone] | [phone] | | | | | pt eval | Fax: | | | | | | | [phone] | | +--------+ + + + + [...] | | | Rehabilitatio | spondylosis | [address] | MD [place]aire | | | | n | without | [address] | [address] | | | | | myelopathy | [address] | [place] | | | | | Procedures | [address] | [place] | | | | | [place] OFFICE | [place] | [address] Phone: | | | | | CONSULTATION | [address] | [phone] | | | | | NEW/ESTAB | Phone: | Fax: | | | | | PATIENT 60 | [phone] | [phone] | | | | | MIN | Fax: | | | | | | | [phone] | | +--------+--------+ + + + + [...] | | MEDICINE [address] | [place] | muscle pain; Facet | | | | [address] [place] | [place] [address] | arthritis of | | | | [place] [address] | [phone] | cervical region; | | | | [phone] | | Lymphedema | +--------+---------+ + + [...] which ones would work best for you: [email or web address] : Co mfor trac cervical traction unit, [...] 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 We discussed craieu t how lipedema makes her more susceptible [...] his primary care physician. She lives in [place]. She has not worked for several years, after being laid off in the [employer] and so stayed home and raised her [...] 5 over 5 for shoulders, elbows, wrists, scrap bunch maker, interossei and normal sensation except decreased digits [...] + | MISCELLANEOUS LAB | | | [phone] | + +---------+ + + | MISCELANIOUS LAB | | | [phone] | + +---------+ + + documented in [...]
--- OUTSIDE RECORDS SUMMARY | ~2019-03-27 | XMS | Encounter Summary ---
Demographics + + + | Address | [address] | | | [place] [address] | + + + | Home Phone [...] + + + | Author | [facility] | | | and Ezequielana | + + + | Organization | [facility] | | | and Ezequielana | [...] Team Providers + +------+ + | Care Web Development Manager Name | Role | Phone | [...] | | | | | [place] | [place] | [place] [address] | | | | | s syndrome | [place], | Phone: | | | | | type III | [place] [address] | [phone] | | | | | Shoulder | Phone: | Fax: | | | | | subluxation, | [phone] | [phone] | | | | | unspecified | Fax: | | | | | | laterality, | [phone] | | | | | | sequela [...] + | 08/02/ | Office | [facility] | KatheTaran | Myofascial muscle | | 2015 | Visit | REHABILITATION | MD [address] | pain (Primary Dx); | | | | MEDICINE [address] | [place] | [place] | | | | [address] [place] | [place] [address] | syndrome type III; | | | | [place] [address] | [phone] | Shoulder | | | | [phone] | | subluxation, | | | | [...] 4:50 PM PDTI spent over 25 minutes, whwq-qf-kucz patient, most of which was spent answering multiple questions and educating regarding her [facility]. I also reviewed the vosot [...]
--- OUTSIDE RECORDS SUMMARY | ~2019-03-27 | XMS | Encounter Summary ---
Demographics + + + | Address | [address] | | | [place] [address] | + + + | Home Phone | | + + + | Preferred Language | Unknown | + + + | Marital Status | Single | + + + | Bahai Affiliation | 1013 | + + + | Race | Unknown | + + + | Ethnic Group | Unknown | + + + Author + + + | Author | [facility] | | | and Ezequielana | + + + | Organization | [facility] | | | and [...] Team Providers + +------+ + | Care Material Checker Name | Role | Phone | + [...] + + | 11/29/ | Office | [facility] | Taran Archuleta | Cervical facet | | 2013 | Visit | REHABILITATION | MD [address] | syndrome (Primary | | | | MEDICINE [address] | [place] | Dx); Myofascial | | | | [address] [place] | [place] [address] | muscle pain; | | | | [place] [address] | [phone] | Lymphedema; Ulnar | | | | [phone] | | neuropathy, | | | | | | unspecified | | | | | | laterality | +--------+---------+ + + + Social History [...] + + + | Blood Pressure | 127/82 | 11/29/2013 2:38 PM | | | | | PDT | | + + + + + | Pulse | 98 | 11/29/2013 2:38 PM | | | | | PDT | | + + + + + | Temperature | - | - | | + + + + + | Respiratory Rate | 18 | 11/29/2013 2:38 PM | | | | | PDT | | + + + + + | Oxygen Saturation | - | - | | + + + + + | Inhaled Oxygen | - | - | | | Concentration | | | | + + + + + | Weight | 108 kg (238 lb) | 11/29/2013 2:38 PM | | | | | PDT | | + + + + + | Height | 174 cm (5' 8.5") | 11/29/2013 2:38 PM | | | | | PDT | | + + + + + | Body Mass Index | 35.66 | 11/29/2013 2:38 PM | | | | | PDT | | + + + + + documented in this encounter Patient Instructions Patient Instructions Taran Archuleta MD - 11/29/2013 3:14 PM PDT1. I will switc h you to 25mg of the amitriptyline, so you can take 2 at night, but 2.5 or 3 for flare ups. But watch for sedation in the morning with higher doses. 2. Cold packs to neck for flare up of neck pain 3. Alleve, 2 tablets twice a day with food for flare ups, but usually 1 twice a day. 4. See PT for the neck traction. Try a cold pack to neck after starting the traction to p revent a flare up. 5. Burning in lateral thighs due to meralgia paresthetica (lateral femoral cutaneous neuro tsering) documented in this encounter Progress Notes Taran Archuleta MD - 12/07/2013 1:57 PM PDTI spent a total of over 25 minutes fa ce to face with the patient, over half in education and setting up plan of care The x-ray from October 31, 2013 was reviewed with the patient and it does show extensive facet arthritis as from C2-C5 but only mild neural narrowing. This corresponds to her area of ne ck pain and thus I think the neck traction they are setting up should help. The flexion and extension views of the x-ray did not show any instability. She did switch from the ketoprofen into alleve and is taking 1 twice a day and she had incr eased overall body pain for a few days with the switch now back to baseline. She has not us ed cold much yet and I educated her about that again. Sleep: She is up to 50 mg of Elavil at bedtime and no sedation in the morning and definitel y helps her to sleep. Thus I thought she was at a good dose and did not need to escalate E xcept for flareups. Neck pain 6-10 on a scale of 10 when it occurs but not as frequently. No radiation into th e arms, but she has chronic burning in the forearms and digit 4 and 5 bilaterally. 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 No specific weakness in her arms Physical exam: She is in no distress, compression garments are off today being washed. However her edema does not appear to be severe and the garments appear to be controlling it Upper extremity strength 5 over 5 except right interossei 4+. Decreased sensation in digit s 4 through 5 bilaterally as well as in the toes, mostly toes #4. Also decreased in the lef t lateral thigh in the lateral femoral cutaneous nerve distribution. Still increased tone and discomfort from the occiput and down into the upper thoracic aroun d T4. Impression: Chronic episodic neck pain: X-rays support it is a facet syndrome since she has facet probl ems that are extensive all the way up to cervical #2. Thus the neck traction will hopefully will be beneficial but she needs to use it regularly and not with flareups without taking m uscle relaxants and cold packs to control it first and this was discussed with her. Cervical and thoracic myofascial syndrome: Sleeping better on the Elavil and pain appears s omewhat better. 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 Mechani sm of this was discussed with the patient and probably related to her garments and edema in this case also. Gabapentin helps with this also. Plan: Followup four weeks Consider nerve conduction study of ulnar neuropathy if not better Aleve 2 tablets twice a day with flareups Cold with flareups and before neck traction and after to prevent post traction flareups Physical therapy to set up neck traction unit and other myofascial release treatments Continue Elavil 50 mg at bedtime, I will switch to 25 mg tablets so she can take up to 3 ta blets for flareups. documented in this encounter Plan of Treatment Not on filedocumented as of this encounter Visit Diagnoses + + | Diagnosis | + + | Cervical facet syndrome - Primary Other symptoms referable to back | + + | Myofascial muscle pain Mylagia and myositis, unspecified | + + | Lymphedema Other lymphedema | + + | Ulnar neuropathy, unspecified laterality | + + documented in this encounter
--- OUTSIDE RECORDS SUMMARY | ~2019-03-27 | XMS | Encounter Summary ---
Demographics + + + | Address | [address] | | | [place] [address] | + + + | Home Phone | | + + + | Preferred Language | Unknown | + + + | Marital Status | Single | + + + | Mu-Ism Affiliation | 1013 | + + + | Race | Unknown | + + + | Ethnic Group | Unknown | + + + Author + + + | Author | [facility] | | | and Ezequielana | + + + | Organization | [facility] | | | and [...] Team Providers + +------+ + | Care Regional Truck Driver Name | Role | Phone | + [...] Rehabilitatio | subluxation | MD [place] | [place] | | | | n | of left | [address] | [place], | | | | | shoulder, | [place] | [place] [address] | | | | | initial | [place], | Phone: | | | | | encounter | [place] [address] | [phone] | | | | | Left hip | Phone: | Fax: | | | | | subluxation, | [phone] | [phone] | | | | | initial | Fax: | | | | | | encounter | [phone] | | | | | | (HCC) [...] + + | 08/11/ | [facility] Taran Archuleta | Chronic neck and | | 2014 | Visit | [facility] PT | MD [address] | back pain (Primary | | | | OP [address] | [place] | Dx); Hip pain, | | | | [place], [place] | [place] [address] | bilateral | | | | [address] | [phone] | | | | | [phone] | | | | | | | Lulú Callahan R, | | | | | | TON CONTAINER SHIPPER [address] | | | | | | [place] | | | | | | [address] | | | | | | [phone] | | | | | | | [...] of this encounter Progress Notes Lulú Callahan, TON CONTAINER SHIPPER - 08/11/2014 10:41 AM PDTFormatting of this note might be different f rom the original. [facility] PT OP [address] [place] [address] Physical Therapy Daily Treatment Note Date: 08/11/2014 Patient Information Patient Name: Zuleyma Jenkins Date of : 1970 Age: 44 y.o. Encounter Diagnoses Code Name Primary? 723.1, 724.5 Chronic neck and back pain Yes 719.45 Hip pain, bilateral Date of Onset: Referring Provider: Taran Archuleta MD Rehab Precautions Office Visit from 10/24/2013 in [facility] OT OP Rehab Precautions Precautions [...] alt. Leg lift 2x20 2x20 Supine: shoulder andreafski stab. 2x10 each 2x10 each Supine: shoulder. [...]
--- OUTSIDE RECORDS SUMMARY | ~2019-03-27 | XMS | Encounter Summary ---
Demographics + + + | Address | [address] | | | [place] [address] | + + + | Home Phone | | + + + | Preferred Language | Unknown | + + + | Marital Status | Single | + + + | Anabaptist Affiliation | 1013 | + + + | Race | Unknown | + + + | Ethnic Group | Unknown | + + + Author + + + | Author | [facility] | | | and Ezequielana | + + + | Organization | [facility] | | | and Ezequielana [...] Team Providers + +------+ + | Care Agent Contract Clerk Name | Role | Phone | + +------+ + | Enzo Juarez DO | PCP | | + +------+ + Encounter Details +--------+ + + + + | Date | Type | Department | Care Team | Description | +--------+ + + + + | 11/14/ | Documentati | [facility] | Rosa Duenas, | | | 2013 | on | MED CNT ONCOLOGY | OT [address] | | | | | THERAPY [address] | [place], [place] | | | | | [place], | [address] | | | | | [place] [address] | | | | | | [phone] | | | +--------+ + + + [...] Andujar OT - 11/14/2013 1:[facility] [address] [place] [address] Cancellation/No Show Date: 11/14/2013 Patient Information Patient [...]
--- OUTSIDE RECORDS SUMMARY | ~2019-03-27 | XMS | Clinical Summary ---
Demographics + + + | Address | [address] | | | [place] [address] | + + + | Home Phone [...] + | Organization | [facility] | | | [...] Team Providers + +------+ + | Care 4Th Grade Math Teacher Name | Role | Phone | [...] | | | | 14 | paolo. [place] like I | | | | | [...] | | + + + +---------+------+------+-------+ | Eureka-3 Fatty | Take by mouth. | | 0 | | | Activ | | Acids (OMEGA 3 PO) | Eureka 3 + COQ10 | | | | [...] e | + + + +---------+------+------+-------+ | Curry | Take by mouth | | 0 [...] 0 | | | Activ | | D-Vvxlyfecfjdb-Hayzq | daily. | | | | | [...] Patient | Explanation | | | | [place] | | + + + + + | Power of | | | Information Refused | | Operating Theatre Technician | | | | + + + + + | Advance | 10/31/2013 4:02 | | | | Directive | PM | | | + + + + +
--- OUTSIDE RECORDS SUMMARY | ~2019-03-27 | XMS | Encounter Summary ---
Demographics + + + | Address | [address] | | | [place] [address] | + + + | Home Phone | | + + + | Preferred Language | Unknown | + + + | Marital Status | Single | + + + | Faith Affiliation | 1013 | + + + | Race | Unknown | + + + | Ethnic Group | Unknown | + + + Author + + + | Author | [facility] | | | and Ezequielana | + + + | Organization | [facility] | | | [...] Team Providers + +------+ + | Care Coach Name | Role | Phone | + [...] + | 12/20/ | Telephone | [facility] | Jose Cooper MD | Other (hemorrhoid | | 2015 | | GASTROENTEROLOGY | [address] | banding) | | | | [address] [place] | [place], [place] | | | | | [address] [place] | [address] | | | | | [address] | [phone] | | | | | [phone] | | | +--------+ + + + [...]
--- OUTSIDE RECORDS SUMMARY | ~2019-03-27 | XMS | Encounter Summary ---
Demographics + + + | Address | [address] | | | [place] [address] | + + + | Home Phone | | + + + | Preferred Language | Unknown | + + + | Marital Status | Single | + + + | Quaker Affiliation | 1013 | + + + | Race | Unknown | + + + | Ethnic Group | Unknown | + + + Author + + + | Author | [facility] | | | and Ezequielana | + + + | Organization | [facility] | | | and [...] Team Providers + +------+ + | Care Vehicle Upholsterer Name | Role | Phone | + [...] | | MEDICINE [address] | [place] | Dx); Myofascial | | | | [address] [place] | [place] [address] | muscle pain; | | | | [place] [address] | [phone] | Lymphedema; Ulnar | | | | [phone] | | neuropathy, | | | | [...]
--- OUTSIDE RECORDS SUMMARY | ~2019-03-27 | XMS | Encounter Summary ---
Demographics + + + | Address | [address] | | | [place] [address] | + + + | Home Phone | | + + + | Preferred Language | Unknown | + + + | Marital Status | Single | + + + | Yazidism Affiliation | 1013 | + + + | Race | Unknown | + + + | Ethnic Group | Unknown | + + + Author + + + | Author | [facility] | | | and Ezequielana | + + + | Organization | [facility] | | | and Ezequielana [...] Team Providers + +------+ + | Care Naturopathic Physician Name | Role | Phone | + [...] [place], [place] | | | | | GA MOTOR | [place], [place] | [address] Phone: | | | | | &/SENS 1-2 | [address] | [phone] | | | | | NRV CNDJ | Phone: | Fax: | | | | | PRECONF | [phone] | [phone] | | | | | ELTRODE LIMB | Fax: | | | | | | | [phone] | | | | | | EMG/NCS-BLE [...] | (Primary Dx) | | | | [address] [place], | [place], [place] | | | | | [place] [address] | [address] | | | | | [phone] | | | +--------+ + + + [...] Olvera MD - 09/18/2014 11:36 PM PDT [facility] Musculoskeletal, Sports and Spine, Physiatry [address] [address] Test Date: 09/18/2014 Patient Name: Zuleyma Jenkins : 1970 Physician: Celestino Olvera MD MR #: [id number] Sex: Female Referring Physician: Nicolas Archuleta MD [...] (cm) Peter (m/s) Norm Peter (m/s) Left Sup Peron [...] (m/s) R Peter (m/s) L-R Peter (m/s) Sup Peron Anti [...] hesitate to call. Celestino Olvera MD Fellow, [employer]. documented in this encounter Plan of Treatment Not on filedocumented as of this encounter Visit Diagnoses + + | Diagnosis | + + | Paresthesias - Primary Disturbance of skin sensation | + + documented in this encounter
--- OUTSIDE RECORDS SUMMARY | ~2019-03-27 | XMS | Encounter Summary ---
Demographics + + + | Address | [address] | | | [place] [address] | + + + | Home Phone [...] Organization | [facility] | | | and Ezequielana [...] Team Providers + +------+ + | Care Cigarette Roller Name | Role | Phone | + [...] | | | without | [address] | [place], | | | | | mention of | [place], [place] | [place] [address] | | | | | complication | [address] | Phone: | | | | | Hemorrhage | Phone: | [phone] | | | | | of rectum | [phone] | Fax: | | | | | and anus | Fax: | [phone] | | | | | Procedures | [phone] | | | | | | [place] | | | | | | | HEMORRHOIDEC | | | | | | | DIEGO | | | | | | | INTERNAL | | | | | | | RUBBER BAND | | | | | | | LIGATIONS | | | | | | | [place] ANOSCOPY | | | | | | | DX W/COLLJ | | | | | | | SPEC BR/WA | | | | | | | SPX WHEN | | | | | | | PRFRMD [place] | | | | | | | PROCTOSIGMOI | | | | | | | DOSCOPY,RIGI | | | | | | | D,DIAGNOS | | | | | | | [place] OFFICE | | | | | | | OUTPATIENT | | | | | | | VISIT 10 | | | | | | | MINUTES [place] | | | | | | | [...] + + | 04/12/ | Office | [facility] | Jose Cooper MD | Internal hemorrhoids | | 2015 | Visit | GASTROENTEROLOGY | [address] | (Primary Dx) | | | | [address] [facility] | [place], [place] | | | | | [address] [place], [place] | [address] | | | | | [address] | [phone] | | | | | [phone] | | | +--------+---------+ + + + [...]
--- OUTSIDE RECORDS SUMMARY | ~2019-03-27 | XMS | Encounter Summary ---
Demographics + + + | Address | [address] | | | [place] [address] | + + + | Home Phone | | + + + | Preferred Language | Unknown | + + + | Marital Status | Single | + + + | Confucianist Affiliation | [id number] | + + + | Race | Unknown | + + + | Ethnic Group | Unknown | + + + Author + + + | Author | [facility] | | | and Ezequielana | + + + | Organization | [facility] | | | and Ezequielana | [...] Team Providers + +------+ + | Care Party Plan Salesperson Name | Role | Phone | + [...] Trigeminal | Marcell Leung, | [address] | | | | | neuropathy | MD [place] | [place], | | | | | Procedures | updated | [place] | | | | | MRI Brain w | address | [address] | | | | | wo Contrast | | Phone: | | | | | | | [phone] | | | | | | | Fax: | | | | | | | [phone] | +--------+--------+ + + + + Reason [...] Trigeminal | Marcell Leung, | [address] | | | | | neuropathy | MD Need | [place], | | | | | Procedures | updated | [place] | | | | | MRI Brain w | address | [address] | | | | | wo Contrast | | Phone: | | | | | | | [phone] | | | | | | | Fax: | | | | | | | [phone] | +--------+--------+ + + + + Encounter Details +--------+ + + + + | Date | Type | Department | Care Team | Description | +--------+ + + + + | 08/02/ | [facility] | [facility] | Marcell Frances | Trigeminal | | 2015 | Encounter | MED CTR MRI [address] | MD [place] Need updated | neuropathy | | | | [place], | address | | | | | [place] [address] | | | | | | [phone] | | | +--------+ + + + [...] + + + +---------+ + + | [place] | Take by mouth | | 0 [...] + + + +---------+ + + | [place]-3 Fatty | Take by mouth. | | 0 | | | | Acids (OMEGA 3 PO) | [place] 3 + COQ10 | | | | [...] neuropathy. COMPARISON: None. PROTOCOL: MRI of | [facility] | | the brain was [...] + | [address] | [address] | [place] | [phone] | | [facility] | | [address] | | | - IMAGING | | [...]
--- OUTSIDE RECORDS SUMMARY | ~2019-03-27 | XMS | Encounter Summary ---
Demographics + + + | Address | [address] | | | [place] [address] | + + + | Home Phone [...] + + + | Author | [facility] | | | and [place]ielana | + + + | Organization | [facility] | | | and [place]ielana [...] Providers + +------+ + | Care Manager Marketing Sales Name | Role | Phone | + +------+ + | Enzo Juarez DO | PCP | | + +------+ + Encounter Details +--------+ + + + + | Date | Type | Department | Care Team | Description | +--------+ + + + + | 07/05/ | Hospital | [facility] | Taran Archuleta | Left hip | | 2014 | Encounter | MED CTR XRAY [address] | MD [place] [address] | subluxation, initial | | | | [place] | encounter ([facility]) | | | | [place] [address] | [place] [address] | | | | | [phone] | [phone] | | | | | | | [...] + + + +---------+ + + | [place] | Take by mouth | | 0 [...] + + + +---------+ + + | [place]-3 Fatty | Take by mouth. | | 0 | | | | Acids (OMEGA 3 PO) | [place] 3 + COQ10 | | | | [...] | | | 5 | | | [place] | | | | | [...] HIP MRI APRIL 2011 FINDINGS: The | [facility] | | bones are well-mineralized and well [...] [address] | [place] | [phone] | | [facility] | | [address] | | | - IMAGING | | | | + + + + + documented in this encounter Visit Diagnoses + + | Diagnosis | + + | Left hip subluxation, initial encounter (HCC) | + + documented in this encounter"
[~2019-03-27 23:28] MED LIST changes: +DEXTROAMPHETAMI10 M1 PO; +LEVOTHYROXINE200 MCG PO; +LOSARTAN POTAS100 MG PO; +PROAIR HFA8.5 GM INH; +VITAMIN B COMP1 EACH PO
[2019-03-27] MEDS ORDERED: VITAMIN D10000 UNIT PO (23:42)
[2019-03-28] MEDS ORDERED: NORCO 5-325 TA1 EACH PO (00:48)
== END 2019-03-28 01:04 | disposition home or self-care (01) ==
LOC: ED 23:28
DX: N13.2 Hydronephrosis with renal and ureteral calculous obstruction (principal); D72.829 Elevated white blood cell count, unspecified; Z88.8 Allergy status to other drugs, medicaments and biological substances; Z88.2 Allergy status to sulfonamides; Z88.5 Allergy status to narcotic agent; Z79.899 Other long term (current) drug therapy
CPT/HCPCS: 74176; 80053; 81001; 84703; 85025; 96374; 96375; 99284-25; J1170; J1885; J2405

== ENCOUNTER 2019-10-22 20:15 | Emergency (ER) | payer OTHER ==
[~2019-10-22] VITALS: Ht 175.3 cm; Wt 102.1 kg
[~2019-10-22 20:15] MED LIST changes: +VITAMIN D10000 UNIT PO
--- NOTE | 2019-10-23 06:23 | EKG ---
[facility] [address] [facility] [place], [place] [address] Signed Normal sinus rhythm Normal ECG When compared with ECG of 08-JUN-2018 15:06, No significant change was found Confirmed by KAREN PORRAS MD ([id number]) on 10/23/2019 6:23:02 AM Electronically Signed By: KAREN PORRAS MD 10/23/19622 PATIENT NAME: JUAN JOSE CARROLL Electrocardiogram DATE OF : 72 PHYSICIAN: KAREN PORRAS MD REPORT #: [id number] REPORT IS CONFIDENTIAL AND NOT TO BE RELEASED WITHOUT AUTHORIZATION
== END 2019-10-22 22:41 | disposition home or self-care (01) ==
LOC: ED 20:15
DX: R20.2 Paresthesia of skin (principal); I10 Essential (primary) hypertension; Z87.891 Personal history of nicotine dependence; Z88.8 Allergy status to other drugs, medicaments and biological substances; Z88.2 Allergy status to sulfonamides; Z79.899 Other long term (current) drug therapy
CPT/HCPCS: 70450; 80053; 84484; 85025; 85610; 85730; 93005; 93010; 93880; 96374; 96375; 99284-25; J1200; J2765

== ENCOUNTER 2021-04-12 12:39 | Emergency (ER) | payer OTHER ==
[~2021-04-12] VITALS: Ht 175.3 cm; Wt 102.1 kg
[2021-04-12] MEDS ORDERED: DICLOFENAC SODI50 MG PO (12:58)
[2021-04-12] MEDS ORDERED: CARVEDILOL25 MG PO (12:58)
--- NOTE | 2021-04-13 20:38 | EKG ---
[facility] [address] [facility] [place] [address] Signed Normal sinus rhythm Normal ECG When compared with ECG of 22-OCT-2019 20:42, Nonspecific T wave abnormality no longer evident in Lateral leads Confirmed by FARRAH COATS DO ([id number]) on 04/13/2021 8:37:56 PM Electronically Signed By: FARRAH COATS DO 04/13/212037 PATIENT NAME: CARROLLJUAN JOSE Electrocardiogram DATE OF : 72 PHYSICIAN: FARRAH COATS DO REPORT #: [id number] REPORT IS CONFIDENTIAL AND NOT TO BE RELEASED WITHOUT AUTHORIZATION
== END 2021-04-12 15:55 | disposition home or self-care (01) ==
LOC: ED 12:39
DX: R07.2 Precordial pain (principal); I10 Essential (primary) hypertension; Z87.891 Personal history of nicotine dependence; Z88.8 Allergy status to other drugs, medicaments and biological substances; Z88.2 Allergy status to sulfonamides; Z79.899 Other long term (current) drug therapy
CPT/HCPCS: 71045; 80053; 83735; 84484; 85025; 85379; 93005; 93010; 99285-25

== ENCOUNTER 2023-08-27 14:44 | Emergency (ER) | payer OTHER ==
[~2023-08-27] VITALS: Ht 175.3 cm; Wt 110.0 kg
[~2023-08-27 14:44] MED LIST changes: +AMOX TR-K CLV1 EAC1 PO; +BUPROPION HCL200 MG PO; +CARVEDILOL25 MG PO; +DICLOFENAC SODI50 MG PO; +NORVASC2.5 MG PO
[2023-08-27] MEDS ORDERED: ASPIRIN 81 MG CHEW PO ONE (15:00)
[2023-08-27 15:01] LABS: EOSINOPHILS 8.7 % (0-6); HEMATOCRIT 40.3 % (35.0-50.0); HEMOGLOBIN 13.8 g/dL (12.0-18.0); LYMPHOCYTES 30.7 % (24-44); MCH 28.5 (27-36); MCHC 34.2 g/dl (30-36); MCV 83.4 fl (81-99); MONOCYTES 6.9 % (0-12); NEUTROPHILS 52.7 % (39-80); PLATELET COUNT 278 K/uL (140-440); RBC 4.84 M/ul (4.3-5.7); RDW 13.6 (10.5-15.0)
[2023-08-27 15:19] LABS: ALBUMIN 3.6 g/dL (3.4-5.0); ALBUMIN/GLOBULIN RATIO 1.13 (1.1-2.4); ALKALINE PHOSPHATASE 58 U/L (46-116); ALT (SGPT) 28 U/L (14-59); ANION GAP 10.8 (7-21); AST (SGOT) 16 U/L (15-37); BUN/CREATININE RATIO 18.18 (6.0-28.6); CALCIUM 8.1 mg/dL (8.5-10.1); CARBON DIOXIDE 30 mmol/L (21-32); CHLORIDE 107 mmol/L (98-107); CREATININE, SERUM 0.66 mg/dL (0.55-1.02); GLOMERULAR FILTRATION RATE,EST 105 mL/min (>60); POTASSIUM 3.8 mmol/L (3.5-5.1); PROTEIN, TOTAL 6.8 g/dL (6.4-8.2); UREA NITROGEN 12 mg/dL (7-18)
[2023-08-27 16:57] VITALS: BP 121/72
--- NOTE | 2023-08-27 17:22 | EKG ---
[facility] [address] [facility] [place] [address] Signed Normal sinus rhythm Normal ECG When compared with ECG of 12-APR-2021 12:51, No significant change was found Confirmed by Salvatore Sosa ([id number]) on 08/27/2023 5:22:20 PM Electronically Signed By: SALVATORE SOSA MD 08/27/23 1722 PATIENT NAME: JUAN JOSE CARROLL Electrocardiogram DATE OF : 72 PHYSICIAN: SALVATORE SOSA MD REPORT #: [id number] REPORT IS CONFIDENTIAL AND NOT TO BE RELEASED WITHOUT AUTHORIZATION
== END 2023-08-27 16:57 | disposition home or self-care (01) ==
LOC: ED 14:44
PROVIDERS: Emergency Medicine
DX: R07.2 Precordial pain (principal); I10 Essential (primary) hypertension; Z87.891 Personal history of nicotine dependence; Z79.899 Other long term (current) drug therapy; Z88.2 Allergy status to sulfonamides
CPT/HCPCS: 36415; 71045; 80053; 83735; 84484; 85025; 93005; 93010; 99285-25; A9270